=== PATIENT | female | born 1940 | race Caucasian/White ===

== ENCOUNTER → 2018-01-09 | Outpatient (CLI) | payer MEDICARE, BC ==
--- NOTE | 2018-01-11 06:11 | PE ---
EXAMINATION TYPE: PET CT fusion skull to thigh DATE OF EXAM: 01/09/2018 COMPARISON: NONE HISTORY: Solitary pulmonary nodule TECHNIQUE: Following the intravenous administration of 13.431 mCi of F-18 FDG, whole body images are performed from the skull base to the midthigh. Images are reviewed on the computer in the coronal, axial, and sagittal planes. Reconstructed rotating images are created on independent workstation and reviewed on the computer. A noncontrast CT is performed in conjunction with the PET scan. SCAN: Initial Scan FINDINGS: SKULL BASE AND NECK: No suspicious hypermetabolic uptake is evident. CHEST, MEDIASTINUM, AND HILAR REGION: There is background of moderate to advanced underlying emphysem atous change with moderate slightly nodular ametabolic biapical pleural/parenchymal scarring. No susp icious hypermetabolic nodules are identified. Some prominence slightly hypermetabolic thoracic lymph nodes are seen for reference there is 12 by 8m m pericarinal lymph node with max SUV of 3.51 on axial image 85. ABDOMEN AND PELVIS: No suspicious hypermetabolic uptake is seen. OSSEOUS STRUCTURES: No suspicious hypermetabolic uptake is present. OTHER CT: There is mild to moderate calcified plaque at carotid bulb level bilaterally. Moderate to severe 3 vessel coronary artery calcification is present which is noted marker for boyer ry artery disease. Small hiatal hernia is present. There is small fat-containing periumbilical hernia. There is fairly moderate calcified plaque of aorta extending into branch vessels. There are diverticula throughout the colon most prominent in the sigmoid colon. There is multilevel spurring in the thoracolumbar spine. There is multilevel vacuum disc phenomenon a nd disc space narrowing. There is multilevel facet arthropathy. There is moderate to severe axial briseida nt space loss in both hips with spurring. IMPRESSION: No suspicious hypermetabolic nodules. Nonspecific slightly hypermetabolic thoracic lymph nodes favor reactive, inflammatory, or product of granulomatous disease.
== END ==
LOC: RADPETMAIN 11:37
PROVIDERS: ATTEND Internal Medicine Critical Care Medicine
DX: R91.1 Solitary pulmonary nodule (principal)
CPT/HCPCS: 78815; A9552

== ENCOUNTER → 2018-03-15 | Outpatient (CLI) | payer MEDICARE, BC ==
--- NOTE | 2018-03-19 13:00 | MM ---
Reason for exam: screening (asymptomatic). History: Patient is postmenopausal. Took hormonal contraceptives for 5 years 6 months. Took estrogen for 2 months. Physical Findings: A clinical breast exam by your physician is recommended on an annual basis and results should be correlated with mammographic findings. MG 3D Screening Mammo W/Cad Bilateral CC and MLO view(s) were taken. No prior studies available for comparison. The breast tissue is heterogeneously dense. This may lower the sensitivity of mammography. Finding: There are typically benign round calcifications in the upper outer quadrant, anterior position of the left breast. Asymmetric breast tissue left upper outer quadrant anterior position and in the right anterior position. There is no discrete abnormality. ASSESSMENT: Benign, BI-RAD 2 RECOMMENDATION: Routine screening mammogram of both breasts in 1 year.
== END ==
LOC: RADMAMWWP 15:00
PROVIDERS: ATTEND Internal Medicine Geriatric Medicine
DX: Z12.31 Encounter for screening mammogram for malignant neoplasm of breast (principal)
CPT/HCPCS: 77063; 77067

== ENCOUNTER 2018-04-18 13:57 | Inpatient (IN) | payer MEDICARE, BC ==
[2018-04-18] MEDS ORDERED: SODIUM CHLORIDE 0.9% 1,000 ML IV STA (14:08)
--- NOTE | 2018-04-18 14:50 | ED ---
General Adult HPI - General Chief complaint: Shortness of Breath Stated complaint: Sob Source: patient Mode of arrival: ambulatory Limitations: no limitations - Related Data Home Medications Medication Instructions Recorded Confirmed Albuterol Nebulized [Ventolin 2.5 mg INHALATION RT-QID 04/18/18 04/18/18 Nebulized] Aspirin EC [Ecotrin Low Dose] 81 mg PO DAILY 04/18/18 04/18/18 Atorvastatin [Lipitor] 40 mg PO HS 04/18/18 04/18/18 Clopidogrel [Plavix] 75 mg PO DAILY 04/18/18 04/18/18 Ipratropium/Albuterol Sulfate 1 puff INHALATION RT-QID PRN 04/18/18 04/18/18 [Combivent Respimat Inhaler] Levothyroxine Sodium [Synthroid] 50 mcg PO DAILY 04/18/18 04/18/18 Lisinopril [Zestril] 10 mg PO DAILY 04/18/18 04/18/18 Metoprolol Tartrate [Lopressor] 25 mg PO BID 04/18/18 04/18/18 Omeprazole [PriLOSEC] 20 mg PO DAILY 04/18/18 04/18/18 Ubidecarenone [Co Q-10] 100 mg PO DAILY 04/18/18 04/18/18 Venlafaxine HCl [Effexor XR] 150 mg PO DAILY 04/18/18 04/18/18 Allergies Allergy/AdvReac Type Severity Reaction Status Date / Time fluticasone Allergy Dyspnea Verified 04/18/18 14:28 [From Advair Diskus] Penicillins Allergy Rash/Hives Verified 04/18/18 14:28 salmeterol Allergy Dyspnea Verified 04/18/18 14:28 [From Advair Diskus] Review of Systems ROS Statement: Those systems with pertinent positive or pertinent negative responses have been documented in the HPI. ROS Other: All systems not noted in ROS Statement are negative. Past Medical History Past Medical History: COPD, Hypertension History of Any Multi-Drug Resistant Organisms: None Reported Past Psychological History: No Psychological Hx Reported Smoking Status: Former smoker Past Alcohol Use History: None Reported Past Drug Use History: None Reported General Exam Limitations: no limitations Course Vital Signs 04/18/18 04/18/18 04/18/18 14:00 15:08 16:00 Temperature 97.6 F Pulse Rate 91 71 85 Respiratory 18 18 19 Rate Blood Pressure 156/71 O2 Sat by Pulse 91 L Oximetry 04/18/18 16:55 Temperature Pulse Rate 79 Respiratory 18 Rate Blood Pressure 132/57 O2 Sat by Pulse 94 L Oximetry Medical Decision Making - Medical Decision Making Dictation was produced using [employer] dictation software. please excuse any grammatical, word or spelling errors. Chief Complaint: 78-year-old female past medical history of COPD, hypertension presents with acute onset dyspnea. History of Present Illness: 78-year-old female brought in by EMS from home for shortness of breath. Patient states she is feeling anxious recently. She states her shortness of breath got worse today. Patient has history of some COPD. Patient also has history of hypertension and coronary artery disease. Patient had a heart attack. This year which required stenting. Patient denies any chest pain. She does state that she hasn't had a cough and runny nose recently. Family was at bedside that arrives later report that she does look like she is having some dyspnea. Initial EKG performed by EMS showed computer reading STEMI however patient denied any chest pain. The ROS documented in this emergency department record has been reviewed and confirmed by me. Those systems with pertinent positive or negative responses have been documented in the HPI. All other systems are other negative and/or noncontributory. PHYSICAL EXAM: General Impression: Alert and oriented x3, not in acute distress HEENT: Normocephalic atraumatic, extra-ocular movements intact, pupils equal and reactive to light bilaterally, mucous membranes moist. Cardiovascular: Heart regular rate and rhythm, S1&S2 audible, no murmurs, rubs or gallops Chest: Lungs clear to auscultation bilaterally, no rhonchi, no wheeze, no rales Abdomen: Bowel sounds present, abdomen soft, non-tender, non-distended, no organomegaly Musculoskeletal: Pulses present and equal in all extremities, no peripheral edema Motor: Power 5/5 bilaterally, no focal deficits noted Neurological: CN II-XII grossly intact, no focal motor or sensory deficits noted Skin: Intact with no visualized rashes Psych: Normal affect and mood ED course: Year-old chief complaint of dyspnea. Prehospital EKG showed STEMI. Patient not having any clear overt symptoms of acute coronary syndrome. She appears comfortable at this time. Patient has no pain complaints. Those EKGs were reviewed by myself. EKG was obtained here showing normal sinus rhythm. There are findings of ST elevations however likely secondary to repolarization. Upon arrival are within acceptable limits. More history was obtained from patient.Laboratory evaluation obtained. Leukocytosis of 11.9. D-dimer 1.57. Coag panel unremarkable. Potassium is 6.0 which is confirmed on redraw, is 6.2. Patient doesn't have EKG changes to suggest hyperkalemia. Patient given Lasix. Troponin is 0.038. CK is 84. Urinalysis unremarkable. Repeat EKG shows no dynamic changes. Discussed patient case with Dr. Villalba who recommends patient be started on heparin. He does report no activation of Marketing And Development Coordinator today. He does recommend starting beta blockers.. Patient received aspirin. CT angiogram pending for elevated d-dimer. A right axis deviation or findings on EKG to suggest right heart strain. CT angios obtained showing no findings to suggest pulmonary embolus. At this point clinical presentation consistent with acute coronary syndrome. Patient started on heparin. EKGs were evaluated by Dr. Phelan. Patient be admitted to cardiac telemetry. EKG interpretation: Ventricular rate 80, normal sinus rhythm, VT interval 196, QS 84, QTC 426. Repeat EKG was performed approximately 3 hours later showing no dynamic changes. Ventricular rate 77, VT interval 192, care is 80, QTc 439 - Lab Data Result diagrams: 04/18/18 14:37 04/18/18 16:00 Lab Results 04/18/18 04/18/18 04/18/18 Range/Units 14:37 14:37 14:37 WBC 11.9 H (3.8-10.6) k/uL RBC 4.54 (3.80-5.40) m/uL Hgb 13.1 (11.4-16.0) gm/dL Hct 41.2 (34.0-46.0) % MCV 90.7 (80.0-100.0) fL MCH 28.8 (25.0-35.0) pg MCHC 31.7 (31.0-37.0) g/dL RDW 14.0 (11.5-15.5) % Plt Count 365 (150-450) k/uL Neutrophils % (Manual) 51 % Lymphocytes % (Manual) 13 % Monocytes % (Manual) 8 % Eosinophils % (Manual) 28 % Neutrophils # (Manual) 6.07 (1.3-7.7) k/uL Lymphocytes # (Manual) 1.55 (1.0-4.8) k/uL Monocytes # (Manual) 0.95 (0-1.0) k/uL Eosinophils # (Manual) 3.33 H (0-0.7) k/uL Nucleated RBCs 0 (0-0) /100 WBC Manual Slide Review Performed RBC Morphology Normal PT (9.0-12.0) sec INR (<1.2) APTT (22.0-30.0) sec D-Dimer (<0.60) mg/L FEU Sodium 137 (137-145) mmol/L Potassium 6.0 H (3.5-5.1) mmol/L Chloride 101 (98-107) mmol/L Carbon Dioxide 30 (22-30) mmol/L Anion Gap 6 mmol/L BUN 14 (7-17) mg/dL Creatinine 0.76 (0.52-1.04) mg/dL Est GFR (CKD-EPI)AfAm 88 (>60 ml/min/1.73 sqM) Est GFR (CKD-EPI)NonAf 76 (>60 ml/min/1.73 sqM) Glucose 121 H (74-99) mg/dL Calcium 9.8 (8.4-10.2) mg/dL Magnesium 1.9 (1.6-2.3) mg/dL Total Bilirubin 0.5 (0.2-1.3) mg/dL AST 31 (14-36) U/L ALT 22 (9-52) U/L Alkaline Phosphatase 140 H (38-126) U/L Total Creatine Kinase 84 (30-135) U/L CK-MB (CK-2) 4.4 H (0.0-2.4) ng/mL CK-MB (CK-2) Rel Index 5.2 Troponin I 0.038 H* (0.000-0.034) ng/mL NT-Pro-B Natriuret Pep pg/mL Total Protein 7.9 (6.3-8.2) g/dL Albumin 4.0 (3.5-5.0) g/dL Urine Color Urine Appearance (Clear) Urine pH (5.0-8.0) Ur Specific [place] (1.001-1.035) Urine Protein (Negative) Urine Glucose (UA) (Negative) Urine Ketones (Negative) Urine Blood (Negative) Urine Nitrite (Negative) Urine Bilirubin (Negative) Urine Urobilinogen (<2.0) mg/dL Ur Leukocyte Esterase (Negative) Urine RBC (0-5) /hpf Urine WBC (0-5) /hpf Ur Squamous Epith Cells (0-4) /hpf Amorphous Sediment (None) /hpf 04/18/18 04/18/18 04/18/18 Range/Units 14:37 14:37 15:05 WBC (3.8-10.6) k/uL RBC (3.80-5.40) m/uL Hgb (11.4-16.0) gm/dL Hct (34.0-46.0) % MCV (80.0-100.0) fL MCH (25.0-35.0) pg MCHC (31.0-37.0) g/dL RDW (11.5-15.5) % Plt Count (150-450) k/uL Neutrophils % (Manual) % Lymphocytes % (Manual) % Monocytes % (Manual) % Eosinophils % (Manual) % Neutrophils # (Manual) (1.3-7.7) k/uL Lymphocytes # (Manual) (1.0-4.8) k/uL Monocytes # (Manual) (0-1.0) k/uL Eosinophils # (Manual) (0-0.7) k/uL Nucleated RBCs (0-0) /100 WBC Manual Slide Review RBC Morphology PT 10.3 (9.0-12.0) sec INR 1.0 (<1.2) APTT 23.5 (22.0-30.0) sec D-Dimer 1.57 H (<0.60) mg/L FEU Sodium (137-145) mmol/L Potassium (3.5-5.1) mmol/L Chloride (98-107) mmol/L Carbon Dioxide (22-30) mmol/L Anion Gap mmol/L BUN (7-17) mg/dL Creatinine (0.52-1.04) mg/dL Est GFR (CKD-EPI)AfAm (>60 ml/min/1.73 sqM) Est GFR (CKD-EPI)NonAf (>60 ml/min/1.73 sqM) Glucose (74-99) mg/dL Calcium (8.4-10.2) mg/dL Magnesium (1.6-2.3) mg/dL Total Bilirubin (0.2-1.3) mg/dL AST (14-36) U/L ALT (9-52) U/L Alkaline Phosphatase (38-126) U/L Total Creatine Kinase (30-135) U/L CK-MB (CK-2) (0.0-2.4) ng/mL CK-MB (CK-2) Rel Index Troponin I (0.000-0.034) ng/mL NT-Pro-B Natriuret Pep 511 pg/mL Total Protein (6.3-8.2) g/dL Albumin (3.5-5.0) g/dL Urine Color Yellow Urine Appearance Clear (Clear) Urine pH 6.0 (5.0-8.0) Ur Specific [place] 1.008 (1.001-1.035) Urine Protein Negative (Negative) Urine Glucose (UA) Negative (Negative) Urine Ketones Negative (Negative) Urine Blood Trace H (Negative) Urine Nitrite Negative (Negative) Urine Bilirubin Negative (Negative) Urine Urobilinogen <2.0 (<2.0) mg/dL Ur Leukocyte Esterase Trace H (Negative) Urine RBC 2 (0-5) /hpf Urine WBC 3 (0-5) /hpf Ur Squamous Epith Cells 2 (0-4) /hpf Amorphous Sediment Rare H (None) /hpf 04/18/18 Range/Units 16:00 WBC (3.8-10.6) k/uL RBC (3.80-5.40) m/uL Hgb (11.4-16.0) gm/dL Hct (34.0-46.0) % MCV (80.0-100.0) fL MCH (25.0-35.0) pg MCHC (31.0-37.0) g/dL RDW (11.5-15.5) % Plt Count (150-450) k/uL Neutrophils % (Manual) % Lymphocytes % (Manual) % Monocytes % (Manual) % Eosinophils % (Manual) % Neutrophils # (Manual) (1.3-7.7) k/uL Lymphocytes # (Manual) (1.0-4.8) k/uL Monocytes # (Manual) (0-1.0) k/uL Eosinophils # (Manual) (0-0.7) k/uL Nucleated RBCs (0-0) /100 WBC Manual Slide Review RBC Morphology PT (9.0-12.0) sec INR (<1.2) APTT (22.0-30.0) sec D-Dimer (<0.60) mg/L FEU Sodium (137-145) mmol/L Potassium 6.2 H* (3.5-5.1) mmol/L Chloride (98-107) mmol/L Carbon Dioxide (22-30) mmol/L Anion Gap mmol/L BUN (7-17) mg/dL Creatinine (0.52-1.04) mg/dL Est GFR (CKD-EPI)AfAm (>60 ml/min/1.73 sqM) Est GFR (CKD-EPI)NonAf (>60 ml/min/1.73 sqM) Glucose (74-99) mg/dL Calcium (8.4-10.2) mg/dL Magnesium (1.6-2.3) mg/dL Total Bilirubin (0.2-1.3) mg/dL AST (14-36) U/L ALT (9-52) U/L Alkaline Phosphatase (38-126) U/L Total Creatine Kinase (30-135) U/L CK-MB (CK-2) (0.0-2.4) ng/mL CK-MB (CK-2) Rel Index Troponin I (0.000-0.034) ng/mL NT-Pro-B Natriuret Pep pg/mL Total Protein (6.3-8.2) g/dL Albumin (3.5-5.0) g/dL Urine Color Urine Appearance (Clear) Urine pH (5.0-8.0) Ur Specific [place] (1.001-1.035) Urine Protein (Negative) Urine Glucose (UA) (Negative) Urine Ketones (Negative) Urine Blood (Negative) Urine Nitrite (Negative) Urine Bilirubin (Negative) Urine Urobilinogen (<2.0) mg/dL Ur Leukocyte Esterase (Negative) Urine RBC (0-5) /hpf Urine WBC (0-5) /hpf Ur Squamous Epith Cells (0-4) /hpf Amorphous Sediment (None) /hpf Disposition Clinical Impression: ACS (acute coronary syndrome) Disposition: ADMITTED IP TO THIS HOSP Condition: Fair Referrals: Tru Bustamante MD [Primary Care Provider] - 1-2 days Decision Time: 17:13
[2018-04-18 15:02] LABS: Calcium 9.8 mg/dL (8.4-10.2); HCT 41.2 % (34.0-46.0); HGB 13.1 gm/dL (11.4-16.0); MCH 28.8 pg (25.0-35.0); MCHC 31.7 g/dL (31.0-37.0); MCV 90.7 fL (80.0-100.0); Magnesium 1.9 mg/dL (1.6-2.3); Mean Platelet Volume 6.6; Platelet Count 365 k/uL (150-450); RBC 4.54 m/uL (3.80-5.40); Total Bilirubin 0.5 mg/dL (0.2-1.3); Total Protein 7.9 g/dL (6.3-8.2); WBC 11.9 k/uL (3.8-10.6)
[2018-04-18 15:05] LABS: Partial Thromboplastin Time 23.5 sec (22.0-30.0); Prothrombin Time 10.3 sec (9.0-12.0)
[2018-04-18 15:12] LABS: Eosinophils # (M) 3.33 k/uL (0-0.7); Lymphocytes # (M) 1.55 k/uL (1.0-4.8); Monocytes # (M) 0.95 k/uL (0-1.0); Neutrophils # (M) 6.07 k/uL (1.3-7.7); Neutrophils % (M) 51 %; Nucleated Red Blood Cells 0 /100 WBC (0-0); Total Cells Counted 100
[2018-04-18 15:16] LABS: D-Dimer 1.57 mg/L FEU (<0.60)
[2018-04-18 15:17] LABS: Creatine Kinase MB 4.4 ng/mL (0.0-2.4)
[2018-04-18 15:21] LABS: Troponin I 0.038 ng/mL (0.000-0.034)
[2018-04-18 15:21] LABS: Amorphous Sediment,Urine Rare /hpf; Appearance,Urine Clear (Clear); Bilirubin,Urine Negative (Negative); Blood,Urine Trace (Negative); Color,Urine Yellow; Glucose,Urine (UA) Negative (Negative); Ketones,Urine Negative (Negative); Leukocyte Esterase,Urine Trace (Negative); Nitrite,Urine Negative (Negative); Protein,Urine Negative (Negative); RBC,Urine 2 /hpf (0-5); Specific Gravity,Urine 1.008 (1.001-1.035); Squamous Epithelial Cell,Urine 2 /hpf (0-4); Urobilinogen,Urine <2.0 mg/dL (<2.0)
[2018-04-18] MEDS ORDERED: HEPARIN SODIUM,PORCINE 5,000 UNIT/ML 1 ML VIAL IV PRN (15:31)
[2018-04-18] MEDS ORDERED: HEPARIN SODIUM,PORCINE 10,000 UNIT/ML 1 ML VIAL IV ONE (15:31)
[2018-04-18] MEDS ORDERED: ASPIRIN 81 MG PO STA (15:31)
[2018-04-18] MEDS: HEPARIN SOD,PORK IN 0.45% NACL 25,000 UNIT in 0.45% NACL 1 250ML.BAG IV SCH (15:52)
--- NOTE | 2018-04-18 16:14 | XR ---
EXAMINATION TYPE: XR chest 2V DATE OF EXAM: 04/18/2018 COMPARISON: NONE HISTORY: Short of breath TECHNIQUE: Frontal and lateral views of the chest are obtained. FINDINGS: There is no heart failure. Heart is normal. Costophrenic angles are clear. There is slight coarsening of interstitial markings. IMPRESSION: Pulmonary fibrotic changes. Normal heart.
[2018-04-18] MEDS ORDERED: ALBUTEROL NEBULIZED 2.5 MG/3 ML INHALATION STA (16:37)
[2018-04-18] MEDS ORDERED: FUROSEMIDE 10 MG/ML 4 ML VIAL IV STA (16:38)
--- NOTE | 2018-04-18 17:10 | CT ---
EXAMINATION TYPE: CT angio chest DATE OF EXAM: 04/18/2018 4:38 PM COMPARISON: None HISTORY: dyspnea CT DLP: 289 mGycm Automated exposure control for dose reduction was used. CONTRAST: CTA scan of the thorax is performed with IV Contrast, patient injected with 100 mL of Isovue 370, pul monary embolism protocol. There are 3-D post processed images.. FINDINGS: There is some nodular pleural thickening and infiltrate at the right lung apices bilaterally. There a re pulmonary densities that measure up to 3 cm with calcification. This is probably scarring. There i s moderate pulmonary emphysema. There is no pleural effusion. There is small hiatal hernia. Heart siz e is normal. There is no pericardial effusion. There are mediastinal and bronchial lymph nodes that m easure up to 1.5 cm. There is some calcification also. There is normal contrast opacification of the pulmonary arteries. I see no filling defect. The thoracic and lumbar spine appear intact with hypertrophic spur formation. I see no focal bone be truction. IMPRESSION: No evidence of pulmonary embolism. THERE IS PLEURAL AND PULMONARY SCARRING IN BOTH UPPER LOBES. I DO NOT SUSPECT A NEOPLASTIC PROCESS. P ULMONARY EMPHYSEMA. NO EVIDENCE OF PULMONARY EMBOLISM. 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 THE OLD PET CT SCAN FROM 01/09/2018 IS REVIEWED AND ADENOPATHY AND APICAL PULMONARY AND PLEURAL DENSIT Y APPEARS NOT SIGNIFICANTLY DIFFERENT.
[2018-04-18] MEDS ORDERED: NITROGLYCERIN SL TABS 0.4 MG TAB SUBLINGUAL PRN (17:13)
[2018-04-18] MEDS ORDERED: ALBUTEROL NEBULIZED 2.5 MG/3 ML INHALATION PRN (19:14)
[2018-04-18] MEDS: IPRATROPIUM-ALBUTEROL 3 ML NEB INHALATION SCH (19:34)
[2018-04-18 22:45] LABS: Creatine Kinase MB 4.6 ng/mL (0.0-2.4)
[2018-04-18] MEDS: METOPROLOL TARTRATE 25 MG TAB PO SCH (23:10)
[2018-04-18 23:16] LABS: Troponin I 0.039 ng/mL (0.000-0.034)
[2018-04-19] MEDS: IPRATROPIUM-ALBUTEROL 3 ML NEB INHALATION SCH ×6 (01:08→21:09)
[2018-04-19 02:18] LABS: Cholesterol 129 mg/dL (<200); HDL Cholesterol 47 mg/dL (40-60); LDL Cholesterol,Calculated 61 mg/dL (0-99); Triglycerides 106 mg/dL (<150)
[2018-04-19 02:54] LABS: Creatine Kinase MB 4.4 ng/mL (0.0-2.4)
[2018-04-19 04:26] LABS: Troponin I 0.04 ng/mL (0.000-0.034)
--- NOTE | 2018-04-19 08:34 | P.CRDCN ---
History of Present Illness Consult date: 04/19/18 Requesting physician: Josie Almanzar Consult reason: shortness of breath Chief complaint: Shortness of breath, weakness History of present illness: This is a pleasant 78-year-old female who has a known history of coronary artery disease, she states that she had a myocardial infarction approximately 4 years ago, she was [facility], underwent stent placement at that time, she also has history of hypothyroidism, hypertension, hyperlipidemia, anxiety, emphysema, prior history of smoking, she quit smoking approximately 4 years ago. She states that she has not been feeling well for approximate four-week duration. She's been more short of breath than usual, she 's been having a persistent cough, she states that she's coughing up a yellow sputum. She does feel chills at times, but denies having any fever. She does state that she gets chest pain but only occurs after she has coughed, she feels that across the front of her chest and into her back. She does state that when she is not coughing she has no chest pain at all. Patient states that she called her granddaughter because she was so weak she was unable to walk to the bathroom, is quite short of breath and was brought to the hospital then for further evaluation and treatment. According to the patient, she had been started on an antibiotic as an outpatient for a possible bronchitis/pneumonia. Blood pressure on arrival here 156/70, heart rate in the 90s, 91% on room air. White blood cell count 11.9, hemoglobin 13.1, platelet count 365. D-dimer 1.5. Potassium on admission was 6, 6.2 was susceptible and dry. BUN 14, creatinine 0.7. Troponins 0.038, 0.039, 0.040. Urinalysis showed trace of leukocyte Estrace trace of blood in the urine. Chest x-ray showed pulmonary fibrotic changes. CTA of the chest did not reveal any evidence for pulmonary embolism. There is some nodular pleural thickening and infiltrate at the right lung apices bilaterally. Pulmonary densities that measure up to 3 cm with calcification which is likely scarring. There is moderate pulmonary emphysema. Mediastinotomy bronchial lymph nodes measuring up to 1.5 cm with some calcification noted there as well. EKG on arrival here shows a normal sinus rhythm with nonspecific ST-T wave changes. At the time of my examination this morning, patient states that she feels mildly weak, has decreased appetite, denies any chest pain and breathing overall is stable. She continues to cough up yellow sputum. Past Medical History Past Medical History: Heart Failure, COPD, Hearing Disorder / Deafness, Hypertension, Myocardial Infarction ([place]), Osteoarthritis (OA), Respiratory Disorder Additional Past Medical History / Comment(s): HOME OXYGEN 2LNC UNDER 10YEARS Last Myocardial Infarction Date:: 2013 History of Any Multi-Drug Resistant Organisms: None Reported Past Surgical History: Appendectomy, Heart Catheterization With Stent Past Anesthesia/Blood Transfusion Reactions: No Reported Reaction Date of Last Stent Placement:: 2013 Past Psychological History: No Psychological Hx Reported Smoking Status: Former smoker Past Alcohol Use History: None Reported Past Drug Use History: None Reported - Past Family History Father Family Medical History: Prostate Disorder Additional Family Medical History / Comment(s): PROSTATE CA Mother Family Medical History: Congestive Heart Failure (CHF) Medications and Allergies Home Medications Medication Instructions Recorded Confirmed Type Albuterol Nebulized [Ventolin 2.5 mg INHALATION RT-QID 04/18/18 04/18/18 History Nebulized] Aspirin EC [Ecotrin Low Dose] 81 mg PO DAILY 04/18/18 04/18/18 History Atorvastatin [Lipitor] 40 mg PO HS 04/18/18 04/18/18 History Clopidogrel [Plavix] 75 mg PO DAILY 04/18/18 04/18/18 History Ipratropium/Albuterol Sulfate 1 puff INHALATION RT-QID PRN 04/18/18 04/18/18 History [Combivent Respimat Inhaler] Levothyroxine Sodium [Synthroid] 50 mcg PO DAILY 04/18/18 04/18/18 History Lisinopril [Zestril] 10 mg PO DAILY 04/18/18 04/18/18 History Metoprolol Tartrate [Lopressor] 25 mg PO BID 04/18/18 04/18/18 History Omeprazole [PriLOSEC] 20 mg PO DAILY 04/18/18 04/18/18 History Ubidecarenone [Co Q-10] 100 mg PO DAILY 04/18/18 04/18/18 History Venlafaxine HCl [Effexor XR] 150 mg PO DAILY 04/18/18 04/18/18 History Allergies Allergy/AdvReac Type Severity Reaction Status Date / Time fluticasone Allergy Dyspnea Verified 04/18/18 14:28 [From Advair Diskus] Penicillins Allergy Rash/Hives Verified 04/18/18 14:28 salmeterol Allergy Dyspnea Verified 04/18/18 14:28 [From Advair Diskus] Physical Exam Vitals: Vital Signs Temp Pulse Pulse Resp BP BP Pulse Ox 04/19/18 05:18 92 04/19/18 05:03 88 04/19/18 04:00 98.1 F 87 15 145/95 91 L 04/19/18 01:23 90 04/19/18 01:10 90 04/18/18 22:05 98.1 F 92 20 125/83 94 L 04/18/18 20:00 81 16 140/76 04/18/18 19:46 93 04/18/18 19:38 87 04/18/18 19:30 87 15 152/64 96 04/18/18 19:00 86 25 H 142/68 95 04/18/18 18:42 98.1 F 92 20 125/83 94 L 04/18/18 18:30 81 13 178/89 97 04/18/18 18:00 85 22 145/90 94 L 04/18/18 17:30 98 20 137/62 94 L 04/18/18 17:00 76 14 132/57 95 04/18/18 16:55 79 18 132/57 94 L 04/18/18 16:00 85 19 04/18/18 15:08 71 18 04/18/18 14:00 97.6 F 91 18 156/71 91 L Intake and Output 04/18/18 04/19/18 04/19/18 22:59 06:59 14:59 Intake Total 122.492 Output Total 150 Balance -27.508 Intake: Intake, IV Titration 122.492 Amount Heparin Sod,Pork in 0.45% 122.492 NaCl 25,000 unit In 0.45 % NaCl 1 250ml.bag @ 18 UNITS/KG/HR 11.43 mls/hr IV .[id number] [facility] Rx#: [id number] Output: Urine 150 Other: Voiding Method Toilet Toilet Bedside Commode Bedside Commode Weight 66.1 kg PHYSICAL EXAMINATION: GENERAL: 78-year-old female in no acute distress at the time of my examination HEENT: Head is atraumatic, normocephalic. Pupils equal, round. Sclera anicteric. Conjunctiva are clear. Mucous membranes of the mouth are moist. Neck is supple. There is no elevated jugular venous pressure.No Carotid bruit is heard. HEART EXAMINATION: Heart S1, S2 normal. No murmur or gallop heard. CHEST EXAMINATION: Lungs reveal coarse rales to bilateral bases. ABDOMEN: Soft, nontender. Bowel sounds are heard. No organomegaly noted. EXTREMITIES: 2+ peripheral pulses with no evidence of peripheral edema and no calf tenderness noted. NEUROLOGIC patient is awake, alert and oriented 3 . . Results 04/18/18 14:37 04/18/18 16:00 Cardiac Enzymes 04/18/18 04/18/18 04/18/18 Range/Units 14:37 14:37 21:22 AST 31 (14-36) U/L CK-MB (CK-2) 4.4 H 4.6 H (0.0-2.4) ng/mL Troponin I 0.038 H* 0.039 H* (0.000-0.034) ng/mL 04/19/18 Range/Units 01:30 AST (14-36) U/L CK-MB (CK-2) 4.4 H (0.0-2.4) ng/mL Troponin I 0.040 H* (0.000-0.034) ng/mL Coagulation 04/18/18 04/19/18 Range/Units 14:37 01:30 PT 10.3 (9.0-12.0) sec APTT 23.5 116.0 H* (22.0-30.0) sec Lipids 04/19/18 Range/Units 01:30 Triglycerides 106 (<150) mg/dL Cholesterol 129 (<200) mg/dL HDL Cholesterol 47 (40-60) mg/dL CBC 04/18/18 Range/Units 14:37 WBC 11.9 H (3.8-10.6) k/uL RBC 4.54 (3.80-5.40) m/uL Hgb 13.1 (11.4-16.0) gm/dL Hct 41.2 (34.0-46.0) % Plt Count 365 (150-450) k/uL Comprehensive Metabolic Panel 04/18/18 04/18/18 Range/Units 14:37 16:00 Sodium 137 (137-145) mmol/L Potassium 6.0 H 6.2 H* (3.5-5.1) mmol/L Chloride 101 (98-107) mmol/L Carbon Dioxide 30 (22-30) mmol/L BUN 14 (7-17) mg/dL Creatinine 0.76 (0.52-1.04) mg/dL Glucose 121 H (74-99) mg/dL Calcium 9.8 (8.4-10.2) mg/dL AST 31 (14-36) U/L ALT 22 (9-52) U/L Alkaline Phosphatase 140 H (38-126) U/L Total Protein 7.9 (6.3-8.2) g/dL Albumin 4.0 (3.5-5.0) g/dL Current Medications Generic Name Dose Route Start Last Admin Trade Name Freq PRN Reason Stop Dose Admin Albuterol Sulfate 2.5 mg 04/18/18 19:14 04/18/18 19:36 Ventolin Nebulized INHALATION 2.5 mg RT-QID PRN Administration Dyspnea Albuterol/Ipratropium 3 ml 04/18/18 20:00 04/19/18 05:03 Duoneb 0.5 Mg-3 Mg/3 Ml Soln INHALATION 3 ml RT-Q4H MELANIA Administration Aspirin 325 mg 04/19/18 09:00 Aspirin PO DAILY [facility] Atorvastatin Calcium 80 mg 04/19/18 09:00 Lipitor PO DAILY [facility] Clopidogrel Bisulfate 75 mg 04/19/18 09:00 Plavix PO DAILY [facility] Heparin Sodium (Porcine) 0 unit 04/18/18 15:31 Heparin IV PER PROTOCOL PRN Low PTT Protocol Sodium Chloride 1,000 mls @ 20 mls/hr 04/18/18 14:08 04/18/18 14:34 Saline 0.9% IV 04/19/18 14:07 20 mls/hr .Q24H [facility] Administration Heparin Sodium/Sodium Chloride 250 mls @ 11.43 mls/hr 04/18/18 15:45 03:35 25,000 unit/ Sodium Chloride IV 15 units/kg/hr .[id number] MELANIA 9.52 mls/hr Titration Protocol 18 UNITS/KG/HR Metoprolol Tartrate 25 mg 04/18/18 21:00 04/18/18 23:10 Lopressor PO 25 mg BID MELANIA Administration Nitroglycerin 0.4 mg 04/18/18 17:13 Nitrostat SUBLINGUAL Q5M PRN Chest Pain Intake and Output 04/18/18 04/19/18 04/19/18 22:59 06:59 14:59 Intake Total 122.492 Output Total 150 Balance -27.508 Intake: Intake, IV Titration 122.492 Amount Heparin Sod,Pork in 0.45% 122.492 NaCl 25,000 unit In 0.45 % NaCl 1 250ml.bag @ 18 UNITS/KG/HR 11.43 mls/hr IV .[id number] [facility] Rx#: [id number] Output: Urine 150 Other: Voiding Method Toilet Toilet Bedside Commode Bedside Commode Weight 66.1 kg 04/18/18 14:37 04/18/18 16:00 EKG Interpretations (text) EKG shows normal sinus rhythm with nonspecific ST-T wave changes Assessment and Plan Plan: Assessment and plan #1 symptoms of shortness of breath with associated productive cough of yellow sputum, chest x-ray shows pulmonary fibrotic changes. TA the chest negative for pulmonary embolism, there is some nodular pleural thickening and infiltrate at the right lung apices bilaterally. Pulmonary densities measuring up to 3 cm with calcification. Moderate pulmonary emphysema. Mediastinotomy bronchial lymph nodes which measure up to 1.5 cm. #2 hyperkalemia #3 atypical chest pain, symptoms occur with deep breathing and with coughing. Troponins 0.038, 0.039, 0.040. #4 hypertension #5 hyperlipidemia #6 coronary artery disease with myocardial infarction 4 years ago with stent placement, we will attempt to obtain records from [facility]. #7 hypothyroidism #8 prior history of smoking #9 emphysema #10 anxiety Plan We will obtain an echocardiogram with Doppler study. Patient's troponin abnormality not consistent with acute coronary syndrome, and chest pain is atypical. Monitor potassium closely. We will hold on the patient's lisinopril for now. Resume the patient's Plavix, decrease aspirin to 81 mg daily, continue statin, continue beta margaret. Patient's to follow. DNP note has been reviewed, I agree with a documented findings and plan of care. Patient was seen and examined.
[2018-04-19 09:01] LABS: Calcium 9.8 mg/dL (8.4-10.2); Potassium 4.6 mmol/L (3.5-5.1)
[2018-04-19] MEDS: CLOPIDOGREL 75 MG TAB PO SCH (09:06)
[2018-04-19] MEDS: METOPROLOL TARTRATE 25 MG TAB PO SCH ×2 (09:06→20:31)
[2018-04-19] MEDS: ATORVASTATIN 80 MG TAB PO SCH (09:06)
[2018-04-19] MEDS: ASPIRIN 325 MG TAB PO SCH (09:06)
[2018-04-19 11:34] LABS: Glucose,Whole Blood 109 mg/dL (75-99)
[2018-04-19] MEDS: INSULIN ASPART 100 UNIT/ML 1 ML 10 ML VIAL SQ SCH ×3 (11:52→20:31)
[2018-04-19] MEDS: methylPREDNISolone SOD SUCCI 125 MG/2 ML VIAL IV SCH ×2 (11:54→16:44)
[2018-04-19] MEDS ORDERED: IPRATROPIUM-ALBUTEROL 3 ML NEB INHALATION PRN (13:04)
--- NOTE | 2018-04-19 13:09 | P.HPIM ---
History of Present Illness H&P Date: 04/19/18 Chief Complaint: Shorthness of breath This is a pleasant 78-year-old female who was brought in to the emergency department today by EMS for shortness of breath from home. Patient states that her shortness of breath has gotten worse today. She does have a history of COPD. Patient states that she is had a cough with yellow sputum and a runny nose recently. Patient denies chills or fever. Patient states that her shortness of breath has increased enough where it's difficult to ambulate to the bathroom. Patient also complains of weakness. Patient states that her difficulty breathing has been increasing where she is finding it more difficult to ambulate around her apartment. Patient has a history of COPD, hypertension and coronary artery disease. Patient had a DC approximate 4 years ago that required stenting at that time. At this time patient is resting in bed comfortably without any complaints. Patient does experience shortness of breath with conversation. Patient states that her cough is approximately what it normally is with yellow sputum which is also normal for her. Patient denies any fever or chills at this time. EKG on arrival showed normal sinus rhythm with nonspecific ST and T-wave changes. Chest x-ray revealed pulmonary fibrotic changes. CT of the chest did not reveal any evidence of pulmonary embolism. There was some nodular pleural thickening and infiltrate at the right lung apexes bilaterally. Patient does have moderate pulmonary emphysema. Mediastinotomy bronchial lymph node measuring up to 1.5 cm with calcification noted as well. Review of Systems All systems: negative Constitutional: Reports fatigue, Reports weakness, Denies chills, Denies fever Eyes: denies blurred vision, denies pain Ears, nose, mouth and throat: Reports nasal congestion, Reports nasal discharge , Denies headache, Denies sore throat Cardiovascular: Denies chest pain, Denies edema, Denies shortness of breath Respiratory: Reports congestion, Reports cough, Reports cough with sputum, Reports dyspnea, Reports home oxygen Gastrointestinal: Denies abdominal pain, Denies diarrhea, Denies nausea, Denies vomiting Genitourinary: Denies dysuria, Denies hematuria Musculoskeletal: Denies myalgias Integumentary: Denies pruritus, Denies rash Neurological: Denies numbness, Denies weakness Psychiatric: Denies anxiety, Denies depression Endocrine: Reports fatigue, Denies weight change Past Medical History Past Medical History: Heart Failure, COPD, Hearing Disorder / Deafness, Hypertension, Myocardial Infarction ([place]), Osteoarthritis (OA), Respiratory Disorder Additional Past Medical History / Comment(s): HOME OXYGEN 2LNC UNDER 10YEARS Last Myocardial Infarction Date:: 2013 History of Any Multi-Drug Resistant Organisms: None Reported Past Surgical History: Appendectomy, Heart Catheterization With Stent Past Anesthesia/Blood Transfusion Reactions: No Reported Reaction Date of Last Stent Placement:: 2013 Past Psychological History: No Psychological Hx Reported Smoking Status: Former smoker Past Alcohol Use History: None Reported Past Drug Use History: None Reported - Past Family History Father Family Medical History: Prostate Disorder Additional Family Medical History / Comment(s): PROSTATE CA Mother Family Medical History: Congestive Heart Failure (CHF) Medications and Allergies Home Medications Medication Instructions Recorded Confirmed Type Albuterol Nebulized [Ventolin 2.5 mg INHALATION RT-QID 04/18/18 04/18/18 History Nebulized] Aspirin EC [Ecotrin Low Dose] 81 mg PO DAILY 04/18/18 04/18/18 History Atorvastatin [Lipitor] 40 mg PO HS 04/18/18 04/18/18 History Clopidogrel [Plavix] 75 mg PO DAILY 04/18/18 04/18/18 History Ipratropium/Albuterol Sulfate 1 puff INHALATION RT-QID PRN 04/18/18 04/18/18 History [Combivent Respimat Inhaler] Levothyroxine Sodium [Synthroid] 50 mcg PO DAILY 04/18/18 04/18/18 History Lisinopril [Zestril] 10 mg PO DAILY 04/18/18 04/18/18 History Metoprolol Tartrate [Lopressor] 25 mg PO BID 04/18/18 04/18/18 History Omeprazole [PriLOSEC] 20 mg PO DAILY 04/18/18 04/18/18 History Ubidecarenone [Co Q-10] 100 mg PO DAILY 04/18/18 04/18/18 History Venlafaxine HCl [Effexor XR] 150 mg PO DAILY 04/18/18 04/18/18 History Allergies Allergy/AdvReac Type Severity Reaction Status Date / Time fluticasone Allergy Dyspnea Verified 04/18/18 14:28 [From Advair Diskus] Penicillins Allergy Rash/Hives Verified 04/18/18 14:28 salmeterol Allergy Dyspnea Verified 04/18/18 14:28 [From Advair Diskus] Physical Exam Vitals: Vital Signs Temp Pulse Pulse Resp BP BP Pulse Ox 04/19/18 12:51 86 04/19/18 12:42 84 04/19/18 12:00 76 16 04/19/18 11:50 76 16 122/70 96 04/19/18 09:15 80 04/19/18 09:06 86 94 L 04/19/18 08:00 97.9 F 83 18 135/64 04/19/18 05:18 92 04/19/18 05:03 88 04/19/18 04:00 98.1 F 87 15 145/95 91 L 04/19/18 01:23 90 04/19/18 01:10 90 04/18/18 22:05 98.1 F 92 20 125/83 94 L 04/18/18 20:00 81 16 140/76 04/18/18 19:46 93 04/18/18 19:38 87 04/18/18 19:30 87 15 152/64 96 04/18/18 19:00 86 25 H 142/68 95 04/18/18 18:42 98.1 F 92 20 125/83 94 L 04/18/18 18:30 81 13 178/89 97 04/18/18 18:00 85 22 145/90 94 L 04/18/18 17:30 98 20 137/62 94 L 04/18/18 17:00 76 14 132/57 95 04/18/18 16:55 79 18 132/57 94 L 04/18/18 16:00 85 19 04/18/18 15:08 71 18 04/18/18 14:00 97.6 F 91 18 156/71 91 L Intake and Output 04/18/18 04/19/18 04/19/18 22:59 06:59 14:59 Intake Total 122.492 340 Output Total 150 Balance -27.508 340 Intake: Intake, IV Titration 122.492 100 Amount Heparin Sod,Pork in 0.45% 122.492 NaCl 25,000 unit In 0.45 % NaCl 1 250ml.bag @ 18 UNITS/KG/HR 11.43 mls/hr IV .[id number] [facility] Rx#: [id number] Sodium Chloride 0.9% 1, 100 000 ml @ 20 mls/hr IV . Q24H [facility] Rx#:[id number] Oral 240 Output: Urine 150 Other: Voiding Method Toilet Toilet Bedside Commode Bedside Commode # Voids 1 Weight 66.1 kg - Constitutional General appearance: average body habitus, cooperative, mild distress - EENT Eyes: anicteric sclerae, EOMI, PERRLA ENT: hearing grossly normal, NA/AT - Neck Neck: no lymphadenopathy, normal ROM, no rigidity - Respiratory Respiratory: bilateral: diminished, dullness - Cardiovascular Rhythm: regular Heart sounds: normal: S1, S2 Abnormal Heart Sounds: no systolic murmur, no diastolic murmur, no rub, no S3 Gallop, no S4 Gallop, no click, no other - Gastrointestinal General gastrointestinal: normal bowel sounds, no organomegaly, soft, no tenderness - Integumentary Integumentary: pale - Neurologic Neurologic: CNII-XII intact - Musculoskeletal Musculoskeletal: generalized weakness - Psychiatric Psychiatric: A&O x's 3, appropriate affect, intact judgment & insight Results CBC & Chem 7: 04/18/18 14:37 04/19/18 08:28 Labs: Abnormal Lab Results - Last 24 Hours (Table) 04/18/18 04/18/18 04/18/18 Range/Units 14:37 14:37 14:37 WBC 11.9 H (3.8-10.6) k/uL Eosinophils # (Manual) 3.33 H (0-0.7) k/uL APTT (22.0-30.0) sec D-Dimer (<0.60) mg/L FEU Potassium 6.0 H (3.5-5.1) mmol/L Carbon Dioxide (22-30) mmol/L Glucose 121 H (74-99) mg/dL POC Glucose (mg/dL) (75-99) mg/dL Alkaline Phosphatase 140 H (38-126) U/L CK-MB (CK-2) 4.4 H (0.0-2.4) ng/mL Troponin I 0.038 H* (0.000-0.034) ng/mL Urine Blood (Negative) Ur Leukocyte Esterase (Negative) Amorphous Sediment (None) /hpf 04/18/18 04/18/18 04/18/18 Range/Units 14:37 15:05 16:00 WBC (3.8-10.6) k/uL Eosinophils # (Manual) (0-0.7) k/uL APTT (22.0-30.0) sec D-Dimer 1.57 H (<0.60) mg/L FEU Potassium 6.2 H* (3.5-5.1) mmol/L Carbon Dioxide (22-30) mmol/L Glucose (74-99) mg/dL POC Glucose (mg/dL) (75-99) mg/dL Alkaline Phosphatase (38-126) U/L CK-MB (CK-2) (0.0-2.4) ng/mL Troponin I (0.000-0.034) ng/mL Urine Blood Trace H (Negative) Ur Leukocyte Esterase Trace H (Negative) Amorphous Sediment Rare H (None) /hpf 04/18/18 04/19/18 04/19/18 Range/Units 21:22 01:30 01:30 WBC (3.8-10.6) k/uL Eosinophils # (Manual) (0-0.7) k/uL APTT 116.0 H* (22.0-30.0) sec D-Dimer (<0.60) mg/L FEU Potassium (3.5-5.1) mmol/L Carbon Dioxide (22-30) mmol/L Glucose (74-99) mg/dL POC Glucose (mg/dL) (75-99) mg/dL Alkaline Phosphatase (38-126) U/L CK-MB (CK-2) 4.6 H 4.4 H (0.0-2.4) ng/mL Troponin I 0.039 H* 0.040 H* (0.000-0.034) ng/mL Urine Blood (Negative) Ur Leukocyte Esterase (Negative) Amorphous Sediment (None) /hpf 04/19/18 04/19/18 04/19/18 Range/Units 08:28 08:28 11:27 WBC (3.8-10.6) k/uL Eosinophils # (Manual) (0-0.7) k/uL APTT 52.5 H (22.0-30.0) sec D-Dimer (<0.60) mg/L FEU Potassium (3.5-5.1) mmol/L Carbon Dioxide 35 H (22-30) mmol/L Glucose 168 H (74-99) mg/dL POC Glucose (mg/dL) 109 H (75-99) mg/dL Alkaline Phosphatase (38-126) U/L CK-MB (CK-2) (0.0-2.4) ng/mL Troponin I (0.000-0.034) ng/mL Urine Blood (Negative) Ur Leukocyte Esterase (Negative) Amorphous Sediment (None) /hpf Thrombosis Risk Factor Assmnt - Choose All That Apply Each Factor Represents 1 point: Serious lung disease incl. pneumonia (< 1month) Each Risk Factor Represents 3 Points: Age 75 years or older Thrombosis Risk Factor Assessment Total Risk Factor Score: 4 Thrombosis Risk Factor Assessment Level: Moderate Risk Assessment and Plan Plan: #1 symptoms of shortness of breath with associated productive cough of yellow sputum, chest x-ray shows pulmonary fibrotic changes. CTA the chest negative for pulmonary embolism, there is some nodular pleural thickening and infiltrate at the right lung apices bilaterally. Pulmonary densities measuring up to 3 cm with calcification. Moderate pulmonary emphysema. Mediastinotomy bronchial lymph nodes which measure up to 1.5 cm. consult pulmonology. Continue Solu- Medrol 60 mg every 6 hours IV. Azithromycin 500 mg by mouth daily. Repeat chest x-ray in the morning. Obtain a sputum culture #2 COPD exacerbation. See aboveContinue with nebulizer treatments. #3 hyperkalemia. We'll monitor CMP repeat potassium 4.6 #4 atypical chest pain, symptoms occur with deep breathing and with coughing. Troponins 0.038, 0.039, 0.040. Cardiac consult appreciated. #5 hypertension Lopressor 25 mg twice a day #6 hyperlipidemia atorvastatin 80 mg by mouth daily #7 coronary artery disease with myocardial infarction 4 years ago with stent placement, we will attempt to obtain records from [facility]. #8 hypothyroidism. Continue levothyroxine 50 mcg by mouth daily. We'll assess thyroid levels. #9 prior history of smoking #10 anxiety. Continue Effexor 150 mg by mouth daily #11 DVT prophylaxis: Heparin drip #12 GI prophylaxis: Pepcid 20 mg by mouth daily Discharge plan: Home in approximately 2-3 days Impression and plan of care have been directed as dictated by the signing physician. Tenisha Sanchez nurse practitioner acting as scribe for signing physician.
--- NOTE | 2018-04-19 14:44 | ECHOF ---
Referral Reason:chest pain MEASUREMENTS -------- HEIGHT: 162.6 cm WEIGHT: 65.8 kg BP: 145/95 IVSd: 1.3 cm (0.6 - 1.1) LVIDd: 2.8 cm (3.9 - 5.3) LVPWd: 1.3 cm (0.6 - 1.1) IVSs: 1.5 cm LVIDs: 1.6 cm LVPWs: 1.4 cm RVIDd: 2.6 cm (< 3.3) LAESV Index (A-L): 16.26 ml/m Ao Diam: 2.8 cm (2.0 - 3.7) LA Diam: 3.5 cm (2.7 - 3.8) AV Cusp: 1.6 cm (1.5 - 2.6) MV E Cornelio: 0.84 m/s MV DecT: 498 ms MV A Cornelio: 1.20 m/s MV E/A Ratio: 0.70 RAP: 5.00 mmHg RVSP: 11.36 mmHg FINDINGS -------- Sinus rhythm. This was a technically adequate study. The left ventricular size is normal. There is mild concentric left ventricular hypertrophy. Overa ll left ventricular systolic function is normal with, an EF between 55 - 60 %. The right ventricle is normal in size and function. Normal LA size by volume 22+/-6 ml/m2. The right atrium is normal in size. Aortic valve is trileaflet and is mildly thickened. There is no evidence of aortic regurgitation. There is no evidence of aortic stenosis. The mitral valve leaflets are mildly thickened. Mild mitral annular calcification present. There is trace to mild mitral regurgitation. Trace tricuspid regurgitation present. Right ventricular systolic pressure is normal at < 35 mmHg. There is no evidence of pulmonary hypertension. The pulmonic valve was not well visualized. The aortic root size is normal. Normal inferior vena cava with normal inspiratory collapse consistent with estimated right atrial pre ssure of 5 mmHg. There is no pericardial effusion. CONCLUSIONS -------- 1. Sinus rhythm. 2. This was a technically adequate study. 3. The left ventricular size is normal. 4. There is mild concentric left ventricular hypertrophy. 5. Overall left ventricular systolic function is normal with, an EF between 55 - 60 %. 6. Normal LA size by volume 22+/-6 ml/m2. 7. Aortic valve is trileaflet and is mildly thickened. 8. The mitral valve leaflets are mildly thickened. 9. Mild mitral annular calcification present. 10. There is trace to mild mitral regurgitation. 11. Trace tricuspid regurgitation present. 12. Right ventricular systolic pressure is normal at < 35 mmHg. 13. There is no evidence of pulmonary hypertension. 14. The pulmonic valve was not well visualized. 15. The aortic root size is normal. 16. There is no pericardial effusion. COUNCIL MEMBER: Dameon Cortez RDCS
--- NOTE | 2018-04-19 15:19 | P.CNPUL ---
History of Present Illness Consult date: 04/19/18 Requesting physician: Josie Almanzar Reason for consult: COPD Chief complaint: Dose of breath History of present illness: This is a 78-year-old female known history of severe COPD, O2 dependent for the last 4 years, patient normally sees Dr. Perez. She is not prednisone dependent. She is maintained on oxygen, and she is also on multiple bronchodilators which she takes at home including albuterol with Atrovent updrafts 4 times a day and when necessary. Patient came in to the ER with 1 day history of increased shortness of breath, productive cough with yellow sputum, no fever no chills, but her shortness of breath has become more and more pronounced, then decided to come into the ER. Her chest x-ray and CT of the chest showed nodular pleural thickening mostly at the right lung apex and bilaterally. [place] to be most likely scarring, and there is evidence of moderate emphysematous changes in both lungs. There was also a small hiatal hernia. No other significant findings noted. Considering her profound shortness of breath and COPD exacerbation, patient was admitted, placed on multiple bronchodilators, antibiotics, IV Solu-Medrol, and this consult was initiated. Patient is already feeling a bit better since she was admitted, denies any headaches no blurred vision no dizziness, she has mostly symptoms of cough, shortness of breath with any activity. Denies any chest pain, no palpitations. Denies any nausea vomiting abdominal pain melena or hematemesis denies any dysuria frequency or urgency. She was found to have slightly elevated troponin, and she was placed on heparin as per cardiology. Otherwise the remaining labs were noted to be unremarkable. She had a relatively normal basic metabolic profile, bicarb is 35 as expected considering her COPD, renal profile is normal. Review of Systems 14 point review of systems were obtained, please refer to pertinent positives in HPI, otherwise remaining systems are negative Past Medical History Past Medical History: Heart Failure, COPD, Hearing Disorder / Deafness, Hypertension, Myocardial Infarction (AK), Osteoarthritis (OA), Respiratory Disorder Additional Past Medical History / Comment(s): HOME OXYGEN 2LNC UNDER 10YEARS Last Myocardial Infarction Date:: 2013 History of Any Multi-Drug Resistant Organisms: None Reported Past Surgical History: Appendectomy, Heart Catheterization With Stent Past Anesthesia/Blood Transfusion Reactions: No Reported Reaction Date of Last Stent Placement:: 2014 Past Psychological History: No Psychological Hx Reported Smoking Status: Former smoker Past Alcohol Use History: None Reported Past Drug Use History: None Reported - Past Family History Father Family Medical History: Prostate Disorder Additional Family Medical History / Comment(s): PROSTATE CA Mother Family Medical History: Congestive Heart Failure (CHF) Medications and Allergies Home Medications Medication Instructions Recorded Confirmed Type Albuterol Nebulized [Ventolin 2.5 mg INHALATION RT-QID 04/18/18 04/18/18 History Nebulized] Aspirin EC [Ecotrin Low Dose] 81 mg PO DAILY 04/18/18 04/18/18 History Atorvastatin [Lipitor] 40 mg PO HS 04/18/18 04/18/18 History Clopidogrel [Plavix] 75 mg PO DAILY 04/18/18 04/18/18 History Ipratropium/Albuterol Sulfate 1 puff INHALATION RT-QID PRN 04/18/18 04/18/18 History [Combivent Respimat Inhaler] Levothyroxine Sodium [Synthroid] 50 mcg PO DAILY 04/18/18 04/18/18 History Lisinopril [Zestril] 10 mg PO DAILY 04/18/18 04/18/18 History Metoprolol Tartrate [Lopressor] 25 mg PO BID 04/18/18 04/18/18 History Omeprazole [PriLOSEC] 20 mg PO DAILY 04/18/18 04/18/18 History Ubidecarenone [Co Q-10] 100 mg PO DAILY 04/18/18 04/18/18 History Venlafaxine HCl [Effexor XR] 150 mg PO DAILY 04/18/18 04/18/18 History Allergies Allergy/AdvReac Type Severity Reaction Status Date / Time fluticasone Allergy Dyspnea Verified 04/18/18 14:28 [From Advair Diskus] Penicillins Allergy Rash/Hives Verified 04/18/18 14:28 salmeterol Allergy Dyspnea Verified 04/18/18 14:28 [From Advair Diskus] Physical Exam Vitals: Vital Signs Temp Pulse Pulse Resp BP BP Pulse Ox 04/19/18 12:51 86 04/19/18 12:42 84 04/19/18 12:00 76 16 04/19/18 11:50 76 16 122/70 96 04/19/18 09:15 80 04/19/18 09:06 86 94 L 04/19/18 08:00 97.9 F 83 18 135/64 04/19/18 05:18 92 04/19/18 05:03 88 04/19/18 04:00 98.1 F 87 15 145/95 91 L 04/19/18 01:23 90 04/19/18 01:10 90 04/18/18 22:05 98.1 F 92 20 125/83 94 L 04/18/18 20:00 81 16 140/76 04/18/18 19:46 93 04/18/18 19:38 87 04/18/18 19:30 87 15 152/64 96 04/18/18 19:00 86 25 H 142/68 95 04/18/18 18:42 98.1 F 92 20 125/83 94 L 04/18/18 18:30 81 13 178/89 97 04/18/18 18:00 85 22 145/90 94 L 04/18/18 17:30 98 20 137/62 94 L 04/18/18 17:00 76 14 132/57 95 04/18/18 16:55 79 18 132/57 94 L 04/18/18 16:00 85 19 Intake and Output 04/19/18 04/19/18 04/19/18 06:59 14:59 22:59 Intake Total 122.492 340 Output Total 150 Balance -27.508 340 Intake: Intake, IV Titration 122.492 100 Amount Heparin Sod,Pork in 0.45% 122.492 NaCl 25,000 unit In 0.45 % NaCl 1 250ml.bag @ 18 UNITS/KG/HR 11.43 mls/hr IV .[id number] [facility] Rx#: [id number] Sodium Chloride 0.9% 1, 100 000 ml @ 20 mls/hr IV . Q24H STA Rx#:[id number] Oral 240 Output: Urine 150 Other: Voiding Method Toilet Bedside Commode # Voids 1 Weight 66.1 kg Physical Exam: Revealed a 78-year-old female in no distress. Head: Atraumatic, normocephalic. HEENT:[Neck is supple.] [No neck masses.] [No thyromegaly.] [No JVD.] PERRLA, EOMI, no icterus. Chest: [Diminished breath sounds at the bases, wheezes noted bilaterally more so on forced expiratory maneuver..] Cardiac Exam: [Normal S1 and S2, no S3 gallop, no murmur.] Abdomen: [Soft, nontender, no megaly, no rebound, no guarding, normal bowel sounds.] Extremities: [No clubbing, no edema, no cyanosis.] Neurological Exam: [No focal neurologic deficit. Psychiatric: Normal mood affect and mental status examination. Skin: No rashes. Lymphatics: No lymphadenopathy.] Results - Laboratory Findings CBC and BMP: 04/18/18 14:37 04/19/18 08:28 PT/INR, D-dimer PT 10.3 sec (9.0-12.0) 04/18/18 14:37 INR 1.0 (<1.2) 04/18/18 14:37 D-Dimer 1.57 mg/L FEU (<0.60) H 04/18/18 14:37 Abnormal lab findings: Abnormal Labs 04/18/18 04/18/18 04/18/18 14:37 14:37 14:37 WBC 11.9 H Eosinophils # (Manual) 3.33 H APTT D-Dimer Potassium 6.0 H Carbon Dioxide Glucose 121 H POC Glucose (mg/dL) Alkaline Phosphatase 140 H CK-MB (CK-2) 4.4 H Troponin I 0.038 H* Urine Blood Ur Leukocyte Esterase Amorphous Sediment 04/18/18 04/18/18 04/18/18 14:37 15:05 16:00 WBC Eosinophils # (Manual) APTT D-Dimer 1.57 H Potassium 6.2 H* Carbon Dioxide Glucose POC Glucose (mg/dL) Alkaline Phosphatase CK-MB (CK-2) Troponin I Urine Blood Trace H Ur Leukocyte Esterase Trace H Amorphous Sediment Rare H 04/18/18 04/19/18 04/19/18 21:22 01:30 01:30 WBC Eosinophils # (Manual) APTT 116.0 H* D-Dimer Potassium Carbon Dioxide Glucose POC Glucose (mg/dL) Alkaline Phosphatase CK-MB (CK-2) 4.6 H 4.4 H Troponin I 0.039 H* 0.040 H* Urine Blood Ur Leukocyte Esterase Amorphous Sediment 04/19/18 04/19/18 04/19/18 08:28 08:28 11:27 WBC Eosinophils # (Manual) APTT 52.5 H D-Dimer Potassium Carbon Dioxide 35 H Glucose 168 H POC Glucose (mg/dL) 109 H Alkaline Phosphatase CK-MB (CK-2) Troponin I Urine Blood Ur Leukocyte Esterase Amorphous Sediment - Diagnostic Findings Chest x-ray: image reviewed CT scan - chest: image reviewed (As noted in HPI.) Assessment and Plan Assessment: Impression: 1 Acute exacerbation of severe COPD. 2 acute on chronic hypoxic respiratory failure secondary to COPD exacerbation and purulent tracheobronchitis. 3 acute purulent tracheobronchitis. 4 chronic nonspecific fibrotic changes noted on the CT of the chest 5 elevated troponin, presently on heparin, cardiology is addressing. 6 hypertension 7 hypercholesterolemia she is presently on atorvastatin 8 history of coronary artery disease and previous [place] with stent placement 4 years ago. 9 hypothyroidism on levothyroxine. 10 remote smoking history quit smoking over 40 years ago. Recommendation: Agree with the present treatment plan including bronchodilators , steroids, antibiotics, agree with GI and DVT prophylaxis, all meds were reviewed, chest x-ray was reviewed CT of the chest was reviewed, not much to be added at this point, we'll continue to follow. Time with Patient: Greater than 30
[2018-04-19] MEDS ORDERED: ALBUTEROL NEBULIZED 2.5 MG/3 ML INHALATION SCH (16:00)
[2018-04-19] MEDS: VENLAFAXINE HCL ER 150 MG CAP PO SCH ×2 (16:40→16:42)
[2018-04-19] MEDS: HEPARIN SOD,PORK IN 0.45% NACL 25,000 UNIT in 0.45% NACL 1 250ML.BAG IV SCH (16:42)
[2018-04-19 17:09] LABS: Glucose,Whole Blood 167 mg/dL (75-99)
[2018-04-19 20:29] LABS: Glucose,Whole Blood 210 mg/dL (75-99)
[2018-04-20] MEDS: methylPREDNISolone SOD SUCCI 125 MG/2 ML VIAL IV SCH ×4 (00:01→17:18)
[2018-04-20] MEDS: IPRATROPIUM-ALBUTEROL 3 ML NEB INHALATION SCH ×6 (00:37→20:24)
[2018-04-20 05:45] LABS: Glucose,Whole Blood 125 mg/dL (75-99)
[2018-04-20] MEDS: INSULIN ASPART 100 UNIT/ML 1 ML 10 ML VIAL SQ SCH ×4 (06:06→21:00)
[2018-04-20] MEDS: PANTOPRAZOLE 40 MG TABLET PO SCH (06:09)
[2018-04-20] MEDS: LEVOTHYROXINE 50 MCG TAB PO SCH (06:09)
[2018-04-20 06:42] LABS: Basophils % (A) 0 %; Eosinophils % (A) 0 %; HCT 39.6 % (34.0-46.0); HGB 12.4 gm/dL (11.4-16.0); Lymphocytes # (A) 1.4 k/uL (1.0-4.8); Lymphocytes % (A) 10 %; MCH 28.9 pg (25.0-35.0); MCHC 31.4 g/dL (31.0-37.0); MCV 92.1 fL (80.0-100.0); Monocytes # (A) 0.3 k/uL (0-1.0); Monocytes % (A) 2 %; Neutrophils # (A) 12.3 k/uL (1.3-7.7); Neutrophils % (A) 87 %; Platelet Count 445 k/uL (150-450); RBC 4.31 m/uL (3.80-5.40); RDW 14.3 % (11.5-15.5); WBC 14.2 k/uL (3.8-10.6)
[2018-04-20 07:04] LABS: Calcium 10.1 mg/dL (8.4-10.2); Potassium 4.5 mmol/L (3.5-5.1); Total Bilirubin 0.3 mg/dL (0.2-1.3); Total Protein 7.8 g/dL (6.3-8.2)
[2018-04-20 07:08] LABS: Glucose,Whole Blood 127 mg/dL (75-99)
--- NOTE | 2018-04-20 07:12 | XR ---
EXAMINATION TYPE: XR chest 2V DATE OF EXAM: 04/20/2018 COMPARISON: 04/18/2018 TECHNIQUE: PA and lateral views submitted. HISTORY: Shortness of breath FINDINGS: There is hyperinflation lungs. Right upper lobe subcentimeter pulmonary nodules are seen. No pleural effusion or pneumothorax. Heart size within normal limits. Atherosclerotic change aorta. Arthropathy of the shoulders. Pleural thickening noted in the upper lobes. Degenerative changes of the spine note d. IMPRESSION: 1. Correlate for COPD and interstitial pneumonitis or chronic lung disease. There is mild prominence of the hilum. Hilar prominence likely corresponds to adenopathy noted by previous CT scan. Degree of pulmonary arterial hypertension also in the differential diagnosis 2. Subcentimeter right upper lobe pulmonary nodules. Malignancy not excluded.
[2018-04-20] MEDS: ASPIRIN 325 MG TAB PO SCH (09:29)
[2018-04-20] MEDS: ASPIRIN 81 MG PO SCH (09:50)
[2018-04-20] MEDS: ATORVASTATIN 80 MG TAB PO SCH (09:50)
[2018-04-20] MEDS: METOPROLOL TARTRATE 25 MG TAB PO SCH ×2 (09:50→20:08)
[2018-04-20] MEDS: CLOPIDOGREL 75 MG TAB PO SCH (09:50)
[2018-04-20 11:08] LABS: Glucose,Whole Blood 174 mg/dL (75-99)
[2018-04-20] MEDS: HEPARIN SOD,PORK IN 0.45% NACL 25,000 UNIT in 0.45% NACL 1 250ML.BAG IV SCH (12:03)
[2018-04-20] MEDS: AZITHROMYCIN 500 MG TAB PO SCH (12:09)
--- NOTE | 2018-04-20 12:10 | P.PN ---
Subjective Progress Note Date: 04/20/18 Principal diagnosis: Acute exacerbation of chronic obstructive pulmonary disease This is a 78-year-old female known history of severe COPD, O2 dependent for the last 4 years, patient normally sees Dr. Perez. She is not prednisone dependent. She is maintained on oxygen, and she is also on multiple bronchodilators which she takes at home including albuterol with Atrovent updrafts 4 times a day and when necessary. Patient came in to the ER with 1 day history of increased shortness of breath, productive cough with yellow sputum, no fever no chills, but her shortness of breath has become more and more pronounced, then decided to come into the ER. Her chest x-ray and CT of the chest showed nodular pleural thickening mostly at the right lung apex and bilaterally. [place] to be most likely scarring, and there is evidence of moderate emphysematous changes in both lungs. There was also a small hiatal hernia. No other significant findings noted. Considering her profound shortness of breath and COPD exacerbation, patient was admitted, placed on multiple bronchodilators, antibiotics, IV Solu-Medrol, and this consult was initiated. Patient is already feeling a bit better since she was admitted, denies any headaches no blurred vision no dizziness, she has mostly symptoms of cough, shortness of breath with any activity. Denies any chest pain, no palpitations. Denies any nausea vomiting abdominal pain melena or hematemesis denies any dysuria frequency or urgency. She was found to have slightly elevated troponin, and she was placed on heparin as per cardiology. Otherwise the remaining labs were noted to be unremarkable. She had a relatively normal basic metabolic profile, bicarb is 35 as expected considering her COPD, renal profile is normal. The patient is seen again today 04/20/2018 in follow-up on the selective care unit. She is currently sitting up in bed. She is awake and alert in no acute distress. She is breathing a bit easier today as compared to yesterday. Still dyspneic on minimal exertion. She is maintaining good O2 saturations in the high 90s on 3 L/m per nasal cannula. She's been afebrile. Hemodynamically stable. Sputum culture pending. White count 14.2. Hemoglobin 12.4. Creatinine 0.81. She remains on bronchodilators, IV Solu-Medrol, empiric antibiotics. X-ray shows evidence of chronic lung disease. Objective - Vital Signs Vital signs: Vital Signs Temp 96.8 F L 04/20/18 08:00 Pulse 88 04/20/18 11:54 Resp 20 04/20/18 11:43 BP 149/60 04/20/18 08:00 Pulse Ox 98 04/20/18 08:00 Intake & Output 04/19/18 04/20/18 04/20/18 18:59 06:59 18:59 Intake Total 824.871 256.929 Balance 824.871 256.929 Weight 65.816 kg Intake: Intake, IV Titration 224.871 136.929 Amount Heparin Sod,Pork in 0.45% 124.871 136.929 NaCl 25,000 unit In 0.45 % NaCl 1 250ml.bag @ 18 UNITS/KG/HR 11.43 mls/hr IV .[id number] [facility] Rx#: [id number] Sodium Chloride 0.9% 1, 100 000 ml @ 20 mls/hr IV . Q24H STA Rx#:[id number] Oral 600 120 Other: Voiding Method Toilet Toilet Bedside Commode Bedside Commode # Voids 1 1 2 - Exam GENERAL EXAM: Alert, active, comfortable in no apparent distress. On 3 L nasal cannula HEAD: Normocephalic. EYES: Normal reaction of pupils, equal size. NOSE: Clear with pink turbinates. THROAT: No erythema or exudates. NECK: No masses, no JVD. CHEST: No chest wall deformity. LUNGS: Equal air entry with lateral end expiratory wheeze, diminished. CVS: S1 and S2 normal with no audible murmur, regular rhythm. ABDOMEN: No hepatosplenomegaly, normal bowel sounds, no guarding or rigidity. SPINE: No scoliosis or deformity SKIN: No rashes CENTRAL NERVOUS SYSTEM: No focal deficits, tone is normal in all 4 extremities. EXTREMITIES: There is no peripheral edema. No clubbing, no cyanosis. Peripheral pulses are intact. - Labs CBC & Chem 7: 04/20/18 05:41 04/20/18 05:41 Labs: Abnormal Lab Results - Last 24 Hours (Table) 04/19/18 04/19/18 04/20/18 Range/Units 16:37 20:27 05:41 WBC 14.2 H (3.8-10.6) k/uL Neutrophils # 12.3 H (1.3-7.7) k/uL APTT (22.0-30.0) sec Carbon Dioxide (22-30) mmol/L Glucose (74-99) mg/dL POC Glucose (mg/dL) 167 H 210 H (75-99) mg/dL Alkaline Phosphatase (38-126) U/L 04/20/18 04/20/18 04/20/18 Range/Units 05:41 05:41 05:44 WBC (3.8-10.6) k/uL Neutrophils # (1.3-7.7) k/uL APTT 58.6 H (22.0-30.0) sec Carbon Dioxide 31 H (22-30) mmol/L Glucose 123 H (74-99) mg/dL POC Glucose (mg/dL) 125 H (75-99) mg/dL Alkaline Phosphatase 179 H (38-126) U/L 04/20/18 04/20/18 Range/Units 07:07 11:06 WBC (3.8-10.6) k/uL Neutrophils # (1.3-7.7) k/uL APTT (22.0-30.0) sec Carbon Dioxide (22-30) mmol/L Glucose (74-99) mg/dL POC Glucose (mg/dL) 127 H 174 H (75-99) mg/dL Alkaline Phosphatase (38-126) U/L Microbiology - Last 24 Hours (Table) 04/19/18 16:43 Gram Stain - Preliminary Sputum Assessment and Plan Assessment: Impression: 1 acute exacerbation of severe COPD. 2 acute on chronic hypoxic respiratory failure secondary to COPD exacerbation and purulent tracheobronchitis. 3 acute purulent tracheobronchitis. 4 chronic nonspecific fibrotic changes noted on the CT of the chest 5 elevated troponin, presently on heparin, cardiology is addressing. 6 hypertension 7 hypercholesterolemia she is presently on atorvastatin 8 history of coronary artery disease and previous [place] with stent placement 4 years ago. 9 hypothyroidism on levothyroxine. 10 remote smoking history quit smoking over 40 years ago. Recommendation: The patient was seen and evaluated by Dr. Lott. We'll continue the current treatment plan. We'll add Pulmicort and Perforomist inhalations. Continue DuoNeb's and IV Solu-Medrol. Empiric antibiotics. Will increase her activity as tolerated. We'll continue to follow. I, the cosigning physician, performed a history & physical examination of the patient. Lungs sounds with bilateral end expiratory wheeze. Maintaining good O2 saturations in the 90s on 3 L/m per nasal cannula I discussed the assessment and plan of care with my nurse practitioner, Kaye Brooks. I attest to the above note as dictated by her.
[2018-04-20] MEDS ORDERED: traZODone HCL 50 MG TAB PO PRN (12:54)
--- NOTE | 2018-04-20 13:02 | P.PN ---
Subjective Progress Note Date: 04/20/18 This is a pleasant 78-year-old female who was brought in to the emergency department today by EMS for shortness of breath from home. Patient states that her shortness of breath has gotten worse today. She does have a history of COPD. Patient states that she is had a cough with yellow sputum and a runny nose recently. Patient denies chills or fever. Patient states that her shortness of breath has increased enough where it's difficult to ambulate to the bathroom. Patient also complains of weakness. Patient states that her difficulty breathing has been increasing where she is finding it more difficult to ambulate around her apartment. Patient has a history of COPD, hypertension and coronary artery disease. Patient had a MS approximate 4 years ago that required stenting at that time. At this time patient is resting in bed comfortably without any complaints. Patient does experience shortness of breath with conversation. Patient states that her cough is approximately what it normally is with yellow sputum which is also normal for her. Patient denies any fever or chills at this time. EKG on arrival showed normal sinus rhythm with nonspecific ST and T-wave changes. Chest x-ray revealed pulmonary fibrotic changes. CT of the chest did not reveal any evidence of pulmonary embolism. There was some nodular pleural thickening and infiltrate at the right lung apexes bilaterally. Patient does have moderate pulmonary emphysema. Mediastinotomy bronchial lymph node measuring up to 1.5 cm with calcification noted as well. 04/20/2018: Patient is sitting at the side of the bed after she's been up to shower. Patient states that shortness of breath has improved since yesterday. Patient is complaining of difficulty sleeping she finds that she is only able to sleep for about a hour even though she is very tired. Patient also states that she was able to shower with minimal difficulties at this time. W BCs 14.2 , hemoglobin 12.4, potassium 4.5. Chest x-ray shows. Patient is maintaining a good O2 saturation in the high 90s on 3 L/m per nasal cannula. Sputum culture is pending. She remains on bronchodilators, IV Solu-Medrol, and empiric antibiotics. Review Of Systems: Constitutional: Reports insomnia No fever, no chills, no night sweats. No weight change. No weakness, fatigue or lethargy. No daytime sleepiness. EENT: No headache. No blurred vision or double vision, no loss of vision. No loss of Hearing, no ringing in the ears, no dizziness. No nasal drainage or congestion. No epistaxis. No sore throat. Lungs: No shortness of breath, cough, no sputum production. No wheezing. Cardiovascular: No chest pain, no lower extremity edema. No palpitations. No paroxysmal nocturnal dyspnea. No orthopnea. No lightheadedness or dizziness. No syncopal episodes. Abdominal: no abdominal discomfort. No nausea, vomiting. no diarrhea. No constipation. No bloody or tarry stools. improved loss of appetite. Genitourinary: No dysuria, increased frequency, urgency. No urinary retention. Musculoskeletal: No myalgias. No muscle weakness, no gait dysfunction, no frequent falls. No back pain. No neck pain. Integumentary: No wounds, no lesions. No rash or pruritus. No unusual bruising. No change in hair or nails. Neurologic: No aphasia. No facial droop. No change in mentation. No head injury. No headache. No paralysis. No paresthesia. Psychiatric: No depression. No anxiety. No mood swings. Endocrine: No abnormal blood sugars. No weight change. No excessive sweating or thirst. Objective - Vital Signs Vital signs: Vital Signs Temp 97.6 F 04/20/18 12:00 Pulse 103 H 04/20/18 12:00 Resp 20 04/20/18 12:00 BP 150/71 04/20/18 12:00 Pulse Ox 94 L 04/20/18 12:00 Intake & Output 04/19/18 04/20/18 04/20/18 18:59 06:59 18:59 Intake Total 824.871 424.212 Balance 824.871 424.212 Weight 65.816 kg Intake: Intake, IV Titration 224.871 184.212 Amount Heparin Sod,Pork in 0.45% 124.871 184.212 NaCl 25,000 unit In 0.45 % NaCl 1 250ml.bag @ 18 UNITS/KG/HR 11.43 mls/hr IV .[id number] [facility] Rx#: [id number] Sodium Chloride 0.9% 1, 100 000 ml @ 20 mls/hr IV . Q24H STA Rx#:[id number] Oral 600 240 Other: Voiding Method Toilet Toilet Bedside Commode Bedside Commode # Voids 1 1 2 - Constitutional General appearance: Present: average body habitus, cooperative, no acute distress - EENT Eyes: Present: anicteric sclerae, EOMI, PERRLA ENT: Present: hearing grossly normal, NA/AT - Neck Neck: Present: normal ROM. Absent: lymphadenopathy - Respiratory Respiratory: bilateral: diminished, negative: dullness, rales, rhonchi, wheezing , prolonged expiration, prolonged inspiration - Cardiovascular Rhythm: regular Heart sounds: normal: S1, S2 Abnormal Heart Sounds: Absent: systolic murmur, diastolic murmur, rub, S3 Gallop , S4 Gallop, click, other - Gastrointestinal General gastrointestinal: Present: normal bowel sounds. Absent: tenderness - Integumentary Integumentary: Present: normal turgor, pale - Neurologic Neurologic: Present: CNII-XII intact - Musculoskeletal Musculoskeletal: Present: gait normal, strength equal bilaterally - Psychiatric Psychiatric: Present: A&O x's 3, appropriate affect, intact judgment & insight - Labs CBC & Chem 7: 04/20/18 05:41 04/20/18 05:41 Labs: Abnormal Lab Results - Last 24 Hours (Table) 04/19/18 04/19/18 04/20/18 Range/Units 16:37 20:27 05:41 WBC 14.2 H (3.8-10.6) k/uL Neutrophils # 12.3 H (1.3-7.7) k/uL APTT (22.0-30.0) sec Carbon Dioxide (22-30) mmol/L Glucose (74-99) mg/dL POC Glucose (mg/dL) 167 H 210 H (75-99) mg/dL Alkaline Phosphatase (38-126) U/L 04/20/18 04/20/18 04/20/18 Range/Units 05:41 05:41 05:44 WBC (3.8-10.6) k/uL Neutrophils # (1.3-7.7) k/uL APTT 58.6 H (22.0-30.0) sec Carbon Dioxide 31 H (22-30) mmol/L Glucose 123 H (74-99) mg/dL POC Glucose (mg/dL) 125 H (75-99) mg/dL Alkaline Phosphatase 179 H (38-126) U/L 04/20/18 04/20/18 Range/Units 07:07 11:06 WBC (3.8-10.6) k/uL Neutrophils # (1.3-7.7) k/uL APTT (22.0-30.0) sec Carbon Dioxide (22-30) mmol/L Glucose (74-99) mg/dL POC Glucose (mg/dL) 127 H 174 H (75-99) mg/dL Alkaline Phosphatase (38-126) U/L Microbiology - Last 24 Hours (Table) 04/19/18 16:43 Gram Stain - Preliminary Sputum Assessment and Plan Plan: #1 symptoms of shortness of breath with associated productive cough of yellow sputum, chest x-ray shows pulmonary fibrotic changes. CTA the chest negative for pulmonary embolism, there is some nodular pleural thickening and infiltrate at the right lung apices bilaterally. Pulmonary densities measuring up to 3 cm with calcification. Moderate pulmonary emphysema. Mediastinotomy bronchial lymph nodes which measure up to 1.5 cm. consult pulmonology. Continue Solu- Medrol 60 mg every 6 hours IV. Azithromycin 500 mg by mouth daily. Repeat chest x-ray in the morning. Obtain a sputum culture #2 COPD exacerbation. See above Continue with nebulizer treatments. #3 hyperkalemia. repeat potassium 4.6 #4 atypical chest pain, symptoms occur with deep breathing and with coughing. Troponins 0.038, 0.039, 0.040. Cardiac consult appreciated. #5 hypertension Lopressor 25 mg twice a day #6 hyperlipidemia atorvastatin 80 mg by mouth daily #7 coronary artery disease with myocardial infarction 4 years ago with stent placement, we will attempt to obtain records from [facility]. #8 hypothyroidism. Continue levothyroxine 50 mcg by mouth daily. Tsh 0.895 #9 prior history of smoking #10 anxiety. Continue Effexor 150 mg by mouth daily #11 insomnia. We will start trazodone 50 mg at night as needed. #12 DVT prophylaxis: Heparin drip #13 GI prophylaxis: Pepcid 20 mg by mouth daily Discharge plan: Home in approximately 2-3 days Impression and plan of care have been directed as dictated by the signing physician. Tenisha Sanchez nurse practitioner acting as scribe for signing physician.
[2018-04-20 16:19] LABS: Glucose,Whole Blood 128 mg/dL (75-99)
[2018-04-20 20:43] LABS: Glucose,Whole Blood 140 mg/dL (75-99)
[2018-04-21] MEDS: methylPREDNISolone SOD SUCCI 125 MG/2 ML VIAL IV SCH ×3 (00:22→20:27)
[2018-04-21] MEDS: IPRATROPIUM-ALBUTEROL 3 ML NEB INHALATION SCH ×6 (00:29→19:49)
[2018-04-21 06:03] LABS: Glucose,Whole Blood 125 mg/dL (75-99)
[2018-04-21 06:28] LABS: Basophils % (A) 0 %; Eosinophils % (A) 0 %; HCT 39.4 % (34.0-46.0); HGB 12.4 gm/dL (11.4-16.0); Lymphocytes # (A) 1.5 k/uL (1.0-4.8); Lymphocytes % (A) 6 %; MCH 28.5 pg (25.0-35.0); MCHC 31.5 g/dL (31.0-37.0); MCV 90.5 fL (80.0-100.0); Monocytes # (A) 0.5 k/uL (0-1.0); Monocytes % (A) 2 %; Neutrophils # (A) 23.8 k/uL (1.3-7.7); Neutrophils % (A) 92 %; Platelet Count 482 k/uL (150-450); RBC 4.36 m/uL (3.80-5.40); RDW 14.3 % (11.5-15.5)
[2018-04-21] MEDS: INSULIN ASPART 100 UNIT/ML 1 ML 10 ML VIAL SQ SCH ×4 (06:39→20:28)
[2018-04-21] MEDS: PANTOPRAZOLE 40 MG TABLET PO SCH (06:39)
[2018-04-21] MEDS: LEVOTHYROXINE 50 MCG TAB PO SCH (06:39)
[2018-04-21 06:40] LABS: Albumin 3.6 g/dL (3.5-5.0); Total Bilirubin 0.3 mg/dL (0.2-1.3)
[2018-04-21 06:43] LABS: Calcium 9.9 mg/dL (8.4-10.2)
[2018-04-21] MEDS: AZITHROMYCIN 500 MG TAB PO SCH (08:00)
[2018-04-21] MEDS: VENLAFAXINE HCL ER 150 MG CAP PO SCH (08:03)
[2018-04-21] MEDS: METOPROLOL TARTRATE 25 MG TAB PO SCH ×2 (08:03→20:27)
[2018-04-21] MEDS: CLOPIDOGREL 75 MG TAB PO SCH (08:03)
[2018-04-21] MEDS: ASPIRIN 81 MG PO SCH (08:03)
[2018-04-21] MEDS: ATORVASTATIN 80 MG TAB PO SCH (08:03)
[2018-04-21] MEDS: HEPARIN SOD,PORK IN 0.45% NACL 25,000 UNIT in 0.45% NACL 1 250ML.BAG IV SCH (08:04)
--- NOTE | 2018-04-21 10:13 | P.PN ---
Subjective Progress Note Date: 04/21/18 Principal diagnosis: Acute exacerbation of chronic obstructive pulmonary disease This is a 78-year-old female known history of severe COPD, O2 dependent for the last 4 years, patient normally sees Dr. Perez. She is not prednisone dependent. She is maintained on oxygen, and she is also on multiple bronchodilators which she takes at home including albuterol with Atrovent updrafts 4 times a day and when necessary. Patient came in to the ER with 1 day history of increased shortness of breath, productive cough with yellow sputum, no fever no chills, but her shortness of breath has become more and more pronounced, then decided to come into the ER. Her chest x-ray and CT of the chest showed nodular pleural thickening mostly at the right lung apex and bilaterally. [place] to be most likely scarring, and there is evidence of moderate emphysematous changes in both lungs. There was also a small hiatal hernia. No other significant findings noted. Considering her profound shortness of breath and COPD exacerbation, patient was admitted, placed on multiple bronchodilators, antibiotics, IV Solu-Medrol, and this consult was initiated. Patient is already feeling a bit better since she was admitted, denies any headaches no blurred vision no dizziness, she has mostly symptoms of cough, shortness of breath with any activity. Denies any chest pain, no palpitations. Denies any nausea vomiting abdominal pain melena or hematemesis denies any dysuria frequency or urgency. She was found to have slightly elevated troponin, and she was placed on heparin as per cardiology. Otherwise the remaining labs were noted to be unremarkable. She had a relatively normal basic metabolic profile, bicarb is 35 as expected considering her COPD, renal profile is normal. The patient is seen again today 04/20/2018 in follow-up on the selective care unit. She is currently sitting up in bed. She is awake and alert in no acute distress. She is breathing a bit easier today as compared to yesterday. Still dyspneic on minimal exertion. She is maintaining good O2 saturations in the high 90s on 3 L/m per nasal cannula. She's been afebrile. Hemodynamically stable. Sputum culture pending. White count 14.2. Hemoglobin 12.4. Creatinine 0.81. She remains on bronchodilators, IV Solu-Medrol, empiric antibiotics. X-ray shows evidence of chronic lung disease. Patient is seen again today 04/21/2018 in follow-up on the selective care unit. She is currently resting quite comfortably in bed. She is able to lay flat. She is breathing easier today as compared to yesterday. Continues to maintain good O2 saturations in the 90s on 3 L/m per nasal cannula. She's afebrile. Hemodynamically stable. Sputum cultures pending. White count 26.0. Hemoglobin 12.4. Creatinine 0.92. She remains on bronchodilators, IV Solu- Medrol, empiric antibiotics. Objective - Vital Signs Vital signs: Vital Signs Temp 96.5 F L 04/21/18 08:00 Pulse 86 04/21/18 08:00 Resp 18 04/21/18 08:00 BP 142/76 04/21/18 08:00 Pulse Ox 95 04/21/18 08:00 Intake & Output 04/20/18 04/21/18 04/21/18 18:59 06:59 18:59 Intake Total 424.212 430.559 Output Total 300 200 Balance 124.212 -200 430.559 Weight 65.3 kg Intake: Intake, IV Titration 184.212 190.559 Amount Heparin Sod,Pork in 0.45% 184.212 190.559 NaCl 25,000 unit In 0.45 % NaCl 1 250ml.bag @ 18 UNITS/KG/HR 11.43 mls/hr IV .[id number] [facility] Rx#: [id number] Oral 240 240 Output: Urine 300 200 Other: Voiding Method Toilet Toilet Toilet # Voids 1 1 # Bowel Movements 4 1 - Exam GENERAL EXAM: Alert, comfortable in no apparent distress. On 3 L nasal cannula HEAD: Normocephalic. EYES: Normal reaction of pupils, equal size. NOSE: Clear with pink turbinates. THROAT: No erythema or exudates. NECK: No masses, no JVD. CHEST: No chest wall deformity. LUNGS: Equal air entry with no significant wheezing, diminished. CVS: S1 and S2 normal with no audible murmur, regular rhythm. ABDOMEN: No hepatosplenomegaly, normal bowel sounds, no guarding or rigidity. SPINE: No scoliosis or deformity SKIN: No rashes CENTRAL NERVOUS SYSTEM: No focal deficits, tone is normal in all 4 extremities. EXTREMITIES: There is no peripheral edema. No clubbing, no cyanosis. Peripheral pulses are intact. - Labs CBC & Chem 7: 04/21/18 05:48 04/21/18 05:48 Labs: Abnormal Lab Results - Last 24 Hours (Table) 04/20/18 04/20/18 04/20/18 Range/Units 11:06 16:17 20:40 WBC (3.8-10.6) k/uL Plt Count (150-450) k/uL Neutrophils # (1.3-7.7) k/uL APTT (22.0-30.0) sec BUN (7-17) mg/dL Glucose (74-99) mg/dL POC Glucose (mg/dL) 174 H 128 H 140 H (75-99) mg/dL Alkaline Phosphatase (38-126) U/L 04/21/18 04/21/18 04/21/18 Range/Units 05:48 05:48 05:48 WBC 26.0 H (3.8-10.6) k/uL Plt Count 482 H (150-450) k/uL Neutrophils # 23.8 H (1.3-7.7) k/uL APTT 70.6 H (22.0-30.0) sec BUN 26 H (7-17) mg/dL Glucose 131 H (74-99) mg/dL POC Glucose (mg/dL) (75-99) mg/dL Alkaline Phosphatase 195 H (38-126) U/L 04/21/18 Range/Units 06:01 WBC (3.8-10.6) k/uL Plt Count (150-450) k/uL Neutrophils # (1.3-7.7) k/uL APTT (22.0-30.0) sec BUN (7-17) mg/dL Glucose (74-99) mg/dL POC Glucose (mg/dL) 125 H (75-99) mg/dL Alkaline Phosphatase (38-126) U/L Microbiology - Last 24 Hours (Table) 04/19/18 16:43 Gram Stain - Preliminary Sputum Assessment and Plan Assessment: Impression: 1 acute exacerbation of severe COPD. he covered. 2 acute on chronic hypoxic respiratory failure secondary to COPD exacerbation and purulent tracheobronchitis. 3 acute purulent tracheobronchitis. 4 chronic nonspecific fibrotic changes noted on the CT of the chest 5 elevated troponin, presently on heparin, cardiology is addressing. 6 hypertension 7 hypercholesterolemia she is presently on atorvastatin 8 history of coronary artery disease and previous CA with stent placement 4 years ago. 9 hypothyroidism on levothyroxine. 10 remote smoking history quit smoking over 40 years ago. Recommendation: The patient was seen and evaluated by Dr. Lott. She is stable from the pulmonary standpoint. Continue her home pulmonary medications. Continue prednisone burst and taper. Continue her course of antibiotics. Follow-up in our office in 1-2 weeks' time post discharge. I, the cosigning physician, performed a history & physical examination of the patient. Lungs sounds clear, diminished. Maintaining good O2 saturations in the 90s on 3 L/m per nasal cannula I discussed the assessment and plan of care with my nurse practitioner, Kaye Brooks. I attest to the above note as dictated by her.
[2018-04-21 11:27] LABS: Glucose,Whole Blood 141 mg/dL (75-99)
--- NOTE | 2018-04-21 11:45 | P.PN ---
Subjective Progress Note Date: 04/21/18 This is a pleasant 78-year-old female who has a known history of coronary artery disease, she states that she had a myocardial infarction approximately 4 years ago, she was [facility], underwent stent placement at that time, she also has history of hypothyroidism, hypertension, hyperlipidemia, anxiety, emphysema, prior history of smoking, she quit smoking approximately 4 years ago. She states that she has not been feeling well for approximate four-week duration. She's been more short of breath than usual, she 's been having a persistent cough, she states that she's coughing up a yellow sputum. She does feel chills at times, but denies having any fever. She does state that she gets chest pain but only occurs after she has coughed, she feels that across the front of her chest and into her back. She does state that when she is not coughing she has no chest pain at all. Patient states that she called her granddaughter because she was so weak she was unable to walk to the bathroom, is quite short of breath and was brought to the hospital then for further evaluation and treatment. According to the patient, she had been started on an antibiotic as an outpatient for a possible bronchitis/pneumonia. Blood pressure on arrival here 156/70, heart rate in the 90s, 91% on room air. White blood cell count 11.9, hemoglobin 13.1, platelet count 365. D-dimer 1.5. Potassium on admission was 6, 6.2 was susceptible and dry. BUN 14, creatinine 0.7. Troponins 0.038, 0.039, 0.040. Urinalysis showed trace of leukocyte Estrace trace of blood in the urine. Chest x-ray showed pulmonary fibrotic changes. CTA of the chest did not reveal any evidence for pulmonary embolism. There is some nodular pleural thickening and infiltrate at the right lung apices bilaterally. Pulmonary densities that measure up to 3 cm with calcification which is likely scarring. There is moderate pulmonary emphysema. Mediastinotomy bronchial lymph nodes measuring up to 1.5 cm with some calcification noted there as well. EKG on arrival here shows a normal sinus rhythm with nonspecific ST-T wave changes. At the time of my examination this morning, patient states that she feels mildly weak, has decreased appetite, denies any chest pain and breathing overall is stable. She continues to cough up yellow sputum. 04/21/2017 Patient seen and examined this morning, she walked to the bathroom earlier, breathing is stable. Blood pressure 142/70 with a heart rate in the 80s. We will discontinue her heparin today. White blood cell count 26, hemoglobin 12.4 , platelet count 482. Sodium 137, potassium 5.0, BUN 26, creatinine 0.9. From cardiology's perspective, we'll recommend to continue the patient on her current medications. We will follow her along with you now on an as-needed basis only, please don't hesitate to call with any questions. Objective - Vital Signs Vital signs: Vital Signs Temp 97.1 F L 04/21/18 11:28 Pulse 78 04/21/18 11:28 Resp 18 04/21/18 11:28 BP 139/66 04/21/18 11:28 Pulse Ox 99 04/21/18 11:28 Intake & Output 04/20/18 04/21/18 04/21/18 18:59 06:59 18:59 Intake Total 424.212 430.559 Output Total 300 200 Balance 124.212 -200 430.559 Weight 65.3 kg Intake: Intake, IV Titration 184.212 190.559 Amount Heparin Sod,Pork in 0.45% 184.212 190.559 NaCl 25,000 unit In 0.45 % NaCl 1 250ml.bag @ 18 UNITS/KG/HR 11.43 mls/hr IV .[id number] [facility] Rx#: [id number] Oral 240 240 Output: Urine 300 200 Other: Voiding Method Toilet Toilet Toilet # Voids 1 1 # Bowel Movements 4 1 - Exam PHYSICAL EXAMINATION: GENERAL: 78-year-old female in no acute distress at the time of my examination HEENT: Head is atraumatic, normocephalic. Pupils equal, round. Sclera anicteric. Conjunctiva are clear. Mucous membranes of the mouth are moist. Neck is supple. There is no elevated jugular venous pressure.No Carotid bruit is heard. HEART EXAMINATION: Heart S1, S2 normal. No murmur or gallop heard. CHEST EXAMINATION: Lungs reveal fine crackles to bilateral bases. ABDOMEN: Soft, nontender. Bowel sounds are heard. No organomegaly noted. EXTREMITIES: 2+ peripheral pulses with no evidence of peripheral edema and no calf tenderness noted. NEUROLOGIC patient is awake, alert and oriented 3 . - Labs CBC & Chem 7: 04/21/18 05:48 04/21/18 05:48 Labs: Abnormal Lab Results - Last 24 Hours (Table) 04/20/18 04/20/18 04/21/18 Range/Units 16:17 20:40 05:48 WBC 26.0 H (3.8-10.6) k/uL Plt Count 482 H (150-450) k/uL Neutrophils # 23.8 H (1.3-7.7) k/uL APTT (22.0-30.0) sec BUN (7-17) mg/dL Glucose (74-99) mg/dL POC Glucose (mg/dL) 128 H 140 H (75-99) mg/dL Alkaline Phosphatase (38-126) U/L 04/21/18 04/21/18 04/21/18 Range/Units 05:48 05:48 06:01 WBC (3.8-10.6) k/uL Plt Count (150-450) k/uL Neutrophils # (1.3-7.7) k/uL APTT 70.6 H (22.0-30.0) sec BUN 26 H (7-17) mg/dL Glucose 131 H (74-99) mg/dL POC Glucose (mg/dL) 125 H (75-99) mg/dL Alkaline Phosphatase 195 H (38-126) U/L 04/21/18 Range/Units 11:08 WBC (3.8-10.6) k/uL Plt Count (150-450) k/uL Neutrophils # (1.3-7.7) k/uL APTT (22.0-30.0) sec BUN (7-17) mg/dL Glucose (74-99) mg/dL POC Glucose (mg/dL) 141 H (75-99) mg/dL Alkaline Phosphatase (38-126) U/L Microbiology - Last 24 Hours (Table) 04/19/18 16:43 Gram Stain - Preliminary Sputum Assessment and Plan Plan: Assessment and plan #1 symptoms of shortness of breath with associated productive cough of yellow sputum, chest x-ray shows pulmonary fibrotic changes. TA the chest negative for pulmonary embolism, there is some nodular pleural thickening and infiltrate at the right lung apices bilaterally. Pulmonary densities measuring up to 3 cm with calcification. Moderate pulmonary emphysema. Mediastinotomy bronchial lymph nodes which measure up to 1.5 cm. #2 hyperkalemia #3 atypical chest pain, symptoms occur with deep breathing and with coughing. Troponins 0.038, 0.039, 0.040. #4 hypertension #5 hyperlipidemia #6 coronary artery disease with myocardial infarction 4 years ago with stent placement, we will attempt to obtain records from [facility]. #7 hypothyroidism #8 prior history of smoking #9 emphysema #10 anxiety Plan Echocardiogram with Doppler shows normal LV function. From cardiology's perspective, we'll discontinue the IV heparin. We will follow along with you now on an as-needed basis only, please don't hesitate to call with any questions. DNP note has been reviewed, I agree with a documented findings and plan of care. Patient was seen and examined.
--- NOTE | 2018-04-21 13:57 | P.PN ---
Subjective Progress Note Date: 04/21/18 This is a pleasant 78-year-old female who was brought in to the emergency department today by EMS for shortness of breath from home. Patient states that her shortness of breath has gotten worse today. She does have a history of COPD. Patient states that she is had a cough with yellow sputum and a runny nose recently. Patient denies chills or fever. Patient states that her shortness of breath has increased enough where it's difficult to ambulate to the bathroom. Patient also complains of weakness. Patient states that her difficulty breathing has been increasing where she is finding it more difficult to ambulate around her apartment. Patient has a history of COPD, hypertension and coronary artery disease. Patient had a MD approximate 4 years ago that required stenting at that time. At this time patient is resting in bed comfortably without any complaints. Patient does experience shortness of breath with conversation. Patient states that her cough is approximately what it normally is with yellow sputum which is also normal for her. Patient denies any fever or chills at this time. EKG on arrival showed normal sinus rhythm with nonspecific ST and T-wave changes. Chest x-ray revealed pulmonary fibrotic changes. CT of the chest did not reveal any evidence of pulmonary embolism. There was some nodular pleural thickening and infiltrate at the right lung apexes bilaterally. Patient does have moderate pulmonary emphysema. Mediastinotomy bronchial lymph node measuring up to 1.5 cm with calcification noted as well. 04/20/2018: Patient is sitting at the side of the bed after she's been up to shower. Patient states that shortness of breath has improved since yesterday. Patient is complaining of difficulty sleeping she finds that she is only able to sleep for about a hour even though she is very tired. Patient also states that she was able to shower with minimal difficulties at this time. W BCs 14.2 , hemoglobin 12.4, potassium 4.5. Chest x-ray shows. Patient is maintaining a good O2 saturation in the high 90s on 3 L/m per nasal cannula. Sputum culture is pending. She remains on bronchodilators, IV Solu-Medrol, and empiric antibiotics. 1/2: Patient's breathing status is improved from yesterday. Pulse ox is running 96% on 3 L nasal cannula. She is continued on Solu-Medrol at 60 mg every 6 hours which we will change to every 12 hours. Patient has been refusing to take azithromycin today and she had diarrhea after taking one pill. Azithromycin will be discontinued. Breathing is a little better from yesterday. She states she has been up to the bathroom on her own. Patient will be transferred to the [facility] without telemetry today. White count is 26, creatinine 0.92. Electrolytes are within normal limits. Capillary blood glucose running between 125 and 140. Alkaline phosphatase 195. Sputum culture is in progress. Review Of Systems: Constitutional: Reports insomnia No fever, no chills, no night sweats. No weight change. No weakness, fatigue or lethargy. No daytime sleepiness. EENT: No headache. No blurred vision or double vision, no loss of vision. No loss of Hearing, no ringing in the ears, no dizziness. No nasal drainage or congestion. No epistaxis. No sore throat. Lungs: improved shortness of breath, cough, no sputum production. No wheezing. Cardiovascular: No chest pain, no lower extremity edema. No palpitations. No paroxysmal nocturnal dyspnea. No orthopnea. No lightheadedness or dizziness. No syncopal episodes. Abdominal: no abdominal discomfort. No nausea, vomiting. no diarrhea. No constipation. No bloody or tarry stools. improved loss of appetite. Genitourinary: No dysuria, increased frequency, urgency. No urinary retention. Musculoskeletal: No myalgias. No muscle weakness, no gait dysfunction, no frequent falls. No back pain. No neck pain. Integumentary: No wounds, no lesions. No rash or pruritus. No unusual bruising. No change in hair or nails. Neurologic: No aphasia. No facial droop. No change in mentation. No head injury. No headache. No paralysis. No paresthesia. Psychiatric: No depression. No anxiety. No mood swings. Endocrine: No abnormal blood sugars. No weight change. No excessive sweating or thirst. Objective - Vital Signs Vital signs: Vital Signs Temp 96.5 F L 04/21/18 08:00 Pulse 86 04/21/18 08:00 Resp 18 04/21/18 08:00 BP 142/76 04/21/18 08:00 Pulse Ox 95 04/21/18 08:00 Intake & Output 04/20/18 04/21/18 04/21/18 18:59 06:59 18:59 Intake Total 424.212 430.559 Output Total 300 200 Balance 124.212 -200 430.559 Weight 65.3 kg Intake: Intake, IV Titration 184.212 190.559 Amount Heparin Sod,Pork in 0.45% 184.212 190.559 NaCl 25,000 unit In 0.45 % NaCl 1 250ml.bag @ 18 UNITS/KG/HR 11.43 mls/hr IV .[id number] [facility] Rx#: [id number] Oral 240 240 Output: Urine 300 200 Other: Voiding Method Toilet Toilet Toilet # Voids 1 1 # Bowel Movements 4 1 - Exam General appearance: Present: average body habitus, cooperative, no acute distress, patient resting comfortably. - EENT Eyes: Present: anicteric sclerae, EOMI, PERRLA ENT: Present: hearing grossly normal, NA/AT - Neck Neck: Present: normal ROM. Absent: lymphadenopathy - Respiratory Respiratory: bilateral: diminished, negative: dullness, rales, rhonchi, wheezing , prolonged expiration, prolonged inspiration - Cardiovascular Rhythm: regular Heart sounds: normal: S1, S2 Abnormal Heart Sounds: Absent: systolic murmur, diastolic murmur, rub, S3 Gallop , S4 Gallop, click, other - Gastrointestinal General gastrointestinal: Present: normal bowel sounds. Absent: tenderness - Integumentary Integumentary: Present: normal turgor, pale - Neurologic Neurologic: Present: CNII-XII intact - Musculoskeletal Musculoskeletal: Present: gait normal, strength equal bilaterally - Psychiatric Psychiatric: Present: A&O x's 3, appropriate affect, intact judgment & insight - Labs CBC & Chem 7: 04/21/18 05:48 04/21/18 05:48 Labs: Abnormal Lab Results - Last 24 Hours (Table) 04/20/18 04/20/18 04/20/18 Range/Units 11:06 16:17 20:40 WBC (3.8-10.6) k/uL Plt Count (150-450) k/uL Neutrophils # (1.3-7.7) k/uL APTT (22.0-30.0) sec BUN (7-17) mg/dL Glucose (74-99) mg/dL POC Glucose (mg/dL) 174 H 128 H 140 H (75-99) mg/dL Alkaline Phosphatase (38-126) U/L 04/21/18 04/21/18 04/21/18 Range/Units 05:48 05:48 05:48 WBC 26.0 H (3.8-10.6) k/uL Plt Count 482 H (150-450) k/uL Neutrophils # 23.8 H (1.3-7.7) k/uL APTT 70.6 H (22.0-30.0) sec BUN 26 H (7-17) mg/dL Glucose 131 H (74-99) mg/dL POC Glucose (mg/dL) (75-99) mg/dL Alkaline Phosphatase 195 H (38-126) U/L 04/21/18 Range/Units 06:01 WBC (3.8-10.6) k/uL Plt Count (150-450) k/uL Neutrophils # (1.3-7.7) k/uL APTT (22.0-30.0) sec BUN (7-17) mg/dL Glucose (74-99) mg/dL POC Glucose (mg/dL) 125 H (75-99) mg/dL Alkaline Phosphatase (38-126) U/L Microbiology - Last 24 Hours (Table) 04/19/18 16:43 Gram Stain - Preliminary Sputum Assessment and Plan Plan: #1 acute respiratory distress with chronic hypoxic respiratory failure secondary to acute COPD exacerbation. Chest x-ray shows pulmonary fibrotic changes. CTA the chest negative for pulmonary embolism, there is some nodular pleural thickening and infiltrate at the right lung apices bilaterally. Pulmonary densities measuring up to 3 cm with calcification. Moderate pulmonary emphysema. Mediastinotomy bronchial lymph nodes which measure up to 1.5 cm. Pulmonary consultation is appreciated. Continue DuoNeb treatments 4 times daily as needed and every 4 hours as scheduled, azithromycin, Solu-Medrol at 60 mg every 6 hours decreased to every 12 hours. Sputum culture in progress. #2 COPD exacerbation. See above Continue with nebulizer treatments. #3 hyperkalemia. repeat potassium 4.6 #4 atypical chest pain, symptoms occur with deep breathing and with coughing. Troponins 0.038, 0.039, 0.040. Cardiac consult appreciated. Acute coronary syndrome ruled out. #5 hypertension Lopressor 25 mg twice a day #6 hyperlipidemia atorvastatin 80 mg by mouth daily #7 coronary artery disease with myocardial infarction 4 years ago with stent placement, we will attempt to obtain records from [facility]. #8 hypothyroidism. Continue levothyroxine 50 mcg by mouth daily. Tsh 0.895 #9 prior history of smoking #10 generalized anxiety disorder. Continue Effexor 150 mg by mouth daily #11 insomnia. We will start trazodone 50 mg at night as needed. #12 DVT prophylaxis: Heparin drip #13 GI prophylaxis: Pepcid 20 mg by mouth daily 14. Chronic hypoxic respiratory failure on home O2 at 3 L nasal cannula Discharge plan: Home in approximately 2 days Impression and plan of care have been directed as dictated by the signing physician. Katie Flor nurse practitioner acting as scribe for signing physician.
[2018-04-21 16:53] LABS: Glucose,Whole Blood 95 mg/dL (75-99)
[2018-04-21 20:14] LABS: Glucose,Whole Blood 160 mg/dL (75-99)
[2018-04-22] MEDS: IPRATROPIUM-ALBUTEROL 3 ML NEB INHALATION SCH ×4 (00:07→10:54)
[2018-04-22] MEDS: LEVOTHYROXINE 50 MCG TAB PO SCH (06:01)
[2018-04-22 07:08] LABS: Glucose,Whole Blood 113 mg/dL (75-99)
[2018-04-22] MEDS: INSULIN ASPART 100 UNIT/ML 1 ML 10 ML VIAL SQ SCH ×2 (08:05→11:24)
[2018-04-22] MEDS: PANTOPRAZOLE 40 MG TABLET PO SCH (08:09)
[2018-04-22] MEDS: CLOPIDOGREL 75 MG TAB PO SCH (08:09)
[2018-04-22] MEDS: methylPREDNISolone SOD SUCCI 125 MG/2 ML VIAL IV SCH (08:10)
[2018-04-22] MEDS: ATORVASTATIN 80 MG TAB PO SCH (08:10)
[2018-04-22] MEDS: METOPROLOL TARTRATE 25 MG TAB PO SCH (08:10)
[2018-04-22] MEDS: ASPIRIN 81 MG PO SCH (08:10)
[2018-04-22] MEDS: VENLAFAXINE HCL ER 150 MG CAP PO SCH (08:10)
[2018-04-22 11:20] LABS: Glucose,Whole Blood 107 mg/dL (75-99)
[2018-04-22 11:58] VITALS: BP 163/73; PULSE 72; RESP 18; TEMP 97.7
[2018-04-22] MEDS ORDERED: LOPERAMIDE 2 MG CAP PO PRN (12:02)
[2018-04-22] MEDS ORDERED: LOPERAMIDE 2 MG CAP PO STA (12:02)
--- NOTE | 2018-04-22 16:15 | P.PN ---
Subjective Progress Note Date: 04/22/18 Principal diagnosis: Acute exacerbation of chronic obstructive pulmonary disease This is a 78-year-old female known history of severe COPD, O2 dependent for the last 4 years, patient normally sees Dr. Perez. She is not prednisone dependent. She is maintained on oxygen, and she is also on multiple bronchodilators which she takes at home including albuterol with Atrovent updrafts 4 times a day and when necessary. Patient came in to the ER with 1 day history of increased shortness of breath, productive cough with yellow sputum, no fever no chills, but her shortness of breath has become more and more pronounced, then decided to come into the ER. Her chest x-ray and CT of the chest showed nodular pleural thickening mostly at the right lung apex and bilaterally. [place] to be most likely scarring, and there is evidence of moderate emphysematous changes in both lungs. There was also a small hiatal hernia. No other significant findings noted. Considering her profound shortness of breath and COPD exacerbation, patient was admitted, placed on multiple bronchodilators, antibiotics, IV Solu-Medrol, and this consult was initiated. Patient is already feeling a bit better since she was admitted, denies any headaches no blurred vision no dizziness, she has mostly symptoms of cough, shortness of breath with any activity. Denies any chest pain, no palpitations. Denies any nausea vomiting abdominal pain melena or hematemesis denies any dysuria frequency or urgency. She was found to have slightly elevated troponin, and she was placed on heparin as per cardiology. Otherwise the remaining labs were noted to be unremarkable. She had a relatively normal basic metabolic profile, bicarb is 35 as expected considering her COPD, renal profile is normal. The patient is seen again today 04/20/2018 in follow-up on the selective care unit. She is currently sitting up in bed. She is awake and alert in no acute distress. She is breathing a bit easier today as compared to yesterday. Still dyspneic on minimal exertion. She is maintaining good O2 saturations in the high 90s on 3 L/m per nasal cannula. She's been afebrile. Hemodynamically stable. Sputum culture pending. White count 14.2. Hemoglobin 12.4. Creatinine 0.81. She remains on bronchodilators, IV Solu-Medrol, empiric antibiotics. X-ray shows evidence of chronic lung disease. Patient is seen again today 04/21/2018 in follow-up on the selective care unit. She is currently resting quite comfortably in bed. She is able to lay flat. She is breathing easier today as compared to yesterday. Continues to maintain good O2 saturations in the 90s on 3 L/m per nasal cannula. She's afebrile. Hemodynamically stable. Sputum cultures pending. White count 26.0. Hemoglobin 12.4. Creatinine 0.92. She remains on bronchodilators, IV Solu- Medrol, empiric antibiotics. On 04/22/2018 patient seen in follow-up. She is awake and alert, in no acute distress, complaining of episodes of diarrhea, she thinks he may be medication related. One episode this morning. From pulmonary perspective she is breathing easier, lung sounds are clear, diminished at the bases, no cough, no worsening dyspnea. No chest pain, no fever or chills. Pulse ox on 3 L per nasal cannula is 96%. Patient is being discharged home today. Objective - Vital Signs Vital signs: Vital Signs Temp 97.7 F 04/22/18 11:57 Pulse 72 04/22/18 11:57 Resp 18 04/22/18 11:57 BP 163/73 04/22/18 11:57 Pulse Ox 96 04/22/18 11:57 Intake & Output 04/21/18 04/22/18 04/22/18 18:59 06:59 18:59 Intake Total 772.559 790 Balance 772.559 790 Weight 67 kg Intake: Intake, IV Titration 190.559 Amount Heparin Sod,Pork in 0.45% 190.559 NaCl 25,000 unit In 0.45 % NaCl 1 250ml.bag @ 18 UNITS/KG/HR 11.43 mls/hr IV .[id number] [facility] Rx#: [id number] Oral 582 790 Other: Voiding Method Toilet Toilet # Voids 4 3 # Bowel Movements 2 - Exam GENERAL EXAM: Alert, comfortable in no apparent distress. On 3 L nasal cannula HEAD: Normocephalic. EYES: Normal reaction of pupils, equal size. NOSE: Clear with pink turbinates. THROAT: No erythema or exudates. NECK: No masses, no JVD. CHEST: No chest wall deformity. LUNGS: Equal air entry with no significant wheezing, diminished. CVS: S1 and S2 normal with no audible murmur, regular rhythm. ABDOMEN: No hepatosplenomegaly, normal bowel sounds, no guarding or rigidity. SPINE: No scoliosis or deformity SKIN: No rashes CENTRAL NERVOUS SYSTEM: No focal deficits, tone is normal in all 4 extremities. EXTREMITIES: There is no peripheral edema. No clubbing, no cyanosis. Peripheral pulses are intact. - Labs CBC & Chem 7: 04/21/18 05:48 04/21/18 05:48 Labs: Abnormal Lab Results - Last 24 Hours (Table) 04/21/18 04/22/18 04/22/18 Range/Units 20:13 07:07 11:18 POC Glucose (mg/dL) 160 H 113 H 107 H (75-99) mg/dL Microbiology - Last 24 Hours (Table) 04/19/18 16:43 Gram Stain - Preliminary Sputum Sputum Culture - Preliminary Gram Neg Bacilli Assessment and Plan Plan: 1 acute exacerbation of severe COPD. he covered. 2 acute on chronic hypoxic respiratory failure secondary to COPD exacerbation and purulent tracheobronchitis. 3 acute purulent tracheobronchitis. 4 chronic nonspecific fibrotic changes noted on the CT of the chest 5 elevated troponin, presently on heparin, cardiology is addressing. 6 hypertension 7 hypercholesterolemia she is presently on atorvastatin 8 history of coronary artery disease and previous CO with stent placement 4 years ago. 9 hypothyroidism on levothyroxine. 10 remote smoking history quit smoking over 40 years ago. Plan: She is doing well, no worsening dyspnea, no fever or chills, no cough, no sputum production. She is improving, she stable for discharge from pulmonary perspective. She can continue her course of oral antibiotics, prednisone taper. Follow-up in the office in one to 2 weeks after discharge I performed a history & physical examination of the patient and discussed their management with my nurse practitioner, Aviva Delacruz. I reviewed the nurse practitioner's note and agree with the documented findings and plan of care. Lung sounds are positive for diminished breath sounds. The findings and the impression was discussed with the patient. I attest to the documentation by the nurse practitioner. Time with Patient: Less than 30
--- NOTE | 2018-04-22 16:29 | P.DS ---
Providers Date of admission: 04/18/18 17:13 Expected date of discharge: 04/22/18 Attending physician: Josie Almanzar Consults: 04/18/18 17:13 Consult Physician Urgent Consulting Provider: Miguel Villalba Consult Reason/Comments: acs Do you want consulting provider notified?: Already Contacted 04/19/18 10:51 Consult Physician Urgent Consulting Provider: Nico Pedro Consult Reason/Comments: COPD Do you want consulting provider notified?: Yes Primary care physician: [facility] Course: This is a pleasant 78-year-old female who was brought in to the emergency department today by EMS for shortness of breath from home. Patient states that her shortness of breath has gotten worse today. She does have a history of COPD. Patient states that she is had a cough with yellow sputum and a runny nose recently. Patient denies chills or fever. Patient states that her shortness of breath has increased enough where it's difficult to ambulate to the bathroom. Patient also complains of weakness. Patient states that her difficulty breathing has been increasing where she is finding it more difficult to ambulate around her apartment. Patient has a history of COPD, hypertension and coronary artery disease. Patient had a RI approximate 4 years ago that required stenting at that time. At this time patient is resting in bed comfortably without any complaints. Patient does experience shortness of breath with conversation. Patient states that her cough is approximately what it normally is with yellow sputum which is also normal for her. Patient denies any fever or chills at this time. EKG on arrival showed normal sinus rhythm with nonspecific ST and T-wave changes. Chest x-ray revealed pulmonary fibrotic changes. CT of the chest did not reveal any evidence of pulmonary embolism. There was some nodular pleural thickening and infiltrate at the right lung apexes bilaterally. Patient does have moderate pulmonary emphysema. Mediastinotomy bronchial lymph node measuring up to 1.5 cm with calcification noted as well. 04/20/2018: Patient is sitting at the side of the bed after she's been up to shower. Patient states that shortness of breath has improved since yesterday. Patient is complaining of difficulty sleeping she finds that she is only able to sleep for about a hour even though she is very tired. Patient also states that she was able to shower with minimal difficulties at this time. W BCs 14.2 , hemoglobin 12.4, potassium 4.5. Chest x-ray shows. Patient is maintaining a good O2 saturation in the high 90s on 3 L/m per nasal cannula. Sputum culture is pending. She remains on bronchodilators, IV Solu-Medrol, and empiric antibiotics. 12: Patient's breathing status is improved from yesterday. Pulse ox is running 96% on 3 L nasal cannula. She is continued on Solu-Medrol at 60 mg every 6 hours which we will change to every 12 hours. Patient has been refusing to take azithromycin today and she had diarrhea after taking one pill. Azithromycin will be discontinued. Breathing is a little better from yesterday. She states she has been up to the bathroom on her own. Patient will be transferred to the [facility] without telemetry today. White count is 26, creatinine 0.92. Electrolytes are within normal limits. Capillary blood glucose running between 125 and 140. Alkaline phosphatase 195. Sputum culture is in progress. 04/22: Cardiology has signed off and is following on an as needed basis. Pulse ox is 95% on 3 L nasal cannula. Sputum culture remains in progress. Patient states she has had 2 bowel movements today that were like water. She is complaining of abdominal cramps. Imodium will be started. The patient has improvement by the afternoon she may be discharged home today in stable condition. Discharge diagnoses: #1 acute respiratory distress with chronic hypoxic respiratory failure secondary to acute COPD exacerbation. #2 COPD exacerbation. #3 hyperkalemia. #4 atypical chest pain, symptoms occur with deep breathing and with coughing. #5 hypertension #6 hyperlipidemia #7 coronary artery disease with myocardial infarction 4 years ago with stent placement #8 hypothyroidism. #9 prior history of smoking #10 generalized anxiety disorder. #11 insomnia. #12 Chronic hypoxic respiratory failure on home O2 at 3 L nasal cannula Discharge plan: Home Impression and plan of care have been directed as dictated by the signing physician. Katie Flor nurse practitioner acting as scribe for signing physician. Patient Condition at Discharge: Good Plan - Discharge Summary Discharge Rx Participant: No New Discharge Prescriptions: New Loperamide [Imodium] 2 mg PO QID PRN cap PRN Reason: Diarrhea predniSONE 0 mg PO DIRECTED #40 tab traZODone HCL [Desyrel] 50 mg PO HS PRN #30 tab PRN Reason: Insomnia Continue Omeprazole [PriLOSEC] 20 mg PO DAILY Venlafaxine HCl [Effexor XR] 150 mg PO DAILY Ubidecarenone [Co Q-10] 100 mg PO DAILY Lisinopril [Zestril] 10 mg PO DAILY Ipratropium/Albuterol Sulfate [Combivent Respimat Inhaler] 1 puff INHALATION RT-QID PRN PRN Reason: Shortness Of Breath Clopidogrel [Plavix] 75 mg PO DAILY Atorvastatin [Lipitor] 40 mg PO HS Albuterol Nebulized [Ventolin Nebulized] 2.5 mg INHALATION RT-QID Metoprolol Tartrate [Lopressor] 25 mg PO BID Aspirin EC [Ecotrin Low Dose] 81 mg PO DAILY Levothyroxine Sodium [Synthroid] 50 mcg PO DAILY Discharge Medication List Albuterol Nebulized [Ventolin Nebulized] 2.5 mg INHALATION RT-QID 04/18/18 [ History] Aspirin EC [Ecotrin Low Dose] 81 mg PO DAILY 04/18/18 [History] Atorvastatin [Lipitor] 40 mg PO HS 04/18/18 [History] Clopidogrel [Plavix] 75 mg PO DAILY 04/18/18 [History] Ipratropium/Albuterol Sulfate [Combivent Respimat Inhaler] 1 puff INHALATION RT- QID PRN 04/18/18 [History] Levothyroxine Sodium [Synthroid] 50 mcg PO DAILY 04/18/18 [History] Lisinopril [Zestril] 10 mg PO DAILY 04/18/18 [History] Metoprolol Tartrate [Lopressor] 25 mg PO BID 04/18/18 [History] Omeprazole [PriLOSEC] 20 mg PO DAILY 04/18/18 [History] Ubidecarenone [Co Q-10] 100 mg PO DAILY 04/18/18 [History] Venlafaxine HCl [Effexor XR] 150 mg PO DAILY 04/18/18 [History] Loperamide [Imodium] 2 mg PO QID PRN cap 04/22/18 [Rx] predniSONE 0 mg PO DIRECTED #40 tab 04/22/18 [Rx] traZODone HCL [Desyrel] 50 mg PO HS PRN #30 tab 04/22/18 [Rx] Follow up Appointment(s)/Referral(s): Tru Bustamante MD [Primary Care Provider] - 04/29/18 11:45 am ( with [employer]) Nico Pedro DO [Doctor of Osteopathic Medicine] - 05/11/18 1:00 pm [facility], [NON-STAFF] - As Needed Patient Instructions/Handouts: Trazodone (By mouth), Prednisone (By mouth), COPD (Chronic Obstructive Pulmonary Disease) (DC) Activity/Diet/Wound Care/Special Instructions: [place] [facility] contact for housekeeping services: #[phone] Discharge Disposition: HOME WITH HOME HEALTH SERVICES
--- NOTE | 2018-04-23 09:39 | CDI ---
Documentation Clarification Form Date: 04/23/18 From: Liss Moiz Edilia Mendez, [facility] Staff Hours-8:30 am & 5 pm M-F Admit Date: 04/18/2018 5:13:00 PM Patient Name: Marjorie Hernandez Visit Number: [id number] Discharge Date: 04/22/2018 2:35:00 PM ATTENTION: The Clinical Documentation Specialists (CDI) and [facility] Coding Staff appreciate your assistance in clarifying documentation. Please respond to the clarification below the line at the bottom and electronically sign. The CDI & [facility] Coding staff will review the response and follow-up if needed. Please note: Queries are made part of the Legal Health Record. If you have any questions, please contact the author of this message via ITS. Dr. Josie Almanzar Heart failure is documented in the H&P and both consults. History/Risk Factors: HTN, emphysema VS/Pulse OX: P-91, R-18, BP-156/71, O2 sat-91 on RA BNP: 511 Echocardiogram Results: left ventricular systolic function is normal w EF between 55-60% Chest X Ray: no heart failure Treatment: IV Lasix 40 mg once In your professional opinion, can you please clarify the acuity and type of CHF if known? Systolic Heart Failure Diastolic Heart Failure Systolic & Diastolic Heart Failure Acute Chronic Acute on Chronic Heart Failure Unable to Determine Other, please specify No heart failure MTDD
== END 2018-04-22 14:35 | disposition home health service (06) | DRG 190 ==
LOC: EC 13:57 → 3SCARD 17:13 → 3NMEDONC 04-21 16:05
PROVIDERS: ADMIT Internal Medicine; ATTEND Internal Medicine
DX: J43.9 Emphysema, unspecified (principal); J96.21 Acute and chronic respiratory failure with hypoxia; E87.5 Hyperkalemia; I11.9 Hypertensive heart disease without heart failure; J20.9 Acute bronchitis, unspecified; R07.89 Other chest pain; K44.9 Diaphragmatic hernia without obstruction or gangrene; E78.00 Pure hypercholesterolemia, unspecified; G47.00 Insomnia, unspecified; R19.7 Diarrhea, unspecified; E78.5 Hyperlipidemia, unspecified; I25.10 Atherosclerotic heart disease of native coronary artery without angina pectoris; E03.9 Hypothyroidism, unspecified; I25.2 Old myocardial infarction; M19.90 Unspecified osteoarthritis, unspecified site; F41.1 Generalized anxiety disorder; R91.8 Other nonspecific abnormal finding of lung field; H91.90 Unspecified hearing loss, unspecified ear; Z99.81 Dependence on supplemental oxygen; Z79.02 Long term (current) use of antithrombotics/antiplatelets; Z79.82 Long term (current) use of aspirin; Z79.890 Hormone replacement therapy; Z79.899 Other long term (current) drug therapy; Z95.5 Presence of coronary angioplasty implant and graft; Z87.891 Personal history of nicotine dependence; Z88.8 Allergy status to other drugs, medicaments and biological substances; Z88.0 Allergy status to penicillin; Z82.49 Family history of ischemic heart disease and other diseases of the circulatory system; Z80.42 Family history of malignant neoplasm of prostate
CPT/HCPCS: 36415; 71046; 71275; 80048; 80053; 80061; 81001; 82550; 82553; 83735; 83880; 84132; 84443; 84484; 85025; 85379; 85610; 85730; 87070; 87077; 87186; 87205; 93005; 93306; 94640; 94760; 96365; 96366; 96375; 96376; 99285

== ENCOUNTER 2018-06-15 00:50 | Emergency (ER) | payer MEDICARE, BC ==
[2018-06-15 01:16] VITALS: TEMP 98.2
[2018-06-15] MEDS ORDERED: ONDANSETRON 4 MG/2 ML VIAL IVP STA (01:44)
[2018-06-15] MEDS ORDERED: LIDOCAINE 1% INJ 10MG/ML (20 ML MDV) SQ ONE ×2 (01:44→03:48)
[2018-06-15] MEDS ORDERED: MORPHINE SULFATE 2 MG/ML SYRINGE IVP STA (01:44)
[2018-06-15] MEDS ORDERED: HYDROmorphone 0.5 MG/0.5 ML SYRINGE IVP STA (02:25)
--- NOTE | 2018-06-15 02:44 | CT ---
CT HEAD WITHOUT CONTRAST CT C SPINE WITHOUT CONTRAST INDICATION: Pain TECHNIQUE: CT acquisition is performed through the brain and cervical spine. Sagittal and coronal reformatted images are provided. No IV contrast is administered. DOSE INFORMATION: CTDIvol 45.2 mGy; DLP 1396.6 mGy-cm. One or more of the following dose reduction techniques were used: automated exposure control, adjustment of the mA and/or kV according to patient size, use of iterative reconstruction technique. COMPARISON: None. FINDINGS: CT head: There is an anterior right frontal scalp laceration. The calvarium is intact. The visualized paranasal sinuses and mastoid air cells are clear. There is no evidence of acute intracranial hemorrhage or abnormal extra- axial fluid collection. There is no mass effect or midline shift. Hypoattenuation in the periventricular and deep cerebral white matter is compatible with chronic small vessel ischemic disease. The meyer-white matter differentiation is preserved. Sulci, ventricles, and basal cisterns are normal in size and configuration for patient age. CT cervical spine: There is no evidence of acute fracture or subluxation. There are degenerative changes at the craniocervical junction. There is moderate degenerative disc disease at C4-C5 and C5-C6, and severe degenerative disc disease at C6-C7. There is severe left-sided facet arthropathy. There is no swelling of the prevertebral soft tissues. There is pleural-parenchymal scarring at the lung apices and severe centrilobular emphysema. A partially calcified 6 mm nodule in the right upper lobe most likely represents a granuloma. IMPRESSION: 1. Anterior right frontal scalp laceration. No skull fracture. 2. No CT evidence of acute intracranial process. 3. Spondylosis of the cervical spine. No evidence of acute fracture or subluxation.
--- NOTE | 2018-06-15 02:48 | XR ---
RIGHT HAND, 3 VIEWS INDICATION: Right hand pain COMPARISON: None. FINDINGS: AP, oblique, and lateral views of the right hand obtained. The bones are osteopenic. There is dorsal subluxation of the second proximal phalanx at the MCP joint. No fracture is visualized. There is severe osteoarthritis of the first carpometacarpal joint, moderate osteoarthritis of the triscaphe the joint, and mild osteoarthritis of multiple interphalangeal joints. The soft tissues are radiographically unremarkable. IMPRESSION: 1. Dorsal subluxation of second proximal phalanx at the MCP joint, of indeterminate chronicity. 2. No fracture is visualized.
[2018-06-15] MEDS ORDERED: TOPICAL SKIN ADHESIVE 1 EACH AMP TOPICAL ONE (03:26)
--- NOTE | 2018-06-15 03:38 | XR ---
RIGHT HAND, 3 VIEWS INDICATION: Right hand pain, post reduction COMPARISON: Right hand radiographs, 06/15/18 at 0221 hours FINDINGS: AP, oblique, and lateral views of the right hand are obtained. There is persistent dorsal/ulnar subluxation of the second proximal phalanx at the MCP joint. There is no evidence of acute fracture. Exam is unchanged from prior. IMPRESSION: 1. No significant interval change. Persistent dorsal/ulnar subluxation of the second proximal phalanx at the MCP joint.
--- NOTE | 2018-06-15 04:33 | ED ---
Fall HPI - General Source: patient, EMS Mode of arrival: EMS <Ellen Chandler - Last Filed: 06/15/18 04:43> <Imelda Salazar - Last Filed: 06/16/18 07:57> - General Chief Complaint: Fall Stated Complaint: Fall Time Seen by Provider: 06/15/18 01:16 - History of Present Illness Initial Comments: 78-year-old female patient presents to the emergency department today for evaluation after sustaining a fall. Patient states she is in the bathroom when her foot got wrapped up in her oxygen tubing and she tripped falling hitting her head on the wall. Patient is reporting pain to her forehead and pain to her right hand. Patient does have obvious deformity to the right hand. She denies any numbness or tingling. She denies losing consciousness during time of injury. She denies any use of anticoagulant or antiplatelet medications. She does not report headache. She is denies any blurred or double vision. Denies any nausea or vomiting. Denies any weakness to her extremities. Patient denies any neck pain, back pain, chest pain, shortness of breath, dizziness, abdominal pain, or difficulties with bowel movements or urination. (Ellen Chandler) - Related Data Home Medications Medication Instructions Recorded Confirmed Albuterol Nebulized [Ventolin 2.5 mg INHALATION RT-QID 04/18/18 04/18/18 Nebulized] Aspirin EC [Ecotrin Low Dose] 81 mg PO DAILY 04/18/18 04/18/18 Atorvastatin [Lipitor] 40 mg PO HS 04/18/18 04/18/18 Clopidogrel [Plavix] 75 mg PO DAILY 04/18/18 04/18/18 Ipratropium/Albuterol Sulfate 1 puff INHALATION RT-QID PRN 04/18/18 04/18/18 [Combivent Respimat Inhaler] Levothyroxine Sodium [Synthroid] 50 mcg PO DAILY 04/18/18 04/18/18 Lisinopril [Zestril] 10 mg PO DAILY 04/18/18 04/18/18 Metoprolol Tartrate [Lopressor] 25 mg PO BID 04/18/18 04/18/18 Omeprazole [PriLOSEC] 20 mg PO DAILY 04/18/18 04/18/18 Ubidecarenone [Co Q-10] 100 mg PO DAILY 04/18/18 04/18/18 Venlafaxine HCl [Effexor XR] 150 mg PO DAILY 04/18/18 04/18/18 Previous Rx's Medication Instructions Recorded Loperamide [Imodium] 2 mg PO QID PRN cap 04/22/18 predniSONE 0 mg PO DIRECTED #40 tab 04/22/18 traZODone HCL [Desyrel] 50 mg PO HS PRN #30 tab 04/22/18 Allergies Allergy/AdvReac Type Severity Reaction Status Date / Time fluticasone Allergy Dyspnea Verified 04/18/18 14:28 [From Advair Diskus] Penicillins Allergy Rash/Hives Verified 04/18/18 14:28 salmeterol Allergy Dyspnea Verified 04/18/18 14:28 [From Advair Diskus] Review of Systems ROS Other: All systems not noted in ROS Statement are negative. <Ellen Chandler - Last Filed: 06/15/18 04:43> ROS Other: All systems not noted in ROS Statement are negative. <Imelda Salazar - Last Filed: 06/16/18 07:57> ROS Statement: Those systems with pertinent positive or pertinent negative responses have been documented in the HPI. Past Medical History Past Medical History: Heart Failure, COPD, Hearing Disorder / Deafness, Hypertension, Myocardial Infarction (PR), Osteoarthritis (OA), Respiratory Disorder Additional Past Medical History / Comment(s): HOME OXYGEN 2LNC UNDER 10YEARS Last Myocardial Infarction Date:: 2013 History of Any Multi-Drug Resistant Organisms: None Reported Past Surgical History: Appendectomy, Heart Catheterization With Stent Past Anesthesia/Blood Transfusion Reactions: No Reported Reaction Date of Last Stent Placement:: 2013 Past Psychological History: No Psychological Hx Reported Smoking Status: Former smoker Past Alcohol Use History: None Reported Past Drug Use History: None Reported - Past Family History Father Family Medical History: Prostate Disorder Additional Family Medical History / Comment(s): PROSTATE CA Mother Family Medical History: Congestive Heart Failure (CHF) <Ellen Chandler - Last Filed: 06/15/18 04:43> General Exam General appearance: alert, in no apparent distress, other (This is a well- developed, well-nourished elderly female patient in no acute distress. Vital signs upon presentation are temperature 98.2F, pulse 82, respirations 18, blood pressure 140/63, pulse ox 98% on room air.) Eye exam: Present: normal appearance, PERRL, EOMI. Absent: scleral icterus, conjunctival injection, periorbital swelling ENT exam: Present: normal exam, normal oropharynx, mucous membranes moist Neck exam: Present: normal inspection, full ROM, other (Nontender, no step-off, no deformity to firm midline palpation of the posterior cervical spine. Full range of motion without pain or limitation.). Absent: tenderness, meningismus, lymphadenopathy Respiratory exam: Present: normal lung sounds bilaterally. Absent: respiratory distress, wheezes, rales, rhonchi, stridor Cardiovascular Exam: Present: regular rate, normal rhythm, normal heart sounds. Absent: systolic murmur, diastolic murmur, rubs, gallop, clicks GI/Abdominal exam: Present: soft, normal bowel sounds. Absent: distended, tenderness, guarding, rebound, rigid Extremities exam: Present: full ROM, tenderness (Tenderness over the right second MCP joint. Tenderness over the right anterior knee.), normal capillary refill, other (Patient has obvious deformity to the right second MCP joint. Skin to the fingers pink, warm, dry. Cap refills less than 3 seconds. Radial pulses 2+ and equal bilaterally. Patient has 2 small abrasions noted to the right anterior knee. There is some medial knee ecchymosis. Patient has no bony tenderness. Full range of motion without pain or limitation.). Absent: normal inspection, pedal edema, joint swelling, calf tenderness Back exam: Present: normal inspection, other (Nontender, no step-off, no deformity to firm midline palpation of the thoracic and lumbar vertebrae. Full range of motion without pain or limitation.). Absent: vertebral tenderness Neurological exam: Present: alert, oriented X3, CN II-XII intact Psychiatric exam: Present: normal affect, normal mood Skin exam: Present: warm, dry, intact, normal color. Absent: rash <Ellen Chandler M - Last Filed: 06/15/18 04:43> Vital Signs 06/15/18 06/15/18 01:11 05:06 Temperature 98.2 F Pulse Rate 82 87 Respiratory 18 16 Rate Blood Pressure 140/63 142/78 O2 Sat by Pulse 98 93 L Oximetry Procedures - Laceration Laceration #1 Consent Obtained: verbal consent Indication: laceration Site: other (forehead) Size (cm): 6 Description: flap, avulsion, irregular Depth: simple, single layer Anesthetic Used: lidocaine 1% Anesthesia Technique: local infiltration Amount (mls): 6 Pre-repair: irrigated extensively Type of Sutures: nylon (3), vicryl (2), other (exofin) Size of Sutures: 5-0 Number of Sutures: 5 Technique: simple, interrupted Patient Tolerated Procedure: well, no complications - Orthopedic Joint Reduction Joint #1 Consent Obtained: verbal consent Side: right Joint Reduction Location: finger (index finger) Analgesia: digital block Local Anesthetic Used: Lidocaine 1% Amount of Anesthetic Used (mLs): 6 Technique Used: direct manipulation Post-Reduction Neuro Exam: intact, no change Splint Applied: Yes (Finger splint, collin wrap) Patient Tolerated Procedure: well, no complications <Ellen Chandler M - Last Filed: 06/15/18 04:43> Medical Decision Making - Radiology Data Radiology results: report reviewed, image reviewed <Ellen Chandler M - Last Filed: 06/15/18 04:43> <Imelda Salazar - Last Filed: 06/16/18 07:57> - Medical Decision Making 78 year old female patient presented to the emergency department today for evaluation after experiencing a trip and fall in her bathroom. Physical examination did reveal a 6 cm laceration to the right forehead, laceration was complicated including skin avulsion and skin tear type flap laceration. This was repaired utilizing a combination of Vicryl sutures, nylon sutures, and exofin skin adhesive. Patient also had obvious deformity noted to the right second MCP joint. X-ray did reveal evidence of a subluxation of the proximal phalanx of the second MCP joint. I did do a digital block and the joint was reduced by my attending Dr. Salazar. Patient good range of motion and good neurovascular status after reduction. She is placed in a finger splint. CT of the brain showed no acute intracranial abnormalities. CT of the C-spine showed no acute osseous abnormalities of the C-spine. Patient will be discharged home at this time to follow-up with orthopedics and her primary care physician for recheck. She is educated regarding wound care, signs or symptoms of infection, and timeframe for suture removal. Family was educated regarding signs or symptoms of worsening head injury. Return parameters were discussed in detail. They verbalize understanding and agree with this plan. (Ellen Chnadler) I personally saw and examined the patient. I reviewed and agree with the mid- level provider findings including all diagnostic interpretations and treatment plans as written. I performed the dislocation reduction of the right hand. ( Imelda Salazar) - Radiology Data 3 views of the right hand are obtained. Report was reviewed in its entirety. Impression by Dr. Barakat shows no significant interval change. Persistent dorsal , ulnar subluxation of the second proximal phalanx at the MCP joint. 3 views of the right hand were obtained. Report was reviewed in its entirety. Impression by shows dorsal subluxation of the second proximal fillings at the MCP joint of indeterminate chronicity. No fracture is visualized. CT of the brain and C-spine were performed. Report was reviewed in its entirety. Impression by Dr. Barakat shows anterior right frontal scalp laceration. No skull fracture. No CT evidence of acute intracranial process. Spondylosis of the cervical spine. No evidence of acute fracture or subluxation. (Ellen Chandler) Disposition Is patient prescribed a controlled substance at d/c from ED?: No Time of Disposition: 04:33 <Ellen Chandler - Last Filed: 06/15/18 04:43> <Imelda Salazar - Last Filed: 06/16/18 07:57> Clinical Impression: Forehead laceration, Dislocation of right index finger, Abrasion of right knee , Contusion of right knee Disposition: HOME SELF-CARE Condition: Good Instructions (If sedation given, give patient instructions): Care For Your Stitches (ED), Laceration (ED), Head Injury (ED), Finger Dislocation (ED), Abrasion (ED), Skin Adhesive Care (ED) Additional Instructions: Keep wounds clean and dry. Return for suture removal in 5 days. Monitor for signs of infection to the wounds including but not limited to redness, swelling , drainage of pus, fever, or chills. Take Tylenol for pain control. Apply ice to the area 20 minutes at a time at least 4 times daily. Follow-up with the credit support specialist for further evaluation of your finger dislocation. Return to the emergency department immediately for any new, worsening, or concerning symptoms. Referrals: Tru Bustamante MD [Primary Care Provider] - 1-2 days Bennett Foster MD [Medical Doctor] - 1-2 days
[2018-06-15 05:08] VITALS: BP 142/78; PULSE 87; RESP 16
== END 2018-06-15 05:06 | disposition home or self-care (01) ==
LOC: SUPCPDRO 00:50 → EC 00:50
DX: S63.260A Dislocation of metacarpophalangeal joint of right index finger, initial encounter (principal); S01.81XA Laceration without foreign body of other part of head, initial encounter; S80.01XA Contusion of right knee, initial encounter; I11.0 Hypertensive heart disease with heart failure; I50.9 Heart failure, unspecified; J44.9 Chronic obstructive pulmonary disease, unspecified; I25.2 Old myocardial infarction; M19.90 Unspecified osteoarthritis, unspecified site; H91.90 Unspecified hearing loss, unspecified ear; Z87.891 Personal history of nicotine dependence; Z79.82 Long term (current) use of aspirin; Z79.890 Hormone replacement therapy; Z79.01 Long term (current) use of anticoagulants; Z79.899 Other long term (current) drug therapy; Z88.0 Allergy status to penicillin; Z88.8 Allergy status to other drugs, medicaments and biological substances; Z95.5 Presence of coronary angioplasty implant and graft; W18.09XA Striking against other object with subsequent fall, initial encounter; Y92.002 Bathroom of unspecified non-institutional (private) residence as the place of occurrence of the external cause
CPT/HCPCS: 73130; 72125; 70450; 99284; 26700; 12014; 96374; 96375 ×2; J2405; J2001; J2270; J1170

== ENCOUNTER → 2018-11-03 | Outpatient (CLI) | payer MEDICARE, BC ==
--- NOTE | 2018-11-03 15:58 | CT ---
EXAMINATION TYPE: CT angio chest DATE OF EXAM: 11/03/2018 COMPARISON: 04/18/2018 HISTORY: Trouble breathing, chest pains CT DLP: 256.6 mGycm CONTRAST: CT chest with contrast and 3D reconstruction with MIP imaging is performed with IV Contrast, patient injected with 80 mL of Isovue 370. Contrast-enhanced CT of the chest was performed through the course of the pulmonary arteries with paolo g and mediastinal window settings submitted. 3D reconstruction with MIP imaging was also performed. PULMONARY ARTERIES: The pulmonary arteries and their major tributaries are patent. I do not see cal dence for sizable filling defect to suggest pulmonary embolic process. LUNGS: Biapical scarring with nodularity is unchanged. No suspicious hypermetabolic activity on prior PET CT fusion dated 01/09/2018. Moderate emphysematous changes seen. MEDIASTINUM: Thoracic aorta is of normal caliber,however, evaluation is limited given timing of the contrast bolus. If there is concern for thoracic aortic pathology consider MOHAN. Correlate clinicall y . The heart is not enlarged. No evidence for mediastinal mass. No mediastinal lymph nodes greater than 1cm. HILAR STRUCTURES: No evidence for mass. No hilar lymph nodes greater than 1 cm. UPPER ABDOMEN: No significant abnormality is seen. IMPRESSION: 1. No evidence for Pulmonary embolism at this time.
== END | disposition home or self-care (01) ==
LOC: RADCTMAIN 14:44
PROVIDERS: ATTEND Nurse Practitioner Family
DX: R07.9 Chest pain, unspecified (principal)
CPT/HCPCS: 82565; 84520; 71275; 36415; Q9967

== ENCOUNTER 2018-12-26 18:30 | Inpatient (IN) | payer MEDICARE, BC ==
[2018-12-26] MEDS ORDERED: SODIUM CHLORIDE 0.9% 500 ML 500 ML IV STA (18:50)
--- NOTE | 2018-12-26 19:02 | ED ---
SOB HPI - General Chief Complaint: Shortness of Breath Stated Complaint: AMARILYS Time Seen by Provider: 12/26/18 18:31 Source: patient, EMS Mode of arrival: EMS Limitations: no limitations - History of Present Illness Initial Comments: 78 year-old female patient presents medical history significant for heart failure, oxygen dependent COPD, hypertension, and myocardial infarction with 3 stents presents to the emergency department today for evaluation of increasing shortness of breath over the last 2 weeks. Patient states that she has been unable to perform her activities of daily living due to becoming significantly short of breath with ambulation. States that she has been sleeping a lot. States that she does have a cough with production of yellow sputum. She denies fever or chills. States she's had some intermittent upper abdominal pain. Sharath es any constipation, diarrhea, hematuria, dysuria, urinary frequency, urinary urgency. Denies nausea or vomiting. She denies any chest pain. Patient denies any recent rash, back pain, numbness, tingling, dizziness, weakness, hematuria, dysuria, urinary urgency, urinary frequency, headache, visual changes, or any other complaints. - Related Data Home Medications Medication Instructions Recorded Confirmed Albuterol Nebulized [Ventolin 2.5 mg INHALATION RT-QID 04/18/18 12/26/18 Nebulized] Aspirin EC [Ecotrin Low Dose] 81 mg PO DAILY 04/18/18 12/26/18 Atorvastatin [Lipitor] 40 mg PO HS 04/18/18 12/26/18 Clopidogrel [Plavix] 75 mg PO DAILY 04/18/18 12/26/18 Ipratropium/Albuterol Sulfate 1 puff INHALATION RT-QID PRN 04/18/18 12/26/18 [Combivent Respimat Inhaler] Levothyroxine Sodium [Synthroid] 50 mcg PO DAILY 04/18/18 12/26/18 Lisinopril [Zestril] 10 mg PO DAILY 04/18/18 12/26/18 Metoprolol Tartrate [Lopressor] 25 mg PO BID 04/18/18 12/26/18 Omeprazole [PriLOSEC] 20 mg PO DAILY 04/18/18 12/26/18 Ubidecarenone [Co Q-10] 100 mg PO DAILY 04/18/18 12/26/18 Venlafaxine HCl [Effexor XR] 150 mg PO DAILY 04/18/18 12/26/18 Acetaminophen-Codeine 300-30mg 1 tab PO Q6H PRN 12/26/18 12/26/18 [Tylenol w/codeine #3] Baclofen 10 mg PO DAILY PRN 12/26/18 12/26/18 Previous Rx's Medication Instructions Recorded Loperamide [Imodium] 2 mg PO QID PRN cap 04/22/18 Allergies Allergy/AdvReac Type Severity Reaction Status Date / Time fluticasone Allergy Dyspnea Verified 12/26/18 19:43 [From Advair Diskus] Penicillins Allergy Rash/Hives Verified 12/26/18 19:43 salmeterol Allergy Dyspnea Verified 12/26/18 19:43 [From Advair Diskus] Review of Systems ROS Statement: Those systems with pertinent positive or pertinent negative responses have been documented in the HPI. ROS Other: All systems not noted in ROS Statement are negative. Past Medical History Past Medical History: Heart Failure, COPD, Hearing Disorder / Deafness, Hyper tension, Myocardial Infarction ([place]), Osteoarthritis (OA), Respiratory Disorder Additional Past Medical History / Comment(s): HOME OXYGEN 2LNC UNDER 10YEARS Last Myocardial Infarction Date:: 2013 History of Any Multi-Drug Resistant Organisms: None Reported Past Surgical History: Appendectomy, Heart Catheterization With Stent Past Anesthesia/Blood Transfusion Reactions: No Reported Reaction Date of Last Stent Placement:: 2013 Past Psychological History: No Psychological Hx Reported Smoking Status: Former smoker Past Alcohol Use History: None Reported Past Drug Use History: None Reported - Past Family History Father Family Medical History: Prostate Disorder Additional Family Medical History / Comment(s): PROSTATE CA Mother Family Medical History: Congestive Heart Failure (CHF) General Exam Limitations: no limitations General appearance: alert, in no apparent distress, other (This is a well- developed, well-nourished elderly female patient in no acute distress. Vital signs upon presentation are temperature 98.9F, pulse 76, respirations 24, blood pressure 135/62, pulse ox 96% on room air.) Eye exam: Present: normal appearance, PERRL, EOMI. Absent: scleral icterus, conjunctival injection, periorbital swelling ENT exam: Present: normal exam, normal oropharynx, mucous membranes moist Neck exam: Present: normal inspection. Absent: tenderness, meningismus, lymphadenopathy Respiratory exam: Present: normal lung sounds bilaterally, decreased breath sounds. Absent: respiratory distress, wheezes, rales, rhonchi, stridor Cardiovascular Exam: Present: regular rate, normal rhythm, normal heart sounds. Absent: systolic murmur, diastolic murmur, rubs, gallop, clicks GI/Abdominal exam: Present: soft, normal bowel sounds. Absent: distended, tenderness, guarding, rebound, rigid Neurological exam: Present: alert, oriented X3, CN II-XII intact Psychiatric exam: Present: normal affect, normal mood Skin exam: Present: warm, dry, intact, normal color. Absent: rash Course Vital Signs 12/26/18 12/26/18 12/26/18 18:35 18:40 20:07 Temperature 98.9 F Pulse Rate 76 81 Respiratory 24 22 18 Rate Blood Pressure 135/62 143/67 O2 Sat by Pulse 96 96 Oximetry 12/26/18 22:21 Temperature Pulse Rate 87 Respiratory 18 Rate Blood Pressure 169/67 O2 Sat by Pulse 96 Oximetry Medical Decision Making - Medical Decision Making 78 year old female patient presents to the emergency department today for evaluation of shortness of breath and fatigue. Physical examination did reveal diminished lung sounds. Left lower extremity swelling. Labs reviewed and did reveal leukocytosis at 12. D-dimer was 1.4. Chest x-ray showed no acute cardiopulmonary process. CT angiography of the chest was obtained, no evidence for pulmonary embolism. No evidence for pneumonia. She is afebrile. Urinalysis shows no evidence for infection. Patient is currently on 4 L of oxygen via nasal cannula. We will administer IV of the steroids. She'll be started on breathing treatments. She'll admit to the hospital for further evaluation by pulmonology. Troponin was 0.03, we will repeat these throughout the night to monitor for increase. Will order venous doppler duplex left lower extremity in the morning for swelling. Did discuss all findings and results with the patient. She is agreeable. - Lab Data Result diagrams: 12/26/18 19:10 12/26/18 19:10 Lab Results 12/26/18 12/26/18 12/26/18 Range/Units 19:10 19:10 19:10 WBC 12.0 H (3.8-10.6) k/uL RBC 4.21 (3.80-5.40) m/uL Hgb 12.3 (11.4-16.0) gm/dL Hct 37.5 (34.0-46.0) % MCV 89.1 (80.0-100.0) fL MCH 29.1 (25.0-35.0) pg MCHC 32.7 (31.0-37.0) g/dL RDW 13.8 (11.5-15.5) % Plt Count 456 H (150-450) k/uL Neutrophils % 67 % Lymphocytes % 17 % Monocytes % 6 % Eosinophils % 6 % Basophils % 2 % Neutrophils # 8.0 H (1.3-7.7) k/uL Lymphocytes # 2.1 (1.0-4.8) k/uL Monocytes # 0.7 (0-1.0) k/uL Eosinophils # 0.7 (0-0.7) k/uL Basophils # 0.2 (0-0.2) k/uL PT 10.4 (9.0-12.0) sec INR 1.0 (<1.2) APTT 24.5 (22.0-30.0) sec D-Dimer 1.40 H (<0.60) mg/L FEU Sodium 139 (137-145) mmol/L Potassium 4.7 (3.5-5.1) mmol/L Chloride 96 L (98-107) mmol/L Carbon Dioxide 33 H (22-30) mmol/L Anion Gap 10 mmol/L BUN 10 (7-17) mg/dL Creatinine 0.81 (0.52-1.04) mg/dL Est GFR (CKD-EPI)AfAm 82 (>60 ml/min/1.73 sqM) Est GFR (CKD-EPI)NonAf 71 (>60 ml/min/1.73 sqM) Glucose 109 H (74-99) mg/dL POC Glucose (mg/dL) (75-99) mg/dL POC Glu Insurance Sales Associate ID Calcium 9.9 (8.4-10.2) mg/dL Magnesium 1.9 (1.6-2.3) mg/dL Total Bilirubin 0.2 (0.2-1.3) mg/dL AST 22 (14-36) U/L ALT 16 (9-52) U/L Alkaline Phosphatase 113 (38-126) U/L Troponin I (0.000-0.034) ng/mL NT-Pro-B Natriuret Pep pg/mL Total Protein 7.6 (6.3-8.2) g/dL Albumin 4.1 (3.5-5.0) g/dL Lipase 40 (23-300) U/L Urine Color Urine Appearance (Clear) Urine pH (5.0-8.0) Ur Specific Ehrhardt (1.001-1.035) Urine Protein (Negative) Urine Glucose (UA) (Negative) Urine Ketones (Negative) Urine Blood (Negative) Urine Nitrite (Negative) Urine Bilirubin (Negative) Urine Urobilinogen (<2.0) mg/dL Ur Leukocyte Esterase (Negative) Urine RBC (0-5) /hpf Urine WBC (0-5) /hpf 12/26/18 12/26/18 12/26/18 Range/Units 19:10 19:10 21:09 WBC (3.8-10.6) k/uL RBC (3.80-5.40) m/uL Hgb (11.4-16.0) gm/dL Hct (34.0-46.0) % MCV (80.0-100.0) fL MCH (25.0-35.0) pg MCHC (31.0-37.0) g/dL RDW (11.5-15.5) % Plt Count (150-450) k/uL Neutrophils % % Lymphocytes % % Monocytes % % Eosinophils % % Basophils % % Neutrophils # (1.3-7.7) k/uL Lymphocytes # (1.0-4.8) k/uL Monocytes # (0-1.0) k/uL Eosinophils # (0-0.7) k/uL Basophils # (0-0.2) k/uL PT (9.0-12.0) sec INR (<1.2) APTT (22.0-30.0) sec D-Dimer (<0.60) mg/L FEU Sodium (137-145) mmol/L Potassium (3.5-5.1) mmol/L Chloride (98-107) mmol/L Carbon Dioxide (22-30) mmol/L Anion Gap mmol/L BUN (7-17) mg/dL Creatinine (0.52-1.04) mg/dL Est GFR (CKD-EPI)AfAm (>60 ml/min/1.73 sqM) Est GFR (CKD-EPI)NonAf (>60 ml/min/1.73 sqM) Glucose (74-99) mg/dL POC Glucose (mg/dL) (75-99) mg/dL POC Glu Insurance Sales Associate ID Calcium (8.4-10.2) mg/dL Magnesium (1.6-2.3) mg/dL Total Bilirubin (0.2-1.3) mg/dL AST (14-36) U/L ALT (9-52) U/L Alkaline Phosphatase (38-126) U/L Troponin I 0.032 (0.000-0.034) ng/mL NT-Pro-B Natriuret Pep 146 pg/mL Total Protein (6.3-8.2) g/dL Albumin (3.5-5.0) g/dL Lipase (23-300) U/L Urine Color Light Yellow Urine Appearance Clear (Clear) Urine pH 6.5 (5.0-8.0) Ur Specific Ehrhardt 1.020 (1.001-1.035) Urine Protein Negative (Negative) Urine Glucose (UA) Negative (Negative) Urine Ketones Negative (Negative) Urine Blood Trace H (Negative) Urine Nitrite Negative (Negative) Urine Bilirubin Negative (Negative) Urine Urobilinogen <2.0 (<2.0) mg/dL Ur Leukocyte Esterase Negative (Negative) Urine RBC 3 (0-5) /hpf Urine WBC 2 (0-5) /hpf 12/26/18 Range/Units 22:51 WBC (3.8-10.6) k/uL RBC (3.80-5.40) m/uL Hgb (11.4-16.0) gm/dL Hct (34.0-46.0) % MCV (80.0-100.0) fL MCH (25.0-35.0) pg MCHC (31.0-37.0) g/dL RDW (11.5-15.5) % Plt Count (150-450) k/uL Neutrophils % % Lymphocytes % % Monocytes % % Eosinophils % % Basophils % % Neutrophils # (1.3-7.7) k/uL Lymphocytes # (1.0-4.8) k/uL Monocytes # (0-1.0) k/uL Eosinophils # (0-0.7) k/uL Basophils # (0-0.2) k/uL PT (9.0-12.0) sec INR (<1.2) APTT (22.0-30.0) sec D-Dimer (<0.60) mg/L FEU Sodium (137-145) mmol/L Potassium (3.5-5.1) mmol/L Chloride (98-107) mmol/L Carbon Dioxide (22-30) mmol/L Anion Gap mmol/L BUN (7-17) mg/dL Creatinine (0.52-1.04) mg/dL Est GFR (CKD-EPI)AfAm (>60 ml/min/1.73 sqM) Est GFR (CKD-EPI)NonAf (>60 ml/min/1.73 sqM) Glucose (74-99) mg/dL POC Glucose (mg/dL) 112 H (75-99) mg/dL POC Glu Insurance Sales Associate ID Villafuerte, Nadrea Calcium (8.4-10.2) mg/dL Magnesium (1.6-2.3) mg/dL Total Bilirubin (0.2-1.3) mg/dL AST (14-36) U/L ALT (9-52) U/L Alkaline Phosphatase (38-126) U/L Troponin I (0.000-0.034) ng/mL NT-Pro-B Natriuret Pep pg/mL Total Protein (6.3-8.2) g/dL Albumin (3.5-5.0) g/dL Lipase (23-300) U/L Urine Color Urine Appearance (Clear) Urine pH (5.0-8.0) Ur Specific Ehrhardt (1.001-1.035) Urine Protein (Negative) Urine Glucose (UA) (Negative) Urine Ketones (Negative) Urine Blood (Negative) Urine Nitrite (Negative) Urine Bilirubin (Negative) Urine Urobilinogen (<2.0) mg/dL Ur Leukocyte Esterase (Negative) Urine RBC (0-5) /hpf Urine WBC (0-5) /hpf - EKG Data -: EKG Interpreted by Tx EKG Comments: EKG obtained at 1838 shows normal sinus rhythm with right atrial enlargement. Ventricular rate is 79, NV interval 184, QRS duration 78, QT 366, QTC 419. No evidence of ST elevation or depression. - Radiology Data Radiology results: report reviewed, image reviewed Two-view x-ray of the chest is obtained. Report was reviewed in its entirety. Impression by Dr. Reza shows mild pulmonary fibrosis. There is probably COPD. No change. CT chest angiography for pulmonary embolism was obtained. Report is reviewed in its entirety. Impression by Dr. Santiago shows no evidence of pulmonary embolism. Pulmonary emphysema. Bilateral upper lobe pleural pulmonary infiltrates in the probably related to scarring. These appear unchanged compared to old exam. There are new mild thoracic compression fractures compared to old exam. Disposition Clinical Impression: COPD exacerbation Disposition: ADMITTED IP TO THIS [facility] Condition: Serious Referrals: None,Stated [REFERRING] - 1-2 days Decision to Admit Reason: Admit from EC Decision Date: 12/26/18 Decision Time: 22:59
[2018-12-26 19:20] LABS: Basophils # (A) 0.2 k/uL (0-0.2); Basophils % (A) 2 %; Eosinophils # (A) 0.7 k/uL (0-0.7); Eosinophils % (A) 6 %; HCT 37.5 % (34.0-46.0); HGB 12.3 gm/dL (11.4-16.0); Lymphocytes # (A) 2.1 k/uL (1.0-4.8); Lymphocytes % (A) 17 %; MCH 29.1 pg (25.0-35.0); MCHC 32.7 g/dL (31.0-37.0); MCV 89.1 fL (80.0-100.0); Mean Platelet Volume 6.6; Monocytes # (A) 0.7 k/uL (0-1.0); Monocytes % (A) 6 %; Neutrophils % (A) 67 %; Platelet Count 456 k/uL (150-450); RBC 4.21 m/uL (3.80-5.40); RDW 13.8 % (11.5-15.5)
[2018-12-26 19:30] LABS: Albumin 4.1 g/dL (3.5-5.0); Calcium 9.9 mg/dL (8.4-10.2); Magnesium 1.9 mg/dL (1.6-2.3); Potassium 4.7 mmol/L (3.5-5.1); Total Bilirubin 0.2 mg/dL (0.2-1.3); Total Protein 7.6 g/dL (6.3-8.2)
[2018-12-26 19:34] LABS: Partial Thromboplastin Time 24.5 sec (22.0-30.0); Prothrombin Time 10.4 sec (9.0-12.0)
[2018-12-26 19:36] LABS: D-Dimer 1.4 mg/L FEU (<0.60)
--- NOTE | 2018-12-26 19:41 | XR ---
EXAMINATION TYPE: XR chest 2V DATE OF EXAM: 12/26/2018 COMPARISON: 04/20/2018 HISTORY: Short of breath TECHNIQUE: Frontal and lateral views of the chest are obtained. FINDINGS: There is no heart failure nor confluent pneumonic infiltrate. There is slight coarsening o f interstitial markings. Heart size is normal. IMPRESSION: Mild pulmonary fibrosis. There is probably COPD. No change.
--- NOTE | 2018-12-26 20:22 | CT ---
EXAMINATION TYPE: CT chest angio for PE DATE OF EXAM: 12/26/2018 COMPARISON: 11/03/2018 HISTORY: Difficulty breathing. CT DLP: 270.9 mGycm Automated exposure control for dose reduction was used. CONTRAST: CT Chest for pulmonary embolism performed with with IV Contrast, patient injected with 65 mL of Isovu e 370. FINDINGS: There are 3-D post processed images. There is diffuse pulmonary emphysema. There is patchy consolidation at both lung apices. There is sma ll hiatal hernia. Heart size is normal. There is no pericardial effusion. There are no filling defect s in the pulmonary arteries. Thoracic aorta is atheromatous. There is no aneurysm or dissection. Ther e is no mediastinal adenopathy. There is some spurring in the thoracic spine. There is mild anterior wedging of T6 and T7 vertebra up to 15%. These fractures appear new compared to old exam. IMPRESSION: No evidence of pulmonary embolism. Pulmonary emphysema. Bilateral upper lobe pleural and pulmonary in filtrates the probably related to scarring. These appear unchanged compared to old exam. There are ne w mild thoracic compression fractures compared to old exam.
[2018-12-26 21:23] LABS: Appearance,Urine Clear (Clear); Bilirubin,Urine Negative (Negative); Blood,Urine Trace (Negative); Color,Urine Light Yellow; Glucose,Urine (UA) Negative (Negative); Ketones,Urine Negative (Negative); Leukocyte Esterase,Urine Negative (Negative); Nitrite,Urine Negative (Negative); PH, Urine 6.5 (5.0-8.0); Protein,Urine Negative (Negative); RBC,Urine 3 /hpf (0-5); Urobilinogen,Urine <2.0 mg/dL (<2.0); WBC,Urine 2 /hpf (0-5)
[2018-12-26] MEDS ORDERED: NALOXONE 0.4 MG/ML 1 ML VIAL IV PRN (22:52)
[2018-12-26] MEDS ORDERED: methylPREDNISolone SOD SUCCI 125 MG/2 ML VIAL IV STA (22:55)
[2018-12-26] MEDS ORDERED: Acetaminophen-Codeine 300-30mg TAB PO PRN (22:57)
[2018-12-26] MEDS ORDERED: IPRATROPIUM-ALBUTEROL 3 ML NEB INHALATION PRN ×2 (22:57→23:58)
[2018-12-26 22:58] LABS: Glucose,Whole Blood 112 mg/dL (75-99)
[2018-12-26] MEDS: IPRATROPIUM-ALBUTEROL 3 ML NEB INHALATION SCH ×3 (23:08→23:11)
[2018-12-26] MEDS ORDERED: IPRATROPIUM-ALBUTEROL 3 ML NEB INHALATION STA ×2 (23:14→23:15)
[2018-12-27] MEDS ORDERED: IPRATROPIUM-ALBUTEROL 3 ML NEB INHALATION PRN (01:05)
[2018-12-27] MEDS: LEVOTHYROXINE 50 MCG TAB PO SCH (06:06)
[2018-12-27] MEDS: methylPREDNISolone SOD SUCCI 125 MG/2 ML VIAL IV SCH ×4 (06:07→23:25)
[2018-12-27 07:00] LABS: Glucose,Whole Blood 160 mg/dL (75-99)
[2018-12-27] MEDS: IPRATROPIUM-ALBUTEROL 3 ML NEB INHALATION SCH ×4 (07:19→19:23)
[2018-12-27] MEDS ORDERED: LOPERAMIDE 2 MG CAP PO PRN (09:00)
[2018-12-27] MEDS ORDERED: NON-FORMULARY DRUG (Ubidecarenone [Co Q-10] 100 MG) PO SCH (09:00)
--- NOTE | 2018-12-27 09:01 | US ---
EXAMINATION TYPE: US venous doppler duplex LE LT DATE OF EXAM: 12/27/2018 8:18 AM COMPARISON: NONE CLINICAL HISTORY: Pain. SIDE PERFORMED: TECHNIQUE: The lower extremity deep venous system is examined utilizing real time linear array sonog paulie with graded compression, doppler sonography and color-flow sonography. VESSELS IMAGED: External Iliac Vein (EIV) Common Femoral Vein Deep Femoral Vein Greater Saphenous Vein * Femoral Vein Popliteal Vein Small Saphenous Vein * Proximal Calf Veins (* superficial vessels) Left Leg: Scattered echogenic foci in vein that does not compress. It is unclear whether this is in the wall, possible non-occluding DVT. . Areas of hyperechoic material along periphery of wall favor product of chronic DVT as vessel does n ot appear suspiciously hyperexpanded.Grayscale, color doppler, spectral doppler imaging performed of the deep veins of the left lower extremity. There is normal flow, compressibility, vascular waveform s. IMPRESSION: No convincing evidence for acute DVT in the left lower extremity.
[2018-12-27] MEDS: CLOPIDOGREL 75 MG TAB PO SCH (09:34)
[2018-12-27] MEDS: VENLAFAXINE HCL ER 150 MG CAP PO SCH (09:35)
[2018-12-27] MEDS: LISINOPRIL 10 MG TAB PO SCH (09:35)
[2018-12-27] MEDS: PANTOPRAZOLE 40 MG TABLET PO SCH (09:35)
[2018-12-27] MEDS: METOPROLOL TARTRATE 25 MG TAB PO SCH ×2 (09:35→21:32)
[2018-12-27] MEDS: ASPIRIN 81 MG PO SCH (09:35)
[2018-12-27 11:30] LABS: Glucose,Whole Blood 166 mg/dL (75-99)
--- NOTE | 2018-12-27 12:48 | P.CRDCN ---
History of Present Illness History of present illness: This is a pleasant 78-year-old female past medical history significant for COPD, coronary artery disease s/p multiple stent placement 4-5 years ago in [place] in the setting of a myocardial infarction, hypertension, dyslipidemia and chronic hypoxic respiratory failure. She does not follow regularly with a director [employer] since moving to [place] 3 yrs ago. We have been asked to see her in consultation for elevated troponin. She presented to the hospital yesterday with symptoms of increasing shortness of breath for the past 2 weeks, productive cough and increase fatigue. She states she wears 5 liters of oxygen ATC however recently it is getting more and more difficult to get around her apartment due to worsening dyspnea on exertion. She also is having a pain under the left rib cage that radiates around to the left mid-back. The pain is crampy and achy. It is worse with movement of her torso or based on the position she lays in. She denies dizziness, palpitations, nausea, vomiting or diaphroresis. EKG reveals sinus mechanism heart rate of 79. Chest x-ray is negative for an acute cardiopulmonary process with evidence of pulmonary fibrosis. CTA chest negative for pulmonary embolism with biapical scarring noted. Left lower extremity Doppler is negative for an acute DVT. Laboratory data reviewed, troponin 0.032, 0.103 and 0.104, creatinine 0.81, WBC 12.0, hemoglobin 12.3, platelets 456, d-dimer 1.4, sodium 139, potassium 4.7, magnesium 1.9, proBNP 146. Current cardiac medications include Lopressor 25 mg twice a day, lisinopril 10 mg daily, Plavix 75 mg daily, atorvastatin 40 mg daily and aspirin 81 mg daily. Most recent echocardiogram obtained March 2018 reveals preserved LV systolic function with ejection fraction 55-60%. At the time of my exam: CONSTITUTIONAL: Denies fever. Denies chills. EYES: Denies blurred vision. Denies vision changes. Denies eye pain. EARS, NOSE, MOUTH & THROAT: Denies headache. Denies sore throat. Denies ear pain. CARDIOVASCULAR: Complains of left-sided pleuritic chest pain. Complains of shortness of breath. Denies orthopnea. Denies PND. Denies palpitations. RESPIRATORY: Complains of productive cough. GASTROINTESTINAL: Denies abdominal pain. Denies diarrhea. Denies constipation. Denies nausea. Denies vomiting. MUSCULOSKELETAL: Denies myalgias. INTEGUMENTARY: Denies pruitis. Denies rash. NEUROLOGIC: Denies numbness. Denies tingling. Denies weakness. PSYCHIATRIC: Denies anxiety. Denies depression. ENDOCRINE: Denies fatigue. Denies weight change. Denies polydipsia. Denies polyurina. GENITOURINARY: Denies burning, hematuria or urgency with micturation. HEMATOLOGIC: Denies history of anemia. Denies bleeding. Blood pressure 149/66 heart rate 87 afebrile maintaining oxygen saturation on nasal cannula GENERAL: This is a 78-year-old female in no apparent distress at the time of my examination. HEENT: Head is atraumatic, normocephalic. Pupils are equal, round. Sclerae anicteric. Conjunctivae are clear. Mucous membranes of the mouth are moist. Neck is supple. There is no jugular venous distention. No carotid bruit is heard. LUNGS: Clear to auscultation no wheezes, rales or rhonchi. No chest wall tenderness is noted on palpation or with deep breathing. Diminished bilaterally. HEART: Regular rate and rhythm without murmurs, rubs or gallops. S1 and S2 heard. ABDOMEN: Soft, nontender. Bowel sounds are heard. No organomegaly noted. EXTREMITIES: Bilateral lower extremity trace nonpitting edema and no calf tenderness noted. VASCULAR: Radial and dorsalis pedis pulses palpated, no evidence of clubbing. NEUROLOGIC: Patient is awake, alert and oriented x3. ASSESSMENT Pleuritic chest pain. Possibly related to musculoskeletal strain. Pain is reproducible based on position changes or movement of her torso. Atypical for angina. Elevated troponin, appears chronic. Pattern not consistent with an acute coronary event. PE has been ruled out. Likely related to chronic oxygen supply demand mismatch. Shortness of breath, clinically she is euvolemic. Normal proBNP. No heart failure. Pt denies prior history of heart failure. Likely related to chronic COPD and pulmonary fibrosis. Leukocytosis COPD, severe History of coronary artery disease status post stent placements, [place] 4-5 years ago. Awaiting records Hypertension Dyslipidemia PLAN Obtain 2D echocardiogram and doppler study to assess cardiac structure and function. Pain is atypical for angina with pleuritic features. No EKG evidence to suggest ischemia. Troponin elevation secondary to oxygen supply-demand mismatch. Recommend optimizing her medical therapy. Continue lopressor, lisinpril, aspirin, plavix and atrovastatin. Request records from previous heart cath for review. Ongoing medical management. Thank you kindly for this consultation. Nurse Practitioner note has been reviewed, I agree with a documented findings and plan of care. Patient was seen and examined. Past Medical History Past Medical History: Heart Failure, COPD, Hearing Disorder / Deafness, Hyperte nsion, Myocardial Infarction ([place]), Osteoarthritis (OA), Respiratory Disorder Additional Past Medical History / Comment(s): HOME OXYGEN 2LNC UNDER 10YEARS Last Myocardial Infarction Date:: 2013 History of Any Multi-Drug Resistant Organisms: None Reported Past Surgical History: Appendectomy, Heart Catheterization With Stent Past Anesthesia/Blood Transfusion Reactions: No Reported Reaction Date of Last Stent Placement:: 2013 Past Psychological History: No Psychological Hx Reported Smoking Status: Former smoker Past Alcohol Use History: None Reported Past Drug Use History: None Reported - Past Family History Father Family Medical History: Prostate Disorder Additional Family Medical History / Comment(s): PROSTATE CA Mother Family Medical History: Congestive Heart Failure (CHF) Medications and Allergies Home Medications Medication Instructions Recorded Confirmed Type Albuterol Nebulized [Ventolin 2.5 mg INHALATION RT-QID 04/18/18 12/26/18 History Nebulized] Aspirin EC [Ecotrin Low Dose] 81 mg PO DAILY 04/18/18 12/26/18 History Atorvastatin [Lipitor] 40 mg PO HS 04/18/18 12/26/18 History Clopidogrel [Plavix] 75 mg PO DAILY 04/18/18 12/26/18 History Ipratropium/Albuterol Sulfate 1 puff INHALATION RT-QID PRN 04/18/18 12/26/18 History [Combivent Respimat Inhaler] Levothyroxine Sodium [Synthroid] 50 mcg PO DAILY 04/18/18 12/26/18 History Lisinopril [Zestril] 10 mg PO DAILY 04/18/18 12/26/18 History Metoprolol Tartrate [Lopressor] 25 mg PO BID 04/18/18 12/26/18 History Omeprazole [PriLOSEC] 20 mg PO DAILY 04/18/18 12/26/18 History Ubidecarenone [Co Q-10] 100 mg PO DAILY 04/18/18 12/26/18 History Venlafaxine HCl [Effexor XR] 150 mg PO DAILY 04/18/18 12/26/18 History Loperamide [Imodium] 2 mg PO QID PRN cap 04/22/18 12/26/18 Rx Acetaminophen-Codeine 300-30mg 1 tab PO Q6H PRN 12/26/18 12/26/18 History [Tylenol w/codeine #3] Baclofen 10 mg PO DAILY PRN 12/26/18 12/26/18 History Allergies Allergy/AdvReac Type Severity Reaction Status Date / Time fluticasone Allergy Dyspnea Verified 12/26/18 19:43 [From Advair Diskus] Penicillins Allergy Rash/Hives Verified 12/26/18 19:43 salmeterol Allergy Dyspnea Verified 12/26/18 19:43 [From Advair Diskus] Physical Exam Vitals: Vital Signs Temp Pulse Pulse Resp BP BP Pulse Ox 12/27/18 11:54 98.2 F 87 19 149/66 94 L 12/27/18 11:03 90 12/27/18 10:51 90 12/27/18 07:30 89 12/27/18 07:19 88 12/27/18 06:16 97.4 F L 87 20 156/63 95 12/26/18 23:59 98.6 F 90 18 152/73 96 12/26/18 23:28 98.9 F 93 20 151/74 96 12/26/18 23:18 94 12/26/18 23:11 94 12/26/18 22:21 87 18 169/67 96 12/26/18 20:07 81 18 143/67 96 12/26/18 18:40 22 12/26/18 18:35 98.9 F 76 24 135/62 96 Intake and Output 12/26/18 12/27/18 12/27/18 22:59 06:59 14:59 Intake Total 590 Balance 590 Intake: Oral 590 Other: Voiding Method Toilet Toilet # Voids 2 Weight 68.492 kg Results 12/26/18 19:10 12/26/18 19:10 Cardiac Enzymes 12/26/18 12/26/18 12/27/18 Range/Units 19:10 19:10 02:10 AST 22 (14-36) U/L Troponin I 0.032 0.103 H* (0.000-0.034) ng/mL 12/27/18 Range/Units 07:23 AST (14-36) U/L Troponin I 0.104 H* (0.000-0.034) ng/mL Coagulation 12/26/18 Range/Units 19:10 PT 10.4 (9.0-12.0) sec APTT 24.5 (22.0-30.0) sec CBC 12/26/18 Range/Units 19:10 WBC 12.0 H (3.8-10.6) k/uL RBC 4.21 (3.80-5.40) m/uL Hgb 12.3 (11.4-16.0) gm/dL Hct 37.5 (34.0-46.0) % Plt Count 456 H (150-450) k/uL Comprehensive Metabolic Panel 12/26/18 Range/Units 19:10 Sodium 139 (137-145) mmol/L Potassium 4.7 (3.5-5.1) mmol/L Chloride 96 L (98-107) mmol/L Carbon Dioxide 33 H (22-30) mmol/L BUN 10 (7-17) mg/dL Creatinine 0.81 (0.52-1.04) mg/dL Glucose 109 H (74-99) mg/dL Calcium 9.9 (8.4-10.2) mg/dL AST 22 (14-36) U/L ALT 16 (9-52) U/L Alkaline Phosphatase 113 (38-126) U/L Total Protein 7.6 (6.3-8.2) g/dL Albumin 4.1 (3.5-5.0) g/dL Current Medications Generic Name Dose Route Start Last Admin Trade Name Freq PRN Reason Stop Dose Admin Acetaminophen/Codeine Phosphate 1 each 12/26/18 22:57 Tylenol #3 PO Q6H PRN Pain Albuterol/Ipratropium 3 ml 12/27/18 08:00 12/27/18 10:50 Duoneb 0.5 Mg-3 Mg/3 Ml Soln INHALATION 3 ml RT-QID MELANIA Administration Albuterol/Ipratropium 3 ml 12/27/18 01:05 Duoneb 0.5 Mg-3 Mg/3 Ml Soln INHALATION RT-Q2H PRN Shortness Of Breath Or Wheezing Aspirin 81 mg 09/09/19 09:00 12/27/18 09:35 Aspirin PO 81 mg DAILY MELANIA Administration Atorvastatin Calcium 40 mg 12/27/18 21:00 Lipitor PO HS MELANIA Baclofen 10 mg 12/27/18 09:00 Lioresal PO DAILY PRN Muscle Spasm Clopidogrel Bisulfate 75 mg 12/27/18 09:00 12/27/18 09:34 Plavix PO 75 mg DAILY MELANIA Administration Insulin Aspart 0 unit 12/27/18 12:30 Novolog SQ ACHS [facility] Protocol Levothyroxine Sodium 50 mcg 12/27/18 06:30 12/27/18 06:06 Synthroid PO 50 mcg DAILY@0630 [facility] Administration Lisinopril 10 mg 12/27/18 09:00 12/27/18 09:35 Zestril PO 10 mg DAILY [facility] Administration Loperamide HCl 2 mg 12/27/18 09:00 Imodium PO QID PRN Diarrhea Methylprednisolone Sodium Succinate 60 mg 12/27/18 06:00 12/27/18 06:07 Solu-Medrol IV 60 mg Q6HR MELANIA Administration Metoprolol Tartrate 25 mg 12/27/18 09:00 12/27/18 09:35 Lopressor PO 25 mg BID [facility] Administration Naloxone HCl 0.2 mg 12/26/18 22:52 Narcan IV Q2M PRN Opioid Reversal Pantoprazole Sodium 40 mg 12/27/18 09:00 12/27/18 09:35 Protonix PO 40 mg DAILY MELANIA Administration Venlafaxine HCl 150 mg 12/27/18 09:00 12/27/18 09:35 Effexor Xr PO 150 mg DAILY MELANIA Administration Intake and Output 12/26/18 12/27/18 12/27/18 22:59 06:59 14:59 Intake Total 590 Balance 590 Intake: Oral 590 Other: Voiding Method Toilet Toilet # Voids 2 Weight 68.492 kg 12/26/18 19:10 12/26/18 19:10
[2018-12-27] MEDS: INSULIN ASPART (NovoLOG) 100 UNIT/ML VIAL SQ SCH ×3 (13:01→21:32)
--- NOTE | 2018-12-27 13:45 | P.CNPUL ---
History of Present Illness Consult date: 12/27/18 Reason for consult: COPD Chief complaint: Shortness of breath and epigastric pain History of present illness: This is a 78-year-old female with known history of COPD, normally sees Dr. Pedro for underlying COPD which is severe, O2 dependent, not prednisone dependent. Patient is a heavy smoker, she is also known to have history of coronary artery disease status post multiple stent placements for years ago, this was done in [place]. Patient had hypertension, hyperlipidemia, presented to the hospital yesterday with 2 weeks history of increased shortness of breath, productive cough, wheezing. Patient has been using her oxygen around the clock, has been compliant with her bronchodilators, but continues to have shortness of breath cough and wheezing. In addition to this the patient has been complaining of pain under the left rib cage radiating to the left mid back. Described as crampy and achy. Pain is worse with movement. Denies any dizziness lightheadedness denies any nausea vomiting or diaphoresis. CT angiogram of the chest showed mostly biapical scarring, no evidence of infiltrate, no evidence of pulmonary embolism. On admission her troponins were elevated, and her BNP level was normal. Patient has been placed on bronchodilators, antibiotics, and steroids. Slight improvement over the last 24 hours. Review of Systems CONSTITUTIONAL: Denies weight loss fever or chills. EYES: Denies blurred vision or diplopia.. EARS, NOSE, MOUTH & THROAT: Denies earache or sore throat. CARDIOVASCULAR: Left-sided chest pain as noted in HPI. RESPIRATORY: Cough wheezing shortness of breath.. GASTROINTESTINAL: Denies nausea vomiting or diarrhea. Denies melena or hematemesis. MUSCULOSKELETAL: Denies aches or pains except for the left-sided chest pain below the left rib cage INTEGUMENTARY: Denies any rashes or itching NEUROLOGIC: Denies headache or blurred vision dizziness PSYCHIATRIC: No symptoms of active depression ENDOCRINE: Denies heat or cold intolerance GENITOURINARY: Denies frequency urgency or hematuria. HEMATOLOGIC: Denies any clotting bleeding or bruising Past Medical History Past Medical History: Heart Failure, COPD, Hearing Disorder / Deafness, Hypertension, Myocardial Infarction ([place]), Osteoarthritis (OA), Respiratory Disorder Additional Past Medical History / Comment(s): HOME OXYGEN 2LNC UNDER 10YEARS Last Myocardial Infarction Date:: 2013 History of Any Multi-Drug Resistant Organisms: None Reported Past Surgical History: Appendectomy, Heart Catheterization With Stent Past Anesthesia/Blood Transfusion Reactions: No Reported Reaction Date of Last Stent Placement:: 2013 Past Psychological History: No Psychological Hx Reported Smoking Status: Former smoker Past Alcohol Use History: None Reported Past Drug Use History: None Reported - Past Family History Father Family Medical History: Prostate Disorder Additional Family Medical History / Comment(s): PROSTATE CA Mother Family Medical History: Congestive Heart Failure (CHF) Medications and Allergies Home Medications Medication Instructions Recorded Confirmed Type Albuterol Nebulized [Ventolin 2.5 mg INHALATION RT-QID 04/18/18 12/26/18 History Nebulized] Aspirin EC [Ecotrin Low Dose] 81 mg PO DAILY 04/18/18 12/26/18 History Atorvastatin [Lipitor] 40 mg PO HS 04/18/18 12/26/18 History Clopidogrel [Plavix] 75 mg PO DAILY 04/18/18 12/26/18 History Ipratropium/Albuterol Sulfate 1 puff INHALATION RT-QID PRN 04/18/18 12/26/18 History [Combivent Respimat Inhaler] Levothyroxine Sodium [Synthroid] 50 mcg PO DAILY 04/18/18 12/26/18 History Lisinopril [Zestril] 10 mg PO DAILY 04/18/18 12/26/18 History Metoprolol Tartrate [Lopressor] 25 mg PO BID 04/18/18 12/26/18 History Omeprazole [PriLOSEC] 20 mg PO DAILY 04/18/18 12/26/18 History Ubidecarenone [Co Q-10] 100 mg PO DAILY 04/18/18 12/26/18 History Venlafaxine HCl [Effexor XR] 150 mg PO DAILY 04/18/18 12/26/18 History Loperamide [Imodium] 2 mg PO QID PRN cap 04/22/18 12/26/18 Rx Acetaminophen-Codeine 300-30mg 1 tab PO Q6H PRN 12/26/18 12/26/18 History [Tylenol w/codeine #3] Baclofen 10 mg PO DAILY PRN 12/26/18 12/26/18 History Allergies Allergy/AdvReac Type Severity Reaction Status Date / Time fluticasone Allergy Dyspnea Verified 12/26/18 19:43 [From Advair Diskus] Penicillins Allergy Rash/Hives Verified 12/26/18 19:43 salmeterol Allergy Dyspnea Verified 12/26/18 19:43 [From AdvProject WBS Diskus] Physical Exam Vitals: Vital Signs Temp Pulse Pulse Resp BP BP Pulse Ox 12/27/18 11:54 98.2 F 87 19 149/66 94 L 12/27/18 11:03 90 12/27/18 10:51 90 12/27/18 07:30 89 12/27/18 07:19 88 12/27/18 06:16 97.4 F L 87 20 156/63 95 12/26/18 23:59 98.6 F 90 18 152/73 96 12/26/18 23:28 98.9 F 93 20 151/74 96 12/26/18 23:18 94 12/26/18 23:11 94 12/26/18 22:21 87 18 169/67 96 12/26/18 20:07 81 18 143/67 96 12/26/18 18:40 22 12/26/18 18:35 98.9 F 76 24 135/62 96 Intake and Output 12/26/18 12/27/18 12/27/18 22:59 06:59 14:59 Intake Total 590 Balance 590 Intake: Oral 590 Other: Voiding Method Toilet Toilet # Voids 2 Weight 68.492 kg Physical Exam: Revealed 78-year-old female in no distress. Head: Atraumatic, normocephalic. HEENT:[Neck is supple.] [No neck masses.] [No thyromegaly.] [No JVD.] Chest: Diminished breath sound bilaterally, minimal wheezing on forced expiratory maneuver only. Symmetrical chest expansion. No chest wall tenderness. Cardiac Exam: [Normal S1 and S2, no S3 gallop, no murmur.] Abdomen: [Soft, nontender, no megaly, no rebound, no guarding, normal bowel sounds.] Extremities: [No clubbing, trace of bipedal edema, no cyanosis.] Neurological Exam: [No focal neurologic deficit.] Alert oriented 3. Psychiatric: Normal mood affect and normal mental status examination. Skin: No rashes. Lymphatics: No lymphadenopathy. Results - Laboratory Findings CBC and BMP: 12/26/18 19:10 12/26/18 19:10 PT/INR, D-dimer PT 10.4 sec (9.0-12.0) 12/26/18 19:10 INR 1.0 (<1.2) 12/26/18 19:10 D-Dimer 1.40 mg/L FEU (<0.60) H 12/26/18 19:10 Abnormal lab findings: Abnormal Labs 12/26/18 12/26/18 12/26/18 19:10 19:10 19:10 WBC 12.0 H Plt Count 456 H Neutrophils # 8.0 H D-Dimer 1.40 H Chloride 96 L Carbon Dioxide 33 H Glucose 109 H POC Glucose (mg/dL) Troponin I Urine Blood 12/26/18 12/26/18 12/27/18 21:09 22:51 02:10 WBC Plt Count Neutrophils # D-Dimer Chloride Carbon Dioxide Glucose POC Glucose (mg/dL) 112 H Troponin I 0.103 H* Urine Blood Trace H 12/27/18 12/27/18 12/27/18 06:59 07:23 11:29 WBC Plt Count Neutrophils # D-Dimer Chloride Carbon Dioxide Glucose POC Glucose (mg/dL) 160 H 166 H Troponin I 0.104 H* Urine Blood - Diagnostic Findings CT scan - chest: image reviewed (As noted in HPI.) Assessment and Plan Assessment: Impression: 1 Acute exacerbation of COPD 2 left-sided chest pain, musculoskeletal, atypical of angina. 3 chronic hypoxic respiratory failure secondary to COPD 4 history of underlying coronary artery disease and previous stent placement 4 years ago. 5 hypertension 6 dyslipidemia Recommendation: I fully agree with the present treatment plan including her present course of bronchodilators, albuterol with Atrovent updrafts, methylprednisolone, oxygen, patient is ALLERGIC to inhaled steroids and ALLERGIC to long-acting beta agonists, hence we'll try to avoid patient is to be seen by cardiology on consultation, resume back on her usual cardiac medications, will continue to follow. Time with Patient: Greater than 30
--- NOTE | 2018-12-27 14:32 | P.HPIM ---
History of Present Illness H&P Date: 12/27/18 Chief Complaint: Shortness of breath This is a 78-year-old female patient of Dr. Bustamante and Dr. Bowers with past medical history of COPD, chronic hypoxic respiratory failure on home O2, remote tobacco use and quit in 2013, coronary artery disease status post multiple stent placements, hyperlipidemia, hypertension. The patient complains of difficulty in breathing over the weekend. She was just in the office with Dr. Bustamante on Thursday and did not have any significant complaints at that time but became worse after she went home and gradually worsened over the weekend. She Complains of cough with yellow sputum production. Patient complains of wheezing and increasing shortness of breath. Patient came into [facility] emergency center for evaluation. Chest x-ray was negative for acute cardiopulmonary process with evidence of pulmonary fibrosis. CT of the chest was negative for pulmonary embolism with biapical scarring noted. Left lower extremity Doppler was negative for acute DVT. Troponins were 0.032, 0.103 and 0.104. Creatinine 0.83, white count 12, hemoglobin 12.3, d-dimer 1.4, potassium 4.7 magnesium 1.9 area proBNP 146. The patient was [facility] floor and consult requested with cardiology for elevated troponins and with Dr. Alvarado for COPD exacerbation. Review of Systems Constitutional: Reports fatigue, Denies anorexia, Denies chills, Denies fever, Denies lethargy, Denies poor appetite Eyes: denies blurred vision, denies pain Ears, nose, mouth and throat: Denies headache, Denies sore throat, Denies vertigo Cardiovascular: Reports decreased exercise tolerance, Reports dyspnea on exertion, Reports shortness of breath, Denies chest pain, Denies edema, Denies leg edema, Denies lightheadedness, Denies syncope Respiratory: Reports cough, Reports cough with sputum, Reports dyspnea, Reports home oxygen, Reports respiratory infections, Reports wheezing, Denies excessive sputum, Denies hemoptysis Gastrointestinal: Denies abdominal pain, Denies diarrhea, Denies nausea, Denies vomiting Genitourinary: Denies dysuria, Denies urgency, Denies urinary frequency Musculoskeletal: Denies muscle weakness, Denies myalgias Integumentary: Denies pruritus, Denies rash, Denies wounds Neurological: Denies numbness, Denies vertigo, Denies weakness Psychiatric: Denies anxiety, Denies depression Endocrine: Denies fatigue, Denies weight change Past Medical History Past Medical History: Heart Failure, COPD, Hearing Disorder / Deafness, Hypertension, Myocardial Infarction (SD), Osteoarthritis (OA), Respiratory Disorder Additional Past Medical History / Comment(s): HOME OXYGEN 2LNC UNDER 10YEARS Last Myocardial Infarction Date:: 2013 History of Any Multi-Drug Resistant Organisms: None Reported Past Surgical History: Appendectomy, Heart Catheterization With Stent Past Anesthesia/Blood Transfusion Reactions: No Reported Reaction Date of Last Stent Placement:: 2013 Past Psychological History: No Psychological Hx Reported Smoking Status: Former smoker Past Alcohol Use History: None Reported Additional Past Alcohol Use History / Comment(s): The patient was a smoker one and a half pack per day for 40-50 years ago quit in 2013 or 2014. She denies any illicit drug use, no alcohol use. Patient does not have a CPAP at home. Patient is home O2 dependent. She has a nebulizer in the home. She has been for the past 3 years and worked in the past as a housewife. Past Drug Use History: None Reported - Past Family History Father Family Medical History: Prostate Disorder Additional Family Medical History / Comment(s): Father at age 80 from lung cancer with history of prostate cancer. Mother Family Medical History: Congestive Heart Failure (CHF) Additional Family Medical History / Comment(s): Mother at age 89 from heart trouble. Brother(s) Additional Family Medical History / Comment(s): Patient had a total of 6 brothers. One brother has passed and he had multiple medical problems including testicular cancer with metastatic disease to the kidneys, CVA following surgery and diabetes. Other relatives have no major medical problems that she is aware of. Patient has 2 daughters with no major medical problems. Medications and Allergies Home Medications Medication Instructions Recorded Confirmed Type Albuterol Nebulized [Ventolin 2.5 mg INHALATION RT-QID 04/18/18 12/26/18 History Nebulized] Aspirin EC [Ecotrin Low Dose] 81 mg PO DAILY 04/18/18 12/26/18 History Atorvastatin [Lipitor] 40 mg PO HS 04/18/18 12/26/18 History Clopidogrel [Plavix] 75 mg PO DAILY 04/18/18 12/26/18 History Ipratropium/Albuterol Sulfate 1 puff INHALATION RT-QID PRN 04/18/18 12/26/18 History [Combivent Respimat Inhaler] Levothyroxine Sodium [Synthroid] 50 mcg PO DAILY 04/18/18 12/26/18 History Lisinopril [Zestril] 10 mg PO DAILY 04/18/18 12/26/18 History Metoprolol Tartrate [Lopressor] 25 mg PO BID 04/18/18 12/26/18 History Omeprazole [PriLOSEC] 20 mg PO DAILY 04/18/18 12/26/18 History Ubidecarenone [Co Q-10] 100 mg PO DAILY 04/18/18 12/26/18 History Venlafaxine HCl [Effexor XR] 150 mg PO DAILY 04/18/18 12/26/18 History Loperamide [Imodium] 2 mg PO QID PRN cap 04/22/18 12/26/18 Rx Acetaminophen-Codeine 300-30mg 1 tab PO Q6H PRN 12/26/18 12/26/18 History [Tylenol w/codeine #3] Baclofen 10 mg PO DAILY PRN 12/26/18 12/26/18 History Allergies Allergy/AdvReac Type Severity Reaction Status Date / Time fluticasone Allergy Dyspnea Verified 12/26/18 19:43 [From Advair Diskus] Penicillins Allergy Rash/Hives Verified 12/26/18 19:43 salmeterol Allergy Dyspnea Verified 12/26/18 19:43 [From Advair Diskus] Physical Exam Vitals: Vital Signs Temp Pulse Pulse Resp BP BP Pulse Ox 12/27/18 11:54 98.2 F 87 19 149/66 94 L 12/27/18 11:03 90 12/27/18 10:51 90 12/27/18 07:30 89 12/27/18 07:19 88 12/27/18 06:16 97.4 F L 87 20 156/63 95 12/26/18 23:59 98.6 F 90 18 152/73 96 12/26/18 23:28 98.9 F 93 20 151/74 96 12/26/18 23:18 94 12/26/18 23:11 94 12/26/18 22:21 87 18 169/67 96 12/26/18 20:07 81 18 143/67 96 12/26/18 18:40 22 12/26/18 18:35 98.9 F 76 24 135/62 96 Intake and Output 12/26/18 12/27/18 12/27/18 22:59 06:59 14:59 Intake Total 590 Balance 590 Intake: Oral 590 Other: Voiding Method Toilet Toilet # Voids 2 Weight 68.492 kg Gen: This is a 78-year-old thin female. She is sitting up in bed and appears to be in no acute distress. HEENT: Head is atraumatic, normocephalic. Pupils equal, round. Sclerae is anicteric. Oral mucous membranes are moist. NECK: Supple. No JVD. No lymphadenopathy. No thyromegaly. LUNGS: Diminished bilaterally, minimal wheezing. No intercostal retractions. HEART: Regular rate and rhythm. No murmur. ABDOMEN: Soft. Bowel sounds are present. No masses. No tenderness. EXTREMITIES: No pedal edema. No calf tenderness. Dorsalis pedis palpable bilaterally. NEUROLOGICAL: Patient is awake, alert and oriented x3. Cranial nerves 2 through 12 are grossly intact. Results CBC & Chem 7: 12/26/18 19:10 12/26/18 19:10 Labs: Abnormal Lab Results - Last 24 Hours (Table) 12/26/18 12/26/18 12/26/18 Range/Units 19:10 19:10 19:10 WBC 12.0 H (3.8-10.6) k/uL Plt Count 456 H (150-450) k/uL Neutrophils # 8.0 H (1.3-7.7) k/uL D-Dimer 1.40 H (<0.60) mg/L FEU Chloride 96 L (98-107) mmol/L Carbon Dioxide 33 H (22-30) mmol/L Glucose 109 H (74-99) mg/dL POC Glucose (mg/dL) (75-99) mg/dL Troponin I (0.000-0.034) ng/mL Urine Blood (Negative) 12/26/18 12/26/18 12/27/18 Range/Units 21:09 22:51 02:10 WBC (3.8-10.6) k/uL Plt Count (150-450) k/uL Neutrophils # (1.3-7.7) k/uL D-Dimer (<0.60) mg/L FEU Chloride (98-107) mmol/L Carbon Dioxide (22-30) mmol/L Glucose (74-99) mg/dL POC Glucose (mg/dL) 112 H (75-99) mg/dL Troponin I 0.103 H* (0.000-0.034) ng/mL Urine Blood Trace H (Negative) 12/27/18 12/27/18 12/27/18 Range/Units 06:59 07:23 11:29 WBC (3.8-10.6) k/uL Plt Count (150-450) k/uL Neutrophils # (1.3-7.7) k/uL D-Dimer (<0.60) mg/L FEU Chloride (98-107) mmol/L Carbon Dioxide (22-30) mmol/L Glucose (74-99) mg/dL POC Glucose (mg/dL) 160 H 166 H (75-99) mg/dL Troponin I 0.104 H* (0.000-0.034) ng/mL Urine Blood (Negative) Thrombosis Risk Factor Assmnt - Choose All That Apply Any of the Below Risk Factors Present?: Yes Each Factor Represents 1 point: Abnormal pulmonary function (COPD), Obesity (BMI >25) Other Risk Factors: Yes Each Risk Factor Represents 3 Points: Age 75 years or older Other congenital or acquired thrombophilia - If yes, enter type in comment: No Thrombosis Risk Factor Assessment Total Risk Factor Score: 5 Thrombosis Risk Factor Assessment Level: High Risk Assessment and Plan Plan: 1. Acute COPD exacerbation. Consult with Dr. Galaviz appreciated. Continue DuoNeb treatments 4 times daily and every 2 hours as needed, Solu-Medrol 60 mg IV every 6 hours. 2. Pleuritic chest pain. Acute coronary syndrome ruled out. Cardiology consult appreciated. Echocardiogram has been ordered. 3. Chronic hypoxic respiratory failure on home O2. Continue oxygen therapy. 4. History of coronary artery disease with stent placement. Continue Lopressor, lisinopril, aspirin, Plavix, atorvastatin. 5. Hypertension. Continue lisinopril and Lopressor. 6. Hyperlipidemia. Continue atorvastatin. 7. Recurrent depression. Continue Effexor 150 mg daily. 8. Gastroesophageal reflux disease. Continue omeprazole or equivalent. 9. DVT prophylaxis. Lovenox daily. Patient will be admitted to the hospital for a minimum of 2 night stay. Discharge plan: to be determined. PT and OT added Impression and plan of care have been directed as dictated by the signing physician. Katie Flor nurse practitioner acting as scribe for signing physician.
[2018-12-27 17:15] LABS: Glucose,Whole Blood 139 mg/dL (75-99)
[2018-12-27 20:11] LABS: Glucose,Whole Blood 175 mg/dL (75-99)
[2018-12-27] MEDS: ATORVASTATIN 40 MG TAB PO SCH (21:32)
[2018-12-28] MEDS: methylPREDNISolone SOD SUCCI 125 MG/2 ML VIAL IV SCH ×2 (05:46→12:55)
[2018-12-28] MEDS: LEVOTHYROXINE 50 MCG TAB PO SCH (05:46)
[2018-12-28 07:16] LABS: Glucose,Whole Blood 125 mg/dL (75-99)
[2018-12-28] MEDS: IPRATROPIUM-ALBUTEROL 3 ML NEB INHALATION SCH ×5 (08:02→20:35)
[2018-12-28] MEDS: INSULIN ASPART (NovoLOG) 100 UNIT/ML VIAL SQ SCH ×4 (09:00→20:53)
[2018-12-28] MEDS: ENOXAPARIN 40 MG/0.4 ML SYRINGE SQ SCH (09:01)
--- NOTE | 2018-12-28 09:01 | ECHOF ---
Referral Reason:elev trop, sob MEASUREMENTS -------- HEIGHT: 162.6 cm WEIGHT: 68.5 kg BP: 156/63 RVIDd: 3.6 cm (< 3.3) IVSd: 1.2 cm (0.6 - 1.1) LVIDd: 2.9 cm (3.9 - 5.3) LVPWd: 1.5 cm (0.6 - 1.1) IVSs: 1.5 cm LVIDs: 1.7 cm LVPWs: 1.6 cm LAESV Index (A-L): 25.73 ml/m Ao Diam: 2.4 cm (2.0 - 3.7) AV Cusp: 1.7 cm (1.5 - 2.6) LA Diam: 3.6 cm (2.7 - 3.8) MV E Cornelio: 0.94 m/s MV DecT: 235 ms MV A Cornelio: 1.60 m/s MV E/A Ratio: 0.59 RAP: 5.00 mmHg RVSP: 16.86 mmHg FINDINGS -------- Sinus rhythm. COPD The left ventricular size is normal. There is mild concentric left ventricular hypertrophy. Overa ll left ventricular systolic function is normal with, an EF between 55 - 60 %. The diastolic fillin g pattern is normal for the age of the patient. The right ventricle is mildly enlarged. Left atrium is normal size by volume. RA appears enlarged Lumason used Interatrial and interventricular septum intact. The aortic valve is trileaflet and appears structurally normal. There is mild aortic valve sclerosi s without stenosis. There is no evidence of aortic regurgitation. Mild mitral regurgitation is present. Mild tricuspid regurgitation present. There is no evidence of pulmonary hypertension. The right v entricular systolic pressure, as measured by Doppler, is 16.86mmHg. There is no pulmonic regurgitation present. The aortic root size is normal. IVC not well visualized There is no pericardial effusion. CONCLUSIONS -------- 1. Sinus rhythm. COPD 2. The left ventricular size is normal. 3. There is mild concentric left ventricular hypertrophy. 4. Overall left ventricular systolic function is normal with, an EF between 55 - 60 %. 5. The diastolic filling pattern is normal for the age of the patient. 6. The right ventricle is mildly enlarged. 7. Left atrium is normal size by volume. 8. RA appears enlarged 9. Lumason used 10. Interatrial and interventricular septum intact. 11. The aortic valve is trileaflet and appears structurally normal. 12. There is mild aortic valve sclerosis without stenosis. 13. There is no evidence of aortic regurgitation. 14. Mild mitral regurgitation is present. 15. Mild tricuspid regurgitation present. 16. There is no evidence of pulmonary hypertension. 17. The right ventricular systolic pressure, as measured by Doppler, is 16.86mmHg. 18. There is no pulmonic regurgitation present. 19. The aortic root size is normal. 20. IVC not well visualized 21. There is no pericardial effusion. COMMISSIONER OF INTERNAL REVENUE: Rowan Sabillon RDCS
[2018-12-28] MEDS: PANTOPRAZOLE 40 MG TABLET PO SCH (09:02)
[2018-12-28] MEDS: VENLAFAXINE HCL ER 150 MG CAP PO SCH (09:02)
[2018-12-28] MEDS: BACLOFEN 10 MG TAB PO PRN (09:02)
[2018-12-28] MEDS: ASPIRIN 81 MG PO SCH (09:02)
[2018-12-28] MEDS: LISINOPRIL 10 MG TAB PO SCH (09:02)
[2018-12-28] MEDS: CLOPIDOGREL 75 MG TAB PO SCH (09:02)
[2018-12-28] MEDS: METOPROLOL TARTRATE 25 MG TAB PO SCH ×2 (09:02→20:45)
--- NOTE | 2018-12-28 11:24 | P.PN ---
Subjective Progress Note Date: 12/28/18 Principal diagnosis: Acute exacerbation of chronic obstructive pulmonary disease with left-sided pleuritic-type chest pain. This is a 78-year-old female with known history of COPD, normally sees Dr. Pedro for underlying COPD which is severe, O2 dependent, not prednisone dependent. Patient is a heavy smoker, she is also known to have history of coronary artery disease status post multiple stent placements for years ago, this was done in [place]. Patient had hypertension, hyperlipidemia, presented to the hospital yesterday with 2 weeks history of increased shortness of breath, productive cough, wheezing. Patient has been using her oxygen around the clock, has been compliant with her bronchodilators, but continues to have shortness of breath cough and wheezing. In addition to this the patient has been complaining of pain under the left rib cage radiating to the left mid back. Described as crampy and achy. Pain is worse with movement. Denies any dizziness light headedness denies any nausea vomiting or diaphoresis. CT angiogram of the chest showed mostly biapical scarring, no evidence of infiltrate, no evidence of pulmonary embolism. On admission her troponins were elevated, and her BNP level was normal. Patient has been placed on bronchodilators, antibiotics, and steroids. Slight improvement over the last 24 hours. The patient is seen today 12/28/2018 in follow-up on the regular medical floor. She is awake and alert in no acute distress. Up ambulating in the room. Improved today as compared to yesterday. Stating not quite back to her baselin e. Still dyspnea on exertion. Maintaining good O2 saturations in the 90s on 4 L/m per nasal cannula. She's afebrile. Hemodynamically stable. No complaints of chest discomfort currently. Echo revealed preserved left ventricular systolic function ejection fraction 55-60%. Objective - Vital Signs Vital signs: Vital Signs Temp 97.7 F 12/28/18 04:51 Pulse 80 12/28/18 08:16 Resp 16 12/28/18 08:02 BP 132/76 12/28/18 04:51 Pulse Ox 96 12/28/18 08:02 Intake & Output 12/27/18 12/28/18 12/28/18 18:59 06:59 18:59 Intake Total 600 Balance 600 Intake: Oral 600 Other: Voiding Method Toilet Toilet Toilet # Voids 2 3 - Exam GENERAL EXAM: Alert, active, comfortable in no apparent distress. On 4 L nasal cannula. HEAD: Normocephalic. EYES: Normal reaction of pupils, equal size. NOSE: Clear with pink turbinates. THROAT: No erythema or exudates. NECK: No masses, no JVD. CHEST: No chest wall deformity. LUNGS: Equal air entry with faint end expiratory wheeze, diminished. CVS: S1 and S2 normal with no audible murmur, regular rhythm. ABDOMEN: No hepatosplenomegaly, normal bowel sounds, no guarding or rigidity. SPINE: No scoliosis or deformity SKIN: No rashes CENTRAL NERVOUS SYSTEM: No focal deficits, tone is normal in all 4 extremities. EXTREMITIES: There is no peripheral edema. No clubbing, no cyanosis. Peripheral pulses are intact. - Labs CBC & Chem 7: 12/26/18 19:10 12/26/18 19:10 Labs: Abnormal Lab Results - Last 24 Hours (Table) 12/27/18 12/27/18 12/27/18 Range/Units 11:29 17:13 20:10 POC Glucose (mg/dL) 166 H 139 H 175 H (75-99) mg/dL 12/28/18 Range/Units 07:15 POC Glucose (mg/dL) 125 H (75-99) mg/dL Assessment and Plan Assessment: Impression: #1 Acute exacerbation of severe oxygen dependent chronic obstructive pulmonary disease. #2 Left-sided chest pain, musculoskeletal, atypical for angina. #3 History of underlying coronary artery disease with previous stent placement in [place] several years ago. #4 Hypertension. #5 Hyperlipidemia. #6 History of heavy tobacco dependence. Plan: The patient was seen and evaluated by Dr. Lott. She is improved today as compared to yesterday. Not quite back to her baseline. Probable discharge in the a.m. We'll continue the current treatment plan. We'll continue to follow. I, the cosigning physician, performed a history & physical examination of the patient. Lungs sounds with bilateral end expiratory wheeze. Maintaining good O2 saturations in the 90s on 4 L/m per nasal cannula. I discussed the assessment and plan of care with my nurse practitioner, Kaye Brooks. I attest to the above note as dictated by her.
[2018-12-28 11:55] LABS: Glucose,Whole Blood 144 mg/dL (75-99)
--- NOTE | 2018-12-28 12:50 | P.PN ---
Subjective This is a pleasant 78-year-old female past medical history significant for COPD, coronary artery disease s/p multiple stent placement 4-5 years ago in [place] in the setting of a myocardial infarction, hypertension, dyslipidemia and chronic hypoxic respiratory failure. She is seen and examined laying flat in bed sleeping. She states she is quite tired from not getting a good night sleep. Overall her breathing is improving but not back to baseline. She continues to have pleuritic left rib pain with movement of her torso or deep inspiration. No anginal or exertional chest pain. She denies dizziness or palpitations. Cath report from [place] has been reviewed and reveals in 2015 she had a lesion in the mid LAD, chronic total occlusion of the mid RCA as well as a 90% lesion in the circumflex. The time she underwent successful angioplasty and stent placement to the LAD and circumflex. Echocardiogram has been obtained and will be reviewed. Blood pressure 132/76 heart rate 80 afebrile and maintaining oxygen saturation on nasal cannula. GENERAL: This is a 78-year-old female in no apparent distress at the time of my examination. HEENT: Head is atraumatic, normocephalic. Pupils are equal, round. Sclerae anicteric. Conjunctivae are clear. Mucous membranes of the mouth are moist. Neck is supple. There is no jugular venous distention. No carotid bruit is heard. LUNGS: Clear to auscultation no wheezes, rales or rhonchi. No chest wall tenderness is noted on palpation or with deep breathing. Diminished bilaterall y. HEART: Regular rate and rhythm without murmurs, rubs or gallops. S1 and S2 heard. EXTREMITIES: No lower extremity edema and no calf tenderness noted. ASSESSMENT Pleuritic chest pain. Possibly related to musculoskeletal strain. Pain is reproducible based on position changes or movement of her torso. Atypical for angina. Elevated troponin, appears chronic. Pattern not consistent with an acute coronary event. PE has been ruled out. Likely related to chronic oxygen supply demand mismatch. Shortness of breath, clinically she is euvolemic. Normal proBNP. No heart failure. Pt denies prior history of heart failure. Likely related to chronic COPD and pulmonary fibrosis. Leukocytosis COPD, severe History of coronary artery disease status post stent placements, [place] 4-5 years ago. Awaiting records Hypertension Dyslipidemia PLAN Continue current medical regimen. We will continue to follow and make recommendations accordingly. Nurse Practitioner note has been reviewed, I agree with a documented findings and plan of care. Patient was seen and examined. Objective - Vital Signs Vital signs: Vital Signs Temp 97.7 F 12/28/18 04:51 Pulse 80 12/28/18 08:16 Resp 16 12/28/18 08:02 BP 132/76 12/28/18 04:51 Pulse Ox 96 12/28/18 08:02 Intake & Output 12/27/18 12/28/18 12/28/18 18:59 06:59 18:59 Intake Total 600 Balance 600 Intake: Oral 600 Other: Voiding Method Toilet Toilet # Voids 2 3 - Labs CBC & Chem 7: 12/26/18 19:10 12/26/18 19:10 Labs: Abnormal Lab Results - Last 24 Hours (Table) 12/27/18 12/27/18 12/27/18 Range/Units 11:29 17:13 20:10 POC Glucose (mg/dL) 166 H 139 H 175 H (75-99) mg/dL 12/28/18 Range/Units 07:15 POC Glucose (mg/dL) 125 H (75-99) mg/dL
--- NOTE | 2018-12-28 14:46 | P.PN ---
Subjective Progress Note Date: 12/28/18 This is a 78-year-old female patient of Dr. Bustamante and Dr. Bowers with past medical history of COPD, chronic hypoxic respiratory failure on home O2, remote tobacco use and quit in 2013, coronary artery disease status post multiple stent placements, hyperlipidemia, hypertension. The patient complains of difficulty in breathing over the weekend. She was just in the office with Dr. Bustamante on Thursday and did not have any significant complaints at that time but became worse after she went home and gradually worsened over the weekend. She Complains of cough with yellow sputum production. Patient complains of wheezing and increasing shortness of breath. Patient came into [facility] emergency center for evaluation. Chest x-ray was negative for acute cardiopulmonary process with evidence of pulmonary fibrosis. CT of the chest was negative for pulmonary embolism with biapical scarring noted. Left lower extremity Doppler was negative for acute DVT. Troponins were 0.032, 0.103 and 0.104. Creatinine 0.83, white count 12, hemoglobin 12.3, d-dimer 1.4, potassium 4.7 magnesium 1.9 area proBNP 146. The patient was admitted to the [facility] floor and consult requested with cardiology for elevated troponins and with Dr. Lott for COPD exacerbation. 12/28: Patient has been afebrile, heart rate 70, blood pressure 132/76, pulse ox 96% on 4 L nasal cannula. Blood sugars are running between 125 and 175. Patient is followed by Dr. Lott. Patient has been seen by cardiology for pleuritic type chest pain possibly related to musculoskeletal strain. Acute coronary syndrome has been ruled out.. Echocardiogram reveals EF of 55-60% with mild concentric left ventricular hypertrophy, mild mitral regurgitation, mild tricuspid regurgitation, no pulmonary hypertension. Patient's breathing is slowly improving. She continues to have dyspnea with exertion. Solu-Medrol saad l be decreased to 40 mg IV every 8 hours. Anticipate probable discharge tomorrow. Objective - Vital Signs Vital signs: Vital Signs Temp 97.7 F 12/28/18 04:51 Pulse 80 12/28/18 08:16 Resp 16 12/28/18 08:02 BP 132/76 12/28/18 04:51 Pulse Ox 96 12/28/18 08:02 Intake & Output 12/27/18 12/28/18 12/28/18 18:59 06:59 18:59 Intake Total 600 Balance 600 Intake: Oral 600 Other: Voiding Method Toilet Toilet # Voids 2 3 - Exam Review of Systems Constitutional: Reports fatigue, Denies anorexia, Denies chills, Denies fever, Denies lethargy, Denies poor appetite Eyes: denies blurred vision, denies pain Ears, nose, mouth and throat: Denies headache, Denies sore throat, Denies vertigo Cardiovascular: Reports decreased exercise tolerance, Reports dyspnea on exertion, Reports shortness of breath, Denies chest pain, Denies edema, Denies leg edema, Denies lightheadedness, Denies syncope Respiratory: Reports cough, Reports cough with sputum, Reports dyspnea- improving, Reports home oxygen, Reports respiratory infections, Reports wheezing, Denies excessive sputum, Denies hemoptysis Gastrointestinal: Denies abdominal pain, Denies diarrhea, Denies nausea, Denies vomiting Genitourinary: Denies dysuria, Denies urgency, Denies urinary frequency Musculoskeletal: Denies muscle weakness, Denies myalgias Integumentary: Denies pruritus, Denies rash, Denies wounds Neurological: Denies numbness, Denies vertigo, Denies weakness Psychiatric: Denies anxiety, Denies depression Endocrine: Denies fatigue, Denies weight change Gen: This is a 78-year-old thin female. She is seen ambulating from the bathroom to bed with mild accessory muscle usage. HEENT: Head is atraumatic, normocephalic. Pupils equal, round. Sclerae is anicteric. Oral mucous membranes are moist. NECK: Supple. No JVD. No lymphadenopathy. No thyromegaly. LUNGS: Diminished bilaterally, minimal wheezing. No intercostal retractions. HEART: Regular rate and rhythm. No murmur. ABDOMEN: Soft. Bowel sounds are present. No masses. No tenderness. EXTREMITIES: No pedal edema. No calf tenderness. Dorsalis pedis palpable bilaterally. NEUROLOGICAL: Patient is awake, alert and oriented x3. Cranial nerves 2 through 12 are grossly intact. - Labs CBC & Chem 7: 12/26/18 19:10 12/26/18 19:10 Labs: Abnormal Lab Results - Last 24 Hours (Table) 12/27/18 12/27/18 12/27/18 Range/Units 11:29 17:13 20:10 POC Glucose (mg/dL) 166 H 139 H 175 H (75-99) mg/dL 12/28/18 Range/Units 07:15 POC Glucose (mg/dL) 125 H (75-99) mg/dL Assessment and Plan Plan: 1. Acute COPD exacerbation. Consult with Dr. Galaviz appreciated. Continue DuoNeb treatments 4 times daily and every 2 hours as needed, Solu-Medrol decreased to 40 mg every 8 hours. 2. Pleuritic chest pain. Acute coronary syndrome ruled out. Cardiology co nsult appreciated. Echocardiogram as above. 3. Chronic hypoxic respiratory failure on home O2. Continue oxygen therapy. 4. History of coronary artery disease with stent placement. Continue Lop ressor, lisinopril, aspirin, Plavix, atorvastatin. 5. Hypertension. Continue lisinopril and Lopressor. 6. Hyperlipidemia. Continue atorvastatin. 7. Recurrent depression. Continue Effexor 150 mg daily. 8. Gastroesophageal reflux disease. Continue omeprazole or equivalent. 9. DVT prophylaxis. Lovenox daily. Discharge plan: Home without home care on Thursday Impression and plan of care have been directed as dictated by the signing physician. Katie Flor nurse practitioner acting as scribe for signing physician.
[2018-12-28 17:04] LABS: Glucose,Whole Blood 149 mg/dL (75-99)
[2018-12-28] MEDS: methylPREDNISolone SOD SUCCI 40 MG/ML 1 ML VIAL IV SCH ×2 (17:53→23:50)
[2018-12-28 20:23] LABS: Glucose,Whole Blood 127 mg/dL (75-99)
[2018-12-28] MEDS: ATORVASTATIN 40 MG TAB PO SCH (20:45)
[2018-12-29 04:52] VITALS: RESP 18
[2018-12-29] MEDS: LEVOTHYROXINE 50 MCG TAB PO SCH (05:45)
[2018-12-29 06:52] LABS: Glucose,Whole Blood 120 mg/dL (75-99)
[2018-12-29] MEDS: IPRATROPIUM-ALBUTEROL 3 ML NEB INHALATION SCH ×2 (07:38→11:29)
[2018-12-29 08:16] LABS: HCT 39.1 % (34.0-46.0); HGB 12.4 gm/dL (11.4-16.0); MCH 28.8 pg (25.0-35.0); MCHC 31.8 g/dL (31.0-37.0); MCV 90.6 fL (80.0-100.0); Mean Platelet Volume 7.3; Platelet Count 508 k/uL (150-450); RBC 4.32 m/uL (3.80-5.40); RDW 14.8 % (11.5-15.5)
[2018-12-29 08:30] LABS: Calcium 10.3 mg/dL (8.4-10.2); Potassium 4.8 mmol/L (3.5-5.1)
[2018-12-29] MEDS: INSULIN ASPART (NovoLOG) 100 UNIT/ML VIAL SQ SCH ×2 (08:33→12:34)
[2018-12-29] MEDS ORDERED: DOCUSATE 100 MG CAP PO SCH (09:00)
--- NOTE | 2018-12-29 09:37 | P.PN ---
Subjective This is a pleasant 78-year-old female past medical history significant for COPD, coronary artery disease s/p multiple stent placement 4-5 years ago in [place] in the setting of a myocardial infarction, hypertension, dyslipidemia and chronic hypoxic respiratory failure. She is seen and examined sitting up eating breakfast. She states her pleuritic pain has resolved completely. She states overall her breathing has improved. She plans to go to rehab upon discharge. Blood pressure elevated this morning 175/81 heart rate 76. Laboratory data reviewed, EBC 23, hgb 12.4, plt 508, sodium 140, potassium 4.8, creatinine 0.84 GENERAL: This is a 78-year-old female in no apparent distress at the time of my examination. HEENT: Head is atraumatic, normocephalic. Pupils are equal, round. Sclerae anicteric. Conjunctivae are clear. Mucous membranes of the mouth are moist. Neck is supple. There is no jugular venous distention. No carotid bruit is heard. LUNGS: Clear to auscultation no wheezes, rales or rhonchi. No chest wall tende rness is noted on palpation or with deep breathing. Diminished bilaterally. HEART: Regular rate and rhythm without murmurs, rubs or gallops. S1 and S2 heard. EXTREMITIES: No lower extremity edema and no calf tenderness noted. ASSESSMENT Pleuritic chest pain. Possibly related to musculoskeletal strain. Pain is reproducible based on position changes or movement of her torso. Atypical for angina. Elevated troponin, appears chronic. Pattern not consistent with an acute coronary event. PE has been ruled out. Likely related to chronic oxygen supply demand mismatch. Shortness of breath, clinically she is euvolemic. Normal proBNP. No heart failure. Pt denies prior history of heart failure. Likely related to chronic COPD and pulmonary fibrosis. Leukocytosis COPD, severe History of coronary artery disease status post stent placements, [place] 4-5 years ago. Awaiting records Hypertension Dyslipidemia PLAN Repeat blood pressure now. May give an additional dose of lisinopril if needed. Overall stable from a cardiac perspective. Follow up in the office with Dr. Ny. Nurse Practitioner note has been reviewed, I agree with a documented findings and plan of care. Patient was seen and examined. Objective - Vital Signs Vital signs: Vital Signs Temp 97.6 F 12/29/18 04:51 Pulse 76 12/29/18 07:50 Resp 18 12/29/18 07:45 BP 175/81 12/29/18 04:51 Pulse Ox 92 L 12/29/18 04:51 Intake & Output 12/28/18 12/29/18 12/29/18 18:59 06:59 18:59 Intake Total 1230 Balance 1230 Intake: Oral 1230 Other: Voiding Method Toilet Toilet Toilet # Voids 1 2 - Labs CBC & Chem 7: 12/29/18 07:37 12/29/18 07:32 Labs: Abnormal Lab Results - Last 24 Hours (Table) 12/28/18 12/28/18 12/28/18 Range/Units 11:46 17:02 20:21 WBC (3.8-10.6) k/uL Plt Count (150-450) k/uL Carbon Dioxide (22-30) mmol/L BUN (7-17) mg/dL Glucose (74-99) mg/dL POC Glucose (mg/dL) 144 H 149 H 127 H (75-99) mg/dL Calcium (8.4-10.2) mg/dL 12/29/18 12/29/18 12/29/18 Range/Units 06:49 07:32 07:37 WBC 23.0 H (3.8-10.6) k/uL Plt Count 508 H (150-450) k/uL Carbon Dioxide 34 H (22-30) mmol/L BUN 25 H (7-17) mg/dL Glucose 123 H (74-99) mg/dL POC Glucose (mg/dL) 120 H (75-99) mg/dL Calcium 10.3 H (8.4-10.2) mg/dL
[2018-12-29] MEDS: VENLAFAXINE HCL ER 150 MG CAP PO SCH (10:02)
[2018-12-29] MEDS: METOPROLOL TARTRATE 25 MG TAB PO SCH (10:02)
[2018-12-29] MEDS: LISINOPRIL 10 MG TAB PO SCH (10:02)
[2018-12-29] MEDS: methylPREDNISolone SOD SUCCI 40 MG/ML 1 ML VIAL IV SCH (10:02)
[2018-12-29] MEDS: ENOXAPARIN 40 MG/0.4 ML SYRINGE SQ SCH (10:02)
[2018-12-29] MEDS: PANTOPRAZOLE 40 MG TABLET PO SCH (10:02)
[2018-12-29] MEDS: BACLOFEN 10 MG TAB PO PRN (10:02)
[2018-12-29] MEDS: ASPIRIN 81 MG PO SCH (10:03)
[2018-12-29] MEDS: CLOPIDOGREL 75 MG TAB PO SCH (10:03)
[2018-12-29] MEDS ORDERED: LISINOPRIL 10 MG TAB PO STA (10:37)
[2018-12-29 11:33] LABS: Glucose,Whole Blood 85 mg/dL (75-99)
--- NOTE | 2018-12-29 11:41 | P.PN ---
Subjective Progress Note Date: 12/29/18 Principal diagnosis: Acute exacerbation of chronic obstructive pulmonary disease with left-sided pleuritic-type chest pain. This is a 78-year-old female with known history of COPD, normally sees Dr. Pedro for underlying COPD which is severe, O2 dependent, not prednisone dependent. Patient is a heavy smoker, she is also known to have history of coronary artery disease status post multiple stent placements for years ago, this was done in [place]. Patient had hypertension, hyperlipidemia, presented to the hospital yesterday with 2 weeks history of increased shortness of breath, productive cough, wheezing. Patient has been using her oxygen around the clock, has been compliant with her bronchodilators, but continues to have shortness of breath cough and wheezing. In addition to this the patient has been complaining of pain under the left rib cage radiating to the left mid back. Described as crampy and achy. Pain is worse with movement. Denies any dizziness light headedness denies any nausea vomiting or diaphoresis. CT angiogram of the chest showed mostly biapical scarring, no evidence of infiltrate, no evidence of pulmonary embolism. On admission her troponins were elevated, and her BNP level was normal. Patient has been placed on bronchodilators, antibiotics, and steroids. Slight improvement over the last 24 hours. The patient is seen today 12/28/2018 in follow-up on the regular medical floor. She is awake and alert in no acute distress. Up ambulating in the room. Improved today as compared to yesterday. Stating not quite back to her baselin e. Still dyspnea on exertion. Maintaining good O2 saturations in the 90s on 4 L/m per nasal cannula. She's afebrile. Hemodynamically stable. No complaints of chest discomfort currently. Echo revealed preserved left ventricular systolic function ejection fraction 55-60%. The patient is seen today 12/29/2018 in follow-up on the regular medical floor. She is sitting up in a chair at the bedside. Awake and alert in no acute distress. Nearly back to her baseline as far as her pulmonary status is concerned. White count 23.0. Hemoglobin 12.4. Creatinine 0.84. She is having some yellow productive sputum now. She was initiated on doxycycline. Continued on DuoNeb inhalations, IV Solu-Medrol. Maintain O2 saturations in the 90s on 4 L/m per nasal cannula. Afebrile. Objective - Vital Signs Vital signs: Vital Signs Temp 97.6 F 12/29/18 04:51 Pulse 76 12/29/18 11:30 Resp 18 12/29/18 07:45 BP 184/87 12/29/18 09:35 Pulse Ox 92 L 12/29/18 04:51 Intake & Output 12/28/18 12/29/18 12/29/18 18:59 06:59 18:59 Intake Total 1230 Balance 1230 Intake: Oral 1230 Other: Voiding Method Toilet Toilet Toilet # Voids 1 2 - Exam GENERAL EXAM: Alert, active, comfortable in no apparent distress. On 4 L nasal cannula. HEAD: Normocephalic. EYES: Normal reaction of pupils, equal size. NOSE: Clear with pink turbinates. THROAT: No erythema or exudates. NECK: No masses, no JVD. CHEST: No chest wall deformity. LUNGS: Equal air entry with faint end expiratory wheeze, diminished. CVS: S1 and S2 normal with no audible murmur, regular rhythm. ABDOMEN: No hepatosplenomegaly, normal bowel sounds, no guarding or rigidity. SPINE: No scoliosis or deformity SKIN: No rashes CENTRAL NERVOUS SYSTEM: No focal deficits, tone is normal in all 4 extremities. EXTREMITIES: There is no peripheral edema. No clubbing, no cyanosis. Peripheral pulses are intact. - Labs CBC & Chem 7: 12/29/18 07:37 12/29/18 07:32 Labs: Abnormal Lab Results - Last 24 Hours (Table) 12/28/18 12/28/18 12/28/18 Range/Units 11:46 17:02 20:21 WBC (3.8-10.6) k/uL Plt Count (150-450) k/uL Carbon Dioxide (22-30) mmol/L BUN (7-17) mg/dL Glucose (74-99) mg/dL POC Glucose (mg/dL) 144 H 149 H 127 H (75-99) mg/dL Calcium (8.4-10.2) mg/dL 12/29/18 12/29/18 12/29/18 Range/Units 06:49 07:32 07:37 WBC 23.0 H (3.8-10.6) k/uL Plt Count 508 H (150-450) k/uL Carbon Dioxide 34 H (22-30) mmol/L BUN 25 H (7-17) mg/dL Glucose 123 H (74-99) mg/dL POC Glucose (mg/dL) 120 H (75-99) mg/dL Calcium 10.3 H (8.4-10.2) mg/dL Assessment and Plan Assessment: Impression: #1 Acute exacerbation of severe oxygen dependent chronic obstructive pulmonary disease, complicated by purulent tracheobronchitis. #2 Left-sided chest pain, musculoskeletal, atypical for angina. #3 History of underlying coronary artery disease with previous stent placement in [place] several years ago. #4 Hypertension. #5 Hyperlipidemia. #6 History of heavy tobacco dependence. Plan: The patient was seen and evaluated by Dr. Lott. She is cleared for discharge from the pulmonary standpoint. Complete course of antibiotics in the form of doxycycline, complete prednisone burst and taper starting at 40 mg daily for 4 days, continue her home pulmonary medications. Continue home oxygen. Follow up with Dr. Pedro in our office in 1-2 weeks' time. She is encouraged to call sooner with any recurrence of symptoms or other questions or concerns. I, the cosigning physician, performed a history & physical examination of the patient. Lungs sounds with bilateral end expiratory wheeze. Maintaining good O2 saturations in the 90s on 4 L/m per nasal cannula. I discussed the assessment and plan of care with my nurse practitioner, Kaye Brooks. I attest to the above note as dictated by her.
[2018-12-29 11:57] VITALS: BP 169/80; PULSE 69; TEMP 97.9
--- NOTE | 2018-12-29 12:45 | P.DS ---
Providers Date of admission: 12/26/18 23:12 Expected date of discharge: 12/29/18 Attending physician: Josie Almanzar Consults: 12/26/18 22:53 Consult Physician Routine Consulting Provider: Viktoria Potter Consult Reason/Comments: COPD exacerbation Do you want consulting provider notified?: Yes 12/27/18 03:25 Consult Physician Routine Consulting Provider: Frederick Jones Consult Reason/Comments: elevated troponin Do you want consulting provider notified?: Yes, Notify in am Primary care physician: [facility] Course: This is a 78-year-old female patient of Dr. Bustamante and with past medical history of COPD, chronic hypoxic respiratory failure on home O2, remote tobacco use and quit in 2013, coronary artery disease status post multiple stent placements, hyperlipidemia, hypertension. The patient complains of difficulty in breathing over the weekend. She was just in the office with Dr. Bustamante on Thursday and did not have any significant complaints at that time but became worse after she went home and gradually worsened over the weekend. She Complains of cough with yellow sputum production. Patient complains of wheezing and increasing shortness of breath. Patient came into [facility] emergency center for evaluation. Chest x-ray was negative for acute cardiopulmonary process with evidence of pulmonary fibrosis. CT of the chest was negative for pulmonary embolism with biapical scarring noted. Left lower extremity Doppler was negative for acute DVT. Troponins were 0.032, 0.103 and 0.104. Creatinine 0.83, white count 12, hemoglobin 12.3, d-dimer 1.4, potassium 4.7 magnesium 1.9 area proBNP 146. The patient was admitted to the [facility] floor and consult requested with cardiology for elevated troponins and with Dr. Lott for COPD exacerbation. 12/28: Patient has been afebrile, heart rate 70, blood pressure 132/76, pulse ox 96% on 4 L nasal cannula. Blood sugars are running between 125 and 175. Patient is followed by Dr. Lott. Patient has been seen by cardiology for pleuritic type chest pain possibly related to musculoskeletal strain. Acute coronary syndrome has been ruled out.. Echocardiogram reveals EF of 55-60% with mild concentric left ventricular hypertrophy, mild mitral regurgitation, mild tricuspid regurgitation, no pulmonary hypertension. Patient's breathing is slowly improving. She continues to have dyspnea with exertion. Solu-Medrol will be decreased to 40 mg IV every 8 hours. Anticipate probable discharge tomorrow. 12/29: Patient continues to have shortness of breath although improving. Patient has been seen by cardiology and cleared for discharge. Blood pressure is noted to be high and lisinopril will be increased and continued at higher dose at the assisted. Physical therapy is noted that she has increased weakness today and recommended subacute rehab. Patient is willing to go to [facility] and insurance authorization has been obtained. Patient will be discharged today in stable condition. Discharge diagnoses: 1. Acute COPD exacerbation. 2. Pleuritic chest pain. 3. Chronic hypoxic respiratory failure on home O2. 4. History of coronary artery disease with stent placement. 5. Hypertension. 6. Hyperlipidemia. 7. Recurrent depression. 8. Gastroesophageal reflux disease. Discharge plan: [facility] Impression and plan of care have been directed as dictated by the signing physician. Katie Flor nurse practitioner acting as scribe for signing physician. Patient Condition at Discharge: Good Plan - Discharge Summary Discharge Rx Participant: No New Discharge Prescriptions: New Docusate [Colace] 100 mg PO BID cap Ipratropium-Albuterol Nebulize [Duoneb 0.5 mg-3 mg/3 ml Soln] 3 ml INHALATION RT-QID ampul.neb INSULIN ASPART (NovoLOG) [NovoLOG (formulary)] 0 unit SQ ACHS #1 vial predniSONE 0 mg PO DIRECTED #40 tab Lisinopril [Zestril] 20 mg PO DAILY tab Continue Omeprazole [PriLOSEC] 20 mg PO DAILY Venlafaxine HCl [Effexor XR] 150 mg PO DAILY Ubidecarenone [Co Q-10] 100 mg PO DAILY Clopidogrel [Plavix] 75 mg PO DAILY Atorvastatin [Lipitor] 40 mg PO HS Metoprolol Tartrate [Lopressor] 25 mg PO BID Aspirin EC [Ecotrin Low Dose] 81 mg PO DAILY Levothyroxine Sodium [Synthroid] 50 mcg PO DAILY Loperamide [Imodium] 2 mg PO QID PRN cap PRN Reason: Diarrhea Baclofen 10 mg PO DAILY PRN PRN Reason: Muscle Spasm Acetaminophen-Codeine 300-30mg [Tylenol w/codeine #3] 1 tab PO Q6H PRN #12 tab PRN Reason: Pain Discontinued Lisinopril [Zestril] 10 mg PO DAILY Ipratropium/Albuterol Sulfate [Combivent Respimat Inhaler] 1 puff INHALATION RT-QID PRN PRN Reason: Shortness Of Breath Albuterol Nebulized [Ventolin Nebulized] 2.5 mg INHALATION RT-QID Discharge Medication List Aspirin EC [Ecotrin Low Dose] 81 mg PO DAILY 04/18/18 [History] Atorvastatin [Lipitor] 40 mg PO HS 04/18/18 [History] Clopidogrel [Plavix] 75 mg PO DAILY 04/18/18 [History] Levothyroxine Sodium [Synthroid] 50 mcg PO DAILY 04/18/18 [History] Metoprolol Tartrate [Lopressor] 25 mg PO BID 04/18/18 [History] Omeprazole [PriLOSEC] 20 mg PO DAILY 04/18/18 [History] Ubidecarenone [Co Q-10] 100 mg PO DAILY 04/18/18 [History] Venlafaxine HCl [Effexor XR] 150 mg PO DAILY 04/18/18 [History] Loperamide [Imodium] 2 mg PO QID PRN cap 04/22/18 [Rx] Baclofen 10 mg PO DAILY PRN 12/26/18 [History] Acetaminophen-Codeine 300-30mg [Tylenol w/codeine #3] 1 tab PO Q6H PRN #12 tab 12/29/18 [Rx] Docusate [Colace] 100 mg PO BID cap 12/29/18 [Rx] INSULIN ASPART (NovoLOG) [NovoLOG (formulary)] 0 unit SQ ACHS #1 vial 12/29/18 [Rx] Ipratropium-Albuterol Nebulize [Duoneb 0.5 mg-3 mg/3 ml Soln] 3 ml INHALATION RT-QID ampul.neb 12/29/18 [Rx] Lisinopril [Zestril] 20 mg PO DAILY tab 12/29/18 [Rx] predniSONE 0 mg PO DIRECTED #40 tab 12/29/18 [Rx] Follow up Appointment(s)/Referral(s): Sp Ny MD [STAFF PHYSICIAN] - 01/07/19 11:15 am None,Stated [REFERRING] - 1-2 days Discharge Disposition: TRANSFER TO SNF/ECF
[2018-12-29] MEDS ORDERED: DOXYCYCLINE 100 MG CAP PO SCH (21:00)
[2018-12-30] MEDS ORDERED: LISINOPRIL 20 MG TAB PO SCH (09:00)
== END 2018-12-29 14:37 | DRG 191 ==
LOC: SUPCPDRO 18:30 → EC 18:30 → 3NMEDONC 23:12
PROVIDERS: ADMIT Internal Medicine; ATTEND Internal Medicine
DX: J44.1 Chronic obstructive pulmonary disease with (acute) exacerbation (principal); J96.11 Chronic respiratory failure with hypoxia; M48.54XA Collapsed vertebra, not elsewhere classified, thoracic region, initial encounter for fracture; F33.9 Major depressive disorder, recurrent, unspecified; I11.9 Hypertensive heart disease without heart failure; I25.10 Atherosclerotic heart disease of native coronary artery without angina pectoris; R07.81 Pleurodynia; K21.9 Gastro-esophageal reflux disease without esophagitis; J84.10 Pulmonary fibrosis, unspecified; E78.5 Hyperlipidemia, unspecified; F17.200 Nicotine dependence, unspecified, uncomplicated; I11.0 Hypertensive heart disease with heart failure; I25.82 Chronic total occlusion of coronary artery; D72.829 Elevated white blood cell count, unspecified; R74.8 Abnormal levels of other serum enzymes; H91.90 Unspecified hearing loss, unspecified ear; M19.90 Unspecified osteoarthritis, unspecified site; Z99.81 Dependence on supplemental oxygen; I25.2 Old myocardial infarction; Z95.5 Presence of coronary angioplasty implant and graft; Z79.82 Long term (current) use of aspirin; Z79.899 Other long term (current) drug therapy; Z79.02 Long term (current) use of antithrombotics/antiplatelets; Z79.890 Hormone replacement therapy; Z79.51 Long term (current) use of inhaled steroids; Z82.49 Family history of ischemic heart disease and other diseases of the circulatory system; Z80.42 Family history of malignant neoplasm of prostate; Z80.1 Family history of malignant neoplasm of trachea, bronchus and lung; Z83.3 Family history of diabetes mellitus; Z82.3 Family history of stroke; Z88.0 Allergy status to penicillin; Z88.8 Allergy status to other drugs, medicaments and biological substances; Z90.49 Acquired absence of other specified parts of digestive tract
CPT/HCPCS: 36415; 71046; 71275; 80048; 80053; 81001; 83690; 83735; 83880; 84484; 85025; 85027; 85379; 85610; 85730; 93005; 93306; 94640; 94760; 96361; 96374; 99285

== ENCOUNTER 2019-05-07 18:46 | Inpatient (IN) | payer MEDICARE, BC ==
[2019-05-07] MEDS: SODIUM CHLORIDE 0.9% 500 ML 500 ML IV SCH (19:44)
[2019-05-07] MEDS ORDERED: IPRATROPIUM-ALBUTEROL 3 ML NEB INHALATION STA (19:54)
[2019-05-07] MEDS ORDERED: DEXAMETHASONE SOD PHOSPHATE 10 MG/ML 1 ML VIAL IV STA (19:54)
[2019-05-07 19:57] LABS: Basophils # (A) 0.3 k/uL (0-0.2); Basophils % (A) 1 %; Eosinophils # (A) 0.5 k/uL (0-0.7); Eosinophils % (A) 2 %; HCT 43.5 % (34.0-46.0); HGB 14.1 gm/dL (11.4-16.0); Lymphocytes # (A) 1.1 k/uL (1.0-4.8); Lymphocytes % (A) 4 %; MCH 29.5 pg (25.0-35.0); MCHC 32.5 g/dL (31.0-37.0); MCV 90.8 fL (80.0-100.0); Mean Platelet Volume 7.6; Monocytes # (A) 1.2 k/uL (0-1.0); Monocytes % (A) 5 %; Neutrophils # (A) 20.7 k/uL (1.3-7.7); Neutrophils % (A) 86 %; Platelet Count 357 k/uL (150-450); RBC 4.79 m/uL (3.80-5.40); RDW 13.5 % (11.5-15.5); WBC 24.1 k/uL (3.8-10.6)
--- NOTE | 2019-05-07 19:57 | ED ---
General Adult HPI - General Chief complaint: Shortness of Breath Stated complaint: pneumonia/SOB Time Seen by Provider: 05/07/19 18:52 Source: patient, EMS Mode of arrival: EMS Limitations: no limitations - History of Present Illness Initial comments: Dictation was produced using [employer] dictation software. please excuse any grammatical, word or spelling errors. Chief Complaint: 71-year-old female transferred from [facility] or concerns of pneumonia. History of Present Illness: 79-year-old female she presents today with cough for approximately 3 days. Patient is currently a resident at [facility] on the leg. Patient was transferred via EMS to our facility for concerns of pneumonia. Patient reports some shortness of breath as well. She denies any chest pain at this time. Patient has history of COPD patient does not wear oxygen at home. Patient has a fever, chills or night sweats. She reports that her cough is productive of yellow-green sputum The ROS documented in this emergency department record has been reviewed and confirmed by me. Those systems with pertinent positive or negative responses have been documented in the HPI. All other systems are other negative and/or noncontributory. PHYSICAL EXAM: General Impression: Alert and oriented x3, mildly dyspneic HEENT: Normocephalic atraumatic, extra-ocular movements intact, pupils equal and reactive to light bilaterally, mucous membranes moist. Cardiovascular: Heart regular rate and rhythm, S1&S2 audible, no murmurs, rubs or gallops Chest: Diminished diffuse lung sounds Abdomen: Bowel sounds present, abdomen soft, non-tender, non-distended, no organomegaly Musculoskeletal: Pulses present and equal in all extremities, no peripheral edema, no calf tenderness, no asymmetrical leg swelling Motor: no focal deficits noted Neurological: CN II-XII grossly intact, no focal motor or sensory deficits noted Skin: Intact with no visualized rashes Psych: Normal affect and mood ED course: 79 Year-old female past medical history of COPD presents with cough and shortness of breath the last 72 hours. [facility] She was transferred via EMS to our facility. Patient evaluated at bedside. . Signs upon arrival shows temperature 99.7, heart rate of 107, 96% with 6 L nasal cannula. Patient was given 1632 CC's of normal saline. This number was determined base on ideal body weight for a 5 foot 4 inch female.Labo ratory evaluation obtained. Leukocytosis of 24.1. Patient has baseline elevated leukocytosis. Coag panel unremarkable. Venous blood gas shows 7.4 pH pCO2 of 33 with a bicarb of 20. Metabolic panel is unremarkable. Influenza is negative. Chest x-ray shows COPD no infiltrates to suggest pneumonia. Given patient's clinical presentation there is concern for COPD exacerbation. Patient breathing treatment and steroids. Discussed patient case with Dr. Almanzar who is admitting patients for Dr. Bustamante he requests consultation to pulmonology. She reevaluated bedside found to be in stable medical condition. She is showing some signs of work breathing however appears more comfortable than when initially evaluated upon arrival. She is requiring oxygen. There is some concern of mild hypoxic respiratory failure. Patient covered with azithromycin for COPD exacerbation. EKG interpretation: Ventricular rate 107, sinus tachycardia, FL interval 186, Q's 82, QTc 435.. No FL prolongation, no QTC prolongation, no ST or T-wave changes noted. . Overall, this EKG is unremarkable - Related Data Home Medications Medication Instructions Recorded Confirmed Aspirin EC [Ecotrin Low Dose] 81 mg PO DAILY 04/18/18 12/26/18 Atorvastatin [Lipitor] 40 mg PO HS 04/18/18 12/26/18 Clopidogrel [Plavix] 75 mg PO DAILY 04/18/18 12/26/18 Levothyroxine Sodium [Synthroid] 50 mcg PO DAILY 04/18/18 12/26/18 Metoprolol Tartrate [Lopressor] 25 mg PO BID 04/18/18 12/26/18 Omeprazole [PriLOSEC] 20 mg PO DAILY 04/18/18 12/26/18 Ubidecarenone [Co Q-10] 100 mg PO DAILY 04/18/18 12/26/18 Venlafaxine HCl [Effexor XR] 150 mg PO DAILY 04/18/18 12/26/18 Baclofen 10 mg PO DAILY PRN 12/26/18 12/26/18 Previous Rx's Medication Instructions Recorded Loperamide [Imodium] 2 mg PO QID PRN cap 04/22/18 Acetaminophen-Codeine 300-30mg 1 tab PO Q6H PRN #12 tab 12/29/18 [Tylenol w/codeine #3] Docusate [Colace] 100 mg PO BID cap 12/29/18 INSULIN ASPART (NovoLOG) [NovoLOG 0 unit SQ ACHS #1 vial 12/29/18 (formulary)] Ipratropium-Albuterol Nebulize 3 ml INHALATION RT-QID ampul.neb 12/29/18 [Duoneb 0.5 mg-3 mg/3 ml Soln] Lisinopril [Zestril] 20 mg PO DAILY tab 12/29/18 predniSONE 0 mg PO DIRECTED #40 tab 12/29/18 Allergies Allergy/AdvReac Type Severity Reaction Status Date / Time fluticasone Allergy Dyspnea Verified 05/07/19 19:13 [From Advair Diskus] Penicillins Allergy Rash/Hives Verified 05/07/19 19:13 salmeterol Allergy Dyspnea Verified 05/07/19 19:13 [From Advair Diskus] Review of Systems ROS Statement: Those systems with pertinent positive or pertinent negative responses have been documented in the HPI. ROS Other: All systems not noted in ROS Statement are negative. Past Medical History Past Medical History: Heart Failure, COPD, Hearing Disorder / Deafness, Hypertension, Myocardial Infarction ([place]), Osteoarthritis (OA), Respiratory Disorder Additional Past Medical History / Comment(s): HOME OXYGEN 2LNC UNDER 10YEARS Last Myocardial Infarction Date:: 2013 History of Any Multi-Drug Resistant Organisms: None Reported Past Surgical History: Appendectomy, Heart Catheterization With Stent Past Anesthesia/Blood Transfusion Reactions: No Reported Reaction Date of Last Stent Placement:: 2013 Past Psychological History: No Psychological Hx Reported Smoking Status: Former smoker Past Alcohol Use History: None Reported Past Drug Use History: None Reported - Past Family History Father Family Medical History: Prostate Disorder Additional Family Medical History / Comment(s): Father at age 80 from lung cancer with history of prostate cancer. Mother Family Medical History: Congestive Heart Failure (CHF) Additional Family Medical History / Comment(s): Mother at age 89 from heart trouble. Brother(s) Additional Family Medical History / Comment(s): Patient had a total of 6 brothers. One brother has passed and he had multiple medical problems including testicular cancer with metastatic disease to the kidneys, CVA following surgery and diabetes. Other relatives have no major medical problems that she is aware of. Patient has 2 daughters with no major medical problems. General Exam Limitations: no limitations Course Vital Signs 05/07/19 05/07/19 05/07/19 19:14 20:00 20:30 Temperature 99.7 F H 98.6 F Pulse Rate 107 H 102 H 98 Respiratory 24 18 Rate Blood Pressure 137/63 145/57 O2 Sat by Pulse 96 93 L Oximetry 05/07/19 20:42 Temperature Pulse Rate 100 Respiratory Rate Blood Pressure O2 Sat by Pulse Oximetry Medical Decision Making - Lab Data Result diagrams: 05/07/19 19:37 05/07/19 19:37 Lab Results 05/07/19 05/07/19 05/07/19 Range/Units 19:37 19:37 19:37 WBC 24.1 H (3.8-10.6) k/uL RBC 4.79 (3.80-5.40) m/uL Hgb 14.1 (11.4-16.0) gm/dL Hct 43.5 (34.0-46.0) % MCV 90.8 (80.0-100.0) fL MCH 29.5 (25.0-35.0) pg MCHC 32.5 (31.0-37.0) g/dL RDW 13.5 (11.5-15.5) % Plt Count 357 (150-450) k/uL Neutrophils % 86 % Lymphocytes % 4 % Monocytes % 5 % Eosinophils % 2 % Basophils % 1 % Neutrophils # 20.7 H (1.3-7.7) k/uL Lymphocytes # 1.1 (1.0-4.8) k/uL Monocytes # 1.2 H (0-1.0) k/uL Eosinophils # 0.5 (0-0.7) k/uL Basophils # 0.3 H (0-0.2) k/uL PT (9.0-12.0) sec INR (<1.2) APTT (22.0-30.0) sec VBG pH (7.31-7.41) VBG pCO2 (37-51) mmHg VBG HCO3 (24-28) mmol/L Sodium 135 L (137-145) mmol/L Potassium 4.6 (3.5-5.1) mmol/L Chloride 95 L (98-107) mmol/L Carbon Dioxide 30 (22-30) mmol/L Anion Gap 10 mmol/L BUN 12 (7-17) mg/dL Creatinine 0.81 (0.52-1.04) mg/dL Est GFR (CKD-EPI)AfAm 81 (>60 ml/min/1.73 sqM) Est GFR (CKD-EPI)NonAf 70 (>60 ml/min/1.73 sqM) Glucose 128 H (74-99) mg/dL Plasma Lactic Acid Tomi 1.1 (0.7-2.0) mmol/L Calcium 9.9 (8.4-10.2) mg/dL Total Bilirubin 0.6 (0.2-1.3) mg/dL AST 23 (14-36) U/L ALT 10 (4-34) U/L Alkaline Phosphatase 127 H (38-126) U/L Total Protein 8.1 (6.3-8.2) g/dL Albumin 4.4 (3.5-5.0) g/dL Influenza Type A RNA (Not Detectd) Influenza Type B (PCR) (Not Detectd) 05/07/19 05/07/19 05/07/19 Range/Units 19:37 19:37 20:19 WBC (3.8-10.6) k/uL RBC (3.80-5.40) m/uL Hgb (11.4-16.0) gm/dL Hct (34.0-46.0) % MCV (80.0-100.0) fL MCH (25.0-35.0) pg MCHC (31.0-37.0) g/dL RDW (11.5-15.5) % Plt Count (150-450) k/uL Neutrophils % % Lymphocytes % % Monocytes % % Eosinophils % % Basophils % % Neutrophils # (1.3-7.7) k/uL Lymphocytes # (1.0-4.8) k/uL Monocytes # (0-1.0) k/uL Eosinophils # (0-0.7) k/uL Basophils # (0-0.2) k/uL PT 10.8 (9.0-12.0) sec INR 1.1 (<1.2) APTT 24.5 (22.0-30.0) sec VBG pH 7.40 (7.31-7.41) VBG pCO2 33 L (37-51) mmHg VBG HCO3 20 L (24-28) mmol/L Sodium (137-145) mmol/L Potassium (3.5-5.1) mmol/L Chloride (98-107) mmol/L Carbon Dioxide (22-30) mmol/L Anion Gap mmol/L BUN (7-17) mg/dL Creatinine (0.52-1.04) mg/dL Est GFR (CKD-EPI)AfAm (>60 ml/min/1.73 sqM) Est GFR (CKD-EPI)NonAf (>60 ml/min/1.73 sqM) Glucose (74-99) mg/dL Plasma Lactic Acid Tomi (0.7-2.0) mmol/L Calcium (8.4-10.2) mg/dL Total Bilirubin (0.2-1.3) mg/dL AST (14-36) U/L ALT (4-34) U/L Alkaline Phosphatase (38-126) U/L Total Protein (6.3-8.2) g/dL Albumin (3.5-5.0) g/dL Influenza Type A RNA Not Detected (Not Detectd) Influenza Type B (PCR) Not Detected (Not Detectd) Disposition Clinical Impression: Dyspnea Disposition: ADMITTED IP TO THIS HOSP Condition: Fair Referrals: Tru Bustamante MD [Primary Care Provider] - 1-2 days Decision Time: 20:53
[2019-05-07] MEDS ORDERED: SODIUM CHLORIDE 0.9% IV STA (19:59)
[2019-05-07 20:06] LABS: INR 1.1 (<1.2); Partial Thromboplastin Time 24.5 sec (22.0-30.0); Prothrombin Time 10.8 sec (9.0-12.0)
[2019-05-07 20:08] LABS: Albumin 4.4 g/dL (3.5-5.0); Calcium 9.9 mg/dL (8.4-10.2); Potassium 4.6 mmol/L (3.5-5.1); Total Bilirubin 0.6 mg/dL (0.2-1.3); Total Protein 8.1 g/dL (6.3-8.2)
--- NOTE | 2019-05-07 20:09 | XR ---
EXAMINATION TYPE: XR chest 2V DATE OF EXAM: 05/07/2019 COMPARISON: Prior chest x-ray 12/26/2018, CT 12/26/2018 HISTORY: Fever, productive cough for 3 days TECHNIQUE: Frontal and lateral views of the chest are obtained. FINDINGS: Findings are similar to prior exam. There are overlying cardiac leads. Nodular density supe rimposed over the anterior second rib on the right similar to prior exam. Aorta is dense. There are p rominent lung lines suggesting underlying COPD. There is no focal air space opacity, pleural effusion , or pneumothorax seen. The cardiac silhouette size is within normal limits. The osseous structure s are intact. IMPRESSION: Emphysema. Old granulomatous disease.
[2019-05-07 20:35] LABS: VBG PH 7.4 (7.31-7.41)
[2019-05-07] MEDS ORDERED: AZITHROMYCIN 500 MG in SODIUM CHLORIDE 0.9% 250 ML IVPB STA (20:49)
[2019-05-07] MEDS: IPRATROPIUM-ALBUTEROL 3 ML NEB INHALATION PRN (22:21)
[2019-05-07] MEDS ORDERED: IPRATROPIUM-ALBUTEROL 3 ML NEB INHALATION PRN (22:33)
[2019-05-07] MEDS ORDERED: MELATONIN 5 MG TABLET PO PRN (22:33)
[2019-05-07] MEDS ORDERED: Acetaminophen-Codeine 300-30mg TAB PO PRN (22:33)
[2019-05-07] MEDS ORDERED: DOCUSATE 100 MG CAP PO PRN (22:33)
[2019-05-07] MEDS ORDERED: ACETAMINOPHEN TAB 325 MG TAB PO PRN (22:33)
[2019-05-07] MEDS: ALPRAZolam 0.5 MG TAB PO PRN (22:53)
[2019-05-08] MEDS: LEVOTHYROXINE 50 MCG TAB PO SCH (05:34)
[2019-05-08] MEDS: ASPIRIN 81 MG PO SCH (08:43)
[2019-05-08] MEDS: AZITHROMYCIN 500 MG TAB PO SCH (08:43)
[2019-05-08] MEDS: predniSONE 20 MG TAB PO SCH (08:43)
[2019-05-08] MEDS: VENLAFAXINE HCL ER 150 MG CAP PO SCH (08:44)
[2019-05-08] MEDS: MONTELUKAST 10 MG TAB PO SCH (08:44)
[2019-05-08] MEDS: PANTOPRAZOLE 40 MG TABLET PO SCH (08:44)
[2019-05-08] MEDS: METOPROLOL TARTRATE 25 MG TAB PO SCH ×2 (08:44→20:19)
[2019-05-08] MEDS: CLOPIDOGREL 75 MG TAB PO SCH (08:44)
[2019-05-08] MEDS: IPRATROPIUM-ALBUTEROL 3 ML NEB INHALATION PRN ×3 (08:49→20:35)
[2019-05-08] MEDS: BUDESONIDE 1 MG/2 ML NEBU INHALATION SCH ×2 (08:49→20:35)
--- NOTE | 2019-05-08 11:43 | P.HPIM ---
History of Present Illness H&P Date: 05/08/19 Chief Complaint: Shortness of breath This is 79 years old female who presented to the emergency department with worsening shortness of breath and concerns for pneumonia. Patient has been dealing with productive cough for 3 days prior to arrival and [facility] was concerned about developing pneumonia as patient was requiring higher level of oxygen was sent to [facility]. Patient is poor historian stated that she is normally on 2.5 L oxygen all the time but has been having worsening shortness of breath slowly and gradually due to advanced COPD and stated that they went up on her oxygen without improvement patient reported green phlegm productive cough and stated that it's been changing as he usually clear or yellow. Patient is denying fever chills nausea vomiting but stated that she has been extremely lethargic. Patient is denying tobacco alcohol or drug abuse Review of Systems All 14 systems reviewed and negative except as above Past Medical History Past Medical History: Heart Failure, COPD, Hearing Disorder / Deafness, Hyper tension, Myocardial Infarction ([place]), Osteoarthritis (OA), Respiratory Disorder Additional Past Medical History / Comment(s): HOME OXYGEN 2LNC UNDER 10YEARS Last Myocardial Infarction Date:: 2013 History of Any Multi-Drug Resistant Organisms: None Reported Past Surgical History: Appendectomy, Heart Catheterization With Stent Past Anesthesia/Blood Transfusion Reactions: No Reported Reaction Date of Last Stent Placement:: 2013 Past Psychological History: No Psychological Hx Reported Smoking Status: Former smoker Past Alcohol Use History: None Reported Additional Past Alcohol Use History / Comment(s): The patient was a smoker one and a half pack per day for 40-50 years ago quit in 2013 or 2014. She denies any illicit drug use, no alcohol use. Patient does not have a CPAP at home. Patient is home O2 dependent. She has a nebulizer in the home. She has been for the past 3 years and worked in the past as a housewife. Past Drug Use History: None Reported - Past Family History Father Family Medical History: Prostate Disorder Additional Family Medical History / Comment(s): Father at age 80 from lung cancer with history of prostate cancer. Mother Family Medical History: Congestive Heart Failure (CHF) Additional Family Medical History / Comment(s): Mother at age 89 from heart trouble. Brother(s) Additional Family Medical History / Comment(s): Patient had a total of 6 brothers. One brother has passed and he had multiple medical problems including testicular cancer with metastatic disease to the kidneys, CVA following surgery and diabetes. Other relatives have no major medical problems that she is aware of. Patient has 2 daughters with no major medical problems. Medications and Allergies Home Medications Medication Instructions Recorded Confirmed Type Aspirin EC [Ecotrin Low Dose] 81 mg PO DAILY@89904/18/18 05/07/19 History Atorvastatin [Lipitor] 40 mg PO HS@209904/18/18 05/07/19 History Clopidogrel [Plavix] 75 mg PO DAILY@89904/18/18 05/07/19 History Levothyroxine Sodium [Synthroid] 50 mcg PO DAILY@59904/18/18 05/07/19 History Metoprolol Tartrate [Lopressor] 25 mg PO BID@899,209904/18/18 05/07/19 History Omeprazole [PriLOSEC] 20 mg PO DAILY@89904/18/18 05/07/19 History Ubidecarenone [Co Q-10] 100 mg PO DAILY@89904/18/18 05/07/19 History Venlafaxine HCl [Effexor XR] 150 mg PO DAILY@89904/18/18 05/07/19 History Acetaminophen-Codeine 300-30mg 1 tab PO Q6H PRN #12 tab 12/29/18 05/07/19 Rx [Tylenol w/codeine #3] Acetaminophen Tab [Tylenol Tab] 650 mg PO Q4H PRN 05/07/19 05/07/19 History Budesonide 1 mg INHALATION RT-BID@899,209905/07/19 05/07/19 History Cetirizine HCl [Zyrtec] 10 mg PO HS@209905/07/19 05/07/19 History Docusate [Colace] 100 mg PO BID PRN 05/07/19 05/07/19 History Formoterol Fumarate [Perforomist] 20 mcg INHALATION RT-BID@0600,179905/07/19 05/07/19 History Ipratropium-Albuterol Nebulize 3 ml INHALATION RT-Q4H PRN 05/07/19 05/07/19 History [Duoneb 0.5 mg-3 mg/3 ml Soln] Lisinopril [Zestril] 20 mg PO HS@2100 05/07/19 05/07/19 History Melatonin 5 mg PO HS PRN 05/07/19 05/07/19 History Montelukast [Singulair] 10 mg PO DAILY@0900 05/07/19 05/07/19 History Allergies Allergy/AdvReac Type Severity Reaction Status Date / Time fluticasone Allergy Dyspnea Verified 05/07/19 21:01 [From Advair Diskus] Penicillins Allergy Rash/Hives Verified 05/07/19 21:01 salmeterol Allergy Dyspnea Verified 05/07/19 21:01 [From Advair Diskus] Physical Exam Vitals: Vital Signs Temp Pulse Pulse Resp BP BP Pulse Ox 05/08/19 09:04 115 H 05/08/19 08:49 117 H 89 L 05/08/19 04:40 96.2 F L 80 22 138/60 93 L 05/08/19 03:29 87 95 05/08/19 00:59 24 05/07/19 23:57 84 118/68 94 L 05/07/19 22:29 116 H 05/07/19 22:23 116 H 05/07/19 22:20 116 H 196/90 92 L 05/07/19 22:05 98.1 F 110 H 24 218/75 87 L 05/07/19 21:30 99 17 151/48 95 05/07/19 21:00 101 H 24 137/62 96 05/07/19 20:42 100 05/07/19 20:30 97 20 134/67 96 05/07/19 20:00 98.6 F 102 H 18 145/57 93 L 05/07/19 19:14 99.7 F H 107 H 24 137/63 96 Intake and Output 05/07/19 05/08/19 05/08/19 22:59 06:59 14:59 Other: # Voids 1 1 Weight 63.503 kg 63.503 kg Gen.: in stated age, no acute distress Heart: Normal S1-S2 Lungs: Coarse breathing sounds bilaterally with scattered rhonchi Abdomen: Soft, no tenderness, positive bowel sounds in all 4 quadrant no guarding or rebound Skin: No new rash Psych: Alert and oriented 2-3 but lethargic Neuro: No focal deficit Results CBC & Chem 7: 05/07/19 19:37 05/07/19 19:37 Labs: Abnormal Lab Results - Last 24 Hours (Table) 05/07/19 05/07/19 05/07/19 Range/Units 19:37 19:37 20:19 WBC 24.1 H (3.8-10.6) k/uL Neutrophils # 20.7 H (1.3-7.7) k/uL Monocytes # 1.2 H (0-1.0) k/uL Basophils # 0.3 H (0-0.2) k/uL VBG pCO2 33 L (37-51) mmHg VBG HCO3 20 L (24-28) mmol/L Sodium 135 L (137-145) mmol/L Chloride 95 L (98-107) mmol/L Glucose 128 H (74-99) mg/dL Alkaline Phosphatase 127 H (38-126) U/L Thrombosis Risk Factor Assmnt - Choose All That Apply Each Factor Represents 1 point: Abnormal pulmonary function (COPD) Each Risk Factor Represents 3 Points: Age 75 years or older, Family history of DVT/PE Thrombosis Risk Factor Assessment Total Risk Factor Score: 7 Thrombosis Risk Factor Assessment Level: High Risk Assessment and Plan Assessment: 1. Acute on chronic respiratory failure with hypoxia. Secondary to COPD with acute exacerbation. 2. Tracheobronchitis. 3. Leukocytosis likely reactive to steroids. 4. Hyponatremia. 5. Hypertension. 6. Hyperlipidemia. 7. Hypothyroidism. 8. Anxiety and depression. 9. Chronic back pain. 10. Coronary artery disease seems to be compensated at this point. 11. Generalized osteoarthritis Patient will be maintained on IV steroids, aggressive pulmonary hygiene, oxygen to maintain her oxygenation between 90-92% and the plan discussed with pulmonary at the bedside to continue antibiotics at this point and follow-up closely. We'll start patients on DVT prophylaxis area did follow-up with pulmonary recommendation. Have physical therapy evaluated the patient. Continue home medication with holding parameters. Continue current pain regimen. Prognosis remained guarded at this point
[2019-05-08] MEDS: HEPARIN SODIUM,PORCINE 5,000 UNIT/ML 1 ML VIAL SQ SCH ×2 (12:08→20:19)
--- NOTE | 2019-05-08 15:27 | P.CNPUL ---
History of Present Illness Consult date: 05/08/19 Requesting physician: Josie Almanzar Reason for consult: dyspnea, COPD Chief complaint: Shortness of breath, cough, congestion History of present illness: This is a pleasant 79-year-old female patient who follows with Dr. Bustamante as her primary care provider. She has a history of congestive heart failure, hypertension, coronary artery disease with previous stent placement, osteoarthritis, hard of hearing, heart failure. She also has history of significant chronic obstructive pulmonary disease and is oxygen dependent. She follows with Dr. Pedro in our office for the same. She is currently residing at [facility] and had developed a cough over the past 2-3 days and there is concern regarding possible pneumonia and she was sent here for the same. Chest x-ray reveals evidence of emphysema and old granulomatous disease but no acute pulmonary process. She is requiring 6 L high flow nasal cannula to maintain O2 saturations in the 90s. She's been afebrile and hemodynamically st able. White count 24.1. Hemoglobin 14.1. Sodium 135. Potassium 4.6. Creatinine 0.81. Lactic acid 1.1. Influenza screen negative. She's been initiated on DuoNeb inhalations, Pulmicort inhalations, prednisone, empiric antibiotics in the form of azithromycin. She is currently resting comfortably in bed. She has a loose nonproductive cough. No fever, chills or night sweats. No hemoptysis. Review of Systems REVIEW OF SYSTEMS: CONSTITUTIONAL: Denies any recent significant weight loss or weight gain. EYES: Denies change in vision. EARS, NOSE, MOUTH, THROAT: Denies headaches, denies sore throat. CARDIOVASCULAR: Denies chest pain, palpitations or syncopal episodes. RESPIRATORY: Positive for shortness of breath, cough, congestion no hemoptysis. GASTROINTESTINAL: Denies change in appetite, denies abdominal pain GENITOURINARY: Denies hematuria, denies infections. MUSKULOSKELETAL: Denies pain, denies swelling. INTEGUMENTARY: Denies rash, denies eczema. NEUROLOGICAL: Denies recent memory loss, no recent seizure activity. PSYCHIATRIC: Denies anxiety, denies depression. HEMATOLOGIC/LYMPHATIC: Denies anemia, denies enlarged lymph nodes. Past Medical History Past Medical History: Heart Failure, COPD, Hearing Disorder / Deafness, Hypertension, Myocardial Infarction ([place]), Osteoarthritis (OA), Respiratory Disorder Additional Past Medical History / Comment(s): HOME OXYGEN 2LNC UNDER 10YEARS Last Myocardial Infarction Date:: 2013 History of Any Multi-Drug Resistant Organisms: None Reported Past Surgical History: Appendectomy, Heart Catheterization With Stent Past Anesthesia/Blood Transfusion Reactions: No Reported Reaction Date of Last Stent Placement:: 2013 Past Psychological History: No Psychological Hx Reported Smoking Status: Former smoker Past Alcohol Use History: None Reported Additional Past Alcohol Use History / Comment(s): The patient was a smoker one and a half pack per day for 40-50 years ago quit in 2013 or 2014. She denies any illicit drug use, no alcohol use. Patient does not have a CPAP at home. Patient is home O2 dependent. She has a nebulizer in the home. She has been for the past 3 years and worked in the past as a housewife. Past Drug Use History: None Reported - Past Family History Father Family Medical History: Prostate Disorder Additional Family Medical History / Comment(s): Father at age 80 from lung cancer with history of prostate cancer. Mother Family Medical History: Congestive Heart Failure (CHF) Additional Family Medical History / Comment(s): Mother at age 89 from heart trouble. Brother(s) Additional Family Medical History / Comment(s): Patient had a total of 6 brothers. One brother has passed and he had multiple medical problems including testicular cancer with metastatic disease to the kidneys, CVA following surgery and diabetes. Other relatives have no major medical problems that she is aware of. Patient has 2 daughters with no major medical problems. Medications and Allergies Home Medications Medication Instructions Recorded Confirmed Type Aspirin EC [Ecotrin Low Dose] 81 mg PO DAILY@0904/18/18 05/07/19 History Atorvastatin [Lipitor] 40 mg PO HS@209904/18/18 05/07/19 History Clopidogrel [Plavix] 75 mg PO DAILY@0900 04/18/18 05/07/19 History Levothyroxine Sodium [Synthroid] 50 mcg PO DAILY@0600 04/18/18 05/07/19 History Metoprolol Tartrate [Lopressor] 25 mg PO BID@0900,2100 04/18/18 05/07/19 History Omeprazole [PriLOSEC] 20 mg PO DAILY@0900 04/18/18 05/07/19 History Ubidecarenone [Co Q-10] 100 mg PO DAILY@0900 04/18/18 05/07/19 History Venlafaxine HCl [Effexor XR] 150 mg PO DAILY@0900 04/18/18 05/07/19 History Acetaminophen-Codeine 300-30mg 1 tab PO Q6H PRN #12 tab 12/29/18 05/07/19 Rx [Tylenol w/codeine #3] Acetaminophen Tab [Tylenol Tab] 650 mg PO Q4H PRN 05/07/19 05/07/19 History Budesonide 1 mg INHALATION RT-BID@0900,2100 05/07/19 05/07/19 History Cetirizine HCl [Zyrtec] 10 mg PO HS@209905/07/19 05/07/19 History Docusate [Colace] 100 mg PO BID PRN 05/07/19 05/07/19 History Formoterol Fumarate [Perforomist] 20 mcg INHALATION RT-BID@0600,1800 05/07/19 05/07/19 History Ipratropium-Albuterol Nebulize 3 ml INHALATION RT-Q4H PRN 05/07/19 05/07/19 History [Duoneb 0.5 mg-3 mg/3 ml Soln] Lisinopril [Zestril] 20 mg PO HS@209905/07/19 05/07/19 History Melatonin 5 mg PO HS PRN 05/07/19 05/07/19 History Montelukast [Singulair] 10 mg PO DAILY@0900 05/07/19 05/07/19 History Allergies Allergy/AdvReac Type Severity Reaction Status Date / Time fluticasone Allergy Dyspnea Verified 05/07/19 21:01 [From Advair Diskus] Penicillins Allergy Rash/Hives Verified 05/07/19 21:01 salmeterol Allergy Dyspnea Verified 05/07/19 21:01 [From Advair Diskus] Physical Exam Vitals: Vital Signs Temp Pulse Pulse Resp BP BP Pulse Ox 05/08/19 14:53 97.6 F 83 16 104/56 98 05/08/19 09:04 115 H 05/08/19 08:49 117 H 89 L 05/08/19 04:40 96.2 F L 80 22 138/60 93 L 05/08/19 03:29 87 95 05/08/19 00:59 24 05/07/19 23:57 84 118/68 94 L 05/07/19 22:29 116 H 05/07/19 22:23 116 H 05/07/19 22:20 116 H 196/90 92 L 05/07/19 22:05 98.1 F 110 H 24 218/75 87 L 05/07/19 21:30 99 17 151/48 95 05/07/19 21:00 101 H 24 137/62 96 05/07/19 20:42 100 05/07/19 20:30 97 20 134/67 96 05/07/19 20:00 98.6 F 102 H 18 145/57 93 L 05/07/19 19:14 99.7 F H 107 H 24 137/63 96 Intake and Output 05/08/19 05/08/19 05/08/19 06:59 14:59 22:59 Intake Total 160 Balance 160 Intake: IV 160 0.9 1000ml 160 Other: # Voids 1 Weight 63.503 kg GENERAL EXAM: Alert, pleasant frail 79-year-old female patient, hard of hearing, on 6 L nasal cannula comfortable in no apparent distress. HEAD: Normocephalic. EYES: Normal reaction of pupils, equal size. NOSE: Clear with pink turbinates. THROAT: No erythema or exudates. NECK: No masses, no JVD. CHEST: No chest wall deformity. LUNGS: Equal air entry with faint end expiratory wheeze, diminished. CVS: S1 and S2 normal with no audible murmur, regular rhythm. ABDOMEN: No hepatosplenomegaly, normal bowel sounds, no guarding or rigidity. SPINE: No scoliosis or deformity SKIN: No rashes CENTRAL NERVOUS SYSTEM: No focal deficits, tone is normal in all 4 extremities. EXTREMITIES: There is no peripheral edema. No clubbing, no cyanosis. Peripheral pulses are intact. Results - Laboratory Findings CBC and BMP: 05/07/19 19:37 05/07/19 19:37 PT/INR, D-dimer PT 10.8 sec (9.0-12.0) 05/07/19 19:37 INR 1.1 (<1.2) 05/07/19 19:37 Abnormal lab findings: Abnormal Labs 05/07/19 05/07/19 05/07/19 19:37 19:37 20:19 WBC 24.1 H Neutrophils # 20.7 H Monocytes # 1.2 H Basophils # 0.3 H VBG pCO2 33 L VBG HCO3 20 L Sodium 135 L Chloride 95 L Glucose 128 H Alkaline Phosphatase 127 H Assessment and Plan Assessment: 1 Acute on chronic hypoxemic respiratory failure secondary to an acute exacerba tion of chronic obstructive pulmonary disease with no clear evidence of pneumonia 2 History of chronic tobacco dependence 3 Chronic hypoxemic respiratory failure secondary to above 4 Coronary artery disease with previous stent placement 5 Nonspecific fibrotic changes and old granulomatous changes on computed tomography scan 6 Hyperlipidemia 7 Hypertension 8 Hypothyroidism 9 Hearing disorder 10 [facility] resident Plan The patient was seen and evaluated by Dr. Lott. Chest x-ray reviewed. We'll continue with the current treatment plan including prednisone, DuoNeb inhalations, Pulmicort inhalations, Singulair and empiric antibiotics in form of azithromycin. Titrate down the FiO2 as tolerated. Possible discharge in the a.m. We will continue to follow. I, the cosigning physician, performed a history & physical examination of the patient. Lungs sounds with faint end expiratory wheeze, diminished. Maintaining good O2 saturations in the 90s on 6 L/m per nasal cannula. I discussed the assessment and plan of care with my nurse practitioner, Kaye Brooks. I attest to the above consultation as dictated by her. Time with Patient: Greater than 30
[2019-05-08] MEDS ORDERED: ATORVASTATIN 40 MG TAB PO SCH (21:00)
[2019-05-08] MEDS ORDERED: LORATADINE 10 MG TAB PO SCH (21:00)
[2019-05-08] MEDS ORDERED: LISINOPRIL 20 MG TAB PO SCH (21:00)
[2019-05-08 22:07] VITALS: RESP 20
[2019-05-09] MEDS: ALPRAZolam 0.5 MG TAB PO PRN
[2019-05-09] MEDS: LEVOTHYROXINE 50 MCG TAB PO SCH (05:45)
[2019-05-09] MEDS: BUDESONIDE 1 MG/2 ML NEBU INHALATION SCH (07:14)
[2019-05-09] MEDS: IPRATROPIUM-ALBUTEROL 3 ML NEB INHALATION PRN ×2 (07:14→11:01)
[2019-05-09] MEDS: PANTOPRAZOLE 40 MG TABLET PO SCH (08:02)
[2019-05-09] MEDS: HEPARIN SODIUM,PORCINE 5,000 UNIT/ML 1 ML VIAL SQ SCH (08:02)
[2019-05-09] MEDS: METOPROLOL TARTRATE 25 MG TAB PO SCH (08:02)
[2019-05-09] MEDS: AZITHROMYCIN 500 MG TAB PO SCH (08:02)
[2019-05-09] MEDS: predniSONE 20 MG TAB PO SCH (08:02)
[2019-05-09] MEDS: ASPIRIN 81 MG PO SCH (08:02)
[2019-05-09] MEDS: CLOPIDOGREL 75 MG TAB PO SCH (08:02)
[2019-05-09] MEDS: MONTELUKAST 10 MG TAB PO SCH (08:02)
[2019-05-09] MEDS: VENLAFAXINE HCL ER 150 MG CAP PO SCH (08:03)
[2019-05-09 09:13] VITALS: BP 188/83; TEMP 97.4
[2019-05-09] MEDS ORDERED: IPRATROPIUM-ALBUTEROL 3 ML NEB INHALATION PRN (11:06)
[2019-05-09 11:15] VITALS: PULSE 96
--- NOTE | 2019-05-09 12:46 | P.DS ---
Providers Date of admission: 05/07/19 20:55 Attending physician: Josie Almanzar Consults: 05/07/19 20:51 Consult Physician Routine Consulting Provider: Viktoria Potter Consult Reason/Comments: copd exacerbation Do you want consulting provider notified?: Yes Primary care physician: Tru [facility] Course: his is 79 years old female who presented to the emergency department with worsening shortness of breath and concerns for pneumonia. Patient has been dealing with productive cough for 3 days prior to arrival and staff at the detention facility was concerned about developing pneumonia as patient was requiring higher level of oxygen was sent to the nursing from the detention to the hospital. Patient is poor historian stated that she is normally on 2.5 L oxygen all the time but has been having worsening shortness of breath slowly and gradually due to advanced COPD and stated that they went up on her oxygen without improvement patient reported green phlegm productive cough and stated that it's been changing as he usually clear or yellow. Patient is denying fever chills nausea vomiting but stated that she has been extremely lethargic. Patient is denying tobacco alcohol or drug abuse 05/09 patient examined bedside is currently on her home oxygen at baseline. Denies any cough or shortness of breath does appear weak. Azithromycin switched to levofloxacin for 5 days with prednisone 40 mg for 5 days. Patient to continue to breathing treatment at [facility] Discharge diagnoses 1. Acute on chronic respiratory failure with hypoxia. Secondary to COPD with acute exacerbation. 2. Tracheobronchitis. 3. Leukocytosis likely reactive to steroids. 4. Hyponatremia. 5. Hypertension. 6. Hyperlipidemia. 7. Hypothyroidism. 8. Anxiety and depression. 9. Chronic back pain. 10. Coronary artery disease seems to be compensated at this point. 11. Generalized osteoarthritis Disposition discharged to [facility] facility to [facility] on 2.5 L of oxygen Patient Condition at Discharge: Fair Plan - Discharge Summary Discharge Rx Participant: No New Discharge Prescriptions: New predniSONE 40 mg PO DAILY 5 Days tab Levofloxacin 500 mg PO DAILY #7 tablet Continue Omeprazole [PriLOSEC] 20 mg PO DAILY@0900 Venlafaxine HCl [Effexor XR] 150 mg PO DAILY@0900 Ubidecarenone [Co Q-10] 100 mg PO DAILY@0900 Clopidogrel [Plavix] 75 mg PO DAILY@0900 Atorvastatin [Lipitor] 40 mg PO HS@2100 Metoprolol Tartrate [Lopressor] 25 mg PO BID@0900,2099 Aspirin EC [Ecotrin Low Dose] 81 mg PO DAILY@0900 Levothyroxine Sodium [Synthroid] 50 mcg PO DAILY@0600 Acetaminophen Tab [Tylenol] 650 mg PO Q4H PRN PRN Reason: Fever And/ Or Pain Budesonide 1 mg INHALATION RT-BID@899,2099 Cetirizine HCl [Zyrtec] 10 mg PO HS@2099 Docusate [Colace] 100 mg PO BID PRN PRN Reason: Constipation Formoterol Fumarate [Perforomist] 20 mcg INHALATION RT-BID@0600,1800 Ipratropium-Albuterol Nebulize [Duoneb 0.5 mg-3 mg/3 ml Soln] 3 ml INHALATION RT-Q4H PRN PRN Reason: Shortness Of Breath Lisinopril [Zestril] 20 mg PO HS@2099 Melatonin 5 mg PO HS PRN PRN Reason: Insomnia Montelukast [Singulair] 10 mg PO DAILY@09 Acetaminophen-Codeine 300-30mg [Tylenol w/codeine #3] 1 tab PO Q6H PRN #12 tab PRN Reason: Pain Discharge Medication List Aspirin EC [Ecotrin Low Dose] 81 mg PO DAILY@89904/18/18 [History] Atorvastatin [Lipitor] 40 mg PO HS@209904/18/18 [History] Clopidogrel [Plavix] 75 mg PO DAILY@0904/18/18 [History] Levothyroxine Sodium [Synthroid] 50 mcg PO DAILY@0604/18/18 [History] Metoprolol Tartrate [Lopressor] 25 mg PO BID@0900,209904/18/18 [History] Omeprazole [PriLOSEC] 20 mg PO DAILY@89904/18/18 [History] Ubidecarenone [Co Q-10] 100 mg PO DAILY@89904/18/18 [History] Venlafaxine HCl [Effexor XR] 150 mg PO DAILY@89904/18/18 [History] Acetaminophen Tab [Tylenol] 650 mg PO Q4H PRN 05/07/19 [History] Budesonide 1 mg INHALATION RT-BID@899,209905/07/19 [History] Cetirizine HCl [Zyrtec] 10 mg PO HS@2100 05/07/19 [History] Docusate [Colace] 100 mg PO BID PRN 05/07/19 [History] Formoterol Fumarate [Perforomist] 20 mcg INHALATION RT-BID@0600,1800 05/07/19 [History] Ipratropium-Albuterol Nebulize [Duoneb 0.5 mg-3 mg/3 ml Soln] 3 ml INHALATION RT-Q4H PRN 05/07/19 [History] Lisinopril [Zestril] 20 mg PO HS@2100 05/07/19 [History] Melatonin 5 mg PO HS PRN 05/07/19 [History] Montelukast [Singulair] 10 mg PO DAILY@0900 05/07/19 [History] Acetaminophen-Codeine 300-30mg [Tylenol w/codeine #3] 1 tab PO Q6H PRN #12 tab 05/09/19 [Rx] Levofloxacin 500 mg PO DAILY #7 tablet 05/09/19 [Rx] predniSONE 40 mg PO DAILY 5 Days tab 05/09/19 [Rx] Follow up Appointment(s)/Referral(s): Tru Bustamante MD [Primary Care Provider] - 1-2 days Discharge Disposition: TRANSFER TO SNF/ECF
[2019-05-09 13:31] LABS: ALT 11 U/L (4-34); AST 39 U/L (14-36); African American GFR (CKD) >90 (>60 ml/min/1.73 sqM); Albumin 3.7 g/dL (3.5-5.0); Alkaline Phosphatase 149 U/L (38-126); Anion Gap 9 mmol/L; Blood Urea Nitrogen 13 mg/dL (7-17); Carbon Dioxide 27 mmol/L (22-30); Chloride 105 mmol/L (98-107); Glucose 131 mg/dL (74-99); Non-African American GFR(CKD) 88 (>60 ml/min/1.73 sqM); Potassium 5.8 mmol/L (3.5-5.1); Sodium 141 mmol/L (137-145); Total Bilirubin 0.8 mg/dL (0.2-1.3); Total Protein 7.2 g/dL (6.3-8.2)
[2019-05-09 13:32] LABS: Basophils # (A) 0.3 k/uL (0-0.2); Basophils % (A) 1 %; Eosinophils # (A) 0.2 k/uL (0-0.7); Eosinophils % (A) 1 %; HCT 37.8 % (34.0-46.0); HGB 12.6 gm/dL (11.4-16.0); Lymphocytes # (A) 0.6 k/uL (1.0-4.8); Lymphocytes % (A) 2 %; MCH 30.3 pg (25.0-35.0); MCHC 33.4 g/dL (31.0-37.0); MCV 90.6 fL (80.0-100.0); Mean Platelet Volume 9.1; Monocytes # (A) 1.5 k/uL (0-1.0); Monocytes % (A) 6 %; Neutrophils # (A) 23.4 k/uL (1.3-7.7); Neutrophils % (A) 89 %; Platelet Count 342 k/uL (150-450); RBC 4.17 m/uL (3.80-5.40); RDW 13.6 % (11.5-15.5); WBC 26.2 k/uL (3.8-10.6)
--- NOTE | 2019-05-09 13:56 | P.PN ---
Subjective Progress Note Date: 05/09/19 Principal diagnosis: Acute on chronic hypoxemic restaurant failure secondary to an acute exacerbation of COPD. No clear evidence of pneumonia This is a pleasant 79-year-old female patient who follows with Dr. Bustamante as her primary care provider. She has a history of congestive heart failure, hypertension, coronary artery disease with previous stent placement, osteoarthritis, hard of hearing, heart failure. She also has history of significant chronic obstructive pulmonary disease and is oxygen dependent. She follows with Dr. Pedro in our office for the same. She is currently residing at [facility] and had developed a cough over the past 2-3 days and there is concern regarding possible pneumonia and she was sent here for the same. Chest x-ray reveals evidence of emphysema and old granulomatous disease but no acute pulmonary process. She is requiring 6 L high flow nasal cannula to maintain O2 saturations in the 90s. She's been afebrile and hemodynamically stable. White count 24.1. Hemoglobin 14.1. Sodium 135. Potassium 4.6. Creatinine 0.81. Lactic acid 1.1. Influenza screen negative. She's been initiated on DuoNeb inhalations, Pulmicort inhalations, prednisone, empiric antibiotics in the form of azithromycin. She is currently resting comfortably in bed. She has a loose nonproductive cough. No fever, chills or night sweats. No hemoptysis. The patient is seen today 05/09/2019 in follow-up on the regular medical floor. She is sitting up in bed having lunch. Awake and alert in no acute distress. Breathing is back to her baseline. No worsening shortness of breath, cough or congestion. Maintaining O2 saturations in the 90s on 2 L/m per nasal cannula. Blood culture reveals no growth. White count 26.2. Hemoglobin 12.6. Sodium 141. Potassium 5.8. Creatinine 0.59. She is continued on bronchodilators, prednisone, azithromycin. Objective - Vital Signs Vital signs: Vital Signs Temp 97.4 F L 05/09/19 07:00 Pulse 96 05/09/19 11:14 Resp 20 05/09/19 07:00 BP 188/83 05/09/19 07:00 Pulse Ox 90 L 05/09/19 10:59 Intake & Output 05/08/19 05/09/19 05/09/19 18:59 06:59 18:59 Intake Total 160 300 610 Balance 160 300 610 Weight 63.503 kg Intake: IV 160 0.9 1000ml 160 Oral 300 610 Other: Voiding Method Bedside Commode Bedside Commode # Voids 3 2 # Bowel Movements 0 - Exam GENERAL EXAM: Alert, pleasant frail 79-year-old female patient, hard of hearing, on 2 L nasal cannula comfortable in no apparent distress. HEAD: Normocephalic. EYES: Normal reaction of pupils, equal size. NOSE: Clear with pink turbinates. THROAT: No erythema or exudates. NECK: No masses, no JVD. CHEST: No chest wall deformity. LUNGS: Equal air entry with faint end expiratory wheeze, diminished. CVS: S1 and S2 normal with no audible murmur, regular rhythm. ABDOMEN: No hepatosplenomegaly, normal bowel sounds, no guarding or rigidity. SPINE: No scoliosis or deformity SKIN: No rashes CENTRAL NERVOUS SYSTEM: No focal deficits, tone is normal in all 4 extremities. EXTREMITIES: There is no peripheral edema. No clubbing, no cyanosis. Peripheral pulses are intact. - Labs CBC & Chem 7: 05/09/19 12:31 05/09/19 12:31 Labs: Abnormal Lab Results - Last 24 Hours (Table) 05/09/19 05/09/19 Range/Units 12:31 12:31 WBC 26.2 H (3.8-10.6) k/uL Neutrophils # 23.4 H (1.3-7.7) k/uL Lymphocytes # 0.6 L (1.0-4.8) k/uL Monocytes # 1.5 H (0-1.0) k/uL Basophils # 0.3 H (0-0.2) k/uL Potassium 5.8 H (3.5-5.1) mmol/L Glucose 131 H (74-99) mg/dL AST 39 H (14-36) U/L Alkaline Phosphatase 149 H (38-126) U/L Microbiology - Last 24 Hours (Table) 05/07/19 19:37 Blood Culture - Preliminary Blood No Growth after 24 hours Assessment and Plan Assessment: 1 Acute on chronic hypoxemic respiratory failure secondary to an acute exacerbation of chronic obstructive pulmonary disease with no clear evidence of pneumonia 2 History of chronic tobacco dependence 3 Chronic hypoxemic respiratory failure secondary to above 4 Coronary artery disease with previous stent placement 5 Nonspecific fibrotic changes and old granulomatous changes on computed tomography scan 6 Hyperlipidemia 7 Hypertension 8 Hypothyroidism 9 Hearing disorder 10 [facility] resident Plan The patient was seen and evaluated by Dr. Pedro. She is cleared for transfer back to [facility] from the pulmonary standpoint. Continue with the current treatment plan including prednisone, DuoNeb inhalations, Pulmicort inhalations, Singulair and empiric antibiotics in form of azithromycin. I, the cosigning physician, performed a history & physical examination of the patient. Lungs sounds with faint end expiratory wheeze, diminished. Maintaining good O2 saturations in the 90s on 2 L/m per nasal cannula. I discussed the assessment and plan of care with my nurse practitioner, Kaye Brooks. I attest to the above note as dictated by her.
[2019-05-09] MEDS ORDERED: IPRATROPIUM-ALBUTEROL 3 ML NEB INHALATION SCH (16:00)
== END 2019-05-09 14:28 | DRG 190 ==
LOC: EC 18:46 → 6NMEDSUR 20:55
PROVIDERS: ADMIT Internal Medicine; ATTEND Internal Medicine
DX: J43.9 Emphysema, unspecified (principal); J96.21 Acute and chronic respiratory failure with hypoxia; E87.1 Hypo-osmolality and hyponatremia; M15.9 Polyosteoarthritis, unspecified; I50.9 Heart failure, unspecified; I25.10 Atherosclerotic heart disease of native coronary artery without angina pectoris; I11.0 Hypertensive heart disease with heart failure; H91.90 Unspecified hearing loss, unspecified ear; G89.29 Other chronic pain; F41.9 Anxiety disorder, unspecified; E03.9 Hypothyroidism, unspecified; F32.9 Major depressive disorder, single episode, unspecified; E78.5 Hyperlipidemia, unspecified; I25.2 Old myocardial infarction; Z79.02 Long term (current) use of antithrombotics/antiplatelets; Z79.52 Long term (current) use of systemic steroids; Z79.4 Long term (current) use of insulin; Z79.82 Long term (current) use of aspirin; Z99.81 Dependence on supplemental oxygen; Z95.5 Presence of coronary angioplasty implant and graft; Z87.891 Personal history of nicotine dependence; Z83.3 Family history of diabetes mellitus; Z82.49 Family history of ischemic heart disease and other diseases of the circulatory system; Z82.3 Family history of stroke; Z80.1 Family history of malignant neoplasm of trachea, bronchus and lung; Z79.899 Other long term (current) drug therapy; Z79.890 Hormone replacement therapy; Z88.0 Allergy status to penicillin; Z88.8 Allergy status to other drugs, medicaments and biological substances
CPT/HCPCS: 36415; 71046; 80053; 82803; 83605; 84145; 85025; 85610; 85730; 87040; 87502; 93005; 94640; 94760; 96361; 96374; 99285

== ENCOUNTER 2020-01-10 09:37 | Emergency (ER) | payer MEDICARE, BC, OTHER ==
--- NOTE | 2020-01-10 10:10 | ED ---
General Adult HPI - General Chief complaint: Recheck/Abnormal Lab/Rx Stated complaint: Abnormal Labs Time Seen by Provider: 01/10/20 09:40 Source: patient, RN notes reviewed, old records reviewed Mode of arrival: ambulatory Limitations: no limitations - History of Present Illness Initial comments: This is a 79-year-old female who [facility]. Patient states she has no complaints and she doesn't know why she is he re. Nursing received a call from the [facility] stating that the patient was sent in because the d-dimer was elevated. Patient denies any shortness of breath or chest pain. Patient denies any palpitations per patient denies any recent fever chills or cough. Patient states recently she was in the hospital for pneumonia but she has been feeling fine since she's been released. Patient denies any abdominal pain patient denies nausea vomiting diarrhea. - Related Data Home Medications Medication Instructions Recorded Confirmed Aspirin EC [Ecotrin Low Dose] 81 mg PO DAILY@89904/18/18 01/10/20 Atorvastatin [Lipitor] 40 mg PO HS@209904/18/18 01/10/20 Clopidogrel [Plavix] 75 mg PO DAILY@89904/18/18 01/10/20 Levothyroxine Sodium [Synthroid] 50 mcg PO DAILY@0604/18/18 01/10/20 Metoprolol Tartrate [Lopressor] 25 mg PO BID@09,209904/18/18 01/10/20 Omeprazole [PriLOSEC] 20 mg PO DAILY@89904/18/18 01/10/20 Ubidecarenone [Co Q-10] 100 mg PO DAILY@89904/18/18 01/10/20 Venlafaxine HCl [Effexor XR] 150 mg PO DAILY@89904/18/18 01/10/20 Acetaminophen Tab [Tylenol] 650 mg PO Q4H PRN 05/07/19 01/10/20 Budesonide 1 mg INHALATION RT-BID@0900,209905/07/19 01/10/20 Cetirizine HCl [Zyrtec] 10 mg PO DIRECTED 05/07/19 01/10/20 Formoterol Fumarate [Perforomist] 20 mcg INHALATION RT-BID@0600,1800 05/07/19 01/10/20 Ipratropium-Albuterol Nebulize 3 ml INHALATION RT-Q4H PRN 05/07/19 01/10/20 [Duoneb 0.5 mg-3 mg/3 ml Soln] Montelukast [Singulair] 10 mg PO HS 05/07/19 01/10/20 lisinopriL [Zestril] 20 mg PO BID@0900,209905/07/19 01/10/20 Calamine Plus Lotion 1 applic TOPICAL Q12H 01/10/20 01/10/20 Cyanocobalamin [Vitamin B-12] 500 mcg PO DAILY 01/10/20 01/10/20 Ergocalciferol (Vitamin D2) 50,000 unit PO SA 01/10/20 01/10/20 [Drisdol] guaiFENesin [Mucinex] 600 mg PO BID@0900,209901/10/20 01/10/20 hydrALAZINE HCL 50 mg PO BID PRN 01/10/20 01/10/20 predniSONE [Deltasone] See Taper PO DAILY 01/10/20 01/10/20 Previous Rx's Medication Instructions Recorded levoFLOXacin 500 mg PO DAILY #7 tablet 05/09/19 Allergies Allergy/AdvReac Type Severity Reaction Status Date / Time fluticasone Allergy Dyspnea Verified 01/10/20 10:52 [From Advair Diskus] Penicillins Allergy Rash/Hives Verified 01/10/20 10:52 salmeterol Allergy Dyspnea Verified 01/10/20 10:52 [From Advair Diskus] Review of Systems ROS Statement: Those systems with pertinent positive or pertinent negative responses have been documented in the HPI. ROS Other: All systems not noted in ROS Statement are negative. Past Medical History Past Medical History: Heart Failure, COPD, Hearing Disorder / Deafness, Hypertension, Myocardial Infarction ([place]), Osteoarthritis (OA), Respiratory Disorder Additional Past Medical History / Comment(s): HOME OXYGEN 2LNC UNDER 10YEARS Last Myocardial Infarction Date:: 2013 History of Any Multi-Drug Resistant Organisms: None Reported Past Surgical History: Appendectomy, Heart Catheterization With Stent Past Anesthesia/Blood Transfusion Reactions: No Reported Reaction Date of Last Stent Placement:: 2013 Past Psychological History: No Psychological Hx Reported Smoking Status: Former smoker Past Alcohol Use History: None Reported Past Drug Use History: None Reported - Past Family History Father Family Medical History: Prostate Disorder Additional Family Medical History / Comment(s): Father at age 80 from lung cancer with history of prostate cancer. Mother Family Medical History: Congestive Heart Failure (CHF) Additional Family Medical History / Comment(s): Mother at age 89 from heart trouble. Brother(s) Additional Family Medical History / Comment(s): Patient had a total of 6 brothers. One brother has passed and he had multiple medical problems including testicular cancer with metastatic disease to the kidneys, CVA following surgery and diabetes. Other relatives have no major medical problems that she is aware of. Patient has 2 daughters with no major medical problems. General Exam - General Exam Comments Initial Comments: GENERAL: Patient is well-developed and well-nourished. Patient is nontoxic and well- hydrated and is in no acute distress. ENT: Neck is soft and supple. No significant lymphadenopathy is noted. Oropharynx is clear. Moist mucous membranes. Neck has full range of motion without eliciting any pain. EYES: The sclera were anicteric and conjunctiva were pink and moist. Extraocular movements were intact and pupils were equal round and reactive to light. Eyel ids were unremarkable. PULMONARY: Unlabored respirations. Good breath sounds bilaterally. No audible rales rhonchi or wheezing was noted. CARDIOVASCULAR: There is a regular rate and rhythm without any murmurs gallops or rubs. ABDOMEN: Soft and nontender with normal bowel sounds. SKIN: Skin is clear with no lesions or rashes and otherwise unremarkable. NEUROLOGIC: Patient is alert and oriented x3. Cranial nerves II through XII are grossly intact. Motor and sensory are also intact. Normal speech, volume and content. Symmetrical smile. MUSCULOSKELETAL: Normal extremities with adequate strength and full range of motion. No lower extremity swelling or edema. No calf tenderness. LYMPHATICS: No significant lymphadenopathy is noted PSYCHIATRIC: Normal psychiatric evaluation. Limitations: no limitations Course Vital Signs 01/10/20 09:42 Temperature 98.1 F Pulse Rate 81 Respiratory 18 Rate Blood Pressure 163/65 O2 Sat by Pulse 99 Oximetry Medical Decision Making - Medical Decision Making CT of the chest showed no PE Patient remains asymptomatic. EKG shows normal sinus rhythm at 77 bpm CA interval 296 QRS is 82 QT interval 3 70 QTC is 418. Patient's EKG shows no ST segment elevation or depression. - Lab Data Result diagrams: 01/10/20 10:06 09/22/20 10:06 Lab Results 01/10/20 01/10/20 01/10/20 Range/Units 10:06 10:06 10:06 WBC 11.1 H (3.8-10.6) k/uL RBC 4.62 (3.80-5.40) m/uL Hgb 13.5 (11.4-16.0) gm/dL Hct 42.3 (34.0-46.0) % MCV 91.6 (80.0-100.0) fL MCH 29.2 (25.0-35.0) pg MCHC 31.8 (31.0-37.0) g/dL RDW 13.9 (11.5-15.5) % Plt Count 361 (150-450) k/uL Neutrophils % 60 % Lymphocytes % 30 % Monocytes % 7 % Eosinophils % 1 % Basophils % 1 % Neutrophils # 6.6 (1.3-7.7) k/uL Lymphocytes # 3.3 (1.0-4.8) k/uL Monocytes # 0.7 (0-1.0) k/uL Eosinophils # 0.1 (0-0.7) k/uL Basophils # 0.1 (0-0.2) k/uL PT 10.1 (9.0-12.0) sec INR 1.0 (<1.2) APTT 22.4 (22.0-30.0) sec Sodium 139 (137-145) mmol/L Potassium 3.9 (3.5-5.1) mmol/L Chloride 102 (98-107) mmol/L Carbon Dioxide 30 (22-30) mmol/L Anion Gap 7 mmol/L BUN 14 (7-17) mg/dL Creatinine 0.80 (0.52-1.04) mg/dL Est GFR (CKD-EPI)AfAm 82 (>60 ml/min/1.73 sqM) Est GFR (CKD-EPI)NonAf 71 (>60 ml/min/1.73 sqM) Glucose 122 H (74-99) mg/dL Plasma Lactic Acid Tomi (0.7-2.0) mmol/L Calcium 9.8 (8.4-10.2) mg/dL Total Bilirubin 0.3 (0.2-1.3) mg/dL AST 18 (14-36) U/L ALT 11 (4-34) U/L Alkaline Phosphatase 101 (38-126) U/L Troponin I (0.000-0.034) ng/mL Total Protein 7.2 (6.3-8.2) g/dL Albumin 4.1 (3.5-5.0) g/dL 01/10/20 01/10/20 Range/Units 10:06 10:12 WBC (3.8-10.6) k/uL RBC (3.80-5.40) m/uL Hgb (11.4-16.0) gm/dL Hct (34.0-46.0) % MCV (80.0-100.0) fL MCH (25.0-35.0) pg MCHC (31.0-37.0) g/dL RDW (11.5-15.5) % Plt Count (150-450) k/uL Neutrophils % % Lymphocytes % % Monocytes % % Eosinophils % % Basophils % % Neutrophils # (1.3-7.7) k/uL Lymphocytes # (1.0-4.8) k/uL Monocytes # (0-1.0) k/uL Eosinophils # (0-0.7) k/uL Basophils # (0-0.2) k/uL PT (9.0-12.0) sec INR (<1.2) APTT (22.0-30.0) sec Sodium (137-145) mmol/L Potassium (3.5-5.1) mmol/L Chloride (98-107) mmol/L Carbon Dioxide (22-30) mmol/L Anion Gap mmol/L BUN (7-17) mg/dL Creatinine (0.52-1.04) mg/dL Est GFR (CKD-EPI)AfAm (>60 ml/min/1.73 sqM) Est GFR (CKD-EPI)NonAf (>60 ml/min/1.73 sqM) Glucose (74-99) mg/dL Plasma Lactic Acid Tomi 2.0 (0.7-2.0) mmol/L Calcium (8.4-10.2) mg/dL Total Bilirubin (0.2-1.3) mg/dL AST (14-36) U/L ALT (4-34) U/L Alkaline Phosphatase (38-126) U/L Troponin I <0.012 (0.000-0.034) ng/mL Total Protein (6.3-8.2) g/dL Albumin (3.5-5.0) g/dL Disposition Clinical Impression: Elevated d-dimer Disposition: HOME SELF-CARE Condition: Good Instructions (If sedation given, give patient instructions): Dyspnea (ED) Is patient prescribed a controlled substance at d/c from ED?: No Referrals: Frida Ramirez MD [Primary Care Provider] - 1-2 days Time of Disposition: 11:07
[2020-01-10 10:19] LABS: Basophils # (A) 0.1 k/uL (0-0.2); Basophils % (A) 1 %; Eosinophils # (A) 0.1 k/uL (0-0.7); Eosinophils % (A) 1 %; HCT 42.3 % (34.0-46.0); HGB 13.5 gm/dL (11.4-16.0); Lymphocytes # (A) 3.3 k/uL (1.0-4.8); Lymphocytes % (A) 30 %; MCH 29.2 pg (25.0-35.0); MCHC 31.8 g/dL (31.0-37.0); MCV 91.6 fL (80.0-100.0); Mean Platelet Volume 7.3; Monocytes # (A) 0.7 k/uL (0-1.0); Monocytes % (A) 7 %; Neutrophils # (A) 6.6 k/uL (1.3-7.7); Neutrophils % (A) 60 %; Platelet Count 361 k/uL (150-450); RBC 4.62 m/uL (3.80-5.40); RDW 13.9 % (11.5-15.5); WBC 11.1 k/uL (3.8-10.6)
[2020-01-10 10:28] LABS: Prothrombin Time 10.1 sec (9.0-12.0)
[2020-01-10 10:32] LABS: Albumin 4.1 g/dL (3.5-5.0); Calcium 9.8 mg/dL (8.4-10.2); Potassium 3.9 mmol/L (3.5-5.1); Total Bilirubin 0.3 mg/dL (0.2-1.3); Total Protein 7.2 g/dL (6.3-8.2)
[2020-01-10 10:37] LABS: Partial Thromboplastin Time 22.4 sec (22.0-30.0)
--- NOTE | 2020-01-10 10:52 | CT ---
EXAMINATION TYPE: CT chest angio for PE DATE OF EXAM: 01/10/2020 COMPARISON: 12/26/2018 HISTORY: Elevated d-dimer CT DLP: 211.8 mGycm Automated exposure control for dose reduction was used. CONTRAST: CT Chest for pulmonary embolism performed with without and with IV Contrast, patient injected with 21 1.8 mL of Isovue 370. FINDINGS: LUNGS: Diffuse emphysematous changes are noted. There is biapical pleural thickening. There is a 6 mm nodule in the right upper lobe. Stable from the prior exam. May contain a small internal calcificati on. No consolidative pneumonia. No pleural effusion. No pneumothorax. Subsegmental changes at the lef t lung base typical of scar or atelectasis. MEDIASTINUM: There is satisfactory enhancement of the pulmonary artery and its branches, there is no CT evidence for pulmonary embolism. There are no greater than 1 cm hilar or mediastinal lymph nodes. Heart size is normal. Atherosclerotic change of the aorta. Coronary artery calcification noted.. OTHER: Hypertrophic and degenerative change of the spine. IMPRESSION: 1. COPD with no diagnostic evidence of pulmonary embolism. 2. Coronary artery atherosclerotic disease. 3. Stable 6 mm nodule right upper lobe
[2020-01-10 11:54] VITALS: BP 146/61; PULSE 82; RESP 20; TEMP 97.3
== END 2020-01-10 12:09 | disposition home or self-care (01) ==
LOC: EC 09:37
DX: R79.89 Other specified abnormal findings of blood chemistry (principal); J44.9 Chronic obstructive pulmonary disease, unspecified; I11.0 Hypertensive heart disease with heart failure; I50.9 Heart failure, unspecified; I25.2 Old myocardial infarction; Z79.51 Long term (current) use of inhaled steroids; Z79.52 Long term (current) use of systemic steroids; Z79.899 Other long term (current) drug therapy; Z79.82 Long term (current) use of aspirin; Z79.02 Long term (current) use of antithrombotics/antiplatelets; Z99.81 Dependence on supplemental oxygen; Z87.891 Personal history of nicotine dependence; Z88.8 Allergy status to other drugs, medicaments and biological substances; Z88.0 Allergy status to penicillin; Z95.5 Presence of coronary angioplasty implant and graft
CPT/HCPCS: 36415; 93005; 80053; 83605; 84484; 85025; 85610; 85730; 71275; 99284; Q9967

== ENCOUNTER → 2021-01-02 | Outpatient (CLI) | payer MEDICARE, BC, OTHER ==
--- NOTE | 2021-01-04 10:53 | MM ---
Reason for exam: screening (asymptomatic). Last mammogram was performed 2 years and 10 months ago. History: Patient is postmenopausal. Took hormonal contraceptives for 5 years 6 months. Took estrogen for 2 months. Physical Findings: A clinical breast exam by your physician is recommended on an annual basis and results should be correlated with mammographic findings. MG 3D Screening Mammo W/Cad Bilateral CC and MLO view(s) were taken. Prior study comparison: March 15, 2018, bilateral MG 3d screening mammo w/cad. There are scattered fibroglandular densities. Grouped calcifications anterior left breast have increased. ASSESSMENT: Incomplete: need additional imaging evaluation, BI-RAD 0 RECOMMENDATION: Special view mammogram of the left breast. (magnification) [facility] will attempt to contact patient to return for supplemental views.
== END | disposition home or self-care (01) ==
LOC: RADMAMWWP 15:02
PROVIDERS: ATTEND Family Medicine
DX: Z12.31 Encounter for screening mammogram for malignant neoplasm of breast (principal)
CPT/HCPCS: 77063; 77067

== ENCOUNTER → 2021-01-09 | Outpatient (CLI) | payer MEDICARE, BC, OTHER ==
--- NOTE | 2021-01-09 09:10 | MM ---
Reason for exam: additional evaluation requested from abnormal screening. Last mammogram was performed less than 1 month ago. History: Patient is postmenopausal. Took hormonal contraceptives for 5 years 6 months. Took estrogen for 2 months. Physical Findings: Nurse did not find any significant physical abnormalities on exam. MG 3D Work Up W/Cad LT CC with magnification, ML with magnification, and ML view(s) were taken of the left breast. Prior study comparison: January 02, 2021, bilateral MG 3d screening mammo w/cad. March 15, 2018, bilateral MG 3d screening mammo w/cad. There are scattered fibroglandular densities. Course tightly grouped calcifications 12 o'clock maybe popcorn calcifications. 6 month follow up recommended. These results were verbally communicated with the patient and result sheet given to the patient on 01/09/21. ASSESSMENT: Probably benign, BI-RAD 3 RECOMMENDATION: Follow-up diagnostic mammogram of the left breast in 6 months.
== END | disposition home or self-care (01) ==
LOC: RADMAMWWP 07:44
PROVIDERS: ATTEND Family Medicine
DX: R92.8 Other abnormal and inconclusive findings on diagnostic imaging of breast (principal)
CPT/HCPCS: 77065; G0279; 77061

== ENCOUNTER 2021-01-25 21:58 | Inpatient (IN) | payer MEDICARE, BC, OTHER ==
[2021-01-25] MEDS ORDERED: SODIUM CHLORIDE 0.9% 1,000 ML IV STA (22:19)
[2021-01-25] MEDS ORDERED: SODIUM CHLORIDE 0.9% 500 ML 500 ML IV STA (22:19)
[2021-01-25] MEDS ORDERED: methylPREDNISolone SOD SUCCI 125 MG/2 ML VIAL IV STA (22:19)
[2021-01-25] MEDS ORDERED: IPRATROPIUM-ALBUTEROL 3 ML NEB INHALATION STA (22:19)
--- NOTE | 2021-01-25 22:45 | XR ---
EXAMINATION TYPE: XR chest 1V portable DATE OF EXAM: 01/25/2021 COMPARISON: 05/07/2019 HISTORY: Short of breath TECHNIQUE: Single view FINDINGS: Heart is normal. There is coarsening of interstitial markings. There is mild interstitial d ensity in the upper and lower lung lainez. There is no mediastinal adenopathy. There are no hilar mas ses. IMPRESSION: Pulmonary fibrosis. Interstitial pulmonary density increased slightly compared to old ex am. Normal heart. Superimposed mild acute interstitial pneumonia possible.
[2021-01-25 23:15] LABS: ALT 8 U/L (4-34); AST 19 U/L (14-36); African American GFR (CKD) >90 (>60 ml/min/1.73 sqM); Albumin 3.6 g/dL (3.5-5.0); Alkaline Phosphatase 99 U/L (38-126); Anion Gap 7 mmol/L; Blood Urea Nitrogen 9 mg/dL (7-17); C Reactive Protein 2.4 mg/dL (<1.0); Calcium 9.6 mg/dL (8.4-10.2); Carbon Dioxide 29 mmol/L (22-30); Chloride 95 mmol/L (98-107); Glucose 129 mg/dL (74-99); Magnesium 1.7 mg/dL (1.6-2.3); Non-African American GFR(CKD) 82 (>60 ml/min/1.73 sqM); Sodium 131 mmol/L (137-145); Total Bilirubin 0.4 mg/dL (0.2-1.3); Total Protein 6.8 g/dL (6.3-8.2)
[2021-01-25 23:21] LABS: INR 0.9 (<1.2); Prothrombin Time 9.8 sec (9.0-12.0)
[2021-01-25] MEDS ORDERED: IPRATROPIUM-ALBUTEROL 3 ML NEB INHALATION PRN (23:31)
[2021-01-25 23:32] LABS: Partial Thromboplastin Time 17.9 sec (22.0-30.0)
--- NOTE | 2021-01-25 23:33 | ED ---
SOB HPI - General Chief Complaint: Shortness of Breath Stated Complaint: AMARILYS Time Seen by Provider: 01/25/21 22:02 Source: patient, EMS Mode of arrival: EMS Limitations: no limitations - Related Data Home Medications Medication Instructions Recorded Confirmed Aspirin EC [Ecotrin Low Dose] 81 mg PO DAILY 04/18/18 01/25/21 Atorvastatin [Lipitor] 40 mg PO HS 04/18/18 01/25/21 Clopidogrel [Plavix] 75 mg PO DAILY 04/18/18 01/25/21 Levothyroxine Sodium [Synthroid] 50 mcg PO DAILY@0600 04/18/18 01/25/21 Metoprolol Tartrate [Lopressor] 25 mg PO BID 04/18/18 01/25/21 Ubidecarenone [Co Q-10] 100 mg PO DAILY 04/18/18 01/25/21 Venlafaxine HCl [Effexor XR] 150 mg PO DAILY 04/18/18 01/25/21 Acetaminophen Tab [Tylenol] 650 mg PO Q4H PRN 05/07/19 01/25/21 Budesonide 1 mg INHALATION RT-BID 05/07/19 01/25/21 Cetirizine HCl [Zyrtec] 10 mg PO DAILY 05/07/19 01/25/21 Formoterol Fumarate [Perforomist] 20 mcg INHALATION RT-BID@0600,1800 05/07/19 01/25/21 Ipratropium-Albuterol Nebulize 3 ml INHALATION RT-Q4H PRN 05/07/19 01/25/21 [Duoneb 0.5 mg-3 mg/3 ml Soln] Montelukast [Singulair] 10 mg PO HS 05/07/19 01/25/21 lisinopriL [Zestril] 20 mg PO BID 05/07/19 01/25/21 Cyanocobalamin [Vitamin B-12] 500 mcg PO DAILY 01/10/20 01/25/21 Ergocalciferol (Vitamin D2) 1,250 mcg PO SA 01/10/20 01/25/21 [Drisdol] guaiFENesin [Mucinex] 600 mg PO Q12H 01/10/20 01/25/21 hydrALAZINE HCL 50 mg PO BID PRN 01/10/20 01/25/21 Dextran 70/Hypromellose [Genteal 1 drop BOTH EYES Q12H PRN 01/25/21 01/25/21 Tears 0.1%-0.3% Drop] Melatonin 5 mg PO HS PRN 01/25/21 01/25/21 Omeprazole 20 mg PO HS 01/25/21 01/25/21 Pantoprazole Sodium [Protonix] 20 mg PO DAILY@0600 01/25/21 01/25/21 Sennosides/Docusate Sodium [Senna 2 tab PO DAILY 01/25/21 01/25/21 Plus 8.6-50 mg Tablet] Allergies Allergy/AdvReac Type Severity Reaction Status Date / Time fluticasone Allergy Dyspnea Verified 01/25/21 22:34 [From Advair Diskus] Penicillins Allergy Rash/Hives Verified 01/25/21 22:34 salmeterol Allergy Dyspnea Verified 01/25/21 22:34 [From Advair Diskus] Review of Systems ROS Statement: Those systems with pertinent positive or pertinent negative responses have been documented in the HPI. ROS Other: All systems not noted in ROS Statement are negative. Past Medical History Past Medical History: Heart Failure, COPD, Hearing Disorder / Deafness, Hypertension, Myocardial Infarction ([place]), Osteoarthritis (OA), Respiratory Disorder Additional Past Medical History / Comment(s): HOME OXYGEN 2LNC UNDER 10YEARS Last Myocardial Infarction Date:: 2013 History of Any Multi-Drug Resistant Organisms: None Reported Past Surgical History: Appendectomy, Heart Catheterization With Stent Past Anesthesia/Blood Transfusion Reactions: No Reported Reaction Date of Last Stent Placement:: 2013 Past Psychological History: No Psychological Hx Reported Smoking Status: Former smoker Past Alcohol Use History: None Reported Past Drug Use History: None Reported - Past Family History Father Family Medical History: Prostate Disorder Additional Family Medical History / Comment(s): Father at age 80 from lung cancer with history of prostate cancer. Mother Family Medical History: Congestive Heart Failure (CHF) Additional Family Medical History / Comment(s): Mother at age 89 from heart trouble. Brother(s) Additional Family Medical History / Comment(s): Patient had a total of 6 brothers. One brother has passed and he had multiple medical problems including testicular cancer with metastatic disease to the kidneys, CVA following surgery and diabetes. Other relatives have no major medical problems that she is aware of. Patient has 2 daughters with no major medical problems. General Exam Limitations: no limitations Course Vital Signs 01/25/21 01/25/21 01/25/21 22:07 23:16 23:29 Temperature 98.7 F Pulse Rate 106 H 99 101 H Respiratory 36 H Rate Blood Pressure 142/81 O2 Sat by Pulse 92 L Oximetry 01/26/21 00:05 Temperature Pulse Rate 95 Respiratory 30 H Rate Blood Pressure 135/69 O2 Sat by Pulse 95 Oximetry Medical Decision Making - Lab Data Result diagrams: 01/25/21 22:34 01/25/21 22:34 Lab Results 01/25/21 01/25/21 01/25/21 Range/Units 22:34 22:34 22:34 WBC 12.3 H (3.8-10.6) k/uL RBC 3.99 (3.80-5.40) m/uL Hgb 11.2 L (11.4-16.0) gm/dL Hct 35.0 (34.0-46.0) % MCV 87.6 D (80.0-100.0) fL MCH 28.1 (25.0-35.0) pg MCHC 32.1 (31.0-37.0) g/dL RDW 14.0 (11.5-15.5) % Plt Count 294 (150-450) k/uL MPV 9.2 Neutrophils % 76 % Lymphocytes % 12 % Monocytes % 7 % Eosinophils % 3 % Basophils % 0 % Neutrophils # 9.4 H (1.3-7.7) k/uL Lymphocytes # 1.4 (1.0-4.8) k/uL Monocytes # 0.9 (0-1.0) k/uL Eosinophils # 0.3 (0-0.7) k/uL Basophils # 0.0 (0-0.2) k/uL PT 9.8 (9.0-12.0) sec INR 0.9 (<1.2) APTT 17.9 L (22.0-30.0) sec Sodium 131 L (137-145) mmol/L Potassium 5.0 (3.5-5.1) mmol/L Chloride 95 L (98-107) mmol/L Carbon Dioxide 29 (22-30) mmol/L Anion Gap 7 mmol/L BUN 9 (7-17) mg/dL Creatinine 0.70 (0.52-1.04) mg/dL Est GFR (CKD-EPI)AfAm >90 (>60 ml/min/1.73 sqM) Est GFR (CKD-EPI)NonAf 82 (>60 ml/min/1.73 sqM) Glucose 129 H (74-99) mg/dL Plasma Lactic Acid Tomi (0.7-2.0) mmol/L Calcium 9.6 (8.4-10.2) mg/dL Magnesium 1.7 (1.6-2.3) mg/dL Total Bilirubin 0.4 (0.2-1.3) mg/dL AST 19 (14-36) U/L ALT 8 (4-34) U/L Alkaline Phosphatase 99 (38-126) U/L Troponin I (0.000-0.034) ng/mL C-Reactive Protein 2.4 H (<1.0) mg/dL NT-Pro-B Natriuret Pep pg/mL Total Protein 6.8 (6.3-8.2) g/dL Albumin 3.6 (3.5-5.0) g/dL 01/25/21 01/25/21 01/25/21 Range/Units 22:34 22:34 22:34 WBC (3.8-10.6) k/uL RBC (3.80-5.40) m/uL Hgb (11.4-16.0) gm/dL Hct (34.0-46.0) % MCV (80.0-100.0) fL MCH (25.0-35.0) pg MCHC (31.0-37.0) g/dL RDW (11.5-15.5) % Plt Count (150-450) k/uL MPV Neutrophils % % Lymphocytes % % Monocytes % % Eosinophils % % Basophils % % Neutrophils # (1.3-7.7) k/uL Lymphocytes # (1.0-4.8) k/uL Monocytes # (0-1.0) k/uL Eosinophils # (0-0.7) k/uL Basophils # (0-0.2) k/uL PT (9.0-12.0) sec INR (<1.2) APTT (22.0-30.0) sec Sodium (137-145) mmol/L Potassium (3.5-5.1) mmol/L Chloride (98-107) mmol/L Carbon Dioxide (22-30) mmol/L Anion Gap mmol/L BUN (7-17) mg/dL Creatinine (0.52-1.04) mg/dL Est GFR (CKD-EPI)AfAm (>60 ml/min/1.73 sqM) Est GFR (CKD-EPI)NonAf (>60 ml/min/1.73 sqM) Glucose (74-99) mg/dL Plasma Lactic Acid Tomi 1.3 (0.7-2.0) mmol/L Calcium (8.4-10.2) mg/dL Magnesium (1.6-2.3) mg/dL Total Bilirubin (0.2-1.3) mg/dL AST (14-36) U/L ALT (4-34) U/L Alkaline Phosphatase (38-126) U/L Troponin I <0.012 (0.000-0.034) ng/mL C-Reactive Protein (<1.0) mg/dL NT-Pro-B Natriuret Pep 197 pg/mL Total Protein (6.3-8.2) g/dL Albumin (3.5-5.0) g/dL - EKG Data -: EKG Interpreted by Me (EKG is sinus tachycardia 102 PA 170 QRS 80 QTC 435) Disposition Clinical Impression: COPD exacerbation, Dyspnea, Hypoxia, Acute exacerbation of chronic bronchitis Disposition: ADMITTED IP TO THIS HOSP Condition: Serious Is patient prescribed a controlled substance at d/c from ED?: No
[2021-01-25 23:49] LABS: Basophils % (A) 0 %; Eosinophils # (A) 0.3 k/uL (0-0.7); Eosinophils % (A) 3 %; HGB 11.2 gm/dL (11.4-16.0); Lymphocytes # (A) 1.4 k/uL (1.0-4.8); Lymphocytes % (A) 12 %; MCH 28.1 pg (25.0-35.0); MCHC 32.1 g/dL (31.0-37.0); Mean Platelet Volume 9.2; Monocytes # (A) 0.9 k/uL (0-1.0); Monocytes % (A) 7 %; Neutrophils # (A) 9.4 k/uL (1.3-7.7); Neutrophils % (A) 76 %; Platelet Count 294 k/uL (150-450); RBC 3.99 m/uL (3.80-5.40); WBC 12.3 k/uL (3.8-10.6)
[2021-01-25 23:54] LABS: MCV 87.6 fL (80.0-100.0)
[2021-01-26] MEDS: methylPREDNISolone SOD SUCCI 125 MG/2 ML VIAL IV SCH ×2 (00:04→06:14)
[2021-01-26] MEDS ORDERED: AZITHROMYCIN 500 MG in SODIUM CHLORIDE 0.9% 250 ML IVPB STA (01:02)
[2021-01-26] MEDS ORDERED: ALBUTEROL NEBULIZED 2.5 MG/3 ML INHALATION SCH (08:00)
[2021-01-26] MEDS ORDERED: IPRATROPIUM-ALBUTEROL 3 ML NEB INHALATION PRN ×2 (09:42→11:15)
[2021-01-26] MEDS ORDERED: ACETAMINOPHEN TAB 325 MG TAB PO PRN (09:42)
[2021-01-26] MEDS ORDERED: hydrALAZINE HCL 50 MG TAB PO PRN (09:42)
[2021-01-26] MEDS ORDERED: MELATONIN 5 MG TABLET PO PRN (09:42)
--- NOTE | 2021-01-26 12:17 | P.HPIM ---
History of Present Illness H&P Date: 01/26/21 History of present illness This is an 81-year-old female who resides at [facility] and is a patient of Dr. Ramirez who presented to the emergency department with worsening of shortness of breath and wheezing. Patient states that she has had shortness of breath and wheezing for the past few months. However it seemed to worsen yesterday. Patient has a chronic cough with yellow gold sputum. Patient is a poor historian. She states that she is on O2 at 2.5 L at all times. Patient denies any fevers chills nausea or vomiting at this time. Chest x-rays impression pulmonary fibrosis. Interstitial pulmonary density increased slightly compared to old exam. Normal heart. Superimposed mild acute interstitial pneumonia possible. WC 12.3, hemoglobin 11.2, platelets 294, sodium 131, potassium 5.0, BUN 9, creatinine 0.7, COVID-19 negative. At this time patient is found sitting up in bed in no acute distress. Patient has no complaints or concerns at this time. Patient states that she is feeling better. She did receive an albuterol treatment this morning which has helped. Patient denies any chest pain. Patient states that the wheezing and cough have improved compared to yesterday. Patient remains afebrile, heart rate 94, respirations 18, blood pressure 134/74, pulse ox 99% on 6 L. Review Of Systems: Constitutional: No fever, no chills, no night sweats. No weight change. No weakness, reports fatigue no lethargy. No daytime sleepiness. EENT: No headache. No blurred vision or double vision, no loss of vision. No loss of Hearing, no ringing in the ears, no dizziness. No nasal drainage or congestion. No epistaxis. No sore throat. Lungs: Reported shortness of breath improved, reported cough, reported sputum production yellow/gold sputum. Reported wheezing improved. Cardiovascular: No chest pain, no lower extremity edema. No palpitations. No paroxysmal nocturnal dyspnea. No orthopnea. No lightheadedness or dizziness. No syncopal episodes. Abdominal: no abdominal discomfort. No nausea, vomiting. no diarrhea. No constipation. No bloody or tarry stools. no loss of appetite. Genitourinary: No dysuria, increased frequency, urgency. No urinary retention. Musculoskeletal: No myalgias. No muscle weakness, no gait dysfunction, no frequent falls. No back pain. No neck pain. Integumentary: No wounds, no lesions. No rash or pruritus. No unusual bruising. No change in hair or nails. Neurologic: No aphasia. No facial droop. No change in mentation. No head injury. No headache. No paralysis. No paresthesia. Psychiatric: No depression. No anxiety. No mood swings. Endocrine: No abnormal blood sugars. No weight change. No excessive sweating or thirst. Social history: Patient was a smoker of 1-1/2 packs per day for 40-50 years quitting in 1999 4:15. Denies any illicit drug use, no alcohol use. Patient does not use a CPAP machine at home. She is home O2 dependent. Has a nebulizer. She is , currently residing at [facility]. Family history: Father at 80 from lung cancer with a history of prostate cancer, mother at 89 from heart trouble, patient is total 6 brothers, one brother and multiple medical problems including testicular cancer with metastatic disease to the kidneys, CVA following surgery and diabetes. All of her siblings have no medical problems that she is aware of. Patient has 2 daughters with no major medical problems. Physical examination General Appearance: Alert, cooperative, no distress, this is an 81-year-old female appears stated age. Neck HEENT: Supple, no lymphadenopathy, no thyroid enlargement, no carotid bruits. Lungs: auscultation with wheezes, diminished no crackles, scattered rhonchi, no deformity. Chest Wall: Chest wall normal expansion with deep inspiration no tenderness and no deformity was found on exam, no costochondral pain or discomfort. Heart: Regular rate and rhythm, S1, S2 normal, no murmur, rub or gallop. Back: Symmetric, no curvature, ROM normal, no CVA tenderness. Abdomen: Soft, non-tender, no rebound or rigidity, no hepatosplenomegaly. Extremities: Extremities normal, atraumatic, no cyanosis or edema. Pulses: 2+ and symmetric. Skin: Skin color, texture, tugor normal, no rashes or lesions. Neurologic: Alert oriented x3 cranial nerves II through XII intact, no motor deficit, no abnormal balance or gait Assessment and plan 1. Acute exacerbation of COPD. DuoNeb, Pulmicort, Solu-Medrol 40 mg IV every 6 hours, Lopressor 10 mg by mouth at bedtime, Claritin 10 mg by mouth daily, pulmonology consult appreciated. 2. Hypoxia with dyspnea, as noted above 3. Acute exacerbation of chronic bronchitis, as noted above. Mucinex 600 mg by mouth every 12 hours 4. Hypertension. Hydralazine 50 mg by mouth twice a day, lisinopril 20 mg by mouth twice a day, Lopressor 25 mg by mouth twice a day 5. Hyperlipidemia. Lipitor 40 mg by mouth at bedtime 6. Hypothyroidism. Levothyroxine 50 MCG's by mouth daily 7. Anxiety and depression. Effexor xr 150 mg by mouth, melatonin 5 mg by mouth at bedtime as needed 8. Coronary artery disease. Plavix 75 mg by mouth daily 9. Chronic back pain, Tylenol as needed 10. Osteoarthritis, Tylenol as needed 11. DVT prophylaxis, heparin subcu 12. GI prophylaxis, Protonix 13. COVID-19 negative. Patient was admitted to the hospital during a pandemic Patient be admitted for a minimum 2 nights day. Discharge plan: Return to [facility] Impression and plan of care have been directed as dictated by the signing physician. Tenisha Sanchez nurse practitioner acting as scribe for signing physician. Past Medical History Past Medical History: Heart Failure, COPD, Hearing Disorder / Deafness, Hypertension, Myocardial Infarction ([place]), Osteoarthritis (OA), Respiratory Disorder Additional Past Medical History / Comment(s): HOME OXYGEN 2LNC UNDER 10YEARS Last Myocardial Infarction Date:: 2013 History of Any Multi-Drug Resistant Organisms: None Reported Past Surgical History: Appendectomy, Heart Catheterization With Stent Past Anesthesia/Blood Transfusion Reactions: No Reported Reaction Date of Last Stent Placement:: 2013 Past Psychological History: No Psychological Hx Reported Smoking Status: Former smoker Past Alcohol Use History: None Reported Past Drug Use History: None Reported - Past Family History Father Family Medical History: Prostate Disorder Additional Family Medical History / Comment(s): Father at age 80 from lung cancer with history of prostate cancer. Mother Family Medical History: Congestive Heart Failure (CHF) Additional Family Medical History / Comment(s): Mother at age 89 from heart trouble. Brother(s) Additional Family Medical History / Comment(s): Patient had a total of 6 brothers. One brother has passed and he had multiple medical problems including testicular cancer with metastatic disease to the kidneys, CVA following surgery and diabetes. Other relatives have no major medical problems that she is aware of. Patient has 2 daughters with no major medical problems. Medications and Allergies Home Medications Medication Instructions Recorded Confirmed Type Aspirin EC [Ecotrin Low Dose] 81 mg PO DAILY 04/18/18 01/25/21 History Atorvastatin [Lipitor] 40 mg PO HS 04/18/18 01/25/21 History Clopidogrel [Plavix] 75 mg PO DAILY 04/18/18 01/25/21 History Levothyroxine Sodium [Synthroid] 50 mcg PO DAILY@0600 04/18/18 01/25/21 History Metoprolol Tartrate [Lopressor] 25 mg PO BID 04/18/18 01/25/21 History Ubidecarenone [Co Q-10] 100 mg PO DAILY 04/18/18 01/25/21 History Venlafaxine HCl [Effexor XR] 150 mg PO DAILY 04/18/18 01/25/21 History Acetaminophen Tab [Tylenol] 650 mg PO Q4H PRN 05/07/19 01/25/21 History Budesonide 1 mg INHALATION RT-BID 05/07/19 01/25/21 History Cetirizine HCl [Zyrtec] 10 mg PO DAILY 05/07/19 01/25/21 History Formoterol Fumarate [Perforomist] 20 mcg INHALATION RT-BID@0600,1800 05/07/19 01/25/21 History Ipratropium-Albuterol Nebulize 3 ml INHALATION RT-Q4H PRN 05/07/19 01/25/21 History [Duoneb 0.5 mg-3 mg/3 ml Soln] Montelukast [Singulair] 10 mg PO HS 05/07/19 01/25/21 History lisinopriL [Zestril] 20 mg PO BID 05/07/19 01/25/21 History Cyanocobalamin [Vitamin B-12] 500 mcg PO DAILY 01/10/20 01/25/21 History Ergocalciferol (Vitamin D2) 1,250 mcg PO SA 01/10/20 01/25/21 History [Drisdol] guaiFENesin [Mucinex] 600 mg PO Q12H 01/10/20 01/25/21 History hydrALAZINE HCL 50 mg PO BID PRN 01/10/20 01/25/21 History Dextran 70/Hypromellose [Genteal 1 drop BOTH EYES Q12H PRN 01/25/21 01/25/21 History Tears 0.1%-0.3% Drop] Melatonin 5 mg PO HS PRN 01/25/21 01/25/21 History Omeprazole 20 mg PO HS 01/25/21 01/25/21 History Pantoprazole Sodium [Protonix] 20 mg PO DAILY@0600 01/25/21 01/25/21 History Sennosides/Docusate Sodium [Senna 2 tab PO DAILY 01/25/21 01/25/21 History Plus 8.6-50 mg Tablet] Allergies Allergy/AdvReac Type Severity Reaction Status Date / Time fluticasone Allergy Dyspnea Verified 01/25/21 22:34 [From Advair Diskus] Penicillins Allergy Rash/Hives Verified 01/25/21 22:34 salmeterol Allergy Dyspnea Verified 01/25/21 22:34 [From Advair Diskus] Physical Exam Vitals: Vital Signs Temp Pulse Resp BP Pulse Ox 01/26/21 11:12 97 01/26/21 11:04 93 01/26/21 10:42 18 01/26/21 05:06 94 18 134/74 99 01/26/21 00:05 95 30 H 135/69 95 01/25/21 23:29 101 H 01/25/21 23:16 99 01/25/21 22:45 36 H 01/25/21 22:07 98.7 F 106 H 36 H 142/81 92 L Intake and Output 01/25/21 01/26/21 01/26/21 22:59 06:59 14:59 Other: Weight 58.967 kg Results CBC & Chem 7: 01/25/21 22:34 01/25/21 22:34 Labs: Abnormal Lab Results - Last 24 Hours (Table) 01/25/21 01/25/21 01/25/21 Range/Units 22:34 22:34 22:34 WBC 12.3 H (3.8-10.6) k/uL Hgb 11.2 L (11.4-16.0) gm/dL Neutrophils # 9.4 H (1.3-7.7) k/uL APTT 17.9 L (22.0-30.0) sec Sodium 131 L (137-145) mmol/L Chloride 95 L (98-107) mmol/L Glucose 129 H (74-99) mg/dL C-Reactive Protein 2.4 H (<1.0) mg/dL
--- NOTE | 2021-01-26 13:19 | P.CNPUL ---
History of Present Illness Consult date: 01/26/21 Requesting physician: Wander Mcgovern Reason for consult: dyspnea Chief complaint: Dyspnea, weakness History of present illness: 81-year-old white female patient with past history of COPD, on home oxygen usually at 2,5 L/m, CHF with diastolic dysfunction, hypertension, coronary artery disease with previous stenting, previous myocardial infarction, osteoarthritis, former smoker, quit smoking in 2013, carries [id number] smoking history. Patient is a resident of the [facility]. Patient reports a few days history of increased shortness of breath, weakness, cough, wheezing. And she states she just does not have "the get up and go" in her in the last few days. She follows with Dr. Pedro at the pulmonary office for her history of COPD. Patient is on nebulized Pulmicort 1 mg twice daily, and Perforomist in addition to DuoNeb on a regular basis. She reports no fever or chills, she tested negative for COVID-19 in the ER. Her chest x-ray showed pulmonary fibrosis, interstitial pulmonary density which has increased slightly compared to her old exam, normal size heart, and superimposed mild acute interstitial pneumonia was also in consideration. Her white blood cell count was 12.3, hemoglobin was 11.2, INR was 0.9, sodium is 131, potassium is 5.0, chl oride was 95, the rest of the electrolytes and renal profile were unremarkable, lactic acid was 1.3, LFTs were within normal limits, troponin was less than 0.012, CRP was 2.4, mildly elevated, proBNP was within normal limits at 197. She does have a congested cough, she was started on IV steroids, b ronchodilators, and antibiotics. She is ready starting to sound and feel better on today's exam. Of note, patient had been noted to have nonspecific fibrotic changes and old granulomatous changes on her previous CT scans of the chest. Patient seems to be fairly comfortable, she is resting on the gurney in the emergency department, her daughter is at the bedside, patient is awake and alert, oriented 3, denies any hemoptysis or chest pain. Breathing comfortably. Review of Systems All systems: negative Constitutional: Denies chills, Denies fever Eyes: denies blurred vision, denies pain Ears, nose, mouth and throat: Denies headache, Denies sore throat Cardiovascular: Denies chest pain, Denies shortness of breath Respiratory: Reports cough with sputum, Reports dyspnea, Reports home oxygen, Reports respiratory infections, Reports wheezing, Denies cough Gastrointestinal: Denies abdominal pain, Denies diarrhea, Denies nausea, Denies vomiting Genitourinary: Denies dysuria, Denies hematuria Musculoskeletal: Denies myalgias Integumentary: Denies pruritus, Denies rash Neurological: Denies numbness, Denies weakness Psychiatric: Denies anxiety, Denies depression Endocrine: Denies fatigue, Denies weight change Past Medical History Past Medical History: Heart Failure, COPD, Hearing Disorder / Deafness, Hypert ension, Myocardial Infarction ([place]), Osteoarthritis ([place]), Respiratory Disorder Additional Past Medical History / Comment(s): HOME OXYGEN 2LNC UNDER 10YEARS Last Myocardial Infarction Date:: 2013 History of Any Multi-Drug Resistant Organisms: None Reported Past Surgical History: Appendectomy, Heart Catheterization With Stent Past Anesthesia/Blood Transfusion Reactions: No Reported Reaction Date of Last Stent Placement:: 2013 Past Psychological History: No Psychological Hx Reported Smoking Status: Former smoker Past Alcohol Use History: None Reported Past Drug Use History: None Reported - Past Family History Father Family Medical History: Prostate Disorder Additional Family Medical History / Comment(s): Father at age 80 from lung cancer with history of prostate cancer. Mother Family Medical History: Congestive Heart Failure (CHF) Additional Family Medical History / Comment(s): Mother at age 89 from heart trouble. Brother(s) Additional Family Medical History / Comment(s): Patient had a total of 6 brothers. One brother has passed and he had multiple medical problems including testicular cancer with metastatic disease to the kidneys, CVA following surgery and diabetes. Other relatives have no major medical problems that she is aware of. Patient has 2 daughters with no major medical problems. Medications and Allergies Home Medications Medication Instructions Recorded Confirmed Type Aspirin EC [Ecotrin Low Dose] 81 mg PO DAILY 04/18/18 01/25/21 History Atorvastatin [Lipitor] 40 mg PO HS 04/18/18 01/25/21 History Clopidogrel [Plavix] 75 mg PO DAILY 04/18/18 01/25/21 History Levothyroxine Sodium [Synthroid] 50 mcg PO DAILY@0600 04/18/18 01/25/21 History Metoprolol Tartrate [Lopressor] 25 mg PO BID 04/18/18 01/25/21 History Ubidecarenone [Co Q-10] 100 mg PO DAILY 04/18/18 01/25/21 History Venlafaxine HCl [Effexor XR] 150 mg PO DAILY 04/18/18 01/25/21 History Acetaminophen Tab [Tylenol] 650 mg PO Q4H PRN 05/07/19 01/25/21 History Budesonide 1 mg INHALATION RT-BID 05/07/19 01/25/21 History Cetirizine HCl [Zyrtec] 10 mg PO DAILY 05/07/19 01/25/21 History Formoterol Fumarate [Perforomist] 20 mcg INHALATION RT-BID@0600,1800 05/07/19 01/25/21 History Ipratropium-Albuterol Nebulize 3 ml INHALATION RT-Q4H PRN 05/07/19 01/25/21 History [Duoneb 0.5 mg-3 mg/3 ml Soln] Montelukast [Singulair] 10 mg PO HS 05/07/19 01/25/21 History lisinopriL [Zestril] 20 mg PO BID 05/07/19 01/25/21 History Cyanocobalamin [Vitamin B-12] 500 mcg PO DAILY 01/10/20 01/25/21 History Ergocalciferol (Vitamin D2) 1,250 mcg PO SA 01/10/20 01/25/21 History [Drisdol] guaiFENesin [Mucinex] 600 mg PO Q12H 01/10/20 01/25/21 History hydrALAZINE HCL 50 mg PO BID PRN 01/10/20 01/25/21 History Dextran 70/Hypromellose [Genteal 1 drop BOTH EYES Q12H PRN 01/25/21 01/25/21 History Tears 0.1%-0.3% Drop] Melatonin 5 mg PO HS PRN 01/25/21 01/25/21 History Omeprazole 20 mg PO HS 01/25/21 01/25/21 History Pantoprazole Sodium [Protonix] 20 mg PO DAILY@0600 01/25/21 01/25/21 History Sennosides/Docusate Sodium [Senna 2 tab PO DAILY 01/25/21 01/25/21 History Plus 8.6-50 mg Tablet] Allergies Allergy/AdvReac Type Severity Reaction Status Date / Time fluticasone Allergy Dyspnea Verified 01/25/21 22:34 [From Advair Diskus] Penicillins Allergy Rash/Hives Verified 01/25/21 22:34 salmeterol Allergy Dyspnea Verified 01/25/21 22:34 [From Advair Diskus] Physical Exam Vitals: Vital Signs Temp Pulse Resp BP Pulse Ox 01/26/21 11:12 97 01/26/21 11:04 93 01/26/21 10:42 18 01/26/21 05:06 94 18 134/74 99 01/26/21 00:05 95 30 H 135/69 95 01/25/21 23:29 101 H 01/25/21 23:16 99 01/25/21 22:45 36 H 01/25/21 22:07 98.7 F 106 H 36 H 142/81 92 L Intake and Output 01/25/21 01/26/21 01/26/21 22:59 06:59 14:59 Other: Weight 58.967 kg GENERAL EXAM: Alert, very pleasant, 81-year-old frail looking white female, resting in bed, creatinine 5 L of oxygen and the pulse ox of 99% comfortable in no apparent distress. HEAD: Normocephalic/atraumatic. EYES: Normal reaction of pupils, equal size. Conjunctiva pink, sclera white. NOSE: Clear with pink turbinates. THROAT: No erythema or exudates. NECK: No masses, no JVD, no thyroid enlargement, no adenopathy. CHEST: No chest wall deformity. Symmetrical expansion. LUNGS: Equal air entry with diminished breath sounds, with no significant wheezing, does have occasional congested cough CVS: Regular rate and rhythm, normal S1 and S2, no gallops, no murmurs, no rubs ABDOMEN: Soft, nontender. No hepatosplenomegaly, normal bowel sounds, no guarding or rigidity. EXTREMITIES: No clubbing, no edema, no cyanosis, 2+ pulses and upper and lower extremities. MUSCULOSKELETAL: Muscle strength and tone normal. SPINE: No scoliosis or deformity SKIN: No rashes CENTRAL NERVOUS SYSTEM: Alert and oriented -3. No focal deficits, tone is normal in all 4 extremities. PSYCHIATRIC: Alert and oriented -3. Appropriate affect. Intact judgment and insight. Results - Laboratory Findings CBC and BMP: 01/25/21 22:34 01/25/21 22:34 PT/INR, D-dimer PT 9.8 sec (9.0-12.0) 01/25/21 22:34 INR 0.9 (<1.2) 01/25/21 22:34 Abnormal lab findings: Abnormal Labs 01/25/21 01/25/21 01/25/21 22:34 22:34 22:34 WBC 12.3 H Hgb 11.2 L Neutrophils # 9.4 H APTT 17.9 L Sodium 131 L Chloride 95 L Glucose 129 H C-Reactive Protein 2.4 H - Diagnostic Findings Chest x-ray: report reviewed, image reviewed Additional studies: EKG reviewed Assessment and Plan Plan: Assessment: #1. Acute on chronic hypoxic respiratory failure related to acute exacerbation of COPD. COVID-19 PCR was negative, chest x-ray shows pulmonary fibrosis, with superimposed mild acute interstitial prominence, pneumonia seems to be less likely. Patient is covered with empiric antibiotics #2. History of chronic CHF, with diastolic dysfunction #3. History of advanced COPD, and pulmonary fibrosis, patient is on home oxygen 24 7, patient usually wears 2 L of oxygen on a regular basis #4. Previous history of smoking, in remission since 2013, does carry 50-pack- year smoking history #5. Coronary artery disease with previous history of stenting #6. Previous history of myocardial infarction #7. History of hypertension #8. Hyperlipidemia #9. Hypothyroidism #10. Chronic back pain #11. Depression #12. Resident of a local [facility] Plan: Chest x-ray has been reviewed No clear evidence of pneumonia We'll treat the patient for acute exacerbation of COPD We can switch the antibiotics to oral doxycycline Continue IV steroids and nebulized bronchodilators We'll continue to follow her clinical course If sHe remains stable and improving can be considered for discharge back to the ECF in the next 24-48 hours I performed a history & physical examination of the patient and discussed their management with my nurse practitioner, Aviva Delacruz. I reviewed the nurse practitioner's note and agree with the documented findings and plan of care. Lung sounds are positive for diminished breayth sounds throughout the lung lainez. The findings and the impression was discussed with the patient. I attest to the documentation by the nurse practitioner. Time with Patient: Greater than 30
[2021-01-26] MEDS: IPRATROPIUM-ALBUTEROL 3 ML NEB INHALATION SCH ×3 (15:30→19:47)
[2021-01-26] MEDS: SENNOSIDES-DOCUSATE SODIUM 1 EACH TAB PO SCH (15:34)
[2021-01-26] MEDS: VENLAFAXINE HCL ER 150 MG CAP PO SCH (15:35)
[2021-01-26] MEDS: LORATADINE 10 MG TAB PO SCH (15:35)
[2021-01-26] MEDS: guaiFENesin 600 MG TABLET.ER PO SCH ×2 (15:35→20:45)
[2021-01-26] MEDS: methylPREDNISolone SOD SUCCI 40 MG/ML 1 ML VIAL IV SCH ×2 (15:35→17:41)
[2021-01-26] MEDS: lisinopriL 20 MG TAB PO SCH ×2 (15:35→20:45)
[2021-01-26] MEDS: SODIUM CHLORIDE 0.9% 1,000 ML IV SCH ×3 (15:35→17:42)
[2021-01-26] MEDS: CLOPIDOGREL 75 MG TAB PO SCH (15:36)
[2021-01-26] MEDS: METOPROLOL TARTRATE 25 MG TAB PO SCH ×2 (15:36→20:45)
[2021-01-26] MEDS: DOXYCYCLINE 100 MG CAP PO SCH ×2 (16:07→21:18)
[2021-01-26] MEDS: BUDESONIDE 1 MG/2 ML NEBU INHALATION SCH (19:47)
[2021-01-26] MEDS: ATORVASTATIN 40 MG TAB PO SCH (20:45)
[2021-01-26] MEDS: MONTELUKAST 10 MG TAB PO SCH (20:45)
[2021-01-27] MEDS: methylPREDNISolone SOD SUCCI 40 MG/ML 1 ML VIAL IV SCH ×5 (01:26→23:14)
[2021-01-27] MEDS: LEVOTHYROXINE 50 MCG TAB PO SCH (05:13)
[2021-01-27] MEDS ORDERED: AZITHROMYCIN 500 MG in SODIUM CHLORIDE 0.9% 250 ML IVPB SCH (06:00)
[2021-01-27 07:10] LABS: Glucose,Whole Blood 127 mg/dL (75-99)
[2021-01-27] MEDS: IPRATROPIUM-ALBUTEROL 3 ML NEB INHALATION SCH ×4 (07:23→20:06)
[2021-01-27] MEDS: BUDESONIDE 1 MG/2 ML NEBU INHALATION SCH ×2 (07:23→20:06)
[2021-01-27] MEDS: SODIUM CHLORIDE 0.9% 1,000 ML IV SCH ×3 (08:52→23:17)
[2021-01-27] MEDS: CLOPIDOGREL 75 MG TAB PO SCH (08:56)
[2021-01-27] MEDS: ASPIRIN 81 MG PO SCH (08:56)
[2021-01-27] MEDS: SENNOSIDES-DOCUSATE SODIUM 1 EACH TAB PO SCH (08:56)
[2021-01-27] MEDS: CYANOCOBALAMIN 500 MCG TAB PO SCH (08:56)
[2021-01-27] MEDS: lisinopriL 20 MG TAB PO SCH ×2 (08:56→20:07)
[2021-01-27] MEDS: LORATADINE 10 MG TAB PO SCH (08:56)
[2021-01-27] MEDS: guaiFENesin 600 MG TABLET.ER PO SCH ×2 (08:56→20:07)
[2021-01-27] MEDS: METOPROLOL TARTRATE 25 MG TAB PO SCH ×2 (08:56→20:06)
[2021-01-27] MEDS: PANTOPRAZOLE 40 MG TABLET PO SCH (08:56)
[2021-01-27] MEDS: DOXYCYCLINE 100 MG CAP PO SCH ×2 (08:57→20:07)
[2021-01-27] MEDS: VENLAFAXINE HCL ER 150 MG CAP PO SCH ×2 (08:57→10:40)
[2021-01-27 10:15] LABS: Basophils % (A) 0 %; Eosinophils % (A) 0 %; HCT 37.8 % (34.0-46.0); HGB 11.6 gm/dL (11.4-16.0); Hypochromasia Slight; Lymphocytes # (A) 0.8 k/uL (1.0-4.8); Lymphocytes % (A) 6 %; MCH 28.2 pg (25.0-35.0); MCHC 30.6 g/dL (31.0-37.0); MCV 92.1 fL (80.0-100.0); Mean Platelet Volume 7.4; Monocytes # (A) 0.2 k/uL (0-1.0); Monocytes % (A) 1 %; Neutrophils % (A) 92 %; Platelet Count 570 k/uL (150-450); RBC 4.11 m/uL (3.80-5.40); RDW 13.7 % (11.5-15.5)
[2021-01-27 10:36] LABS: Calcium 10.3 mg/dL (8.4-10.2); Potassium 4.6 mmol/L (3.5-5.1)
--- NOTE | 2021-01-27 10:43 | P.PN ---
Subjective Progress Note Date: 01/27/21 This is an 81-year-old female who resides at [facility] and is a patient of Dr. Ramirez who presented to the emergency department with worsening of shortness of breath and wheezing. Patient states that she has had shortness of breath and wheezing for the past few months. However it seemed to worsen yesterday. Patient has a chronic cough with yellow gold sputum. Patient is a poor historian. She states that she is on O2 at 2.5 L at all times. Patient denies any fevers chills nausea or vomiting at this time. Chest x-rays impression pulmonary fibrosis. Interstitial pulmonary density increased slightly compared to old exam. Normal heart. Superimposed mild acute interstitial pneumonia possible. WC 12.3, hemoglobin 11.2, platelets 294, sodium 131, potassium 5.0, BUN 9, creatinine 0.7, COVID-19 negative. At this time patient is found sitting up in bed in no acute distress. Patient has no complaints or concerns at this time. Patient states that she is feeling better. She did receive an albuterol treatment this morning which has helped. Patient denies any chest pain. Patient states that the wheezing and cough have improved compared to yesterday. Patient remains afebrile, heart rate 94, respirations 18, blood pressure 134/74, pulse ox 99% on 6 L. 01/27: Patient is found sitting up in bed resting comfortably. Patient has no new complaints. Patient states that she feels exactly like she did yesterday. Patient states that she does better after her breathing treatment however when she is at [facility] she does not get her breathing treatments and a timely manner. We will change her eating treatments to 4 times a day as scheduled and twice a day as scheduled for the next 2 weeks. Patient has been afebrile pulse rate 80, pulse ox 94% on 4 L blood pressure 149/68. Patient does have shortness of breath with talking at times and purse lipped breathing. This is all baseline for the patient. WBC 13.0, hemoglobin 11.6, platelets 570, potassium 4.6, BUN 14, creatinine 0.75. Review Of Systems: Constitutional: No fever, no chills, no night sweats. No weight change. No weakness, reports fatigue no lethargy. No daytime sleepiness. EENT: No headache. No blurred vision or double vision, no loss of vision. No loss of Hearing, no ringing in the ears, no dizziness. No nasal drainage or congestion. No epistaxis. No sore throat. Lungs: Reported shortness of breath improved, reported cough, reported sputum production yellow/gold sputum. Reported wheezing improved. Cardiovascular: No chest pain, no lower extremity edema. No palpitations. No p aroxysmal nocturnal dyspnea. No orthopnea. No lightheadedness or dizziness. No syncopal episodes. Abdominal: no abdominal discomfort. No nausea, vomiting. no diarrhea. No constipation. No bloody or tarry stools. no loss of appetite. Genitourinary: No dysuria, increased frequency, urgency. No urinary retention. Musculoskeletal: No myalgias. No muscle weakness, no gait dysfunction, no freq uent falls. No back pain. No neck pain. Integumentary: No wounds, no lesions. No rash or pruritus. No unusual bruising. No change in hair or nails. Neurologic: No aphasia. No facial droop. No change in mentation. No head injury. No headache. No paralysis. No paresthesia. Psychiatric: No depression. No anxiety. No mood swings. Endocrine: No abnormal blood sugars. No weight change. No excessive sweating or thirst. Physical examination General Appearance: Alert, cooperative, no distress, this is an 81-year-old female appears stated age. Neck HEENT: Supple, no lymphadenopathy, no thyroid enlargement, no carotid bruits. Lungs: auscultation with wheezes, diminished no crackles, scattered rhonchi, no deformity. Chest Wall: Chest wall normal expansion with deep inspiration no tenderness and no deformity was found on exam, no costochondral pain or discomfort. Heart: Regular rate and rhythm, S1, S2 normal, no murmur, rub or gallop. Back: Symmetric, no curvature, ROM normal, no CVA tenderness. Abdomen: Soft, non-tender, no rebound or rigidity, no hepatosplenomegaly. Extremities: Extremities normal, atraumatic, no cyanosis or edema. Pulses: 2+ and symmetric. Skin: Skin color, texture, tugor normal, no rashes or lesions. Neurologic: Alert oriented x3 cranial nerves II through XII intact, no motor deficit, no abnormal balance or gait Assessment and plan 1. Acute exacerbation of COPD. DuoNeb, Pulmicort, Solu-Medrol 40 mg IV every 6 hours, Lopressor 10 mg by mouth at bedtime, Claritin 10 mg by mouth daily, pulmonology consult appreciated. Upon return to [facility] will schedule updraft treatments 4 times a day and twice a day. 2. Hypoxia with dyspnea, as noted above. 3. Acute exacerbation of chronic bronchitis, as noted above. Mucinex 600 mg by mouth every 12 hours 4. Hypertension. Hydralazine 50 mg by mouth twice a day, lisinopril 20 mg by mouth twice a day, Lopressor 25 mg by mouth twice a day 5. Hyperlipidemia. Lipitor 40 mg by mouth at bedtime 6. Hypothyroidism. Levothyroxine 50 MCG's by mouth daily 7. Anxiety and depression. Effexor xr 150 mg by mouth, melatonin 5 mg by mouth at bedtime as needed 8. Coronary artery disease. Plavix 75 mg by mouth daily 9. Chronic back pain, Tylenol as needed 10. Osteoarthritis, Tylenol as needed 11. DVT prophylaxis, heparin subcu 12. GI prophylaxis, Protonix 13. COVID-19 negative. Patient was admitted to the hospital during a pandemic Patient be admitted for a minimum 2 nights day. Discharge plan: Return to [facility] Thursday Impression and plan of care have been directed as dictated by the signing physician. Tenisha Sanchez nurse practitioner acting as scribe for signing physician. Objective - Vital Signs Vital signs: Vital Signs Temp 97.7 F 01/27/21 07:00 Pulse 80 01/27/21 07:38 Resp 17 01/27/21 07:00 BP 149/68 01/27/21 07:00 Pulse Ox 94 L 01/27/21 07:00 Intake & Output 01/26/21 01/27/21 01/27/21 18:59 06:59 18:59 Intake Total 120 1200 Output Total 1 Balance 119 1200 Intake: Intake, IV Titration 1200 Amount Sodium Chloride 0.9% 1, 1200 000 ml @ 100 mls/hr IV . Q10H [facility] Rx#:[id number] Oral 120 Output: Urine 1 Other: Voiding Method Bedpan # Voids 1 6 - Labs CBC & Chem 7: 01/27/21 09:19 01/27/21 09:19 Labs: Abnormal Lab Results - Last 24 Hours (Table) 01/27/21 01/27/21 01/27/21 Range/Units 06:58 09:19 09:19 WBC 13.0 H (3.8-10.6) k/uL MCHC 30.6 L (31.0-37.0) g/dL Plt Count 570 H (150-450) k/uL Neutrophils # 12.0 H (1.3-7.7) k/uL Lymphocytes # 0.8 L (1.0-4.8) k/uL Glucose 184 H (74-99) mg/dL POC Glucose (mg/dL) 127 H (75-99) mg/dL Calcium 10.3 H (8.4-10.2) mg/dL
--- NOTE | 2021-01-27 11:44 | P.PN ---
Subjective Progress Note Date: 01/27/21 Principal diagnosis: acute exacerbation of COPD 81-year-old white female patient with past history of COPD, on home oxygen usually at 2,5 L/m, CHF with diastolic dysfunction, hypertension, coronary artery disease with previous stenting, previous myocardial infarction, osteoart hritis, former smoker, quit smoking in 2013, carries [id number] smoking history. Patient is a resident of the [facility] on [facility]. Patient reports a few days history of increased shortness of breath, weakness, cough, wheezing. And she states she just does not have "the get up and go" in her in the last few days. She follows with Dr. Pedro at the pulmonary office for her history of COPD. Patient is on nebulized Pulmicort 1 mg twice daily, and Perforomist in addition to DuoNeb on a regular basis. She reports no fever or chills, she tested negative for COVID-19 in the ER. Her chest x-ray showed pulmonary fibrosis, interstitial pulmonary density which has increased slightly compared to her old exam, normal size heart, and superimposed mild acute interstitial pneumonia was also in consideration. Her white blood cell count was 12.3, hemoglobin was 11.2, INR was 0.9, sodium is 131, potassium is 5.0, chloride was 95, the rest of the electrolytes and renal profile were un remarkable, lactic acid was 1.3, LFTs were within normal limits, troponin was less than 0.012, CRP was 2.4, mildly elevated, proBNP was within normal limits at 197. She does have a congested cough, she was started on IV steroids, bronchodilators, and antibiotics. She is ready starting to sound and feel better on today's exam. Of note, patient had been noted to have nonspecific fibrotic changes and old granulomatous changes on her previous CT scans of the chest. Patient seems to be fairly comfortable, she is resting on the gurney in the emergency department, her daughter is at the bedside, patient is awake and alert, oriented 3, denies any hemoptysis or chest pain. Breathing comfortably. On January 27 2021 patient seen in follow-up. she is awake alert, in no acute distress, on 4 L of oxygen her pulse ox is 94%, she is afebrile, vital signs have been stable. no fever or chills, no chest discomfort. She does get dyspneic with exertion, no signs of any acute respiratory distress, she remains on a combination of IV Solu-Medrol, 40 mg every 6 hours, she is on nebulized bronchodilators, and doxycycline. today's labs have been noted. covid 19 pcr was negative Objective - Vital Signs Vital signs: Vital Signs Temp 97.7 F 01/27/21 07:00 Pulse 80 01/27/21 07:38 Resp 17 01/27/21 07:00 BP 149/68 01/27/21 07:00 Pulse Ox 94 L 01/27/21 07:00 Intake & Output 01/26/21 01/27/21 01/27/21 18:59 06:59 18:59 Intake Total 120 1200 Output Total 1 Balance 119 1200 Weight 58.967 kg Intake: Intake, IV Titration 1200 Amount Sodium Chloride 0.9% 1, 1200 000 ml @ 100 mls/hr IV . Q10H [facility] Rx#:[id number] Oral 120 Output: Urine 1 Other: Voiding Method Bedpan # Voids 1 6 - Exam GENERAL EXAM: Alert, very pleasant, 81-year-old frail looking white female, resting in bed, creatinine 4 L of oxygen and the pulse ox of 99% comfortable in no apparent distress. HEAD: Normocephalic/atraumatic. EYES: Normal reaction of pupils, equal size. Conjunctiva pink, sclera white. NOSE: Clear with pink turbinates. THROAT: No erythema or exudates. NECK: No masses, no JVD, no thyroid enlargement, no adenopathy. CHEST: No chest wall deformity. Symmetrical expansion. LUNGS: Equal air entry with diminished breath sounds, with no significant wheezing, does have occasional congested cough CVS: Regular rate and rhythm, normal S1 and S2, no gallops, no murmurs, no rubs ABDOMEN: Soft, nontender. No hepatosplenomegaly, normal bowel sounds, no guarding or rigidity. EXTREMITIES: No clubbing, no edema, no cyanosis, 2+ pulses and upper and lower extremities. MUSCULOSKELETAL: Muscle strength and tone normal. SPINE: No scoliosis or deformity SKIN: No rashes CENTRAL NERVOUS SYSTEM: Alert and oriented -3. No focal deficits, tone is normal in all 4 extremities. PSYCHIATRIC: Alert and oriented -3. Appropriate affect. Intact judgment and insight. - Labs CBC & Chem 7: 01/27/21 09:19 01/27/21 09:19 Labs: Abnormal Lab Results - Last 24 Hours (Table) 01/27/21 01/27/21 01/27/21 Range/Units 06:58 09:19 09:19 WBC 13.0 H (3.8-10.6) k/uL MCHC 30.6 L (31.0-37.0) g/dL Plt Count 570 H (150-450) k/uL Neutrophils # 12.0 H (1.3-7.7) k/uL Lymphocytes # 0.8 L (1.0-4.8) k/uL Glucose 184 H (74-99) mg/dL POC Glucose (mg/dL) 127 H (75-99) mg/dL Calcium 10.3 H (8.4-10.2) mg/dL Assessment and Plan Plan: Assessment: #1. Acute on chronic hypoxic respiratory failure related to acute exacerbation of COPD. COVID-19 PCR was negative, chest x-ray shows pulmonary fibrosis, with superimposed mild acute interstitial prominence, pneumonia seems to be less likely. Patient is covered with empiric antibiotics #2. History of chronic CHF, with diastolic dysfunction #3. History of advanced COPD, and pulmonary fibrosis, patient is on home oxygen 24 7, patient usually wears 2 L of oxygen on a regular basis #4. Previous history of smoking, in remission since 2013, does carry [id number] smoking history #5. Coronary artery disease with previous history of stenting #6. Previous history of myocardial infarction #7. History of hypertension #8. Hyperlipidemia #9. Hypothyroidism #10. Chronic back pain #11. Depression #12. Resident of a local [facility] Plan: No acute events overnight Vital signs have been stable, Breathing is improving Continue current medical treatment Continue current medical treatment Continue IV steroids, Antibiotics,And nebulized bronchodilators consider discharge back to the ECF in next 24 hours I performed a history & physical examination of the patient and discussed their management with my nurse practitioner, Aviva Delacruz. I reviewed the nurse practitioner's note and agree with the documented findings and plan of care. Lung sounds are positive for diminished breayth sounds throughout the lung lainez. The findings and the impression was discussed with the patient. I attest to the documentation by the nurse practitioner. Time with Patient: Less than 30
[2021-01-27 12:10] LABS: Glucose,Whole Blood 111 mg/dL (75-99)
[2021-01-27 14:06] VITALS: RESP 18
[2021-01-27 16:53] LABS: Glucose,Whole Blood 101 mg/dL (75-99)
[2021-01-27] MEDS: ATORVASTATIN 40 MG TAB PO SCH (20:06)
[2021-01-27] MEDS: MONTELUKAST 10 MG TAB PO SCH (20:07)
[2021-01-28 02:30] VITALS: TEMP 97.8
[2021-01-28] MEDS: methylPREDNISolone SOD SUCCI 40 MG/ML 1 ML VIAL IV SCH ×2 (06:22→12:04)
[2021-01-28] MEDS: LEVOTHYROXINE 50 MCG TAB PO SCH (06:22)
[2021-01-28] MEDS: IPRATROPIUM-ALBUTEROL 3 ML NEB INHALATION SCH ×2 (07:21→11:08)
[2021-01-28] MEDS: BUDESONIDE 1 MG/2 ML NEBU INHALATION SCH (07:21)
[2021-01-28 07:23] LABS: Glucose,Whole Blood 128 mg/dL (75-99)
--- NOTE | 2021-01-28 08:02 | P.PN ---
Subjective Progress Note Date: 01/28/21 Principal diagnosis: acute exacerbation of COPD 81-year-old white female patient with past history of COPD, on home oxygen usually at 2,5 L/m, CHF with diastolic dysfunction, hypertension, coronary artery disease with previous stenting, previous myocardial infarction, osteoart hritis, former smoker, quit smoking in 2013, carries [id number]-qekj smoking history. Patient is a resident of the [facility] on [facility]. Patient reports a few days history of increased shortness of breath, weakness, cough, wheezing. And she states she just does not have "the get up and go" in her in the last few days. She follows with Dr. Pedro at the pulmonary office for her history of COPD. Patient is on nebulized Pulmicort 1 mg twice daily, and Perforomist in addition to DuoNeb on a regular basis. She reports no fever or chills, she tested negative for COVID-19 in the ER. Her chest x-ray showed pulmonary fibrosis, interstitial pulmonary density which has increased slightly compared to her old exam, normal size heart, and superimposed mild acute interstitial pneumonia was also in consideration. Her white blood cell count was 12.3, hemoglobin was 11.2, INR was 0.9, sodium is 131, potassium is 5.0, chloride was 95, the rest of the electrolytes and renal profile were un remarkable, lactic acid was 1.3, LFTs were within normal limits, troponin was less than 0.012, CRP was 2.4, mildly elevated, proBNP was within normal limits at 197. She does have a congested cough, she was started on IV steroids, bronchodilators, and antibiotics. She is ready starting to sound and feel better on today's exam. Of note, patient had been noted to have nonspecific fibrotic changes and old granulomatous changes on her previous CT scans of the chest. Patient seems to be fairly comfortable, she is resting on the gurney in the emergency department, her daughter is at the bedside, patient is awake and alert, oriented 3, denies any hemoptysis or chest pain. Breathing comfortably. On January 27 2021 patient seen in follow-up. she is awake alert, in no acute distress, on 4 L of oxygen her pulse ox is 94%, she is afebrile, vital signs have been stable. no fever or chills, no chest discomfort. She does get dyspneic with exertion, no signs of any acute respiratory distress, she remains on a combination of IV Solu-Medrol, 40 mg every 6 hours, she is on nebulized bronchodilators, and doxycycline. today's labs have been noted. covid 19 pcr was negative On today's evaluation on 01/28/2021 patient seen in follow-up on observation unit, she sitting up unaided then, she is eating breakfast, her breathing is improving, no acute events overnight, less dyspneic and bronchospastic. She is on 3 L of oxygen, pulse ox 97%. No fever or chills, vital signs have been stable, no altered mentation, lung sounds reveal some mild scattered rhonchi, and a few end expiratory wheezes. No complaints of chest pain, no hemoptysis. No new labs today. Patient is anticipated to return to [facility] today. Objective - Vital Signs Vital signs: Vital Signs Temp 97.8 F 01/28/21 01:58 Pulse 90 01/28/21 07:42 Resp 18 01/28/21 01:58 BP 148/67 01/28/21 01:58 Pulse Ox 97 01/28/21 01:58 Intake & Output 01/27/21 01/28/21 01/28/21 18:59 06:59 18:59 Output Total 200 425 Balance -200 -425 Weight 58.967 kg Output: Urine 200 425 Other: # Voids 3 1 - Exam GENERAL EXAM: Alert, very pleasant, 81-year-old frail looking white female, res ting in bed, creatinine 4 L of oxygen and the pulse ox of 99% comfortable in no apparent distress. HEAD: Normocephalic/atraumatic. EYES: Normal reaction of pupils, equal size. Conjunctiva pink, sclera white. NOSE: Clear with pink turbinates. THROAT: No erythema or exudates. NECK: No masses, no JVD, no thyroid enlargement, no adenopathy. CHEST: No chest wall deformity. Symmetrical expansion. LUNGS: Equal air entry with diminished breath sounds, with no significant wheezing, does have occasional congested cough CVS: Regular rate and rhythm, normal S1 and S2, no gallops, no murmurs, no rubs ABDOMEN: Soft, nontender. No hepatosplenomegaly, normal bowel sounds, no guarding or rigidity. EXTREMITIES: No clubbing, no edema, no cyanosis, 2+ pulses and upper and lower extremities. MUSCULOSKELETAL: Muscle strength and tone normal. SPINE: No scoliosis or deformity SKIN: No rashes CENTRAL NERVOUS SYSTEM: Alert and oriented -3. No focal deficits, tone is normal in all 4 extremities. PSYCHIATRIC: Alert and oriented -3. Appropriate affect. Intact judgment and insight. - Labs CBC & Chem 7: 01/27/21 09:19 01/27/21 09:19 Labs: Abnormal Lab Results - Last 24 Hours (Table) 01/27/21 01/27/21 01/27/21 Range/Units 09:19 09:19 12:06 WBC 13.0 H (3.8-10.6) k/uL MCHC 30.6 L (31.0-37.0) g/dL Plt Count 570 H (150-450) k/uL Neutrophils # 12.0 H (1.3-7.7) k/uL Lymphocytes # 0.8 L (1.0-4.8) k/uL Glucose 184 H (74-99) mg/dL POC Glucose (mg/dL) 111 H (75-99) mg/dL Calcium 10.3 H (8.4-10.2) mg/dL 01/27/21 01/28/21 Range/Units 16:52 07:16 WBC (3.8-10.6) k/uL MCHC (31.0-37.0) g/dL Plt Count (150-450) k/uL Neutrophils # (1.3-7.7) k/uL Lymphocytes # (1.0-4.8) k/uL Glucose (74-99) mg/dL POC Glucose (mg/dL) 101 H 128 H (75-99) mg/dL Calcium (8.4-10.2) mg/dL Assessment and Plan Plan: Assessment: #1. Acute on chronic hypoxic respiratory failure related to acute exacerbation of COPD. COVID-19 PCR was negative, chest x-ray shows pulmonary fibrosis, with superimposed mild acute interstitial prominence, pneumonia seems to be less likely. Patient is covered with empiric antibiotics #2. History of chronic CHF, with diastolic dysfunction #3. History of advanced COPD, and pulmonary fibrosis, patient is on home oxygen 24 7, patient usually wears 2 L of oxygen on a regular basis #4. Previous history of smoking, in remission since 2013, does carry 50-pack- year smoking history #5. Coronary artery disease with previous history of stenting #6. Previous history of myocardial infarction #7. History of hypertension #8. Hyperlipidemia #9. Hypothyroidism #10. Chronic back pain #11. Depression #12. Resident of a local [facility] Plan: No acute events overnight Vital signs have been stable, Patient may be considered for discharge back to the ECF today she can finish prednisone taper starting at 40 mg tapering by 10 mg every 4 days She can finish outpatient course of doxycycline She is already on oxygen at the ECF Outpatient follow-up with Dr. Pedro in the office in one week she consider discharge back to the ECF in next 24 hours I performed a history & physical examination of the patient and discussed their management with my nurse practitioner, Aviva Delacruz. I reviewed the nurse practitioner's note and agree with the documented findings and plan of care. Lung sounds are positive for diminished breayth sounds throughout the lung lainez. The findings and the impression was discussed with the patient. I attest to the documentation by the nurse practitioner. Time with Patient: Less than 30
[2021-01-28 08:18] VITALS: BP 152/68
[2021-01-28] MEDS: ASPIRIN 81 MG PO SCH (08:21)
[2021-01-28] MEDS: CYANOCOBALAMIN 500 MCG TAB PO SCH (08:21)
[2021-01-28] MEDS: lisinopriL 20 MG TAB PO SCH (08:22)
[2021-01-28] MEDS: VENLAFAXINE HCL ER 150 MG CAP PO SCH (08:22)
[2021-01-28] MEDS: LORATADINE 10 MG TAB PO SCH (08:22)
[2021-01-28] MEDS: PANTOPRAZOLE 40 MG TABLET PO SCH (08:22)
[2021-01-28] MEDS: guaiFENesin 600 MG TABLET.ER PO SCH (08:22)
[2021-01-28] MEDS: METOPROLOL TARTRATE 25 MG TAB PO SCH (08:22)
[2021-01-28] MEDS: DOXYCYCLINE 100 MG CAP PO SCH (08:22)
[2021-01-28] MEDS: CLOPIDOGREL 75 MG TAB PO SCH (08:22)
[2021-01-28] MEDS: SENNOSIDES-DOCUSATE SODIUM 1 EACH TAB PO SCH (08:23)
[2021-01-28 11:22] VITALS: PULSE 88
--- NOTE | 2021-01-28 11:55 | P.DS ---
Providers Date of admission: 01/26/21 11:35 Expected date of discharge: 01/28/21 Attending physician: Tru Bustamante Consults: 01/25/21 23:31 Consult Physician Routine Consulting Provider: Viktoria Potter Consult Reason/Comments: copd Do you want consulting provider notified?: Yes Primary care physician: Frida Ramirez [facility] Course: This is an 81-year-old female who resides at [facility] and is a patient of Dr. Ramirez who presented to the emergency department with worsening of shortness of breath and wheezing. Patient states that she has had shortness of breath and wheezing for the past few months. However it seemed to worsen yesterday. Patient has a chronic cough with yellow gold sputum. Patient is a poor historian. She states that she is on O2 at 2.5 L at all times. Patient denies any fevers chills nausea or vomiting at this time. Chest x-rays impression pulmonary fibrosis. Interstitial pulmonary density increased slightly compared to old exam. Normal heart. Superimposed mild acute interstitial pneumonia possible. WC 12.3, hemoglobin 11.2, platelets 294, sodium 131, potassium 5.0, BUN 9, creatinine 0.7, COVID-19 negative. At this time patient is found sitting up in bed in no acute distress. Patient has no complaints or concerns at this time. Patient states that she is feeling better. She did receive an albuterol treatment this morning which has helped. Patient denies any chest pain. Patient states that the wheezing and cough have improved compared to yesterday. Patient remains afebrile, heart rate 94, respirations 18, blood pressure 134/74, pulse ox 99% on 6 L. 01/27: Patient is found sitting up in bed resting comfortably. Patient has no new complaints. Patient states that she feels exactly like she did yesterday. Patient states that she does better after her breathing treatment however when she is at [facility] she does not get her breathing treatments and a timely manner. We will change her eating treatments to 4 times a day as scheduled and twice a day as scheduled for the next 2 weeks. Patient has been afebrile pulse rate 80, pulse ox 94% on 4 L blood pressure 149/68. Patient does have shortness of breath with talking at times and purse lipped breathing. This is all baseline for the patient. WBC 13.0, hemoglobin 11.6, platelets 570, potassium 4.6, BUN 14, creatinine 0.75. 01/28: Patient has been seen by pulmonary medicine and cleared for discharge. Patient states that she is breathing much improved today. We will plan to transition IV Solu-Medrol over to oral prednisone, continue doxycycline oral as well as nebulizer treatments. No new concerns from the patient's nurse. Patient will be discharged to [facility] in stable condition. DISCHARGE DIAGNOSES 1. Acute exacerbation of COPD. 2. Hypoxia with dyspnea, as noted above. 3. Acute exacerbation of chronic bronchitis. 4. Hypertension. 5. Hyperlipidemia. 6. Hypothyroidism. 7. Generalized anxiety disorder and recurrent depression. 8. Coronary artery disease. 9. Chronic back pain. 10. Osteoarthritis, generalized. 11. COVID-19 negative. Patient was admitted to the hospital during a pandemic DISCHARGE PLAN Return to [facility] Impression and plan of care have been directed as dictated by the signing physician. Katie Flor nurse practitioner acting as scribe for signing physic renato. Patient Condition at Discharge: Good Plan - Discharge Summary New Discharge Prescriptions: New predniSONE 0 mg PO DIRECTED #30 tab Ipratropium-Albuterol Nebulize [Duoneb 0.5 mg-3 mg/3 ml Soln] 3 ml INHALATION RT-QID ml Doxycycline [Vibramycin] 100 mg PO BID #8 cap Continue Venlafaxine HCl [Effexor XR] 150 mg PO DAILY Ubidecarenone [Co Q-10] 100 mg PO DAILY Clopidogrel [Plavix] 75 mg PO DAILY Atorvastatin [Lipitor] 40 mg PO HS Metoprolol Tartrate [Lopressor] 25 mg PO BID Aspirin EC [Ecotrin Low Dose] 81 mg PO DAILY Levothyroxine Sodium [Synthroid] 50 mcg PO DAILY@0600 Acetaminophen Tab [Tylenol] 650 mg PO Q4H PRN PRN Reason: Fever And/ Or Pain Budesonide 1 mg INHALATION RT-BID Cetirizine HCl [Zyrtec] 10 mg PO DAILY Formoterol Fumarate [Perforomist] 20 mcg INHALATION RT-BID@0600,1800 Ipratropium-Albuterol Nebulize [Duoneb 0.5 mg-3 mg/3 ml Soln] 3 ml INHALATION RT-Q4H PRN PRN Reason: Shortness Of Breath lisinopriL [Zestril] 20 mg PO BID Montelukast [Singulair] 10 mg PO HS hydrALAZINE HCL 50 mg PO BID PRN PRN Reason: SBP > 160 guaiFENesin [Mucinex] 600 mg PO Q12H Cyanocobalamin [Vitamin B-12] 500 mcg PO DAILY Ergocalciferol (Vitamin D2) [Drisdol (50,000 Iu)] 1,250 mcg PO SA Pantoprazole Sodium [Protonix] 20 mg PO DAILY@0600 Melatonin 5 mg PO HS PRN PRN Reason: Insomnia Sennosides/Docusate Sodium [Senna Plus 8.6-50 mg Tablet] 2 tab PO DAILY Dextran 70/Hypromellose [Genteal Tears 0.1%-0.3% Drop] 1 drop BOTH EYES Q12H PRN PRN Reason: Dry Eye(S) Discontinued Omeprazole 20 mg PO HS Discharge Medication List Aspirin EC [Ecotrin Low Dose] 81 mg PO DAILY 04/18/18 [History] Atorvastatin [Lipitor] 40 mg PO HS 04/18/18 [History] Clopidogrel [Plavix] 75 mg PO DAILY 04/18/18 [History] Levothyroxine Sodium [Synthroid] 50 mcg PO DAILY@0600 04/18/18 [History] Metoprolol Tartrate [Lopressor] 25 mg PO BID 04/18/18 [History] Ubidecarenone [Co Q-10] 100 mg PO DAILY 04/18/18 [History] Venlafaxine HCl [Effexor XR] 150 mg PO DAILY 04/18/18 [History] Acetaminophen Tab [Tylenol] 650 mg PO Q4H PRN 05/07/19 [History] Budesonide 1 mg INHALATION RT-BID 05/07/19 [History] Cetirizine HCl [Zyrtec] 10 mg PO DAILY 05/07/19 [History] Formoterol Fumarate [Perforomist] 20 mcg INHALATION RT-BID@0600,1800 05/07/19 [History] Ipratropium-Albuterol Nebulize [Duoneb 0.5 mg-3 mg/3 ml Soln] 3 ml INHALATION RT-Q4H PRN 05/07/19 [History] Montelukast [Singulair] 10 mg PO HS 05/07/19 [History] lisinopriL [Zestril] 20 mg PO BID 05/07/19 [History] Cyanocobalamin [Vitamin B-12] 500 mcg PO DAILY 01/10/20 [History] Ergocalciferol (Vitamin D2) [Drisdol (50,000 Iu)] 1,250 mcg PO SA 01/10/20 [History] guaiFENesin [Mucinex] 600 mg PO Q12H 01/10/20 [History] hydrALAZINE HCL 50 mg PO BID PRN 01/10/20 [History] Dextran 70/Hypromellose [Genteal Tears 0.1%-0.3% Drop] 1 drop BOTH EYES Q12H PRN 01/25/21 [History] Melatonin 5 mg PO HS PRN 01/25/21 [History] Pantoprazole Sodium [Protonix] 20 mg PO DAILY@0600 01/25/21 [History] Sennosides/Docusate Sodium [Senna Plus 8.6-50 mg Tablet] 2 tab PO DAILY 01/25/21 [History] Doxycycline [Vibramycin] 100 mg PO BID #8 cap 01/28/21 [Rx] Ipratropium-Albuterol Nebulize [Duoneb 0.5 mg-3 mg/3 ml Soln] 3 ml INHALATION RT-QID ml 01/28/21 [Rx] predniSONE 0 mg PO DIRECTED #30 tab 01/28/21 [Rx] Follow up Appointment(s)/Referral(s): Frida Ramirez MD [Primary Care Provider] - 1-2 days Nico Pedro DO [Doctor of Osteopathic Medicine] - 02/15/21 2:15 pm Patient Instructions/Handouts: COPD (Chronic Obstructive Pulmonary Disease) (DC) Discharge Disposition: TRANSFER TO SNF/ECF
[2021-01-28 12:05] LABS: Glucose,Whole Blood 112 mg/dL (75-99)
== END 2021-01-28 14:38 | DRG 190 ==
LOC: EC 21:58 → 6NMEDSUR 23:32 → 4SSUR 01-26 05:55 → OBSVTOIN 01-26 11:35 → 1SOBS 01-26 16:16
PROVIDERS: ADMIT Internal Medicine Geriatric Medicine; ATTEND Internal Medicine Geriatric Medicine
DX: J44.1 Chronic obstructive pulmonary disease with (acute) exacerbation (principal); J96.21 Acute and chronic respiratory failure with hypoxia; J18.9 Pneumonia, unspecified organism; F33.9 Major depressive disorder, recurrent, unspecified; I50.32 Chronic diastolic (congestive) heart failure; E03.9 Hypothyroidism, unspecified; E78.5 Hyperlipidemia, unspecified; F41.1 Generalized anxiety disorder; G89.29 Other chronic pain; H91.90 Unspecified hearing loss, unspecified ear; I11.0 Hypertensive heart disease with heart failure; I25.10 Atherosclerotic heart disease of native coronary artery without angina pectoris; I25.2 Old myocardial infarction; Z20.822 Contact with and (suspected) exposure to COVID-19; J84.10 Pulmonary fibrosis, unspecified; M19.90 Unspecified osteoarthritis, unspecified site; M54.9 Dorsalgia, unspecified; J44.0 Chronic obstructive pulmonary disease with (acute) lower respiratory infection; Z79.02 Long term (current) use of antithrombotics/antiplatelets; Z79.51 Long term (current) use of inhaled steroids; Z79.82 Long term (current) use of aspirin; Z79.890 Hormone replacement therapy; Z79.899 Other long term (current) drug therapy; Z80.1 Family history of malignant neoplasm of trachea, bronchus and lung; Z82.3 Family history of stroke; Z82.49 Family history of ischemic heart disease and other diseases of the circulatory system; Z83.3 Family history of diabetes mellitus; Z87.891 Personal history of nicotine dependence; Z95.5 Presence of coronary angioplasty implant and graft; Z99.81 Dependence on supplemental oxygen; Z88.0 Allergy status to penicillin; Z88.8 Allergy status to other drugs, medicaments and biological substances
CPT/HCPCS: 36415; 71045; 80048; 80053; 83605; 83735; 83880; 84484; 85025; 85610; 85730; 86140; 87635; 93005; 94640; 96361; 96365; 96368; 96375; 96376; 99285

== ENCOUNTER 2021-04-21 13:21 | Inpatient (IN) | payer MEDICARE, BC, OTHER ==
[2021-04-21] MEDS ORDERED: ALBUTEROL HFA INHALER INHALATION STA (13:55)
[2021-04-21] MEDS ORDERED: IPRATROPIUM-ALBUTEROL 3 ML NEB INHALATION STA (13:55)
[2021-04-21] MEDS ORDERED: methylPREDNISolone SOD SUCCI 125 MG/2 ML VIAL IV STA (13:55)
[2021-04-21 15:27] LABS: INR 0.9 (<1.2); Partial Thromboplastin Time 23.1 sec (22.0-30.0); Prothrombin Time 9.8 sec (9.0-12.0)
[2021-04-21 15:28] LABS: Albumin 4.1 g/dL (3.5-5.0); Calcium 9.8 mg/dL (8.4-10.2); Magnesium 2.2 mg/dL (1.6-2.3); Total Bilirubin 0.7 mg/dL (0.2-1.3); Total Protein 7.9 g/dL (6.3-8.2)
[2021-04-21 15:30] LABS: HCT 41.4 % (34.0-46.0); HGB 12.7 gm/dL (11.4-16.0); Hypochromasia Marked; MCH 27.1 pg (25.0-35.0); MCHC 30.6 g/dL (31.0-37.0); MCV 88.6 fL (80.0-100.0); Platelet Count 388 k/uL (150-450); RBC 4.68 m/uL (3.80-5.40); RDW 15.5 % (11.5-15.5); WBC 35.5 k/uL (3.8-10.6)
[2021-04-21 15:34] LABS: Potassium 4.9 mmol/L (3.5-5.1)
--- NOTE | 2021-04-21 15:41 | XR ---
EXAMINATION TYPE: XR chest 2V DATE OF EXAM: 04/21/2021 COMPARISON: 01/25/2021 HISTORY: Short of breath TECHNIQUE: 2 views FINDINGS: Heart is normal. Lungs are clear consolidation. There is coarsening of interstitial marking s. There are no hilar masses. Bony thorax is intact. IMPRESSION: Pulmonary fibrotic changes. No acute lung disease. No change compared to old exam. No obv ious heart failure.
[2021-04-21 16:11] LABS: Band Neutrophils % 6 %; Lymphocytes # (M) 0.71 k/uL (1.0-4.8); Monocytes # (M) 1.78 k/uL (0-1.0); Neutrophils % (M) 87 %; Nucleated Red Blood Cells 0 /100 WBC (0-0); Total Cells Counted 100
[2021-04-21] MEDS ORDERED: NALOXONE 0.4 MG/ML 1 ML VIAL IV PRN (16:38)
[2021-04-21] MEDS ORDERED: ACETAMINOPHEN TAB 325 MG TAB PO PRN (16:38)
[2021-04-21] MEDS ORDERED: ARTIFICIAL TEARS-HYPROMELLOSE DROPS 15 ML BTL BOTH EYES PRN (16:40)
[2021-04-21] MEDS ORDERED: MELATONIN 5 MG TABLET PO PRN (16:40)
[2021-04-21] MEDS ORDERED: MECLIZINE 12.5 MG TAB PO PRN (16:40)
[2021-04-21] MEDS ORDERED: hydrALAZINE HCL 50 MG TAB PO PRN (16:40)
[2021-04-21] MEDS ORDERED: LEVOFLOXACIN 500MG-D5W PMX 500 MG in DEXTROSE/WATER 1 100ML.BAG IVPB ONE (17:15)
--- NOTE | 2021-04-21 17:58 | ED ---
General Adult HPI - General Chief complaint: Shortness of Breath Stated complaint: COPD, SOB Time Seen by Provider: 04/21/21 13:33 Source: EMS, RN notes reviewed, old records reviewed Limitations: no limitations - History of Present Illness Initial comments: Patient is an 81-year-old female with past medical history remarkable for chronic hypoxic respiratory failure secondary to COPD and pulmonary fibrosis on 2 L nasal cannula, heart failure, LA who presents to the emergency Department complaining of 3 week history of progressive worsening shortness of breath. She is been on steroids as well as Levaquin at her facility, concerned over possible infectious etiology. She presents today over worsening shortness of breath. She denies any chest pain, some leg edema, abdominal pain, nausea, vomiting. Denies any headaches, joint pain. States she was vaccinated for COVID-19. Endorses a mild cough that is minimally productive. States this happened before and is usually a bad COPD. She states she has exertional dyspnea but denies any worsening orthopnea, PND. His no other acute complaints at this time. - Related Data Home Medications Medication Instructions Recorded Confirmed Aspirin EC [Ecotrin Low Dose] 81 mg PO DAILY@89904/18/18 04/21/21 Atorvastatin [Lipitor] 40 mg PO HS@209904/18/18 04/21/21 Clopidogrel [Plavix] 75 mg PO DAILY@89904/18/18 04/21/21 Levothyroxine Sodium [Synthroid] 50 mcg PO DAILY@0604/18/18 04/21/21 Metoprolol Tartrate [Lopressor] 25 mg PO BID@09,209904/18/18 04/21/21 Ubidecarenone [Co Q-10] 100 mg PO DAILY@89904/18/18 04/21/21 Venlafaxine HCl [Effexor XR] 150 mg PO DAILY@89904/18/18 04/21/21 Budesonide 1 mg INHALATION RT-BID@0900,209905/07/19 04/21/21 Cetirizine HCl [Zyrtec] 10 mg PO DAILY@0900 05/07/19 04/21/21 Formoterol Fumarate [Perforomist] 20 mcg INHALATION RT-BID@0600,1800 05/07/19 04/21/21 Ipratropium-Albuterol Nebulize 3 ml INHALATION RT-Q4H PRN 05/07/19 04/21/21 [Duoneb 0.5 mg-3 mg/3 ml Soln] Montelukast [Singulair] 10 mg PO HS@209905/07/19 04/21/21 lisinopriL [Zestril] 20 mg PO BID@899,209905/07/19 04/21/21 Cyanocobalamin [Vitamin B-12] 500 mcg PO DAILY@89901/10/20 04/21/21 Ergocalciferol (Vitamin D2) 1,250 mcg PO SA@89901/10/20 04/21/21 [Drisdol (50,000 Iu)] guaiFENesin [Mucinex] 600 mg PO BID@899,209901/10/20 04/21/21 hydrALAZINE HCL 50 mg PO BID PRN 01/10/20 04/21/21 Dextran 70/Hypromellose [Genteal 1 drop BOTH EYES Q12H PRN 01/25/21 04/21/21 Tears 0.1%-0.3% Drop] Melatonin 5 mg PO HS PRN 01/25/21 04/21/21 Pantoprazole Sodium [Protonix] 20 mg PO DAILY@0601/25/21 04/21/21 Sennosides/Docusate Sodium [Senna 2 tab PO DAILY@89901/25/21 04/21/21 Plus 8.6-50 mg Tablet] Acetaminophen [Tylenol Arthritis] 650 mg PO Q4H PRN 04/21/21 04/21/21 Levofloxacin [Levaquin] 250 mg PO DAILY@89904/21/21 04/21/21 Meclizine [Antivert] 12.5 mg PO Q8H PRN 04/21/21 04/21/21 predniSONE 10 mg PO DAILY@89904/21/21 04/21/21 Previous Rx's Medication Instructions Recorded Ipratropium-Albuterol Nebulize 3 ml INHALATION RT-QID ml 01/28/21 [Duoneb 0.5 mg-3 mg/3 ml Soln] Allergies Allergy/AdvReac Type Severity Reaction Status Date / Time fluticasone Allergy Dyspnea Verified 04/21/21 14:24 [From Advair Diskus] Penicillins Allergy Rash/Hives Verified 04/21/21 14:24 salmeterol Allergy Dyspnea Verified 04/21/21 14:24 [From Advair Diskus] Review of Systems ROS Statement: Those systems with pertinent positive or pertinent negative responses have been documented in the HPI. Review of Systems: CONST: Denies fever EYES: Denies blurry vision ENT: Denies nasal congestion C/V: Denies Chest pain RESP: Endorses wheezing, shortness of breath GI: Denies abdominal pain : Denies dysuria SKIN: Denies rash. MSK: Denies joint pain. NEURO: Denies headache ROS Other: All systems not noted in ROS Statement are negative. Past Medical History Past Medical History: Heart Failure, COPD, Hearing Disorder / Deafness, Hypertension, Myocardial Infarction (LA), Osteoarthritis (OA), Respiratory Disorder Additional Past Medical History / Comment(s): HOME OXYGEN 2LNC UNDER 10YEARS, COVID unsure when Last Myocardial Infarction Date:: 2013 History of Any Multi-Drug Resistant Organisms: None Reported Past Surgical History: Appendectomy, Heart Catheterization With Stent Past Anesthesia/Blood Transfusion Reactions: No Reported Reaction Date of Last Stent Placement:: 2013 Past Psychological History: No Psychological Hx Reported Smoking Status: Former smoker Past Alcohol Use History: None Reported Past Drug Use History: None Reported - Past Family History Father Family Medical History: Prostate Disorder Additional Family Medical History / Comment(s): Father at age 80 from lung cancer with history of prostate cancer. Mother Family Medical History: Congestive Heart Failure (CHF) Additional Family Medical History / Comment(s): Mother at age 89 from heart trouble. Brother(s) Additional Family Medical History / Comment(s): Patient had a total of 6 brot hers. One brother has passed and he had multiple medical problems including testicular cancer with metastatic disease to the kidneys, CVA following surgery and diabetes. Other relatives have no major medical problems that she is aware of. Patient has 2 daughters with no major medical problems. General Exam - General Exam Comments Initial Comments: General: Appears mildly tachypnea but otherwise no acute distress. HEAD: Normal with no signs of head trauma. EYES: PERRLA, EOMI, conjunctiva normal, no discharge. ENT: Hearing grossly intact, normal oropharynx. RESPIRATORY: Diffuse bilateral end expiratory wheezing. No rhonchi auscultated. C/V: Regular rate and rhythm. S1 and S2 auscultated, no edema, peripheral pulses 2+ and intact throughout ABD: Abd is soft, nontender, nondistended EXT: Normal range of motion, no obvious deformity SKIN: No rashes or lesions observed on exposed skin. NEURO: Alert and oriented 4. No focal deficits. Limitations: no limitations Course Vital Signs 04/21/21 04/21/21 04/21/21 13:35 13:44 15:46 Temperature 98.8 F Pulse Rate 102 H 108 H Respiratory 20 26 H 22 Rate Blood Pressure 184/90 130/67 O2 Sat by Pulse 90 L 93 L Oximetry 04/21/21 04/21/21 04/21/21 16:06 16:16 17:05 Temperature Pulse Rate 101 H 99 92 Respiratory 20 18 20 Rate Blood Pressure 136/75 O2 Sat by Pulse 93 L Oximetry Medical Decision Making - Medical Decision Making Based on the patient's presentation and physical exam, I'm concerned for acute pulmonary process for current symptoms, particularly COPD possible infectious etiology. We will obtain a screening EKG as well as chest x-ray, as well as basic laboratory studies. She'll be given breathing treatments. We will obtain vital signs. She was in agreement this plan. Patient also receive IV steroids and magnesium. EKG shows sinus tachycardia which resolves following multiple breathing treatments and rest. Chest x-ray reveals pulmonary fibrotic changes, no acute lung disease, no acute changes. Laboratory studies are remarkable for a leukocytosis of 35.5 which could be related to her prednisone she has been taking of the facility. Laboratory studies are otherwise unremarkable including a negative lactic acid. Covid and flu swabs are negative. Cultures were obtained and sent. On reevaluation, her breathing is improved. Wheezing is improved. She is resting comfortably. She still requiring 6 L nasal cannula at this time to maintain saturations from 90-95%. Therefore we will admit her to the hospital. She was in agreement this plan. I spoke with pulmonology occupational health coordinator who was in agreement with this plan. She'll receive 40 mg every 6 hours of steroids as well as every 4 hours DuoNeb breathing treatments. We will continue her Levaquin. I spoke with the admitting physician, Dr. Shankar who accepted the patient. Patient was admitted in serous condition to telemetry bed. - Lab Data Result diagrams: 04/21/21 15:04 04/21/21 15:04 Lab Results 04/21/21 04/21/21 04/21/21 Range/Units 14:28 15:04 15:04 WBC 35.5 H (3.8-10.6) k/uL RBC 4.68 (3.80-5.40) m/uL Hgb 12.7 (11.4-16.0) gm/dL Hct 41.4 (34.0-46.0) % MCV 88.6 (80.0-100.0) fL MCH 27.1 (25.0-35.0) pg MCHC 30.6 L (31.0-37.0) g/dL RDW 15.5 (11.5-15.5) % Plt Count 388 (150-450) k/uL MPV 8.0 Neutrophils % (Manual) 87 % Band Neuts % (Manual) 6 % Lymphocytes % (Manual) 2 % Monocytes % (Manual) 5 % Neutrophils # (Manual) 33.00 H (1.3-7.7) k/uL Lymphocytes # (Manual) 0.71 L (1.0-4.8) k/uL Monocytes # (Manual) 1.78 H (0-1.0) k/uL Nucleated RBCs 0 (0-0) /100 WBC Manual Slide Review Performed Hypochromasia Marked PT 9.8 (9.0-12.0) sec INR 0.9 (<1.2) APTT 23.1 (22.0-30.0) sec Sodium (137-145) mmol/L Potassium (3.5-5.1) mmol/L Chloride (98-107) mmol/L Carbon Dioxide (22-30) mmol/L Anion Gap mmol/L BUN (7-17) mg/dL Creatinine (0.52-1.04) mg/dL Est GFR (CKD-EPI)AfAm (>60 ml/min/1.73 sqM) Est GFR (CKD-EPI)NonAf (>60 ml/min/1.73 sqM) Glucose (74-99) mg/dL Calcium (8.4-10.2) mg/dL Magnesium (1.6-2.3) mg/dL Total Bilirubin (0.2-1.3) mg/dL AST (14-36) U/L ALT (4-34) U/L Alkaline Phosphatase (38-126) U/L Total Protein (6.3-8.2) g/dL Albumin (3.5-5.0) g/dL Coronavirus (PCR) Not Detected (Not Detectd) Influenza Type A RNA (Not Detectd) Influenza Type B (PCR) (Not Detectd) 04/21/21 04/21/21 Range/Units 15:04 16:35 WBC (3.8-10.6) k/uL RBC (3.80-5.40) m/uL Hgb (11.4-16.0) gm/dL Hct (34.0-46.0) % MCV (80.0-100.0) fL MCH (25.0-35.0) pg MCHC (31.0-37.0) g/dL RDW (11.5-15.5) % Plt Count (150-450) k/uL MPV Neutrophils % (Manual) % Band Neuts % (Manual) % Lymphocytes % (Manual) % Monocytes % (Manual) % Neutrophils # (Manual) (1.3-7.7) k/uL Lymphocytes # (Manual) (1.0-4.8) k/uL Monocytes # (Manual) (0-1.0) k/uL Nucleated RBCs (0-0) /100 WBC Manual Slide Review Hypochromasia PT (9.0-12.0) sec INR (<1.2) APTT (22.0-30.0) sec Sodium 134 L (137-145) mmol/L Potassium 4.9 (3.5-5.1) mmol/L Chloride 96 L (98-107) mmol/L Carbon Dioxide 25 (22-30) mmol/L Anion Gap 13 mmol/L BUN 15 (7-17) mg/dL Creatinine 0.86 (0.52-1.04) mg/dL Est GFR (CKD-EPI)AfAm 74 (>60 ml/min/1.73 sqM) Est GFR (CKD-EPI)NonAf 65 (>60 ml/min/1.73 sqM) Glucose 174 H (74-99) mg/dL Calcium 9.8 (8.4-10.2) mg/dL Magnesium 2.2 (1.6-2.3) mg/dL Total Bilirubin 0.7 (0.2-1.3) mg/dL AST 30 (14-36) U/L ALT 11 (4-34) U/L Alkaline Phosphatase 84 (38-126) U/L Total Protein 7.9 (6.3-8.2) g/dL Albumin 4.1 (3.5-5.0) g/dL Coronavirus (PCR) (Not Detectd) Influenza Type A RNA Not Detected (Not Detectd) Influenza Type B (PCR) Not Detected (Not Detectd) - EKG Data -: EKG Interpreted by Me EKG Comments: 12-lead Electrocardiogram Interpretation Note EKG was reviewed and interpreted by myself. 12-lead ECG performed at 1450 is interpreted by me as revealing sinus tachycardia at a rate of 120 beats per minute. Bieber is normal. VT interval is 166 seconds, QRS duration 72 ms, QTc is 472 ms.. There were no ST or T wave abnormalities to suggest myocardial ischemia or injury. R wave progression across the precordium was satisfactory. By my interpretation this EKG is non-diagnostic for acute ischemia. Disposition Clinical Impression: COPD exacerbation, Acute and chronic respiratory failure with hypoxia, Leukocyt osis Disposition: ADMITTED IP TO THIS HOSP Condition: Serious
[2021-04-21] MEDS: HEPARIN SODIUM,PORCINE/PF 5,000 UNIT/0.5 ML SYRINGE SQ SCH (19:40)
[2021-04-21] MEDS: methylPREDNISolone SOD SUCCI 40 MG/ML 1 ML VIAL IV SCH (19:44)
[2021-04-21] MEDS: ATORVASTATIN 40 MG TAB PO SCH (19:45)
[2021-04-21] MEDS: MONTELUKAST 10 MG TAB PO SCH (19:45)
[2021-04-21] MEDS: METOPROLOL TARTRATE 25 MG TAB PO SCH (19:46)
[2021-04-21] MEDS: lisinopriL 20 MG TAB PO SCH (19:46)
[2021-04-21] MEDS: guaiFENesin 600 MG TABLET.ER PO SCH (19:50)
[2021-04-21] MEDS: IPRATROPIUM-ALBUTEROL 3 ML NEB INHALATION SCH (20:34)
[2021-04-21] MEDS: FORMOTEROL FUMARATE 20 MCG/2 ML NEBU INHALATION SCH (20:34)
[2021-04-21] MEDS: BUDESONIDE 1 MG/2 ML NEBU INHALATION SCH (20:35)
[2021-04-22] MEDS: methylPREDNISolone SOD SUCCI 40 MG/ML 1 ML VIAL IV SCH ×5 (01:10→23:47)
[2021-04-22] MEDS: IPRATROPIUM-ALBUTEROL 3 ML NEB INHALATION SCH ×7 (03:16→23:22)
[2021-04-22] MEDS ORDERED: NON FORMULARY DRUG (Ubidecarenone [Co Q-10] 100 MG Capsule) PO SCH (09:00)
[2021-04-22] MEDS ORDERED: DEXTROSE IVPB SCH (09:00)
[2021-04-22] MEDS ORDERED: LEVOFLOXACIN IVPB SCH (09:00)
[2021-04-22] MEDS ORDERED: PMX IVPB SCH (09:00)
[2021-04-22] MEDS ORDERED: WATER IVPB SCH (09:00)
[2021-04-22] MEDS: FORMOTEROL FUMARATE 20 MCG/2 ML NEBU INHALATION SCH ×2 (09:05→19:34)
[2021-04-22] MEDS: LORATADINE 10 MG TAB PO SCH ×2 (09:29→09:36)
[2021-04-22] MEDS: LEVOTHYROXINE 50 MCG TAB PO SCH (09:29)
[2021-04-22] MEDS: CLOPIDOGREL 75 MG TAB PO SCH ×2 (09:29→09:40)
[2021-04-22] MEDS: SENNOSIDES-DOCUSATE SODIUM 1 EACH TAB PO SCH (09:31)
[2021-04-22] MEDS: ASPIRIN 81 MG PO SCH (09:32)
[2021-04-22] MEDS: PANTOPRAZOLE 40 MG TABLET PO SCH (09:32)
[2021-04-22] MEDS: CYANOCOBALAMIN 500 MCG TAB PO SCH (09:35)
[2021-04-22] MEDS: HEPARIN SODIUM,PORCINE/PF 5,000 UNIT/0.5 ML SYRINGE SQ SCH ×3 (09:41→22:03)
[2021-04-22] MEDS: METOPROLOL TARTRATE 25 MG TAB PO SCH ×2 (09:41→21:54)
[2021-04-22] MEDS: lisinopriL 20 MG TAB PO SCH ×2 (09:42→21:54)
[2021-04-22] MEDS: guaiFENesin 600 MG TABLET.ER PO SCH ×2 (09:48→21:54)
[2021-04-22 10:32] LABS: HCT 34.6 % (34.0-46.0); HGB 11.1 gm/dL (11.4-16.0); Hypochromasia Slight; MCH 28.1 pg (25.0-35.0); MCHC 32.1 g/dL (31.0-37.0); MCV 87.4 fL (80.0-100.0); Mean Platelet Volume 8.2; Platelet Count 378 k/uL (150-450); RBC 3.96 m/uL (3.80-5.40); RDW 15.2 % (11.5-15.5); WBC 21.7 k/uL (3.8-10.6)
[2021-04-22 10:37] LABS: African American GFR (CKD) 66 (>60 ml/min/1.73 sqM); Anion Gap 11 mmol/L; Blood Urea Nitrogen 22 mg/dL (7-17); Calcium 9.6 mg/dL (8.4-10.2); Carbon Dioxide 32 mmol/L (22-30); Chloride 93 mmol/L (98-107); Glucose 177 mg/dL (74-99); Non-African American GFR(CKD) 58 (>60 ml/min/1.73 sqM); Potassium 4.6 mmol/L (3.5-5.1); Sodium 136 mmol/L (137-145)
[2021-04-22] MEDS: VENLAFAXINE HCL ER 150 MG CAP PO SCH (10:38)
[2021-04-22] MEDS: BUDESONIDE 1 MG/2 ML NEBU INHALATION SCH ×2 (10:44→19:34)
[2021-04-22 11:20] LABS: Magnesium 2.1 mg/dL (1.6-2.3)
--- NOTE | 2021-04-22 14:29 | P.CNPUL ---
History of Present Illness Consult date: 04/22/21 Requesting physician: Drew An Reason for consult: dyspnea Chief complaint: Shortness of breath History of present illness: 81-year-old female patient of Dr. Corral with past medical history of COPD, pulmonary fibrosis, lately her oxygen requirement had increased to 4 L on a regular basis, history of chronic CHF, previous history of myocardial infarction, hypothyroidism, hypertension, osteoarthritis, and a former smoker, patient presented emergency department on 04/21/2021 with complaints of increasing shortness of breath for the past 3 weeks, chest congestion, cough however she is not able to bring up any phlegm. She denies any chest pain, no hemoptysis, no leg edema, no nausea vomiting or diarrhea. She has completed COVID-19 vaccination, she has received 2 injections of Moderna vaccine and booster. Chest x-ray showed pulmonary fibrotic changes, no acute lung disease, no obvious heart failure. She'll labs have been reviewed showing evidence of acute leukocytosis with white blood cell count of 35.5, hemoglobin 12.7, platelet count of 388, neutrophils of 33, lymphocytes of 0.71, coagulation profile was within normal limits, sodium is 134, potassium is 4.9, chloride is 96, BUN of 15, creatinine 0.86, LFTs were within normal limits, lactic acid was 1.7, COVID-19 PCR was negative, influenza A and B were negative. Patient was started on nebulized bronchodilators, empiric antibiotics in the form of Levaquin and IV steroids with Solu-Medrol 40 mg every 6 hours, she still coughing, however she is feeling better, she is resting comfortably on the gurney in the emergency department and she is awaiting a bed on the floor. Review of Systems All systems: negative Constitutional: Denies chills, Denies fever Eyes: denies blurred vision, denies pain Ears, nose, mouth and throat: Denies headache, Denies sore throat Cardiovascular: Denies chest pain, Denies shortness of breath Respiratory: Reports congestion, Reports dyspnea, Reports wheezing, Denies cough Gastrointestinal: Denies abdominal pain, Denies diarrhea, Denies nausea, Denies vomiting Genitourinary: Denies dysuria, Denies hematuria Musculoskeletal: Denies myalgias Integumentary: Denies pruritus, Denies rash Neurological: Denies numbness, Denies weakness Psychiatric: Denies anxiety, Denies depression Endocrine: Denies fatigue, Denies weight change Past Medical History Past Medical History: Heart Failure, COPD, Hearing Disorder / Deafness, Hypertension, Myocardial Infarction ([place]), Osteoarthritis (OA), Respiratory D isorder Additional Past Medical History / Comment(s): HOME OXYGEN 2LNC UNDER 10YEARS, COVID unsure when Last Myocardial Infarction Date:: 2013 History of Any Multi-Drug Resistant Organisms: None Reported Past Surgical History: Appendectomy, Heart Catheterization With Stent Past Anesthesia/Blood Transfusion Reactions: No Reported Reaction Date of Last Stent Placement:: 2013 Past Psychological History: No Psychological Hx Reported Smoking Status: Former smoker Past Alcohol Use History: None Reported Past Drug Use History: None Reported - Past Family History Father Family Medical History: Prostate Disorder Additional Family Medical History / Comment(s): Father at age 80 from lung cancer with history of prostate cancer. Mother Family Medical History: Congestive Heart Failure (CHF) Additional Family Medical History / Comment(s): Mother at age 89 from heart trouble. Brother(s) Additional Family Medical History / Comment(s): Patient had a total of 6 brothers. One brother has passed and he had multiple medical problems including testicular cancer with metastatic disease to the kidneys, CVA following surgery and diabetes. Other relatives have no major medical problems that she is aware of. Patient has 2 daughters with no major medical problems. Medications and Allergies Home Medications Medication Instructions Recorded Confirmed Type Aspirin EC [Ecotrin Low Dose] 81 mg PO DAILY@89904/18/18 04/21/21 History Atorvastatin [Lipitor] 40 mg PO HS@209904/18/18 04/21/21 History Clopidogrel [Plavix] 75 mg PO DAILY@89904/18/18 04/21/21 History Levothyroxine Sodium [Synthroid] 50 mcg PO DAILY@59904/18/18 04/21/21 History Metoprolol Tartrate [Lopressor] 25 mg PO BID@04/18/18 04/21/21 History Ubidecarenone [Co Q-10] 100 mg PO DAILY@0904/18/18 04/21/21 History Venlafaxine HCl [Effexor XR] 150 mg PO DAILY@89904/18/18 04/21/21 History Budesonide 1 mg INHALATION RT-BID@899,2100 05/07/19 04/21/21 History Cetirizine HCl [Zyrtec] 10 mg PO DAILY@89905/07/19 04/21/21 History Formoterol Fumarate [Perforomist] 20 mcg INHALATION RT-BID@0600,1800 05/07/19 04/21/21 History Ipratropium-Albuterol Nebulize 3 ml INHALATION RT-Q4H PRN 05/07/19 04/21/21 History [Duoneb 0.5 mg-3 mg/3 ml Soln] Montelukast [Singulair] 10 mg PO HS@209905/07/19 04/21/21 History lisinopriL [Zestril] 20 mg PO BID@0900,209905/07/19 04/21/21 History Cyanocobalamin [Vitamin B-12] 500 mcg PO DAILY@89901/10/20 04/21/21 History Ergocalciferol (Vitamin D2) 1,250 mcg PO SA@89901/10/20 04/21/21 History [Drisdol (50,000 Iu)] guaiFENesin [Mucinex] 600 mg PO BID@09,209901/10/20 04/21/21 History hydrALAZINE HCL 50 mg PO BID PRN 01/10/20 04/21/21 History Dextran 70/Hypromellose [Genteal 1 drop BOTH EYES Q12H PRN 01/25/21 04/21/21 History Tears 0.1%-0.3% Drop] Melatonin 5 mg PO HS PRN 01/25/21 04/21/21 History Pantoprazole Sodium [Protonix] 20 mg PO DAILY@0601/25/21 04/21/21 History Sennosides/Docusate Sodium [Senna 2 tab PO DAILY@0901/25/21 04/21/21 History Plus 8.6-50 mg Tablet] Ipratropium-Albuterol Nebulize 3 ml INHALATION RT-QID ml 01/28/21 04/21/21 Rx [Duoneb 0.5 mg-3 mg/3 ml Soln] Acetaminophen [Tylenol Arthritis] 650 mg PO Q4H PRN 04/21/21 04/21/21 History Levofloxacin [Levaquin] 250 mg PO DAILY@0900 04/21/21 04/21/21 History Meclizine [Antivert] 12.5 mg PO Q8H PRN 04/21/21 04/21/21 History predniSONE 10 mg PO DAILY@0900 04/21/21 04/21/21 History Allergies Allergy/AdvReac Type Severity Reaction Status Date / Time fluticasone Allergy Dyspnea Verified 04/21/21 14:24 [From Advair Diskus] Penicillins Allergy Rash/Hives Verified 04/21/21 14:24 salmeterol Allergy Dyspnea Verified 04/21/21 14:24 [From Advair Diskus] Physical Exam Vitals: Vital Signs Temp Pulse Resp BP Pulse Ox 04/22/21 12:54 78 18 04/22/21 12:46 73 18 94 L 04/22/21 12:42 78 18 04/22/21 11:34 68 18 127/54 95 04/22/21 09:46 92 18 92 L 04/22/21 09:14 98 22 04/22/21 09:06 93 22 95 04/22/21 08:00 97.6 F 90 18 150/65 93 L 04/22/21 03:28 84 04/22/21 03:17 81 04/22/21 02:54 80 16 107/94 95 04/22/21 00:18 75 18 118/52 93 L 04/21/21 22:17 75 20 116/61 96 04/21/21 21:26 78 20 113/58 95 04/21/21 20:58 82 04/21/21 20:46 83 04/21/21 20:45 83 04/21/21 20:35 80 04/21/21 19:56 82 18 113/57 92 L 04/21/21 18:58 78 18 113/60 96 04/21/21 17:05 92 20 136/75 93 L 04/21/21 16:16 99 18 04/21/21 16:06 101 H 20 04/21/21 15:46 108 H 22 130/67 93 L GENERAL EXAM: Alert, very pleasant, 81-year-old white female, on 4 L of oxygen with a pulse ox of 94% comfortable in no apparent distress. HEAD: Normocephalic/atraumatic. EYES: Normal reaction of pupils, equal size. Conjunctiva pink, sclera white. NOSE: Clear with pink turbinates. THROAT: No erythema or exudates. NECK: No masses, no JVD, no thyroid enlargement, no adenopathy. CHEST: No chest wall deformity. Symmetrical expansion. LUNGS: Equal air entry with diminished breath sounds on the mild bibasilar scrap worker ckles CVS: Regular rate and rhythm, normal S1 and S2, no gallops, no murmurs, no rubs ABDOMEN: Soft, nontender. No hepatosplenomegaly, normal bowel sounds, no guarding or rigidity. EXTREMITIES: No clubbing, no edema, no cyanosis, 2+ pulses and upper and lower extremities. MUSCULOSKELETAL: Muscle strength and tone normal. SPINE: No scoliosis or deformity SKIN: No rashes CENTRAL NERVOUS SYSTEM: Alert and oriented -3. No focal deficits, tone is normal in all 4 extremities. PSYCHIATRIC: Alert and oriented -3. Appropriate affect. Intact judgment and insight. Results - Laboratory Findings CBC and BMP: 04/22/21 09:51 04/22/21 09:51 PT/INR, D-dimer PT 9.8 sec (9.0-12.0) 04/21/21 15:04 INR 0.9 (<1.2) 04/21/21 15:04 Abnormal lab findings: Abnormal Labs 04/21/21 04/21/21 04/22/21 15:04 15:04 09:51 WBC 35.5 H 21.7 H Hgb 11.1 L MCHC 30.6 L Neutrophils # (Manual) 33.00 H Lymphocytes # (Manual) 0.71 L Monocytes # (Manual) 1.78 H Sodium 134 L Chloride 96 L Carbon Dioxide BUN Glucose 174 H 04/22/21 09:51 WBC Hgb MCHC Neutrophils # (Manual) Lymphocytes # (Manual) Monocytes # (Manual) Sodium 136 L Chloride 93 L Carbon Dioxide 32 H BUN 22 H Glucose 177 H - Diagnostic Findings Chest x-ray: report reviewed, image reviewed Assessment and Plan Plan: Assessment: #1. Acute exacerbation of COPD and purulent tracheobronchitis rule out possibility of underlying interstitial pneumonia. Chest x-ray is showing chronic pulmonary fibrosis, no acute lung disease, COVID-19 and influenza A and B were negative #2. Acute leukocytosis related to the above #3. Status post completed COVID 19 vaccination #4. Chronic CHF with diastolic dysfunction #5. History of advanced COPD and pulmonary fibrosis, patient is currently up to 4 L of oxygen on a regular basis #6. Previous history of smoking in remission since 2013, does carry [id number] smoking history #7. Coronary artery disease with previous history of stenting #8. Hypertension #9. Hypothyroidism #10. Chronic back pain #11. Depression #12. Resident of a local [facility] Plan: Continue with Levaquin for empiric antibiotic coverage Obtain procalcitonin level Send a proBNP level Continue with nebulized bronchodilators Continue with IV steroids We'll continue to follow I performed a history & physical examination of the patient and discussed their management with my nurse practitioner, Aviva Delacruz. I reviewed the nurse practitioner's note and agree with the documented findings and plan of care. Lung sounds are positive for mild crackles throughout the lung lainez. The findings and the impression was discussed with the patient. I attest to the documentation by the nurse practitioner. Time with Patient: Greater than 30
--- NOTE | 2021-04-22 16:27 | P.HPIM ---
History of Present Illness H&P Date: 04/22/21 Chief Complaint: Worsening dyspnea 3 weeks This is an 81-year-old female resident of [facility], presented to the ER with worsening dyspnea, hypoxia, wheezing 3 weeks with occasional cough, worsened with exertion. Failed outpatient treatment, steroids, antibiotics-Levaquin. Denies chest pain, palpitations, nausea vomiting, diarrhea, abdominal pain Patient is a poor historian. Lactic acid negative, Covid/flu negative. Labs unremarkable with the exception of WBC of 35.5, suspect related to prior prednisone she had been on at the [facility]. On admission required 6 L nasal cannula to maintain O2 sats in the 90s in a patient who normally is maintained on 2 L nasal cannula O2. Chest x-ray reporting coarsening of interstitial markings ,pulmonary fibrotic changes, no acute lung disease, no change compared to prior exam, no obvious heart failure. IV steroids, nebulized bronchodilators and antibiotics initiated in the ER. Review of Systems ROS Statement: Those systems with pertinent positive or pertinent negative responses have been documented in the HPI. ROS Other: All systems not noted in ROS Statement are negative. Past Medical History Past Medical History: Heart Failure, COPD, Hearing Disorder / Deafness, Hypertension, Myocardial Infarction ([place]), Osteoarthritis (OA), Respiratory Disorder Additional Past Medical History / Comment(s): HOME OXYGEN 2LNC UNDER 10YEARS, COVID unsure when Last Myocardial Infarction Date:: 2013 History of Any Multi-Drug Resistant Organisms: None Reported Past Surgical History: Appendectomy, Heart Catheterization With Stent Past Anesthesia/Blood Transfusion Reactions: No Reported Reaction Date of Last Stent Placement:: 2013 Past Psychological History: No Psychological Hx Reported Smoking Status: Former smoker Past Alcohol Use History: None Reported Past Drug Use History: None Reported - Past Family History Father Family Medical History: Prostate Disorder Additional Family Medical History / Comment(s): Father at age 80 from lung cancer with history of prostate cancer. Mother Family Medical History: Congestive Heart Failure (CHF) Additional Family Medical History / Comment(s): Mother at age 89 from heart trouble. Brother(s) Additional Family Medical History / Comment(s): Patient had a total of 6 brothers. One brother has passed and he had multiple medical problems including testicular cancer with metastatic disease to the kidneys, CVA following surgery and diabetes. Other relatives have no major medical problems that she is aware of. Patient has 2 daughters with no major medical problems. Medications and Allergies Home Medications Medication Instructions Recorded Confirmed Type Aspirin EC [Ecotrin Low Dose] 81 mg PO DAILY@89904/18/18 04/21/21 History Atorvastatin [Lipitor] 40 mg PO HS@209904/18/18 04/21/21 History Clopidogrel [Plavix] 75 mg PO DAILY@0904/18/18 04/21/21 History Levothyroxine Sodium [Synthroid] 50 mcg PO DAILY@0604/18/18 04/21/21 History Metoprolol Tartrate [Lopressor] 25 mg PO BID@0900,209904/18/18 04/21/21 History Ubidecarenone [Co Q-10] 100 mg PO DAILY@89904/18/18 04/21/21 History Venlafaxine HCl [Effexor XR] 150 mg PO DAILY@89904/18/18 04/21/21 History Budesonide 1 mg INHALATION RT-BID@0900,209905/07/19 04/21/21 History Cetirizine HCl [Zyrtec] 10 mg PO DAILY@89905/07/19 04/21/21 History Formoterol Fumarate [Perforomist] 20 mcg INHALATION RT-BID@0600,1800 05/07/19 04/21/21 History Ipratropium-Albuterol Nebulize 3 ml INHALATION RT-Q4H PRN 05/07/19 04/21/21 History [Duoneb 0.5 mg-3 mg/3 ml Soln] Montelukast [Singulair] 10 mg PO HS@209905/07/19 04/21/21 History lisinopriL [Zestril] 20 mg PO BID@0900,209905/07/19 04/21/21 History Cyanocobalamin [Vitamin B-12] 500 mcg PO DAILY@89901/10/20 04/21/21 History Ergocalciferol (Vitamin D2) 1,250 mcg PO SA@89901/10/20 04/21/21 History [Drisdol (50,000 Iu)] guaiFENesin [Mucinex] 600 mg PO BID@0900,209901/10/20 04/21/21 History hydrALAZINE HCL 50 mg PO BID PRN 01/10/20 04/21/21 History Dextran 70/Hypromellose [Genteal 1 drop BOTH EYES Q12H PRN 01/25/21 04/21/21 History Tears 0.1%-0.3% Drop] Melatonin 5 mg PO HS PRN 01/25/21 04/21/21 History Pantoprazole Sodium [Protonix] 20 mg PO DAILY@0601/25/21 04/21/21 History Sennosides/Docusate Sodium [Senna 2 tab PO DAILY@0901/25/21 04/21/21 History Plus 8.6-50 mg Tablet] Ipratropium-Albuterol Nebulize 3 ml INHALATION RT-QID ml 01/28/21 04/21/21 Rx [Duoneb 0.5 mg-3 mg/3 ml Soln] Acetaminophen [Tylenol Arthritis] 650 mg PO Q4H PRN 04/21/21 04/21/21 History Levofloxacin [Levaquin] 250 mg PO DAILY@89904/21/21 04/21/21 History Meclizine [Antivert] 12.5 mg PO Q8H PRN 04/21/21 04/21/21 History predniSONE 10 mg PO DAILY@89904/21/21 04/21/21 History Allergies Allergy/AdvReac Type Severity Reaction Status Date / Time fluticasone Allergy Dyspnea Verified 04/21/21 14:24 [From Advair Diskus] Penicillins Allergy Rash/Hives Verified 04/21/21 14:24 salmeterol Allergy Dyspnea Verified 04/21/21 14:24 [From Advair Diskus] Physical Exam Vitals: Vital Signs Temp Pulse Resp BP Pulse Ox 04/22/21 09:46 92 18 92 L 04/22/21 09:14 98 22 04/22/21 09:06 93 22 95 04/22/21 08:00 97.6 F 90 18 150/65 93 L 04/22/21 03:28 84 04/22/21 03:17 81 04/22/21 02:54 80 16 107/94 95 04/22/21 00:18 75 18 118/52 93 L 04/21/21 22:17 75 20 116/61 96 04/21/21 21:26 78 20 113/58 95 04/21/21 20:58 82 04/21/21 20:46 83 04/21/21 20:45 83 04/21/21 20:35 80 04/21/21 19:56 82 18 113/57 92 L 04/21/21 18:58 78 18 113/60 96 04/21/21 17:05 92 20 136/75 93 L 04/21/21 16:16 99 18 04/21/21 16:06 101 H 20 04/21/21 15:46 108 H 22 130/67 93 L 04/21/21 13:44 26 H 04/21/21 13:35 98.8 F 102 H 20 184/90 90 L PHYSICAL EXAM: VITAL SIGNS: As above GENERAL: Sitting up in bed, no acute distress HEENT: Conjunctivae normal. eyes normal. NECK: No JVD. No thyroid enlargement. No LNs CARDIOVASCULAR: S1, S2 regular. No murmur RESPIRATION: Breath sounds diminished in the bases. Fine bibasilar crackles. ABDOMEN: Soft, nontender . No guarding. no masses palpable. No ascites, No hepatosplenomegaly.Bowel sounds heard. LEGS: No edema. no swelling PSYCHIATRY: Alert and oriented X3, mood and affect normal. NERVOUS SYSTEM: Cranial N 2-12 grossly normal. Moves all 4 limbs. Diffuse weakness,No focal deficits. Strength and sensation grossly intact.. Skin: Warm and dry, no rash Results CBC & Chem 7: 04/22/21 09:51 04/22/21 09:51 Labs: Abnormal Lab Results - Last 24 Hours (Table) 04/21/21 04/21/21 04/22/21 Range/Units 15:04 15:04 09:51 WBC 35.5 H 21.7 H (3.8-10.6) k/uL Hgb 11.1 L (11.4-16.0) gm/dL MCHC 30.6 L (31.0-37.0) g/dL Neutrophils # (Manual) 33.00 H (1.3-7.7) k/uL Lymphocytes # (Manual) 0.71 L (1.0-4.8) k/uL Monocytes # (Manual) 1.78 H (0-1.0) k/uL Sodium 134 L (137-145) mmol/L Chloride 96 L (98-107) mmol/L Carbon Dioxide (22-30) mmol/L BUN (7-17) mg/dL Glucose 174 H (74-99) mg/dL 04/22/21 Range/Units 09:51 WBC (3.8-10.6) k/uL Hgb (11.4-16.0) gm/dL MCHC (31.0-37.0) g/dL Neutrophils # (Manual) (1.3-7.7) k/uL Lymphocytes # (Manual) (1.0-4.8) k/uL Monocytes # (Manual) (0-1.0) k/uL Sodium 136 L (137-145) mmol/L Chloride 93 L (98-107) mmol/L Carbon Dioxide 32 H (22-30) mmol/L BUN 22 H (7-17) mg/dL Glucose 177 H (74-99) mg/dL Assessment and Plan Assessment: Acute COPD exacerbation with purulent tracheobronchitis, failed outpatient treatment Acute on chronic hypoxic respiratory failure secondary to the above, wears 2 L nasal cannula at home. Acute Leukocytosis, suspect steroid-induced from recent steroid use and the above Advanced COPD, pulmonary fibrosis, history of [id number] smoking history, quit in 2013 Hypertension Hyperlipidemia Hypothyroidism Generalized anxiety disorder Recurrent depression CAD, history of stenting Chronic back pain Osteoarthritis COVID-19 negative [facility] resident Plan: Continue current medication regime, monitoring and symptomatically treatment. Aggressive pulmonary toileting, nebulized bronchodilators, steroids. Tapering off oxygen in progress. Pro-calcitonin pending .Pulmonary consult in place with recommendations pending. The impression and plan of care has been dictated as directed. : I performed a history and examination of this patient, discussed the same with the dictator. I agree with the dictator's note ,documented as a scribe. Any additional findings or plans will be noted.
[2021-04-22] MEDS ORDERED: LEVOFLOXACIN 250MG-D5W PMX 250 MG in DEXTROSE/WATER 1 50ML.BAG IVPB SCH (20:00)
[2021-04-22] MEDS ORDERED: VANCOMYCIN IV PER PHARMACY 1 EACH MISC MISCELLANE PRN (20:16)
[2021-04-22] MEDS ORDERED: VANCOMYCIN 1,250 MG in SODIUM CHLORIDE 0.9% 250 ML IVPB ONE (21:00)
[2021-04-22] MEDS: MONTELUKAST 10 MG TAB PO SCH (21:54)
[2021-04-22] MEDS: ATORVASTATIN 40 MG TAB PO SCH (21:54)
[2021-04-23] MEDS: IPRATROPIUM-ALBUTEROL 3 ML NEB INHALATION SCH ×6 (03:53→23:29)
[2021-04-23] MEDS: LEVOTHYROXINE 50 MCG TAB PO SCH (05:30)
[2021-04-23] MEDS: PANTOPRAZOLE 40 MG TABLET PO SCH (05:30)
[2021-04-23] MEDS: methylPREDNISolone SOD SUCCI 40 MG/ML 1 ML VIAL IV SCH ×3 (05:30→17:57)
[2021-04-23 07:18] LABS: African American GFR (CKD) 76 (>60 ml/min/1.73 sqM); Anion Gap 8 mmol/L; Blood Urea Nitrogen 20 mg/dL (7-17); Calcium 9.8 mg/dL (8.4-10.2); Carbon Dioxide 30 mmol/L (22-30); Chloride 97 mmol/L (98-107); Glucose 128 mg/dL (74-99); Non-African American GFR(CKD) 66 (>60 ml/min/1.73 sqM); Potassium 5.5 mmol/L (3.5-5.1); Sodium 135 mmol/L (137-145)
[2021-04-23] MEDS: HEPARIN SODIUM,PORCINE/PF 5,000 UNIT/0.5 ML SYRINGE SQ SCH ×3 (08:09→21:43)
[2021-04-23] MEDS: VENLAFAXINE HCL ER 150 MG CAP PO SCH (08:10)
[2021-04-23] MEDS: lisinopriL 20 MG TAB PO SCH ×2 (08:10→21:39)
[2021-04-23] MEDS: guaiFENesin 600 MG TABLET.ER PO SCH ×2 (08:10→21:39)
[2021-04-23] MEDS: LORATADINE 10 MG TAB PO SCH (08:10)
[2021-04-23] MEDS: METOPROLOL TARTRATE 25 MG TAB PO SCH ×2 (08:10→21:39)
[2021-04-23] MEDS: CLOPIDOGREL 75 MG TAB PO SCH (08:10)
[2021-04-23] MEDS: ASPIRIN 81 MG PO SCH (08:10)
[2021-04-23] MEDS: CYANOCOBALAMIN 500 MCG TAB PO SCH (08:11)
[2021-04-23] MEDS: SENNOSIDES-DOCUSATE SODIUM 1 EACH TAB PO SCH (08:11)
[2021-04-23] MEDS: FORMOTEROL FUMARATE 20 MCG/2 ML NEBU INHALATION SCH ×2 (09:20→21:19)
[2021-04-23] MEDS: BUDESONIDE 1 MG/2 ML NEBU INHALATION SCH ×2 (09:20→21:19)
[2021-04-23] MEDS ORDERED: VANCOMYCIN 1,000 MG in SODIUM CHLORIDE 0.9% 250 ML IVPB SCH (12:00)
--- NOTE | 2021-04-23 15:19 | P.PN ---
Subjective Progress Note Date: 04/23/21 Principal diagnosis: Dyspnea 81-year-old female patient of Dr. Corral with past medical history of COPD, pulmonary fibrosis, lately her oxygen requirement had increased to 4 L on a regular basis, history of chronic CHF, previous history of myocardial infarction, hypothyroidism, hypertension, osteoarthritis, and a former smoker, patient presented emergency department on 04/21/2021 with complaints of increasing shortness of breath for the past 3 weeks, chest congestion, cough however she is not able to bring up any phlegm. She denies any chest pain, no hemoptysis, no leg edema, no nausea vomiting or diarrhea. She has completed COVID-19 vaccination, she has received 2 injections of Moderna vaccine and booster. Chest x-ray showed pulmonary fibrotic changes, no acute lung disease, no obvious heart failure. She'll labs have been reviewed showing evidence of acute leukocytosis with white blood cell count of 35.5, hemoglobin 12.7, platelet count of 388, neutrophils of 33, lymphocytes of 0.71, coagulation profile was within normal limits, sodium is 134, potassium is 4.9, chloride is 96, BUN of 15, creatinine 0.86, LFTs were within normal limits, lactic acid was 1.7, COVID-19 PCR was negative, influenza A and B were negative. Patient was started on nebulized bronchodilators, empiric antibiotics in the form of Levaquin and IV steroids with Solu-Medrol 40 mg every 6 hours, she still coughing, however she is feeling better, she is resting comfortably on the gu rney in the emergency department and she is awaiting a bed on the floor. On 04/23/2021 patient is seen in follow-up on medical surgical floor, she is awake and alert, in no acute distress , she is currently on 4 L of oxygen, lung sounds reveal a few scattered wheezes, she does have some shortness of breath with activity but overall improving, she has 0.9 normal saline at 20 ML per hour, no other drips, vital signs have been stable, no fever or chills, today's labs have been reviewed showing sodium of 135, potassium is 5.5, chloride is 97, B1 is 20, creatinine 0.84. ProCalcitonin level was elevated at 1.73, influenza A and B were negative. Blood culture showed Staphylococcus epidermidis, patient initially was put on vancomycin, vancomycin is discontinued now. Patient remains on Levaquin. She is on IV steroids with Solu-Medrol 40 mg every 6 hours, nebulized bronchodilators. Objective - Vital Signs Vital signs: Vital Signs Temp 97.0 F L 04/23/21 13:32 Pulse 91 04/23/21 13:32 Resp 18 04/23/21 13:32 BP 150/73 04/23/21 13:32 Pulse Ox 93 L 04/23/21 13:32 Intake & Output 04/22/21 04/23/21 04/23/21 18:59 06:59 18:59 Output Total 350 400 Balance -350 -400 Weight 54.5 kg Output: Urine 350 400 Other: Voiding Method Diaper External Catheter # Voids 1 # Bowel Movements 1 - Exam GENERAL EXAM: Alert, very pleasant, 81-year-old white female, on 4 L of oxygen with a pulse ox of 94% comfortable in no apparent distress. HEAD: Normocephalic/atraumatic. EYES: Normal reaction of pupils, equal size. Conjunctiva pink, sclera white. NOSE: Clear with pink turbinates. THROAT: No erythema or exudates. NECK: No masses, no JVD, no thyroid enlargement, no adenopathy. CHEST: No chest wall deformity. Symmetrical expansion. LUNGS: Equal air entry with diminished breath sounds on the mild bibasilar crackles CVS: Regular rate and rhythm, normal S1 and S2, no gallops, no murmurs, no rubs ABDOMEN: Soft, nontender. No hepatosplenomegaly, normal bowel sounds, no guarding or rigidity. EXTREMITIES: No clubbing, no edema, no cyanosis, 2+ pulses and upper and lower extremities. MUSCULOSKELETAL: Muscle strength and tone normal. SPINE: No scoliosis or deformity SKIN: No rashes CENTRAL NERVOUS SYSTEM: Alert and oriented -3. No focal deficits, tone is normal in all 4 extremities. PSYCHIATRIC: Alert and oriented -3. Appropriate affect. Intact judgment and insight. - Labs CBC & Chem 7: 04/22/21 09:51 04/23/21 05:04 Labs: Abnormal Lab Results - Last 24 Hours (Table) 04/22/21 04/23/21 Range/Units 09:51 05:04 Sodium 135 L (137-145) mmol/L Potassium 5.5 H (3.5-5.1) mmol/L Chloride 97 L (98-107) mmol/L BUN 20 H (7-17) mg/dL Glucose 128 H (74-99) mg/dL Procalcitonin 1.73 H (0.02-0.09) ng/mL Microbiology - Last 24 Hours (Table) 04/21/21 16:27 Blood Culture Gram Stain - Final Blood Blood Culture - Preliminary Staphylococcus epidermidis 04/21/21 16:10 Blood Culture - Preliminary Blood No Growth after 24 hours 04/21/21 16:27 Blood Culture - Final Blood Assessment and Plan Plan: Assessment: #1. Acute exacerbation of COPD and purulent tracheobronchitis rule out possibility of underlying interstitial pneumonia. Chest x-ray is showing chronic pulmonary fibrosis, no acute lung disease, COVID-19 and influenza A and B were negative #2. Acute leukocytosis related to the above, improving #3. Status post completed COVID 19 vaccination #4. Chronic CHF with diastolic dysfunction #5. History of advanced COPD and pulmonary fibrosis, patient is currently up to 4 L of oxygen on a regular basis #6. Previous history of smoking in remission since 2013, does carry [id number] smoking history #7. Coronary artery disease with previous history of stenting #8. Hypertension #9. Hypothyroidism #10. Chronic back pain #11. Depression #12. Resident of a local [facility] #13. Staph epidermidis and not single blood culture, possibly a skin contaminant, vancomycin will be discontinued, patient is maintained on Levaquin Plan: We will discontinue vancomycin, final blood culture came back positive for Staphylococcus epidermidis Continue with Levaquin for empiric antibiotic coverage Procalcitonin level was elevated at 1.73, Continue with nebulized bronchodilators Continue with IV steroids Follow-up chest x-ray tomorrow We'll continue to follow I performed a history & physical examination of the patient and discussed their management with my nurse practitioner, vAiva Delacruz. I reviewed the nurse practitioner's note and agree with the documented findings and plan of care. Lung sounds are positive for mild crackles throughout the lung lainez. The findings and the impression was discussed with the patient. I attest to the documentation by the nurse practitioner. Time with Patient: Less than 30
[2021-04-23] MEDS: ALPRAZolam 0.25 MG TAB PO PRN (17:58)
[2021-04-23] MEDS: ATORVASTATIN 40 MG TAB PO SCH (21:39)
[2021-04-23] MEDS: MONTELUKAST 10 MG TAB PO SCH (21:40)
[2021-04-23] MEDS: LEVOFLOXACIN 250 MG TAB PO SCH (21:40)
[2021-04-24] MEDS: ALPRAZolam 0.25 MG TAB PO PRN ×3 (00:20→17:56)
[2021-04-24] MEDS: methylPREDNISolone SOD SUCCI 40 MG/ML 1 ML VIAL IV SCH ×4 (00:20→17:55)
[2021-04-24] MEDS: IPRATROPIUM-ALBUTEROL 3 ML NEB INHALATION SCH ×6 (03:22→23:48)
[2021-04-24] MEDS: PANTOPRAZOLE 40 MG TABLET PO SCH (05:33)
[2021-04-24] MEDS: LEVOTHYROXINE 50 MCG TAB PO SCH (05:33)
[2021-04-24 06:01] LABS: African American GFR (CKD) 80 (>60 ml/min/1.73 sqM); Anion Gap 7 mmol/L; Blood Urea Nitrogen 18 mg/dL (7-17); Calcium 9.6 mg/dL (8.4-10.2); Carbon Dioxide 32 mmol/L (22-30); Chloride 98 mmol/L (98-107); Glucose 115 mg/dL (74-99); Non-African American GFR(CKD) 69 (>60 ml/min/1.73 sqM); Potassium 5.1 mmol/L (3.5-5.1); Sodium 137 mmol/L (137-145)
[2021-04-24] MEDS: BUDESONIDE 1 MG/2 ML NEBU INHALATION SCH ×2 (07:35→19:43)
[2021-04-24] MEDS: FORMOTEROL FUMARATE 20 MCG/2 ML NEBU INHALATION SCH ×2 (07:36→19:43)
[2021-04-24] MEDS: METOPROLOL TARTRATE 25 MG TAB PO SCH ×2 (09:16→22:11)
[2021-04-24] MEDS: LORATADINE 10 MG TAB PO SCH (09:16)
[2021-04-24] MEDS: guaiFENesin 600 MG TABLET.ER PO SCH ×2 (09:16→22:11)
[2021-04-24] MEDS: VENLAFAXINE HCL ER 150 MG CAP PO SCH (09:16)
[2021-04-24] MEDS: CLOPIDOGREL 75 MG TAB PO SCH (09:16)
[2021-04-24] MEDS: CYANOCOBALAMIN 500 MCG TAB PO SCH (09:17)
[2021-04-24] MEDS: ASPIRIN 81 MG PO SCH (09:17)
[2021-04-24] MEDS: lisinopriL 20 MG TAB PO SCH ×2 (09:17→22:11)
[2021-04-24] MEDS: SENNOSIDES-DOCUSATE SODIUM 1 EACH TAB PO SCH (09:17)
[2021-04-24] MEDS: HEPARIN SODIUM,PORCINE/PF 5,000 UNIT/0.5 ML SYRINGE SQ SCH ×2 (09:18→22:13)
--- NOTE | 2021-04-24 10:30 | XR ---
EXAMINATION TYPE: XR chest 1V portable DATE OF EXAM: 04/24/2021 COMPARISON: Chest x-ray 04/21/2021, CT chest 01/10/2020 HISTORY: Covid positive, abnormal chest x-ray TECHNIQUE: Single frontal view of the chest is obtained. FINDINGS: There is no focal air space opacity, pleural effusion, or pneumothorax seen. Interstitial changes are present towards the lung bases. The cardiac silhouette size is stable, the aorta is dens e. Apical pleural scarring suspected on the right greater than left, there are overlying artifacts. U pper lobe lucencies likely reflect underlying emphysematous change The osseous structures are intact . IMPRESSION: Emphysema, follow-up as indicated
--- NOTE | 2021-04-24 13:22 | P.PN ---
Subjective Progress Note Date: 04/24/21 Principal diagnosis: Dyspnea 81-year-old female patient of Dr. Corral with past medical history of COPD, pulmonary fibrosis, lately her oxygen requirement had increased to 4 L on a regular basis, history of chronic CHF, previous history of myocardial infarction, hypothyroidism, hypertension, osteoarthritis, and a former smoker, patient presented emergency department on 04/21/2021 with complaints of increasing shortness of breath for the past 3 weeks, chest congestion, cough however she is not able to bring up any phlegm. She denies any chest pain, no hemoptysis, no leg edema, no nausea vomiting or diarrhea. She has completed COVID-19 vaccination, she has received 2 injections of Moderna vaccine and booster. Chest x-ray showed pulmonary fibrotic changes, no acute lung disease, no obvious heart failure. She'll labs have been reviewed showing evidence of acute leukocytosis with white blood cell count of 35.5, hemoglobin 12.7, platelet count of 388, neutrophils of 33, lymphocytes of 0.71, coagulation profile was within normal limits, sodium is 134, potassium is 4.9, chloride is 96, BUN of 15, creatinine 0.86, LFTs were within normal limits, lactic acid was 1.7, COVID-19 PCR was negative, influenza A and B were negative. Patient was started on nebulized bronchodilators, empiric antibiotics in the form of Levaquin and IV steroids with Solu-Medrol 40 mg every 6 hours, she still coughing, however she is feeling better, she is resting comfortably on the gu rney in the emergency department and she is awaiting a bed on the floor. On 04/23/2021 patient is seen in follow-up on medical surgical floor, she is awake and alert, in no acute distress , she is currently on 4 L of oxygen, lung sounds reveal a few scattered wheezes, she does have some shortness of breath with activity but overall improving, she has 0.9 normal saline at 20 ML per hour, no other drips, vital signs have been stable, no fever or chills, today's labs have been reviewed showing sodium of 135, potassium is 5.5, chloride is 97, B1 is 20, creatinine 0.84. ProCalcitonin level was elevated at 1.73, influenza A and B were negative. Blood culture showed Staphylococcus epidermidis, patient initially was put on vancomycin, vancomycin is discontinued now. Patient remains on Levaquin. She is on IV steroids with Solu-Medrol 40 mg every 6 hours, nebulized bronchodilators. On 04/24/2021 patient seen in follow-up on medical surgical floor, she still was short of breath with any exertion, but looks but she is more comfortable today, coughing up some yellow colored phlegm, she is on 4 L of oxygen pulse ox is 94%, rule out sounds reveal coarse diffuse rales bilaterally. She still is very weak, dyspneic with any exertion, she has not been up out of bed much, she is on point and was seen at 20 ML per hour, continues on IV steroids, and breathing treatments, she remains on Levaquin for empiric antibiotic coverage. Objective - Vital Signs Vital signs: Vital Signs Temp 97.7 F 04/24/21 00:51 Pulse 92 04/24/21 08:42 Resp 19 04/24/21 08:42 BP 176/78 04/24/21 08:42 Pulse Ox 94 L 04/24/21 08:42 Intake & Output 04/23/21 04/24/21 04/24/21 18:59 06:59 18:59 Output Total 400 950 Balance -400 -950 Weight 59.5 kg Output: Urine 400 950 Other: Voiding Method Diaper Diaper External Catheter External Catheter - Exam GENERAL EXAM: Alert, very pleasant, 81-year-old white female, on 4 L of oxygen with a pulse ox of 94% comfortable in no apparent distress. HEAD: Normocephalic/atraumatic. EYES: Normal reaction of pupils, equal size. Conjunctiva pink, sclera white. NOSE: Clear with pink turbinates. THROAT: No erythema or exudates. NECK: No masses, no JVD, no thyroid enlargement, no adenopathy. CHEST: No chest wall deformity. Symmetrical expansion. LUNGS: Equal air entry with diminished breath sounds on the mild bibasilar crackles CVS: Regular rate and rhythm, normal S1 and S2, no gallops, no murmurs, no rubs ABDOMEN: Soft, nontender. No hepatosplenomegaly, normal bowel sounds, no guarding or rigidity. EXTREMITIES: No clubbing, no edema, no cyanosis, 2+ pulses and upper and lower extremities. MUSCULOSKELETAL: Muscle strength and tone normal. SPINE: No scoliosis or deformity SKIN: No rashes CENTRAL NERVOUS SYSTEM: Alert and oriented -3. No focal deficits, tone is normal in all 4 extremities. PSYCHIATRIC: Alert and oriented -3. Appropriate affect. Intact judgment and insight. - Labs CBC & Chem 7: 04/22/21 09:51 04/24/21 03:58 Labs: Abnormal Lab Results - Last 24 Hours (Table) 04/24/21 04/24/21 Range/Units 03:58 03:58 Carbon Dioxide 32 H (22-30) mmol/L BUN 18 H (7-17) mg/dL Glucose 115 H (74-99) mg/dL Procalcitonin 0.55 H (0.02-0.09) ng/mL Microbiology - Last 24 Hours (Table) 04/21/21 16:10 Blood Culture - Preliminary Blood No Growth after 48 hours Assessment and Plan Plan: Assessment: #1. Acute exacerbation of COPD and purulent tracheobronchitis rule out possibility of underlying interstitial pneumonia. Chest x-ray is showing chronic pulmonary fibrosis, no acute lung disease, COVID-19 and influenza A and B were negative #2. Acute leukocytosis related to the above, improving #3. Status post completed COVID 19 vaccination #4. Chronic CHF with diastolic dysfunction #5. History of advanced COPD and pulmonary fibrosis, patient is currently up to 4 L of oxygen on a regular basis #6. Previous history of smoking in remission since 2013, does carry [id number] smoking history #7. Coronary artery disease with previous history of stenting #8. Hypertension #9. Hypothyroidism #10. Chronic back pain #11. Depression #12. Resident of a local [facility] #13. Staph epidermidis and not single blood culture, possibly a skin contaminant, vancomycin will be discontinued, patient is maintained on Levaquin Plan: Still dyspneic, bronchospastic Very weak No acute events, Continue current antibiotic coverage Today's pro-calcitonin level has improved no fevers overnight Continue IV steroids The patient is quite weak, Patient may need to be considered for outpatient rehab after discharge I performed a history & physical examination of the patient and discussed their management with my nurse practitioner, Aviva Delacruz. I reviewed the nurse practitioner's note and agree with the documented findings and plan of care. Lung sounds are positive for mild crackles throughout the lung lainez. The findings and the impression was discussed with the patient. I attest to the documentation by the nurse practitioner. Time with Patient: Less than 30
--- NOTE | 2021-04-24 15:49 | P.PN ---
Subjective Progress Note Date: 04/23/21 This is an 81-year-old female resident of [facility], presented to the ER with worsening dyspnea, hypoxia, wheezing 3 weeks with occasional cough, worsened with exertion. Failed outpatient treatment, steroids, antibiotics-Levaquin. Denies chest pain, palpitations, nausea vomiting, diarrhea, abdominal pain Patient is a poor historian. Lactic acid negative, Covid/flu negative. Labs unremarkable with the exception of WBC of 35.5, suspect related to prior prednisone she had been on at the [facility]. On admission required 6 L nasal cannula to maintain O2 sats in the 90s in a patient who normally is maintained on 2 L nasal cannula O2. Chest x-ray reporting coarsening of interstitial markings ,pulmonary fibrotic changes, no acute lung disease, no change compared to prior exam, no obvious heart failure. IV steroids, nebulized bronchodilators and antibiotics initiated in the ER. 04/23/2021 maintaining O2 sats in the 90s on 4 L nasal cannula with exertional shortness of breath reported. Patient is on Effexor,complains of breakthrough anxiety/panic attacks. Antibiotics adjusted with vancomycin discontinued as blood culture reported Staphylococcus epidermidis. Procalcitonin 1.73. Continues on Levaquin, nebulized bronchodilators and IV steroids. Afebrile. Potassium 5.5, repeat ordered. Renal function stable. Objective - Vital Signs Vital signs: Vital Signs Temp 97.0 F L 04/23/21 13:32 Pulse 80 04/23/21 16:57 Resp 18 04/23/21 13:32 BP 150/73 04/23/21 13:32 Pulse Ox 93 L 04/23/21 13:32 Intake & Output 04/22/21 04/23/21 04/23/21 18:59 06:59 18:59 Output Total 350 400 Balance -350 -400 Weight 54.5 kg Output: Urine 350 400 Other: Voiding Method Diaper External Catheter # Voids 1 # Bowel Movements 1 - Exam PHYSICAL EXAM: VITAL SIGNS: As above GENERAL: Sitting up in bed, no acute distress, O2 sat at baseline-4 L nasal cannula HEENT: Conjunctivae normal. eyes normal. NECK: No JVD. No thyroid enlargement. No LNs CARDIOVASCULAR: S1, S2 regular. No murmur RESPIRATION: Breath sounds diminished in the bases. Fine bibasilar crackles. ABDOMEN: Soft, nontender . No guarding. no masses palpable.Positive Bowel sounds. LEGS: No edema. no swelling PSYCHIATRY: Alert and oriented X3, mood and affect normal. NERVOUS SYSTEM: Cranial N 2-12 grossly normal. Moves all 4 limbs. Diffuse weakness,No focal deficits. Strength and sensation grossly intact.. Skin: Warm and dry, no rash - Labs CBC & Chem 7: 04/22/21 09:51 04/24/21 03:58 Labs: Abnormal Lab Results - Last 24 Hours (Table) 04/22/21 04/23/21 Range/Units 09:51 05:04 Sodium 135 L (137-145) mmol/L Potassium 5.5 H (3.5-5.1) mmol/L Chloride 97 L (98-107) mmol/L BUN 20 H (7-17) mg/dL Glucose 128 H (74-99) mg/dL Procalcitonin 1.73 H (0.02-0.09) ng/mL Microbiology - Last 24 Hours (Table) 04/21/21 16:27 Blood Culture Gram Stain - Final Blood Blood Culture - Preliminary Staphylococcus epidermidis 04/21/21 16:10 Blood Culture - Preliminary Blood No Growth after 24 hours 04/21/21 16:27 Blood Culture - Final Blood Assessment and Plan Assessment: Acute COPD exacerbation with purulent tracheobronchitis, failed outpatient treatment. Acute on chronic hypoxic respiratory failure secondary to the above, wears 2 L nasal cannula at home. Acute Leukocytosis, suspect steroid-induced from recent steroid use and the above Advanced COPD, pulmonary fibrosis, history of [id number] smoking history, quit in 2013 Hypertension Hyperlipidemia Hypothyroidism Generalized anxiety disorder Recurrent depression CAD, history of stenting Chronic back pain Osteoarthritis COVID-19 negative ECF resident Anxiety, history of Plan: Continue current medication regime, monitoring and symptomatically treatment. PT/OT .Maintain aggressive pulmonary toileting, nebulized bronchodilators, steroids. Xanax added as per PCP for anxiety/panic attacks and will need to be further addressed outpatient in clinic as patient states her Effexor does not appear to be helping her anymore. The impression and plan of care has been dictated as directed. : I performed a history and examination of this patient, discussed the same with the dictator. I agree with the dictator's note ,documented as a scribe. Any additional findings or plans will be noted.
--- NOTE | 2021-04-24 15:55 | P.PN ---
Subjective Progress Note Date: 04/24/21 This is an 81-year-old female resident of [facility], presented to the ER with worsening dyspnea, hypoxia, wheezing 3 weeks with occasional cough, worsened with exertion. Failed outpatient treatment, steroids, antibiotics-Levaquin. Denies chest pain, palpitations, nausea vomiting, diarrhea, abdominal pain Patient is a poor historian. Lactic acid negative, Covid/flu negative. Labs unremarkable with the exception of WBC of 35.5, suspect related to prior prednisone she had been on at the [facility]. On admission required 6 L nasal cannula to maintain O2 sats in the 90s in a patient who normally is maintained on 2 L nasal cannula O2. Chest x-ray reporting coarsening of interstitial markings ,pulmonary fibrotic changes, no acute lung disease, no change compared to prior exam, no obvious heart failure. IV steroids, nebulized bronchodilators and antibiotics initiated in the ER. 04/23/2021 maintaining O2 sats in the 90s on 4 L nasal cannula with exertional shortness of breath reported. Patient is on Effexor,complains of breakthrough anxiety/panic attacks. Antibiotics adjusted with vancomycin discontinued as blood culture reported Staphylococcus epidermidis. Procalcitonin 1.73. Continues on Levaquin, nebulized bronchodilators and IV steroids. Afebrile. Potassium 5.5, repeat ordered. Renal function stable. 04/24/2021 better air entry today. Maintained on Levaquin with pro-calcitonin trending down, 0.55. Afebrile. Continues on nebulized bronchodilators, steroids. Patient is at baseline on O2, maintaining O2 sats of 99% on 4 L nasal cannula. Reports her exertional shortness of breath is at baseline. Renal function stable. Fragile, weak. PT/OT evaluation pending. Objective - Vital Signs Vital signs: Vital Signs Temp 97.5 F L 04/24/21 14:00 Pulse 80 04/24/21 15:24 Resp 18 04/24/21 14:00 BP 172/75 04/24/21 14:00 Pulse Ox 95 04/24/21 14:00 Intake & Output 04/23/21 04/24/21 04/24/21 18:59 06:59 18:59 Output Total 400 950 Balance -400 -950 Weight 59.5 kg Output: Urine 400 950 Other: Voiding Method Diaper Diaper External Catheter External Catheter - Exam PHYSICAL EXAM: VITAL SIGNS: As above GENERAL: Sitting up at side of bed, no acute distress, O2 sat at baseline-4 L nasal cannula HEENT: Conjunctivae normal. eyes normal. Oral mucosa moist. NECK: No JVD. No thyroid enlargement. No LNs CARDIOVASCULAR: S1, S2 regular. No murmur RESPIRATION: Breath sounds diminished in the bases. Fine bibasilar crackles. ABDOMEN: Soft, nontender . No guarding. no masses palpable.Positive Bowel sounds. LEGS: No edema. no swelling PSYCHIATRY: Alert and oriented X3, mood and affect normal. NERVOUS SYSTEM: Cranial N 2-12 grossly normal. Moves all 4 limbs. Diffuse weakness,No focal deficits. Strength and sensation grossly intact.. Skin: Warm and dry, no rash - Labs CBC & Chem 7: 04/22/21 09:51 04/24/21 03:58 Labs: Abnormal Lab Results - Last 24 Hours (Table) 04/24/21 04/24/21 Range/Units 03:58 03:58 Carbon Dioxide 32 H (22-30) mmol/L BUN 18 H (7-17) mg/dL Glucose 115 H (74-99) mg/dL Procalcitonin 0.55 H (0.02-0.09) ng/mL Microbiology - Last 24 Hours (Table) 04/21/21 16:27 Blood Culture Gram Stain - Final Blood Blood Culture - Final Staphylococcus epidermidis 04/21/21 16:10 Blood Culture - Preliminary Blood No Growth after 48 hours Assessment and Plan Assessment: Acute COPD exacerbation with purulent tracheobronchitis, failed outpatient treatment. Acute on chronic hypoxic respiratory failure secondary to the above, wears 2 L nasal cannula at home. Acute Leukocytosis, suspect steroid-induced from recent steroid use and the above Advanced COPD, pulmonary fibrosis, history of [id number] smoking history, quit in 2013 Hypertension Hyperlipidemia Hypothyroidism Generalized anxiety disorder Recurrent depression CAD, history of stenting Chronic back pain Osteoarthritis COVID-19 negative ECF resident Anxiety, history of Plan: Continue current medication regime, monitoring and symptomatically treatme nt. PT/OT .Maintain aggressive pulmonary toileting, nebulized bronchodilators, steroids. Xanax added as per PCP for anxiety/panic attacks and will need to be further addressed outpatient in clinic as patient states her Effexor does not appear to be helping her anymore. Discharge planning in progress for return to [facility] subacute rehab., Possibly tomorrow pending final DC recommendations and clearance per pulmonary. The impression and plan of care has been dictated as directed. : I performed a history and examination of this patient, discussed the same with the dictator. I agree with the dictator's note ,documented as a scribe. Any additional findings or plans will be noted.
[2021-04-24 20:29] LABS: Appearance,Urine Clear (Clear); Bacteria,Urine Rare /hpf; Bilirubin,Urine Negative (Negative); Blood,Urine Negative (Negative); Color,Urine Light Yellow; Glucose,Urine (UA) Negative (Negative); Ketones,Urine Negative (Negative); Leukocyte Esterase,Urine Moderate (Negative); Nitrite,Urine Negative (Negative); Protein,Urine Negative (Negative); RBC,Urine 1 /hpf (0-5); Urobilinogen,Urine <2.0 mg/dL (<2.0); WBC,Urine 21 /hpf (0-5)
[2021-04-24] MEDS: LEVOFLOXACIN 250 MG TAB PO SCH (22:12)
[2021-04-24] MEDS: MONTELUKAST 10 MG TAB PO SCH (22:12)
[2021-04-24] MEDS: ATORVASTATIN 40 MG TAB PO SCH (22:12)
[2021-04-25] MEDS: methylPREDNISolone SOD SUCCI 40 MG/ML 1 ML VIAL IV SCH ×3 (00:40→14:16)
[2021-04-25] MEDS: IPRATROPIUM-ALBUTEROL 3 ML NEB INHALATION SCH ×3 (03:32→11:16)
[2021-04-25] MEDS: PANTOPRAZOLE 40 MG TABLET PO SCH (05:53)
[2021-04-25] MEDS: LEVOTHYROXINE 50 MCG TAB PO SCH (05:53)
[2021-04-25] MEDS ORDERED: SODIUM CHLORIDE 0.65% NASAL SPRAY 44 ML BTL NASAL PRN (07:00)
[2021-04-25] MEDS: BUDESONIDE 1 MG/2 ML NEBU INHALATION SCH (07:41)
[2021-04-25] MEDS: FORMOTEROL FUMARATE 20 MCG/2 ML NEBU INHALATION SCH (07:41)
[2021-04-25] MEDS: HEPARIN SODIUM,PORCINE/PF 5,000 UNIT/0.5 ML SYRINGE SQ SCH ×2 (08:27→08:43)
[2021-04-25] MEDS: CLOPIDOGREL 75 MG TAB PO SCH (08:28)
[2021-04-25] MEDS: ASPIRIN 81 MG PO SCH (08:28)
[2021-04-25] MEDS: LORATADINE 10 MG TAB PO SCH (08:28)
[2021-04-25] MEDS: SENNOSIDES-DOCUSATE SODIUM 1 EACH TAB PO SCH (08:28)
[2021-04-25] MEDS: VENLAFAXINE HCL ER 150 MG CAP PO SCH (08:28)
[2021-04-25] MEDS: lisinopriL 20 MG TAB PO SCH ×2 (08:28→08:50)
[2021-04-25] MEDS: METOPROLOL TARTRATE 25 MG TAB PO SCH (08:28)
[2021-04-25] MEDS: guaiFENesin 600 MG TABLET.ER PO SCH (08:28)
[2021-04-25] MEDS: CYANOCOBALAMIN 500 MCG TAB PO SCH (08:30)
--- NOTE | 2021-04-25 09:49 | P.DS ---
Providers Date of admission: 04/21/21 16:38 Expected date of discharge: 04/25/21 Attending physician: Len Shankar Consults: 04/21/21 16:39 Consult Physician Routine Consulting Provider: Viktoria Potter Consult Reason/Comments: copd exacerbation, acute on chronic hypoxic respiratory failure Do you want consulting provider notified?: Yes Primary care physician: Arthur Corral Hospital Course: Final Diagnoses: Acute COPD exacerbation with purulent tracheobronchitis, failed outpatient treatment. Acute on chronic hypoxic respiratory failure secondary to the above, wears 2 L nasal cannula at home. Acute Leukocytosis, suspect steroid-induced from recent steroid use and the above Advanced COPD, pulmonary fibrosis, history of [id number] smoking history, quit in 2013 Hypertension Hyperlipidemia Hypothyroidism Generalized anxiety disorder Recurrent depression CAD, history of stenting Chronic back pain Osteoarthritis COVID-19 negative [facility] resident Anxiety, history of Hospital course:This is an 81-year-old female resident of [facility], presented to the ER with worsening dyspnea, hypoxia, wheezing 3 weeks with occasional cough, worsened with exertion. Failed outpatient treatment, steroids, antibiotics-Levaquin. Denies chest pain, palpitations, nausea vomiting, diarrhea, abdominal pain Patient is a poor historian. Lactic acid negative, Covid/flu negative. Labs unremarkable with the exception of WBC of 35.5, suspect related to prior prednisone she had been on at the [facility]. On admission required 6 L nasal cannula to maintain O2 sats in the 90s in a patient who normally is maintained on 2 L nasal cannula O2. Chest x-ray reporting coarsening of interstitial markings ,pulmonary fibrotic changes, no acute lung disease, no change compared to prior exam, no obvious heart failure. IV steroids, nebulized bronchodilators and antibiotics initiated in the ER. 04/23/2021 maintaining O2 sats in the 90s on 4 L nasal cannula with exertional shortness of breath reported. Patient is on Effexor,complains of breakthrough anxiety/panic attacks. Antibiotics adjusted with vancomycin discontinued as blood culture reported Staphylococcus epidermidis. Procalcitonin 1.73. Continues on Levaquin, nebulized bronchodilators and IV steroids. Afebrile. Potassium 5.5, repeat ordered. Renal function stable. 04/24/2021 better air entry today. Maintained on Levaquin with pro-calcitonin trending down, 0.55. Afebrile. Continues on nebulized bronchodilators, steroids. Patient is at baseline on O2, maintaining O2 sats of 99% on 4 L nasal cannula. Reports her exertional shortness of breath is at baseline. Renal function stable. Fragile, weak. PT/OT evaluation pending. Significant clinical improvement. Oxygen weaned down to 2 L nasal cannula( baseline) maintaining O2 sats in the 90s. Afebrile. Denies chest pain, palpitations. Patient will be discharged to [facility] today in a stable condition with guarded prognosis pending final DC recommendations and clearance per pulmonary. The impression and plan of care has been dictated as directed. : I performed a history and examination of this patient, discussed the same with the dictator. I agree with the dictator's note ,documented as a scribe. Any additional findings or plans will be noted. Patient Condition at Discharge: Stable Plan - Discharge Summary Discharge Rx Participant: No New Discharge Prescriptions: New Sodium Chloride 0.65% Nasal [Deep Sea (Saline)] 2 spray NASAL QID PRN ml PRN Reason: Dry Nasal Passages predniSONE 10 mg PO DIRECTED #1 tab Acetaminophen Tab [Tylenol] 650 mg PO Q6HR PRN tab PRN Reason: Mild Pain Or Fever > 100.5 Continue Venlafaxine HCl [Effexor XR] 150 mg PO DAILY@0900 Ubidecarenone [Co Q-10] 100 mg PO DAILY@0900 Clopidogrel [Plavix] 75 mg PO DAILY@0900 Atorvastatin [Lipitor] 40 mg PO HS@2100 Metoprolol Tartrate [Lopressor] 25 mg PO BID@0900,2100 Aspirin EC [Ecotrin Low Dose] 81 mg PO DAILY@0900 Levothyroxine Sodium [Synthroid] 50 mcg PO DAILY@0600 Budesonide 1 mg INHALATION RT-BID@0900,2100 Cetirizine HCl [Zyrtec] 10 mg PO DAILY@0900 Formoterol Fumarate [Perforomist] 20 mcg INHALATION RT-BID@0600,1800 Ipratropium-Albuterol Nebulize [Duoneb 0.5 mg-3 mg/3 ml Soln] 3 ml INHALATION RT-Q4H PRN PRN Reason: Shortness Of Breath lisinopriL [Zestril] 20 mg PO BID@0900,2100 Montelukast [Singulair] 10 mg PO HS@2100 hydrALAZINE HCL 50 mg PO BID PRN PRN Reason: SBP > 160 guaiFENesin [Mucinex] 600 mg PO BID@899,2099 Cyanocobalamin [Vitamin B-12] 500 mcg PO DAILY@09 Ergocalciferol (Vitamin D2) [Drisdol (50,000 Iu)] 1,250 mcg PO SA@0900 Pantoprazole Sodium [Protonix] 20 mg PO DAILY@0600 Acetaminophen [Tylenol Arthritis] 650 mg PO Q4H PRN PRN Reason: GENERAL DISCOMFORT Melatonin 5 mg PO HS PRN PRN Reason: Insomnia Sennosides/Docusate Sodium [Senna Plus 8.6-50 mg Tablet] 2 tab PO DAILY@0900 Dextran 70/Hypromellose [Genteal Tears 0.1%-0.3% Drop] 1 drop BOTH EYES Q12H PRN PRN Reason: Dry Eye(S) Ipratropium-Albuterol Nebulize [Duoneb 0.5 mg-3 mg/3 ml Soln] 3 ml INHALATION RT-QID ml Levofloxacin [Levaquin] 250 mg PO DAILY@09 Meclizine [Antivert] 12.5 mg PO Q8H PRN PRN Reason: DIZZINESS Changed predniSONE 10 mg PO DAILY@0900 #0 Discharge Medication List Aspirin EC [Ecotrin Low Dose] 81 mg PO DAILY@0904/18/18 [History] Atorvastatin [Lipitor] 40 mg PO HS@209904/18/18 [History] Clopidogrel [Plavix] 75 mg PO DAILY@0904/18/18 [History] Levothyroxine Sodium [Synthroid] 50 mcg PO DAILY@0604/18/18 [History] Metoprolol Tartrate [Lopressor] 25 mg PO BID@0900,209904/18/18 [History] Ubidecarenone [Co Q-10] 100 mg PO DAILY@89904/18/18 [History] Venlafaxine HCl [Effexor XR] 150 mg PO DAILY@89904/18/18 [History] Budesonide 1 mg INHALATION RT-BID@0900,209905/07/19 [History] Cetirizine HCl [Zyrtec] 10 mg PO DAILY@89905/07/19 [History] Formoterol Fumarate [Perforomist] 20 mcg INHALATION RT-BID@0600,1800 05/07/19 [History] Ipratropium-Albuterol Nebulize [Duoneb 0.5 mg-3 mg/3 ml Soln] 3 ml INHALATION RT-Q4H PRN 05/07/19 [History] Montelukast [Singulair] 10 mg PO HS@209905/07/19 [History] lisinopriL [Zestril] 20 mg PO BID@899,209905/07/19 [History] Cyanocobalamin [Vitamin B-12] 500 mcg PO DAILY@89901/10/20 [History] Ergocalciferol (Vitamin D2) [Drisdol (50,000 Iu)] 1,250 mcg PO SA@89901/10/20 [History] guaiFENesin [Mucinex] 600 mg PO BID@899,209901/10/20 [History] hydrALAZINE HCL 50 mg PO BID PRN 01/10/20 [History] Dextran 70/Hypromellose [Genteal Tears 0.1%-0.3% Drop] 1 drop BOTH EYES Q12H PRN 01/25/21 [History] Melatonin 5 mg PO HS PRN 01/25/21 [History] Pantoprazole Sodium [Protonix] 20 mg PO DAILY@0601/25/21 [History] Sennosides/Docusate Sodium [Senna Plus 8.6-50 mg Tablet] 2 tab PO DAILY@0900 1 [History] Ipratropium-Albuterol Nebulize [Duoneb 0.5 mg-3 mg/3 ml Soln] 3 ml INHALATION RT-QID ml 01/28/21 [Rx] Acetaminophen [Tylenol Arthritis] 650 mg PO Q4H PRN 04/21/21 [History] Levofloxacin [Levaquin] 250 mg PO DAILY@0900 04/21/21 [History] Meclizine [Antivert] 12.5 mg PO Q8H PRN 04/21/21 [History] Acetaminophen Tab [Tylenol] 650 mg PO Q6HR PRN tab 04/25/21 [Rx] Sodium Chloride 0.65% Nasal [Deep Sea (Saline)] 2 spray NASAL QID PRN ml 04/25/21 [Rx] predniSONE 10 mg PO DIRECTED #1 tab 04/25/21 [Rx] predniSONE 10 mg PO DAILY@0900 #0 04/25/21 [Rx] Follow up Appointment(s)/Referral(s): Arthur Corral MD [Primary Care Provider] - 3 Days Activity/Diet/Wound Care/Special Instructions: Jag cbc,bmp in 3 days
[2021-04-25 09:51] LABS: African American GFR (CKD) 80.7 (60.0-200.0); Anion Gap 9.8 mmol/L (10.00-18.00); BUN/Creat Ratio 19.88 Ratio (12.00-20.00); Blood Urea Nitrogen 15.9 mg/dL (9.0-27.0); Calcium 9.8 mg/dL (8.7-10.3); Carbon Dioxide 30.2 mmol/L (20.0-27.5); Non-African American GFR(CKD) 69.6 (60.0-200.0)
[2021-04-25] MEDS: ALPRAZolam 0.25 MG TAB PO PRN (12:42)
--- NOTE | 2021-04-25 14:26 | P.PN ---
Subjective Progress Note Date: 04/25/21 Principal diagnosis: Dyspnea 81-year-old female patient of Dr. Corral with past medical history of COPD, pulmonary fibrosis, lately her oxygen requirement had increased to 4 L on a regular basis, history of chronic CHF, previous history of myocardial infarction, hypothyroidism, hypertension, osteoarthritis, and a former smoker, patient presented emergency department on 04/21/2021 with complaints of increasing shortness of breath for the past 3 weeks, chest congestion, cough however she is not able to bring up any phlegm. She denies any chest pain, no hemoptysis, no leg edema, no nausea vomiting or diarrhea. She has completed COVID-19 vaccination, she has received 2 injections of Moderna vaccine and booster. Chest x-ray showed pulmonary fibrotic changes, no acute lung disease, no obvious heart failure. She'll labs have been reviewed showing evidence of acute leukocytosis with white blood cell count of 35.5, hemoglobin 12.7, platelet count of 388, neutrophils of 33, lymphocytes of 0.71, coagulation profile was within normal limits, sodium is 134, potassium is 4.9, chloride is 96, BUN of 15, creatinine 0.86, LFTs were within normal limits, lactic acid was 1.7, COVID-19 PCR was negative, influenza A and B were negative. Patient was started on nebulized bronchodilators, empiric antibiotics in the form of Levaquin and IV steroids with Solu-Medrol 40 mg every 6 hours, she still coughing, however she is feeling better, she is resting comfortably on the gu rney in the emergency department and she is awaiting a bed on the floor. On 04/23/2021 patient is seen in follow-up on medical surgical floor, she is awake and alert, in no acute distress , she is currently on 4 L of oxygen, lung sounds reveal a few scattered wheezes, she does have some shortness of breath with activity but overall improving, she has 0.9 normal saline at 20 ML per hour, no other drips, vital signs have been stable, no fever or chills, today's labs have been reviewed showing sodium of 135, potassium is 5.5, chloride is 97, B1 is 20, creatinine 0.84. ProCalcitonin level was elevated at 1.73, influenza A and B were negative. Blood culture showed Staphylococcus epidermidis, patient initially was put on vancomycin, vancomycin is discontinued now. Patient remains on Levaquin. She is on IV steroids with Solu-Medrol 40 mg every 6 hours, nebulized bronchodilators. On 04/24/2021 patient seen in follow-up on medical surgical floor, she still was short of breath with any exertion, but looks but she is more comfortable today, coughing up some yellow colored phlegm, she is on 4 L of oxygen pulse ox is 94%, rule out sounds reveal coarse diffuse rales bilaterally. She still is very weak, dyspneic with any exertion, she has not been up out of bed much, she is on point and was seen at 20 ML per hour, continues on IV steroids, and breathing treatments, she remains on Levaquin for empiric antibiotic coverage. On 04/25/2021 patient seen in follow-up on medical surgical floor, she sits up in the recliner, breathing much more comfortably, still slightly dyspneic with exertion however less dyspneic and bronchospastic, occasional cough, no compressive chest pain, vital signs have been stable, no acute events overnight. She is currently on 2 L of oxygen pulse ox is 97%, afebrile. His labs have been reviewed, sodium is 139, potassium is 5.0, chloride is 99, BUN is 15.9, creatinine 0.8, urinalysis showed moderate leuks, and elevated white blood cells at 21, pro calcitonin levels and was down to 0.55 on yesterday's labs, patient remains on Levaquin for empiric antibiotic coverage, she remains on DuoNeb, Pulmicort, Perforomist, and Solu-Medrol 40 mg every 6 hours. Objective - Vital Signs Vital signs: Vital Signs Temp 97.4 F L 04/25/21 08:00 Pulse 75 04/25/21 11:24 Resp 18 04/25/21 11:24 BP 187/78 04/25/21 08:00 Pulse Ox 97 04/25/21 08:00 Intake & Output 04/24/21 04/25/21 04/25/21 18:59 06:59 18:59 Output Total 900 800 Balance -900 -800 Weight 60 kg Output: Urine 900 800 Other: Voiding Method Diaper External Catheter # Voids 2 - Exam GENERAL EXAM: Alert, very pleasant, 81-year-old white female, on 4 L of oxygen with a pulse ox of 97% comfortable in no apparent distress. HEAD: Normocephalic/atraumatic. EYES: Normal reaction of pupils, equal size. Conjunctiva pink, sclera white. NOSE: Clear with pink turbinates. THROAT: No erythema or exudates. NECK: No masses, no JVD, no thyroid enlargement, no adenopathy. CHEST: No chest wall deformity. Symmetrical expansion. LUNGS: Equal air entry with diminished breath sounds on the mild bibasilar crackles CVS: Regular rate and rhythm, normal S1 and S2, no gallops, no murmurs, no rubs ABDOMEN: Soft, nontender. No hepatosplenomegaly, normal bowel sounds, no guarding or rigidity. EXTREMITIES: No clubbing, no edema, no cyanosis, 2+ pulses and upper and lower extremities. MUSCULOSKELETAL: Muscle strength and tone normal. SPINE: No scoliosis or deformity SKIN: No rashes CENTRAL NERVOUS SYSTEM: Alert and oriented -3. No focal deficits, tone is normal in all 4 extremities. PSYCHIATRIC: Alert and oriented -3. Appropriate affect. Intact judgment and insight. - Labs CBC & Chem 7: 04/22/21 09:51 04/25/21 05:48 Labs: Abnormal Lab Results - Last 24 Hours (Table) 04/24/21 04/25/21 Range/Units 20:10 05:48 Carbon Dioxide 30.2 H (20.0-27.5) mmol/L Anion Gap 9.80 L (10.00-18.00) mmol/L Glucose 122 H (70-110) mg/dL Ur Leukocyte Esterase Moderate H (Negative) Urine WBC 21 H (0-5) /hpf Urine Bacteria Rare H (None) /hpf Microbiology - Last 24 Hours (Table) 04/24/21 20:10 Urine Culture - Preliminary Urine,Clean Catch 04/21/21 16:10 Blood Culture - Preliminary Blood No Growth after 72 hours 04/21/21 16:27 Blood Culture Gram Stain - Final Blood Blood Culture - Final Staphylococcus epidermidis Assessment and Plan Plan: Assessment: #1. Acute exacerbation of COPD and purulent tracheobronchitis rule out possibility of underlying interstitial pneumonia. Chest x-ray is showing chronic pulmonary fibrosis, no acute lung disease, COVID-19 and influenza A and B were negative #2. Acute leukocytosis related to the above, improving #3. Status post completed COVID 19 vaccination #4. Chronic CHF with diastolic dysfunction #5. History of advanced COPD and pulmonary fibrosis, patient is currently up to 4 L of oxygen on a regular basis #6. Previous history of smoking in remission since 2013, does carry 50-pack- year smoking history #7. Coronary artery disease with previous history of stenting #8. Hypertension #9. Hypothyroidism #10. Chronic back pain #11. Depression #12. Resident of a local F #13. Staph epidermidis and not single blood culture, possibly a skin contaminant, vancomycin will be discontinued, patient is maintained on Levaquin Plan: Patient is doing much better on today's exam Breathing easier Currently on 2 L of oxygen Vital signs have been stable, she's been afebrile She is up in the chair, tolerating activity well But generally patient remains weak No acute events, Currently discharge planning is in progress for discharge to [facility] I performed a history & physical examination of the patient and discussed their management with my nurse practitioner, Aviva Delacruz. I reviewed the nurse practitioner's note and agree with the documented findings and plan of care. Lung sounds are positive for mild crackles throughout the lung lainez. The findings and the impression was discussed with the patient. I attest to the documentation by the nurse practitioner. Time with Patient: Less than 30
[2021-04-25 15:01] VITALS: BP 150/55; PULSE 80; RESP 19; TEMP 97.7
[2021-04-27] MEDS ORDERED: ERGOCALCIFEROL 1,250 MCG (50,000 IU) CAPSULE PO SCH (09:00)
== END 2021-04-25 15:33 | DRG 190 ==
LOC: EC 13:21 → 4SSUR 16:38
PROVIDERS: ADMIT Family Medicine; ATTEND Family Medicine
DX: J44.1 Chronic obstructive pulmonary disease with (acute) exacerbation (principal); J96.21 Acute and chronic respiratory failure with hypoxia; F33.9 Major depressive disorder, recurrent, unspecified; I50.32 Chronic diastolic (congestive) heart failure; J44.0 Chronic obstructive pulmonary disease with (acute) lower respiratory infection; Z20.822 Contact with and (suspected) exposure to COVID-19; E03.9 Hypothyroidism, unspecified; E78.5 Hyperlipidemia, unspecified; F41.0 Panic disorder [episodic paroxysmal anxiety]; F41.1 Generalized anxiety disorder; G89.29 Other chronic pain; H91.90 Unspecified hearing loss, unspecified ear; I11.0 Hypertensive heart disease with heart failure; J84.10 Pulmonary fibrosis, unspecified; M19.90 Unspecified osteoarthritis, unspecified site; M54.9 Dorsalgia, unspecified; I25.10 Atherosclerotic heart disease of native coronary artery without angina pectoris; Z95.5 Presence of coronary angioplasty implant and graft; I25.2 Old myocardial infarction; Z99.81 Dependence on supplemental oxygen; Z79.02 Long term (current) use of antithrombotics/antiplatelets; Z79.82 Long term (current) use of aspirin; Z79.890 Hormone replacement therapy; Z88.0 Allergy status to penicillin; Z88.8 Allergy status to other drugs, medicaments and biological substances; Z79.899 Other long term (current) drug therapy; Z87.891 Personal history of nicotine dependence; Z80.1 Family history of malignant neoplasm of trachea, bronchus and lung; Z82.3 Family history of stroke; Z82.49 Family history of ischemic heart disease and other diseases of the circulatory system; Z83.3 Family history of diabetes mellitus
CPT/HCPCS: 36415; 71045; 71046; 80048; 80053; 81001; 83605; 83735; 83880; 84145; 85025; 85027; 85610; 85730; 87040; 87086; 87502; 87635; 93005; 94640; 96374; 96375; 99285

== ENCOUNTER → 2022-02-13 | Outpatient (CLI) | payer MEDICARE, BC, OTHER ==
--- NOTE | 2022-02-13 12:09 | CT ---
EXAMINATION TYPE: CT chest w con CT DLP: 412 mGycm, Automated exposure control for dose reduction was used. DATE OF EXAM: 02/13/2022 11:57 AM COMPARISON: CTA chest 01/10/2020. CLINICAL INDICATION:Female, 82 years old with history of R91.1 Lung nodule. TECHNIQUE: Multiple axial images were obtained through the chest following the administration of 70 c c of Isovue 300. Coronal and sagittal reformats reviewed. FINDINGS: LUNGS/ PLEURA: Biapical pleural-parenchymal scarring. Moderate to severe centrilobular emphysematous changes. No pneumothorax or pleural effusion. There is a nodular consolidation abutting the pleura a nd the major fissure within the right upper lobe (series 4, image 18). This measures 1.[address] able right upper lobe 5 mm nodule with central calcification (series 4, image 12). AIRWAY: Patent and unremarkable.. HEART: Size within normal limits. No pericardial effusion. Coronary artery calcifications. Aortic sommer vular and mitral annulus calcifications. MEDIASTINUM: No gross evidence of adenopathy. VASCULATURE: No aortic aneurysm. Atherosclerotic calcification of the aorta and its branches. MUSCULOSKELETAL: No acute osseous abnormalities. Chronic-appearing central compression deformity of t he superior endplate of T4 with sclerosis identified. Moderate multilevel degenerative disc disease. SOFT TISSUES/LYMPH NODES: Unremarkable. LOWER NECK: No significant findings. UPPER ABDOMEN: Small hiatal hernia. IMPRESSION: 1. Interval development of right upper lobe peripheral nodular consolidation measuring up 1.3 cm. Fol low-up CT chest in 3 months is recommended. 2. Stable right upper lobe pulmonary nodule with central calcification, may represent a hamartoma. 3. Moderate to severe COPD changes.
== END | disposition home or self-care (01) ==
LOC: RADCTMAIN 10:41
PROVIDERS: ATTEND Internal Medicine Critical Care Medicine
DX: R91.1 Solitary pulmonary nodule (principal)
CPT/HCPCS: 82565; 84520; 71260; 36415; Q9967

== ENCOUNTER → 2022-02-21 | Outpatient (CLI) | payer MEDICARE, BC, OTHER ==
--- NOTE | 2022-02-21 12:11 | CT ---
EXAMINATION TYPE: CT chest w con DATE OF EXAM: 02/21/2022 COMPARISON: 02/13/2022 HISTORY: R91.1 SOLITARY PULMONARY NODULE Automated exposure control for dose reduction was used. CONTRAST: CT scan of the chest is performed with IV Contrast, patient injected with 100 mL of Isovue 300. FINDINGS: LUNGS: Bilateral apical scarring is redemonstrated. Right upper lobe pleural-based nodule is again se en and is unchanged in size and currently measures 1.3 cm x 1.0 cm. No additional pulmonary nodules a re seen. Moderate COPD changes. Emphysematous change noted as was seen previously. No focal consolida tion MEDIASTINUM: There are no greater than 1 cm hilar or mediastinal lymph nodes. No pericardial effusi on is seen. Thoracic aorta is of normal caliber. The heart is not enlarged. UPPER ABDOMEN: No significant abnormality appreciated. OTHER: No additional significant abnormality is seen. IMPRESSION: 1. Stable pleural-based nodule right upper lobe. Documented Stability over a two-year timeframe is re commended. 2. Biapical scarring. 3. COPD and underlying emphysema.
== END | disposition home or self-care (01) ==
LOC: RADCTMAIN 10:51
PROVIDERS: ATTEND Family Medicine
DX: J43.9 Emphysema, unspecified (principal); R91.1 Solitary pulmonary nodule
CPT/HCPCS: 71260; Q9967

== ENCOUNTER 2022-03-10 11:42 | Inpatient (IN) | payer MEDICARE, BC, OTHER ==
[2022-03-10] MEDS ORDERED: NITROGLYCERIN OINT 1 INCH/GM PACKET TOPICAL STA (12:09)
[2022-03-10] MEDS ORDERED: ASPIRIN 81 MG PO STA (12:09)
--- NOTE | 2022-03-10 12:37 | ED ---
General Adult HPI - General Chief complaint: GI Bleed Stated complaint: abd pain, coffee ground emesis Time Seen by Provider: 03/10/22 12:00 Source: patient, RN/MD, RN notes reviewed, old records reviewed Mode of arrival: ambulatory Limitations: altered mental status (Patient just seems very exhausted and doesn't want answer any questions at this time. Difficult to get a good history.) - History of Present Illness Initial comments: This is an 82-year-old female who was sent in from the [place] [facility] for coffee- ground emesis that started today. Patient was also complaining of abdominal pain. Patient's abdomen also looks a little distended. Patient is only on Plavix no other blood thinners. Patient herself is not giving much of the history because she seems to be exhausted. She does complain of abdominal pain. There was no mention of any fever or difficulty breathing or chest pain. Patient denied to me chest pain. There is no family member friend or caregiver with the patient in the face arrival get further history. - Related Data Home Medications Medication Instructions Recorded Confirmed Aspirin EC [Ecotrin Low Dose] 81 mg PO DAILY@89904/18/18 04/21/21 Atorvastatin [Lipitor] 40 mg PO HS@209904/18/18 04/21/21 Clopidogrel [Plavix] 75 mg PO DAILY@89904/18/18 04/21/21 Levothyroxine Sodium [Synthroid] 50 mcg PO DAILY@0604/18/18 04/21/21 Metoprolol Tartrate [Lopressor] 25 mg PO BID@0900,209904/18/18 04/21/21 Ubidecarenone [Co Q-10] 100 mg PO DAILY@89904/18/18 04/21/21 Venlafaxine HCl [Effexor XR] 150 mg PO DAILY@89904/18/18 04/21/21 Budesonide 1 mg INHALATION RT-BID@0900,209905/07/19 04/21/21 Cetirizine HCl [Zyrtec] 10 mg PO DAILY@0905/07/19 04/21/21 Formoterol Fumarate [Perforomist] 20 mcg INHALATION RT-BID@0600,1800 05/07/19 04/21/21 Ipratropium-Albuterol Nebulize 3 ml INHALATION RT-Q4H PRN 05/07/19 04/21/21 [Duoneb 0.5 mg-3 mg/3 ml Soln] Montelukast [Singulair] 10 mg PO HS@209905/07/19 04/21/21 lisinopriL [Zestril] 20 mg PO BID@899,209905/07/19 04/21/21 Cyanocobalamin [Vitamin B-12] 500 mcg PO DAILY@89901/10/20 04/21/21 Ergocalciferol (Vitamin D2) 1,250 mcg PO SA@89901/10/20 04/21/21 [Drisdol (50,000 Iu)] guaiFENesin [Mucinex] 600 mg PO BID@899,209901/10/20 04/21/21 hydrALAZINE HCL 50 mg PO BID PRN 01/10/20 04/21/21 Dextran 70/Hypromellose [Genteal 1 drop BOTH EYES Q12H PRN 01/25/21 04/21/21 Tears 0.1%-0.3% Drop] Melatonin 5 mg PO HS PRN 01/25/21 04/21/21 Pantoprazole Sodium [Protonix] 20 mg PO DAILY@59901/25/21 04/21/21 Sennosides/Docusate Sodium [Senna 2 tab PO DAILY@89901/25/21 04/21/21 Plus 8.6-50 mg Tablet] Acetaminophen [Tylenol Arthritis] 650 mg PO Q4H PRN 04/21/21 04/21/21 Levofloxacin [Levaquin] 250 mg PO DAILY@89904/21/21 04/21/21 Meclizine [Antivert] 12.5 mg PO Q8H PRN 04/21/21 04/21/21 Previous Rx's Medication Instructions Recorded Ipratropium-Albuterol Nebulize 3 ml INHALATION RT-QID ml 01/28/21 [Duoneb 0.5 mg-3 mg/3 ml Soln] Acetaminophen Tab [Tylenol] 650 mg PO Q6HR PRN tab 04/25/21 Sodium Chloride 0.65% Nasal [Deep 2 spray NASAL QID PRN ml 04/25/21 Sea (Saline)] predniSONE 10 mg PO DIRECTED #1 tab 04/25/21 predniSONE 10 mg PO DAILY@0900 #0 04/25/21 Allergies Allergy/AdvReac Type Severity Reaction Status Date / Time fluticasone Allergy Dyspnea Verified 04/21/21 14:24 [From Advair Diskus] Penicillins Allergy Rash/Hives Verified 04/21/21 14:24 salmeterol Allergy Dyspnea Verified 04/21/21 14:24 [From Advair Diskus] Review of Systems ROS Statement: Those systems with pertinent positive or pertinent negative responses have been documented in the HPI. ROS Other: All systems not noted in ROS Statement are negative. Past Medical History Past Medical History: Heart Failure, COPD, Hearing Disorder / Deafness, Hypertension, Myocardial Infarction ([place]), Osteoarthritis (OA), Respiratory Disorder Additional Past Medical History / Comment(s): HOME OXYGEN 4LNC UNDER 10YEARS, COVID unsure when Last Myocardial Infarction Date:: 2013 History of Any Multi-Drug Resistant Organisms: None Reported Past Surgical History: Appendectomy, Heart Catheterization With Stent Past Anesthesia/Blood Transfusion Reactions: No Reported Reaction Date of Last Stent Placement:: 2013 Past Psychological History: No Psychological Hx Reported Smoking Status: Former smoker Past Alcohol Use History: None Reported Past Drug Use History: None Reported - Past Family History Father Family Medical History: Prostate Disorder Additional Family Medical History / Comment(s): Father at age 80 from lung cancer with history of prostate cancer. Mother Family Medical History: Congestive Heart Failure (CHF) Additional Family Medical History / Comment(s): Mother at age 89 from heart trouble. Brother(s) Additional Family Medical History / Comment(s): Patient had a total of 6 brothers. One brother has passed and he had multiple medical problems including testicular cancer with metastatic disease to the kidneys, CVA following surgery and diabetes. Other relatives have no major medical problems that she is aware of. Patient has 2 daughters with no major medical problems. General Exam - General Exam Comments Initial Comments: GENERAL: Patient is well-developed and well-nourished. Patient is nontoxic and well- hydrated and is in mild distress. ENT: Neck is soft and supple. No significant lymphadenopathy is noted. Oropharynx is clear. Moist mucous membranes. Neck has full range of motion without eliciting any pain. EYES: The sclera were anicteric and conjunctiva were pink and moist. Extraocular movements were intact and pupils were equal round and reactive to light. Eyelids were unremarkable. PULMONARY: Unlabored respirations. Good breath sounds bilaterally. No audible rales rhonchi or wheezing was noted. CARDIOVASCULAR: There is a regular rate and rhythm without any murmurs gallops or rubs. ABDOMEN: Diffuse abdominal pain with mild distention SKIN: Skin is clear with no lesions or rashes and otherwise unremarkable. NEUROLOGIC: Patient is alert and oriented x3. Cranial nerves II through XII are grossly intact. Motor and sensory are also intact. Normal speech, volume and content. Symmetrical smile. MUSCULOSKELETAL: Normal extremities with adequate strength and full range of motion. LYMPHATICS: No significant lymphadenopathy is noted PSYCHIATRIC: Normal psychiatric evaluation. Limitations: no limitations Course Vital Signs 03/10/22 11:44 Temperature 96.4 F L Pulse Rate 77 Respiratory 24 Rate Blood Pressure 109/93 O2 Sat by Pulse 91 L Oximetry Procedures - Sepsis Sepsis Focused Exam #1 Time Sepsis Criteria Met: 14:05 Sepsis Focused Exam Date: 03/10/22 Sepsis Focused Exam Time: 14:33 Sepsis Focused Exam Complete: Yes Vital Signs & RN Notes Reviewed: Yes Capillary Refill: < 2 Seconds: Fingers Peripheral Pulses: Normal: Radial (R) Skin Color: Normal for Patient Respiratory Exam: rhonchi Cardiovascular Exam: regular rate Medical Decision Making - Medical Decision Making EKG was interpreted by me. EKG shows sinus rhythm at 87 bpm DE interval is 170 QRS is 77 QT interval 353 QTC is 397. Patient's EKG shows no obvious ST segment elevation or depression. I interpreted the computed tomography scan it showed colitis and a distended stomach. Patient also had an area in the adnexa that look like an ovarian cyst I interpreted chest x-ray showed no acute abnormality. Patient's lactic acid was up so I gave the patient 2 L of fluid which was 30 mL per KG. Patient also started on Levaquin and Flagyl. I spoke with Dr. Silva he came down and saw the patient when the patient in the unit I spoke with Dr. Potter he agreed to take the patient in the unit I wrote admitting orders I spoke with Dr. young and admitted the patient to him and consulted surgery and ICU. - Lab Data Result diagrams: 03/10/22 12:34 03/10/22 12:34 Lab Results 11/21/22 11/21/22 11/21/22 Range/Units 12:28 12:30 12:34 WBC 36.6 H (3.8-10.6) k/uL RBC 3.85 (3.80-5.40) m/uL Hgb 8.3 L (11.4-16.0) gm/dL Hct 30.1 L (34.0-46.0) % MCV 78.2 L (80.0-100.0) fL MCH 21.6 L (25.0-35.0) pg MCHC 27.6 L (31.0-37.0) g/dL RDW 18.0 H (11.5-15.5) % Plt Count 580 H (150-450) k/uL MPV 8.1 Neutrophils % (Manual) 87 % Band Neuts % (Manual) 1 % Lymphocytes % (Manual) 5 % Monocytes % (Manual) 7 % Eosinophils % (Manual) 1 % Myelocytes % 1 % Neutrophils # (Manual) 32.20 H (1.3-7.7) k/uL Lymphocytes # (Manual) 1.83 (1.0-4.8) k/uL Monocytes # (Manual) 2.56 H (0-1.0) k/uL Eosinophils # (Manual) 0.37 (0-0.7) k/uL Myelocytes # (Manual) 0.37 H (0) k/uL Nucleated RBCs 1 H (0-0) /100 WBC Manual Slide Review Performed Hypochromasia Marked Anisocytosis Slight Microcytosis Slight PT (9.0-12.0) sec INR (<1.2) APTT (22.0-30.0) sec Sodium (137-145) mmol/L Potassium (3.5-5.1) mmol/L Chloride (98-107) mmol/L Carbon Dioxide (22-30) mmol/L Anion Gap mmol/L BUN (7-17) mg/dL Creatinine (0.52-1.04) mg/dL Est GFR (CKD-EPI)AfAm (>60 ml/min/1.73 sqM) Est GFR (CKD-EPI)NonAf (>60 ml/min/1.73 sqM) Glucose (74-99) mg/dL Lactic Ac Sepsis Rflx Plasma Lactic Acid Tomi (0.7-2.0) mmol/L Calcium (8.4-10.2) mg/dL Magnesium (1.6-2.3) mg/dL Total Bilirubin (0.2-1.3) mg/dL AST (14-36) U/L ALT (4-34) U/L Alkaline Phosphatase (38-126) U/L Total Protein (6.3-8.2) g/dL Albumin (3.5-5.0) g/dL Gastric Occult Blood (Negative) Blood Type O Positive Blood Type Confirm O Positive Blood Type Recheck No Previous Record Bld Type Recheck Status CABO Indicated Antibody Screen NEGATIVE Spec Expiration Date 03/13/2022 - 232903/10/22 03/10/22 03/10/22 Range/Units 12:34 12:34 12:34 WBC (3.8-10.6) k/uL RBC (3.80-5.40) m/uL Hgb (11.4-16.0) gm/dL Hct (34.0-46.0) % MCV (80.0-100.0) fL MCH (25.0-35.0) pg MCHC (31.0-37.0) g/dL RDW (11.5-15.5) % Plt Count (150-450) k/uL MPV Neutrophils % (Manual) % Band Neuts % (Manual) % Lymphocytes % (Manual) % Monocytes % (Manual) % Eosinophils % (Manual) % Myelocytes % % Neutrophils # (Manual) (1.3-7.7) k/uL Lymphocytes # (Manual) (1.0-4.8) k/uL Monocytes # (Manual) (0-1.0) k/uL Eosinophils # (Manual) (0-0.7) k/uL Myelocytes # (Manual) (0) k/uL Nucleated RBCs (0-0) /100 WBC Manual Slide Review Hypochromasia Anisocytosis Microcytosis PT 10.2 (9.0-12.0) sec INR 0.9 (<1.2) APTT 18.9 L (22.0-30.0) sec Sodium 135 L (137-145) mmol/L Potassium 5.1 (3.5-5.1) mmol/L Chloride 93 L (98-107) mmol/L Carbon Dioxide 32 H (22-30) mmol/L Anion Gap 10 mmol/L BUN 34 H (7-17) mg/dL Creatinine 1.98 H (0.52-1.04) mg/dL Est GFR (CKD-EPI)AfAm 27 (>60 ml/min/1.73 sqM) Est GFR (CKD-EPI)NonAf 23 (>60 ml/min/1.73 sqM) Glucose 120 H (74-99) mg/dL Lactic Ac Sepsis Rflx Plasma Lactic Acid Tomi 5.5 H* (0.7-2.0) mmol/L Calcium 9.3 (8.4-10.2) mg/dL Magnesium 2.5 H (1.6-2.3) mg/dL Total Bilirubin 0.7 (0.2-1.3) mg/dL AST 36 (14-36) U/L ALT 18 (4-34) U/L Alkaline Phosphatase 92 (38-126) U/L Total Protein 6.1 L (6.3-8.2) g/dL Albumin 3.6 (3.5-5.0) g/dL Gastric Occult Blood (Negative) Blood Type Blood Type Confirm Blood Type Recheck Bld Type Recheck Status Antibody Screen Spec Expiration Date 03/10/22 03/10/22 Range/Units 13:05 13:38 WBC (3.8-10.6) k/uL RBC (3.80-5.40) m/uL Hgb (11.4-16.0) gm/dL Hct (34.0-46.0) % MCV (80.0-100.0) fL MCH (25.0-35.0) pg MCHC (31.0-37.0) g/dL RDW (11.5-15.5) % Plt Count (150-450) k/uL MPV Neutrophils % (Manual) % Band Neuts % (Manual) % Lymphocytes % (Manual) % Monocytes % (Manual) % Eosinophils % (Manual) % Myelocytes % % Neutrophils # (Manual) (1.3-7.7) k/uL Lymphocytes # (Manual) (1.0-4.8) k/uL Monocytes # (Manual) (0-1.0) k/uL Eosinophils # (Manual) (0-0.7) k/uL Myelocytes # (Manual) (0) k/uL Nucleated RBCs (0-0) /100 WBC Manual Slide Review Hypochromasia Anisocytosis Microcytosis PT (9.0-12.0) sec INR (<1.2) APTT (22.0-30.0) sec Sodium (137-145) mmol/L Potassium (3.5-5.1) mmol/L Chloride (98-107) mmol/L Carbon Dioxide (22-30) mmol/L Anion Gap mmol/L BUN (7-17) mg/dL Creatinine (0.52-1.04) mg/dL Est GFR (CKD-EPI)AfAm (>60 ml/min/1.73 sqM) Est GFR (CKD-EPI)NonAf (>60 ml/min/1.73 sqM) Glucose (74-99) mg/dL Lactic Ac Sepsis Rflx Y Plasma Lactic Acid Tomi (0.7-2.0) mmol/L Calcium (8.4-10.2) mg/dL Magnesium (1.6-2.3) mg/dL Total Bilirubin (0.2-1.3) mg/dL AST (14-36) U/L ALT (4-34) U/L Alkaline Phosphatase (38-126) U/L Total Protein (6.3-8.2) g/dL Albumin (3.5-5.0) g/dL Gastric Occult Blood Positive (Negative) Blood Type Blood Type Confirm Blood Type Recheck Bld Type Recheck Status Antibody Screen Spec Expiration Date Critical Care Time Critical Care Time: Yes Total Critical Care Time: 35 Disposition Clinical Impression: Upper GI bleed, Anemia, Ischemic bowel disease, Colitis, Renal insufficiency, Ovarian cyst, Sepsis Disposition: ADMITTED IP TO THIS [facility] Time of Disposition: 14:35
--- NOTE | 2022-03-10 13:01 | XR ---
EXAMINATION TYPE: XR chest 2V DATE OF EXAM: 03/10/2022 COMPARISON: 04/24/2021 TECHNIQUE: PA and lateral views submitted. HISTORY: Chest Pain FINDINGS: Hyperinflation. Pleural thickening with 5 mm nodule in the right upper lobe. Coarsened interstitial e levated left hemidiaphragm. Degenerative changes of the spine. Hyperinflation. IMPRESSION: 1. COPD with findings suggestive of pulmonary fibrosis. Stable nodular densities in the right upper l obe unchanged from prior exam. Measuring less than a centimeter.
[2022-03-10 13:02] LABS: Anisocytosis Slight; HCT 30.1 % (34.0-46.0); HGB 8.3 gm/dL (11.4-16.0); Hypochromasia Marked; MCH 21.6 pg (25.0-35.0); MCHC 27.6 g/dL (31.0-37.0); MCV 78.2 fL (80.0-100.0); Mean Platelet Volume 8.1; Microcytosis Slight; Platelet Count 580 k/uL (150-450); RBC 3.85 m/uL (3.80-5.40)
[2022-03-10 13:03] LABS: Albumin 3.6 g/dL (3.5-5.0); Calcium 9.3 mg/dL (8.4-10.2); Magnesium 2.5 mg/dL (1.6-2.3); Potassium 5.1 mmol/L (3.5-5.1); Total Bilirubin 0.7 mg/dL (0.2-1.3); Total Protein 6.1 g/dL (6.3-8.2)
--- NOTE | 2022-03-10 13:11 | CT ---
EXAMINATION TYPE: CT abdomen pelvis wo con DATE OF EXAM: 03/10/2022 COMPARISON: 01/09/2018 HISTORY: Abdominal pain, coffee ground emesis. CT DLP: 701.1 mGycm Automated exposure control for dose reduction was used. TECHNIQUE: Helical acquisition of images was performed from the lung bases through the pelvis. FINDINGS: LUNG BASES: Emphysematous changes are noted involving the lung bases with interlobular septal thicken ing compatible with mild chronic interstitial lung disease. Subsegmental areas of scarring or atelect asis noted bilaterally LIVER/GB: Liver homogeneous in attenuation. Gallbladder is somewhat distended with no definite gallst ones. PANCREAS: No significant abnormality is seen. SPLEEN: No significant abnormality is seen. ADRENALS: No significant abnormality is seen. KIDNEYS: No significant abnormality is seen. URINARY BLADDER: No significant abnormality is seen. ADENOPATHY: None visualized. OSSEOUS STRUCTURES: Hypertrophic degenerative changes of the spine. Bilateral hip arthropathy. Suspe ct multilevel canal stenosis and foraminal encroachment.. BOWEL: Extensive changes of diverticulosis with no evidence of obstruction. There is mild wall thick ening of the transverse colon extending to the splenic flexure with mild induration of the fat could be on the basis of colitis. There is no evidence of diverticula in the region. OTHER: There is a right adnexal cyst is atypical given the patient's age. Measuring 3.2 cm. Aorta demonstrates vascular calcifications with no evidence of aneurysm. Coronary artery calcificatio n noted. IMPRESSION: 1. Mild induration of the fat surrounding the transverse colon extending to the splenic flexure. Bassam elate for mild colitis of infectious or inflammatory. Correlate clinically to exclude potential ische tonio changes. 2. Distention of the gastric bubble with small hiatal hernia. 3. Distention of the gallbladder with no evidence of gallstone. 4. There is a 3.1 cm right adnexal cyst likely ovarian is somewhat atypical given the patient's demog raphics. Correlate with pelvic ultrasound as clinically warranted. Correlation with CA-125 could be o btained as clinically warranted. 5. Correlate for COPD and pulmonary interstitial fibrosis. 6. Diverticulosis of the sigmoid colon.
[2022-03-10 13:12] LABS: INR 0.9 (<1.2); Prothrombin Time 10.2 sec (9.0-12.0)
[2022-03-10 13:13] LABS: Partial Thromboplastin Time 18.9 sec (22.0-30.0)
[2022-03-10] MEDS ORDERED: SODIUM CHLORIDE 0.9% 2,000 ML IV ONE (13:15)
[2022-03-10 13:25] LABS: Band Neutrophils % 1 %; Eosinophils # (M) 0.37 k/uL (0-0.7); Myelocytes # (M) 0.37 k/uL (0); Myelocytes % 1 %; Neutrophils % (M) 87 %; Nucleated Red Blood Cells 1 /100 WBC (0-0); Total Cells Counted 200
[2022-03-10 13:26] LABS: Lymphocytes # (M) 1.83 k/uL (1.0-4.8); Monocytes # (M) 2.56 k/uL (0-1.0); WBC 36.6 k/uL (3.8-10.6)
[2022-03-10] MEDS ORDERED: LEVOFLOXACIN 750MG-D5W PMX 750 MG in DEXTROSE/WATER 1 150ML.BAG IVPB STA (13:43)
[2022-03-10] MEDS ORDERED: metroNIDAZOLE-NS PMX 500 MG in SALINE 1 100ML.BAG IVPB STA (14:09)
--- NOTE | 2022-03-10 14:13 | XR ---
EXAMINATION TYPE: XR KUB DATE OF EXAM: 03/10/2022 COMPARISON: NONE HISTORY: NG tube placement TECHNIQUE: One view abdominal series FINDINGS: The osseous structures are intact. The bowel gas pattern is nonspecific. NG tube is seen with tip ov erlying the gastric fundus. Gastric bubble does appear to be distended. Arthropathy of the hips and d egenerative change of the spine is osteopenic. IMPRESSION: 1. NG tube appears to overlie the gastric fundus. The gastric bubble appears to be distended stable f rom recent CT scan
[2022-03-10] MEDS ORDERED: PANTOPRAZOLE 40 MG/10 ML VIAL IVP STA (14:18)
[2022-03-10] MEDS ORDERED: NALOXONE 0.4 MG/ML 1 ML VIAL IV PRN (14:37)
--- NOTE | 2022-03-10 15:22 | P.GSCN ---
History of Present Illness Consult date: 03/10/22 History of present illness: CHIEF COMPLAINT: Coffee-ground emesis HISTORY OF PRESENT ILLNESS: This 82-year-old female who presents to the ER from senior living with evidence of coffee-ground emesis. Per chart her vomiting started today. Patient is on Plavix and aspirin. Patient did complain of some mid abdominal pain earlier which has now resolved. She does report that her abdomen is more distended than usual. She is having regular bowel movements. Patient denies any prior history of GI bleed. She's never had EGD completed. She does report having a colonoscopy done a few years ago. She reports that it's normal. Patient does have a known cardiac history with cardiac stents as well as a history of COPD and pulmonary fibrosis. Patient's hemoglobin on a dmission was 8.3 gastric occult blood was positive. Patient has been started on antibiotics for possible colitis. She has NG tube in place for distention of the gastric bubble with small hiatal hernia. There is about 200 mL coffee- ground material noted in NG tube canister. Patient does have shortness of breath. Oxygen saturation desats when she is talking down into the 80s. Otherwise she is around 90% on nasal cannula. She does sound congested but is able to clear with cough. Patient is being admitted to the ICU and critical care service is on consult. Surgical service consulted in regards to GIB bleed and possible ischemic bowel. Patient's lactic acid level is elevated and has le ukocytosis. PAST MEDICAL HISTORY: Heart Failure, COPD, Hearing Disorder / Deafness, Hypertension, Myocardial Infarction (NC), Osteoarthritis (OA), Respiratory Disorder, COPD, pulmonary fibrosis, home O2 PAST SURGICAL HISTORY: Appendectomy, heart catheterization with stent MEDICATIONS: See below ALLERGIES: See below SOCIAL HISTORY: No illicit drug use. REVIEW OF SYSTEMS: CONSTITUTIONAL: Denies fever or chills. HEENT: Denies blurred vision, vision changes, or eye pain. Denies hemoptysis CARDIOVASCULAR: Denies chest pain or pressure. RESPIRATORY: No shortness of breath. GASTROINTESTINAL: See HPI for pertinent findings HEMATOLOGIC: Denies bleeding disorders. GENITOURINARY: Denies any blood in urine or increased urinary frequency. SKIN: Denies pruitis. Denies rash. PHYSICAL EXAM: VITAL SIGNS: Reviewed GENERAL: Well-developed in no acute distress. HEENT: No sclera icterus. Extraocular movements grossly intact. Moist buccal mucosa. Head is atraumatic, normocephalic. No nasal drainage. ABDOMEN: Soft. Distended, nontender NEUROLOGIC: Alert and oriented. Cranial nerves II through XII grossly intact. LABORATORY DATA: WBC 36.6 Hgb 8.3 platelets 580. Hemoglobin in April 2021 was 11.1. MCV low at 78.2 INR 0.9 Sodium 135 potassium 5.1 creatinine 1.98 Lactic acid 5.5 Magnesium 2.5 Total bili 0.7 AST 36 ALT 18 alk phos 92 Gastric occult blood positive IMAGING: Computed tomography scan abdomen and pelvis mild induration of the fat surrounding transverse colon extending to the splenic flexure. Correlate for mild colitis or infectious or inflammatory. Correlate clinically to exclude potential ischemic changes. Distention of the gastric bubble with small hiatal hernia. Distention of the gallbladder with no evidence of gallstone. There is a 3.1 cm right adnexal cyst likely ovarian somewhat atypical given the patient's demographics. Correlate with pelvic ultrasound if clinically warranted. Correlation with CA-125 could be obtained as clinically warranted. Correlate for COPD and pulmonary interstitial fibrosis. Diverticulosis of the sigmoid c olon. Chest x-ray COPD with findings suggest pulmonary fibrosis. Stable nodular densities in the right upper lobe unchanged from prior exam. Measuring less than 1 cm. KUB x-ray NG tube appears to overlap the gastric fundus. Gastric bubble appears to be distended stable from recent computed tomography scan. ASSESSMENT: 1. Possible colitis exact etiology unclear. Possibly infectious versus ischemic 2. Acute GI bleed with coffee ground emesis 3. Acute blood loss anemia 4. Distention of the gastric bubble with small hiatal hernia 5. Distention of the gallbladder with no gallstones 6. Right adnexal cyst somewhat atypical noted on computed tomography scan 7. Acute renal failure 8. History of COPD and pulmonary fibrosis 9. Coronary artery disease with stent on Plavix 10. Elevated lactic acid level 11. Leukocytosis PLAN: -Keep patient nothing by mouth -Continue NG tube for decompression -Continue to monitor NG tube output -Continue IV fluids -Continue IV Protonix twice a day -Continue antibiotics for possible infectious colitis -Check stool for C. diff -Agree with ICU admission and critical care consult -Hold Plavix Thank you for this consultation Physician Missile Mechanic note has been reviewed by physician. Signing provider agrees with the documented findings, assessment, and plan of care. Past Medical History Past Medical History: Heart Failure, COPD, Hearing Disorder / Deafness, Hypertension, Myocardial Infarction (NC), Osteoarthritis (OA), Respiratory Disorder Additional Past Medical History / Comment(s): HOME OXYGEN 4LNC UNDER 10YEARS, COVID unsure when Last Myocardial Infarction Date:: 2013 History of Any Multi-Drug Resistant Organisms: None Reported Past Surgical History: Appendectomy, Heart Catheterization With Stent Past Anesthesia/Blood Transfusion Reactions: No Reported Reaction Date of Last Stent Placement:: 2013 Past Psychological History: No Psychological Hx Reported Smoking Status: Former smoker Past Alcohol Use History: None Reported Past Drug Use History: None Reported - Past Family History Father Family Medical History: Prostate Disorder Additional Family Medical History / Comment(s): Father at age 80 from lung cancer with history of prostate cancer. Mother Family Medical History: Congestive Heart Failure (CHF) Additional Family Medical History / Comment(s): Mother at age 89 from heart trouble. Brother(s) Additional Family Medical History / Comment(s): Patient had a total of 6 brothers. One brother has passed and he had multiple medical problems including testicular cancer with metastatic disease to the kidneys, CVA following surgery and diabetes. Other relatives have no major medical problems that she is aware of. Patient has 2 daughters with no major medical problems. Medications and Allergies Home Medications Medication Instructions Recorded Confirmed Type Aspirin EC [Ecotrin Low Dose] 81 mg PO DAILY@89904/18/18 04/21/21 History Atorvastatin [Lipitor] 40 mg PO HS@209904/18/18 04/21/21 History Clopidogrel [Plavix] 75 mg PO DAILY@89904/18/18 04/21/21 History Levothyroxine Sodium [Synthroid] 50 mcg PO DAILY@59904/18/18 04/21/21 History Metoprolol Tartrate [Lopressor] 25 mg PO BID@899,209904/18/18 04/21/21 History Ubidecarenone [Co Q-10] 100 mg PO DAILY@89904/18/18 04/21/21 History Venlafaxine HCl [Effexor XR] 150 mg PO DAILY@89904/18/18 04/21/21 History Budesonide 1 mg INHALATION RT-BID@899,209905/07/19 04/21/21 History Cetirizine HCl [Zyrtec] 10 mg PO DAILY@89905/07/19 04/21/21 History Formoterol Fumarate [Perforomist] 20 mcg INHALATION RT-BID@0600,1800 05/07/19 04/21/21 History Ipratropium-Albuterol Nebulize 3 ml INHALATION RT-Q4H PRN 05/07/19 04/21/21 History [Duoneb 0.5 mg-3 mg/3 ml Soln] Montelukast [Singulair] 10 mg PO HS@209905/07/19 04/21/21 History lisinopriL [Zestril] 20 mg PO BID@899,209905/07/19 04/21/21 History Cyanocobalamin [Vitamin B-12] 500 mcg PO DAILY@89901/10/20 04/21/21 History Ergocalciferol (Vitamin D2) 1,250 mcg PO SA@89901/10/20 04/21/21 History [Drisdol (50,000 Iu)] guaiFENesin [Mucinex] 600 mg PO BID@09,209901/10/20 04/21/21 History hydrALAZINE HCL 50 mg PO BID PRN 01/10/20 04/21/21 History Dextran 70/Hypromellose [Genteal 1 drop BOTH EYES Q12H PRN 01/25/21 04/21/21 History Tears 0.1%-0.3% Drop] Melatonin 5 mg PO HS PRN 01/25/21 04/21/21 History Pantoprazole Sodium [Protonix] 20 mg PO DAILY@59901/25/21 04/21/21 History Sennosides/Docusate Sodium [Senna 2 tab PO DAILY@89901/25/21 04/21/21 History Plus 8.6-50 mg Tablet] Ipratropium-Albuterol Nebulize 3 ml INHALATION RT-QID ml 01/28/21 04/21/21 Rx [Duoneb 0.5 mg-3 mg/3 ml Soln] Acetaminophen [Tylenol Arthritis] 650 mg PO Q4H PRN 04/21/21 04/21/21 History Levofloxacin [Levaquin] 250 mg PO DAILY@89904/21/21 04/21/21 History Meclizine [Antivert] 12.5 mg PO Q8H PRN 04/21/21 04/21/21 History Acetaminophen Tab [Tylenol] 650 mg PO Q6HR PRN tab 04/25/21 Rx Sodium Chloride 0.65% Nasal [Deep 2 spray NASAL QID PRN ml 04/25/21 Rx Sea (Saline)] predniSONE 10 mg PO DIRECTED #1 tab 04/25/21 Rx predniSONE 10 mg PO DAILY@0900 #0 04/25/21 04/21/21 Rx Allergies Allergy/AdvReac Type Severity Reaction Status Date / Time fluticasone Allergy Dyspnea Verified 04/21/21 14:24 [From Advair Diskus] Penicillins Allergy Rash/Hives Verified 04/21/21 14:24 salmeterol Allergy Dyspnea Verified 04/21/21 14:24 [From Advair Diskus] Surgical - Exam Vital Signs Temp Pulse Resp BP Pulse Ox 96.4 F L 77 24 109/93 91 L 03/10/22 11:44 03/10/22 11:44 03/10/22 11:44 03/10/22 11:44 03/10/22 11:44 Results - Labs 03/10/22 12:34 03/10/22 12:34 Abnormal Lab Results - Last 24 Hours (Table) 03/10/22 03/10/22 03/10/22 Range/Units 12:34 12:34 12:34 WBC 36.6 H (3.8-10.6) k/uL Hgb 8.3 L (11.4-16.0) gm/dL Hct 30.1 L (34.0-46.0) % MCV 78.2 L (80.0-100.0) fL MCH 21.6 L (25.0-35.0) pg MCHC 27.6 L (31.0-37.0) g/dL RDW 18.0 H (11.5-15.5) % Plt Count 580 H (150-450) k/uL Neutrophils # (Manual) 32.20 H (1.3-7.7) k/uL Monocytes # (Manual) 2.56 H (0-1.0) k/uL Myelocytes # (Manual) 0.37 H (0) k/uL Nucleated RBCs 1 H (0-0) /100 WBC APTT 18.9 L (22.0-30.0) sec Sodium 135 L (137-145) mmol/L Chloride 93 L (98-107) mmol/L Carbon Dioxide 32 H (22-30) mmol/L BUN 34 H (7-17) mg/dL Creatinine 1.98 H (0.52-1.04) mg/dL Glucose 120 H (74-99) mg/dL Plasma Lactic Acid Tmoi (0.7-2.0) mmol/L Magnesium 2.5 H (1.6-2.3) mg/dL Total Protein 6.1 L (6.3-8.2) g/dL 03/10/22 Range/Units 12:34 WBC (3.8-10.6) k/uL Hgb (11.4-16.0) gm/dL Hct (34.0-46.0) % MCV (80.0-100.0) fL MCH (25.0-35.0) pg MCHC (31.0-37.0) g/dL RDW (11.5-15.5) % Plt Count (150-450) k/uL Neutrophils # (Manual) (1.3-7.7) k/uL Monocytes # (Manual) (0-1.0) k/uL Myelocytes # (Manual) (0) k/uL Nucleated RBCs (0-0) /100 WBC APTT (22.0-30.0) sec Sodium (137-145) mmol/L Chloride (98-107) mmol/L Carbon Dioxide (22-30) mmol/L BUN (7-17) mg/dL Creatinine (0.52-1.04) mg/dL Glucose (74-99) mg/dL Plasma Lactic Acid Tomi 5.5 H* (0.7-2.0) mmol/L Magnesium (1.6-2.3) mg/dL Total Protein (6.3-8.2) g/dL Diabetes panel 03/10/22 Range/Units 12:34 Sodium 135 L (137-145) mmol/L Potassium 5.1 (3.5-5.1) mmol/L Chloride 93 L (98-107) mmol/L Carbon Dioxide 32 H (22-30) mmol/L BUN 34 H (7-17) mg/dL Creatinine 1.98 H (0.52-1.04) mg/dL Glucose 120 H (74-99) mg/dL Calcium 9.3 (8.4-10.2) mg/dL AST 36 (14-36) U/L ALT 18 (4-34) U/L Alkaline Phosphatase 92 (38-126) U/L Total Protein 6.1 L (6.3-8.2) g/dL Albumin 3.6 (3.5-5.0) g/dL Calcium panel 03/10/22 Range/Units 12:34 Calcium 9.3 (8.4-10.2) mg/dL Albumin 3.6 (3.5-5.0) g/dL Pituitary panel 03/10/22 Range/Units 12:34 Sodium 135 L (137-145) mmol/L Potassium 5.1 (3.5-5.1) mmol/L Chloride 93 L (98-107) mmol/L Carbon Dioxide 32 H (22-30) mmol/L BUN 34 H (7-17) mg/dL Creatinine 1.98 H (0.52-1.04) mg/dL Glucose 120 H (74-99) mg/dL Calcium 9.3 (8.4-10.2) mg/dL Adrenal panel 03/10/22 Range/Units 12:34 Sodium 135 L (137-145) mmol/L Potassium 5.1 (3.5-5.1) mmol/L Chloride 93 L (98-107) mmol/L Carbon Dioxide 32 H (22-30) mmol/L BUN 34 H (7-17) mg/dL Creatinine 1.98 H (0.52-1.04) mg/dL Glucose 120 H (74-99) mg/dL Calcium 9.3 (8.4-10.2) mg/dL Total Bilirubin 0.7 (0.2-1.3) mg/dL AST 36 (14-36) U/L ALT 18 (4-34) U/L Alkaline Phosphatase 92 (38-126) U/L Total Protein 6.1 L (6.3-8.2) g/dL Albumin 3.6 (3.5-5.0) g/dL
[2022-03-10 15:46] LABS: Anisocytosis Slight; Hypochromasia Marked; MCH 21.2 pg (25.0-35.0); MCHC 26.7 g/dL (31.0-37.0); MCV 79.2 fL (80.0-100.0); Mean Platelet Volume 8.1; Microcytosis Slight; Platelet Count 498 k/uL (150-450); RBC 3.03 m/uL (3.80-5.40); RDW 18.1 % (11.5-15.5); WBC 29.5 k/uL (3.8-10.6)
[2022-03-10 15:52] LABS: HGB 6.4 gm/dL (11.4-16.0)
[2022-03-10 16:14] LABS: Band Neutrophils % 6 %; Lymphocytes # (M) 1.18 k/uL (1.0-4.8); Monocytes # (M) 1.18 k/uL (0-1.0); Neutrophils % (M) 86 %; Nucleated Red Blood Cells 0 /100 WBC (0-0); Total Cells Counted 100
[2022-03-10 16:15] LABS: Polychromasia Present
[2022-03-10] MEDS: PANTOPRAZOLE 40 MG/10 ML VIAL IVP SCH (20:58)
[2022-03-10] MEDS ORDERED: NITROFURANTOIN MONOHYD/M-CRYST 100 MG CAP PO SCH (21:00)
[2022-03-10 22:28] LABS: Anisocytosis Slight; Basophils # (A) 0.2 k/uL (0-0.2); Basophils % (A) 1 %; Eosinophils # (A) 0.1 k/uL (0-0.7); Eosinophils % (A) 0 %; Hypochromasia Marked; Lymphocytes # (A) 0.9 k/uL (1.0-4.8); Lymphocytes % (A) 3 %; MCH 22.9 pg (25.0-35.0); MCHC 29.1 g/dL (31.0-37.0); MCV 78.6 fL (80.0-100.0); Microcytosis Slight; Monocytes # (A) 1.5 k/uL (0-1.0); Monocytes % (A) 4 %; Neutrophils # (A) 32.1 k/uL (1.3-7.7); Neutrophils % (A) 91 %; Platelet Count 451 k/uL (150-450); Poikilocytosis Slight; RBC 3.94 m/uL (3.80-5.40); RDW 17.7 % (11.5-15.5); WBC 35.2 k/uL (3.8-10.6)
[2022-03-10 22:49] LABS: Poikilocytosis (M) Present
[2022-03-10] MEDS: SODIUM CHLORIDE 0.9% 1,000 ML IV SCH (22:52)
[2022-03-11 00:07] LABS: Glucose,Whole Blood 87 mg/dL (70-110)
[2022-03-11] MEDS: metroNIDAZOLE-NS PMX 500 MG in SALINE 1 100ML.BAG IVPB SCH ×4 (00:38→17:30)
[2022-03-11 01:15] LABS: Anisocytosis Slight; Basophils # (A) 0.1 k/uL (0-0.2); Basophils % (A) 0 %; Eosinophils # (A) 0.2 k/uL (0-0.7); Eosinophils % (A) 1 %; HGB 8.1 gm/dL (11.4-16.0); Hypochromasia Marked; Lymphocytes % (A) 3 %; MCH 23.2 pg (25.0-35.0); MCHC 28.8 g/dL (31.0-37.0); MCV 80.6 fL (80.0-100.0); Mean Platelet Volume 7.9; Microcytosis Slight; Monocytes # (A) 1.2 k/uL (0-1.0); Monocytes % (A) 4 %; Neutrophils % (A) 91 %; Platelet Count 435 k/uL (150-450); Poikilocytosis Slight; RBC 3.48 m/uL (3.80-5.40); RDW 17.5 % (11.5-15.5); WBC 31.9 k/uL (3.8-10.6)
[2022-03-11 05:19] LABS: Calcium 7.6 mg/dL (8.4-10.2); Potassium 5.3 mmol/L (3.5-5.1)
[2022-03-11 05:23] LABS: Anisocytosis Slight; HCT 28.4 % (34.0-46.0); HGB 8.2 gm/dL (11.4-16.0); Hypochromasia Marked; MCH 23.5 pg (25.0-35.0); MCHC 28.8 g/dL (31.0-37.0); MCV 81.6 fL (80.0-100.0); Mean Platelet Volume 8.1; Platelet Count 433 k/uL (150-450); Poikilocytosis Slight; RBC 3.48 m/uL (3.80-5.40); RDW 17.4 % (11.5-15.5); WBC 30.5 k/uL (3.8-10.6)
[2022-03-11 06:15] LABS: Band Neutrophils % 3 %; Lymphocytes # (M) 1.53 k/uL (1.0-4.8); Metamyelocytes # (M) 0.31 k/uL (0); Metamyelocytes % 1 %; Monocytes # (M) 0.61 k/uL (0-1.0); Neutrophils % (M) 90 %; Nucleated Red Blood Cells 0 /100 WBC (0-0); Total Cells Counted 200
[2022-03-11 06:18] LABS: Polychromasia Present
[2022-03-11 06:19] LABS: Ovalocytes Present
[2022-03-11] MEDS: PANTOPRAZOLE 40 MG/10 ML VIAL IVP SCH ×2 (08:04→20:58)
[2022-03-11] MEDS ORDERED: IPRATROPIUM-ALBUTEROL 3 ML NEB INHALATION PRN (09:12)
[2022-03-11 09:39] LABS: Amylase 60 U/L (30-110); Lipase 10 U/L (23-300)
[2022-03-11] MEDS: NOREPINEPHRINE 4 MG in SODIUM CHLORIDE 0.9% 250 ML IV SCH (10:13)
[2022-03-11] MEDS: LEVOTHYROXINE IVP 100 MCG/5 ML VIAL IV SCH (10:13)
[2022-03-11] MEDS: SODIUM CHLORIDE 0.9% 1,000 ML IV SCH ×2 (10:14→16:16)
[2022-03-11] MEDS: ACETAMINOPHEN IV (For NPO) 1,000 MG in EMPTY BAG 1 BAG IVPB PRN (14:08)
--- NOTE | 2022-03-11 14:22 | P.HPIM ---
History of Present Illness H&P Date: 03/11/22 Chief Complaint: Lethargic, Abdominal pain, coffee-ground emesis This is an 81-year-old female resident of [facility], presented to the ER with lethargy, coffee-ground emesis and abdominal pain that started earlier that day, prior to admission. Patient is on Plavix and aspirin. Abdomen is distended. Patient is a poor historian. Denies chest pain, palpitations.Computed t omography scan abdomen and pelvis reporting mild induration of the fat surrounding transverse colon extending to the splenic flexure. Correlate for mild colitis or infectious or inflammatory. Correlate clinically to exclude potential ischemic changes. Distention of the gastric bubble with small hiatal hernia. Distention of the gallbladder with no evidence of gallstone. There is a 3.1 cm right adnexal cyst likely ovarian somewhat atypical given the patient's demographics. Correlate with pelvic ultrasound if clinically warranted. Correlation with CA-125 could be obtained as clinically warranted. Correlate for COPD and pulmonary interstitial fibrosis. Diverticulosis of the sigmoid colon. Evaluated by surgery, NG tube placed. KUB reporting NG tube appears to overlap the gastric fundus. Gastric bubble appears to be distended stable from recent computed tomography scan. Shortly after admission, developed hypotension with systolic blood pressures up into the 80s, maps of 56, responded to IV fluids and did not require pressor support. Staff reports normal bowel movement last night without any bleeding. No further nausea, vomiting. I and O reporting 300 MLS of gastric drainage per NG,removed as per surgery's recommendations. Lactic acid elevated, received IV fluids, recovered. Levaquin and Flagyl initiated. Gastric for occult blood negative, stool for C. difficile-negative.Currently requiring 6 L nasal cannula to maintain O2 sats in the 90s in a patient who normally is maintained on 2 L nasal cannula O2. Chest x-ray reporting COPD with findings suggestive of pulmo nary fibrosis. Stable nodular densities in the right upper lobe unchanged from prior exam. Measuring less than 1 cm. EKG reported sinus rhythm. Afebrile, WBC 36.6 on admission, currently down to 30.5. Hemoglobin on admission 9 currently count 8.2, platelets 433, INR 0.9. Sodium 136, calcium 5.3, BUN 34, creatinine down to 1.6 from 1.98, glucose stable. Review of Systems ROS Statement: Those systems with pertinent positive or pertinent negative responses have been documented in the HPI. ROS Other: All systems not noted in ROS Statement are negative. Past Medical History Past Medical History: Coronary Artery Disease (CAD), Heart Failure, COPD, Hearing Disorder / Deafness, Hyperlipidemia, Hypertension, Myocardial Infarction ([place]), Osteoarthritis (OA), Thyroid Disorder Additional Past Medical History / Comment(s): COPD, HOME OXYGEN 4LNC UNDER 10YEARS, COVID unsure when. CAD and previous [place] and previous coronary stenting, CHF preserved LV , sigmoid diverticulosis, pulmonary nodule in the RUL pleural based 1.3 cm, upper lip edema, hypothyroidism, chronic depression, chronic back pain, resident of a local [facility] Last Myocardial Infarction Date:: 2013 History of Any Multi-Drug Resistant Organisms: None Reported Past Surgical History: Appendectomy, Heart Catheterization With Stent Past Anesthesia/Blood Transfusion Reactions: No Reported Reaction Date of Last Stent Placement:: 2013 Past Psychological History: No Psychological Hx Reported Smoking Status: Former smoker Past Alcohol Use History: None Reported Additional Past Alcohol Use History / Comment(s): The patient was a smoker one and a half pack per day for 40-50 years ago quit in 2013 or 2014. She denies any illicit drug use, no alcohol use. Patient does not have a CPAP at home. Patient is home O2 dependent. She has a nebulizer in the home. She has been for the past 3 years and worked in the past as a housewife. Past Drug Use History: None Reported - Past Family History Father Family Medical History: Prostate Disorder Additional Family Medical History / Comment(s): Father at age 80 from lung cancer with history of prostate cancer. Mother Family Medical History: Congestive Heart Failure (CHF) Additional Family Medical History / Comment(s): Mother at age 89 from heart trouble. Brother(s) Additional Family Medical History / Comment(s): Patient had a total of 6 brothers. One brother has passed and he had multiple medical problems including testicular cancer with metastatic disease to the kidneys, CVA following surgery and diabetes. Other relatives have no major medical problems that she is aware of. Patient has 2 daughters with no major medical problems. Medications and Allergies Home Medications Medication Instructions Recorded Confirmed Type Aspirin EC [Ecotrin Low Dose] 81 mg PO DAILY@0900 04/18/18 03/10/22 History Atorvastatin [Lipitor] 40 mg PO HS@2100 04/18/18 11/21/22 History Clopidogrel [Plavix] 75 mg PO DAILY@0900 04/18/18 03/10/22 History Levothyroxine Sodium [Synthroid] 50 mcg PO DAILY@0600 04/18/18 03/10/22 History Metoprolol Tartrate [Lopressor] 25 mg PO BID@0900,2100 04/18/18 03/10/22 History Ubidecarenone [Co Q-10] 100 mg PO DAILY@0904/18/18 03/10/22 History Venlafaxine HCl [Effexor XR] 150 mg PO DAILY@0900 04/18/18 03/10/22 History Budesonide 1 mg INHALATION RT-BID@0900,209905/07/19 03/10/22 History Cetirizine HCl [Zyrtec] 10 mg PO DAILY@0905/07/19 03/10/22 History Formoterol Fumarate [Perforomist] 20 mcg INHALATION RT-BID@0600,1800 05/07/19 03/10/22 History Ipratropium-Albuterol Nebulize 3 ml INHALATION RT-Q4H PRN 05/07/19 03/10/22 History [Duoneb 0.5 mg-3 mg/3 ml Soln] Montelukast [Singulair] 10 mg PO HS@209905/07/19 03/10/22 History lisinopriL [Zestril] 20 mg PO BID@0900,209905/07/19 03/10/22 History Ergocalciferol (Vitamin D2) 1,250 mcg PO SA@89901/10/20 03/10/22 History [Drisdol (50,000 Iu)] guaiFENesin [Mucinex] 600 mg PO BID@0900,2100 01/10/20 03/10/22 History hydrALAZINE HCL 50 mg PO BID PRN 01/10/20 03/10/22 History Melatonin 5 mg PO HS PRN 01/25/21 03/10/22 History Pantoprazole Sodium [Protonix] 20 mg PO DAILY@0600 01/25/21 03/10/22 History Ipratropium-Albuterol Nebulize 3 ml INHALATION RT-QID ml 01/28/21 03/10/22 Rx [Duoneb 0.5 mg-3 mg/3 ml Soln] predniSONE 10 mg PO DAILY@0900 #0 04/25/21 03/10/22 Rx Acetaminophen Tab [Tylenol Tab] 1,000 mg PO Q6HR PRN 03/10/22 03/10/22 History Albuterol Sulfate [Albuterol 2 puff PO RT-QID PRN 03/10/22 03/10/22 History Sulfate Hfa] Calcium Carbonate [Tums] 1,000 mg PO QID PRN 03/10/22 03/10/22 History Cyanocobalamin [Vitamin B-12] 500 mcg PO DAILY@0900 03/10/22 03/10/22 History Pregabalin [Lyrica] 75 mg PO BID@0900,209903/10/22 03/10/22 History clonazePAM [Klonopin] 0.5 mg PO HS@2100 03/10/22 03/10/22 History predniSONE 5 mg PO DAILY@0900 03/10/22 03/10/22 History rOPINIRole HCL [Requip] 0.5 mg PO HS@2100 03/10/22 03/10/22 History traMADol HCL 50 - 100 mg PO Q6H PRN 03/10/22 03/10/22 History Allergies Allergy/AdvReac Type Severity Reaction Status Date / Time fluticasone Allergy Dyspnea Verified 03/10/22 16:07 [From Advair Diskus] Penicillins Allergy Rash/Hives Verified 03/10/22 16:07 salmeterol Allergy Dyspnea Verified 03/10/22 16:07 [From Advair Diskus] Physical Exam Vitals: Vital Signs Temp Pulse Resp BP Pulse Ox 03/11/22 11:00 86 18 130/37 93 L 03/11/22 10:30 81 16 126/44 95 03/11/22 10:00 82 17 118/40 96 03/11/22 09:30 81 16 126/46 97 03/11/22 09:00 84 18 125/52 96 03/11/22 08:30 87 21 141/62 94 L 03/11/22 08:00 97.8 F 90 18 127/54 93 L 03/11/22 07:30 92 16 142/75 93 L 03/11/22 07:00 91 13 140/46 94 L 03/11/22 06:45 92 22 140/46 93 L 03/11/22 06:30 86 23 128/78 91 L 03/11/22 06:15 92 11 L 128/78 92 L 03/11/22 06:00 89 23 120/62 93 L 03/11/22 05:45 89 17 120/62 93 L 03/11/22 05:30 89 16 110/62 93 L 03/11/22 05:15 87 11 L 110/62 94 L 03/11/22 05:00 90 19 134/47 94 L 03/11/22 04:45 90 14 134/47 94 L 03/11/22 04:30 90 8 L 122/55 94 L 03/11/22 04:15 91 20 122/55 94 L 03/11/22 04:00 97.6 F 90 21 109/41 93 L 03/11/22 03:45 90 32 H 109/41 93 L 03/11/22 03:30 91 17 111/49 94 L 03/11/22 03:15 88 14 111/49 93 L 03/11/22 03:00 90 18 116/50 92 L 03/11/22 02:45 90 16 116/50 94 L 03/11/22 02:30 89 14 86/48 93 L 03/11/22 02:17 89 13 86/48 95 03/11/22 02:00 89 17 102/59 93 L 03/11/22 01:45 89 19 102/59 94 L 03/11/22 01:30 90 16 100/44 90 L 03/11/22 01:15 90 15 100/44 94 L 03/11/22 01:00 88 15 100/43 94 L 03/11/22 00:45 91 18 100/43 94 L 03/11/22 00:30 90 17 83/42 94 L 03/11/22 00:15 92 14 116/42 03/11/22 00:04 98.6 F 90 35 H 93 L 03/10/22 23:55 90 22 109/45 95 03/10/22 23:45 92 26 H 109/45 95 03/10/22 23:30 92 15 95/51 95 03/10/22 23:15 91 15 95/51 94 L 03/10/22 23:00 92 15 120/76 95 03/10/22 22:45 92 31 H 120/76 98 03/10/22 22:30 94 14 174/164 92 L 03/10/22 22:15 92 14 78/47 92 L 03/10/22 22:00 96 16 111/36 92 L 03/10/22 21:54 96 36 H 111/36 93 L 03/10/22 21:50 95 03/10/22 21:40 94 18 98/88 87 L 03/10/22 21:30 97.9 F 94 24 120/50 90 L 03/10/22 21:20 92 20 105/89 94 L 03/10/22 21:10 92 14 87/54 95 03/10/22 21:00 93 21 72/49 81 L 03/10/22 20:50 96 17 104/59 91 L 03/10/22 20:40 94 22 113/48 90 L 03/10/22 20:30 94 15 103/81 75 L 03/10/22 20:20 93 19 91/45 86 L 03/10/22 20:10 92 18 122/102 49 L 03/10/22 20:00 93 26 H 110/47 57 L 03/10/22 19:50 92 14 92/62 58 L 03/10/22 19:40 91 21 109/99 73 L 03/10/22 19:30 91 16 106/82 66 L 03/10/22 19:20 90 19 95/81 100 03/10/22 19:10 92 17 119/85 79 L 03/10/22 19:00 91 27 H 91/80 96 03/10/22 18:50 89 27 H 108/44 87 L 03/10/22 18:37 98.0 F 90 22 102/74 92 L 03/10/22 18:17 97.9 F 89 20 134/52 93 L 03/10/22 18:15 97.9 F 89 22 134/52 93 L 03/10/22 18:07 97.9 F 88 22 101/65 93 L 03/10/22 17:45 87 15 106/70 92 L 03/10/22 17:30 85 18 109/76 93 L 03/10/22 17:00 84 18 76/49 93 L 03/10/22 16:30 86 21 97/49 93 L 03/10/22 16:00 87 22 78/53 93 L 03/10/22 15:30 87 20 52/38 93 L 03/10/22 15:00 84 20 100/55 93 L 03/10/22 14:30 81 18 116/42 90 L 03/10/22 14:00 80 20 100/44 93 L 03/10/22 13:30 86 22 80/41 93 L 03/10/22 13:00 84 22 137/103 93 L 03/10/22 12:30 82 20 141/119 93 L 03/10/22 12:00 84 109/93 93 L 03/10/22 11:46 86 93 L 03/10/22 11:44 96.4 F L 77 24 109/93 91 L Intake and Output 03/10/22 03/11/22 03/11/22 22:59 06:59 14:59 Intake Total 310 2880 750 Output Total 965 175 Balance 310 1915 575 Intake: Intake, IV Titration 2880 750 Amount ACETAMINOPHEN IV (For NPO 100 ) 1,000 mg In Empty Bag 1 bag @ 400 mls/hr IVPB Q6HR PRN Rx#:[id number] Sodium Chloride 0.9% 1, 780 650 000 ml @ 130 mls/hr IV . Q7H42M [facility] Rx#:[id number] Sodium Chloride 0.9% 2, 2000 000 ml @ 999 mls/hr IV . Q2H1M ONE Rx#:[id number] metroNIDAZOLE-NS PMX 500 100 mg In Saline 1 100ml.bag @ 100 mls/hr IVPB Q6HR [facility] Rx#:[id number] Blood Product 310 Rc As-1 Unit 310 [id number] Output: Gastric Drainage 300 Urine 665 175 Other: Voiding Method Indwelling Catheter Indwelling Catheter # Bowel Movements 2 Weight 72.6 kg PHYSICAL EXAM: VITAL SIGNS: As above GENERAL: Lethargic, Sitting up in bed, no acute distress, minimal disorientated HEENT: Conjunctivae normal. eyes normal. NECK: Supple, No JVD. No thyroid enlargement. No LNs CARDIOVASCULAR: S1, S2 regular. No murmur RESPIRATION: Breath sounds diminished, occasional scattered rhonchi. ABDOMEN: Soft, distended. Diffuse tenderness across bilateral upper quadrants, No guarding. no masses palpable. No ascites, No hepatosplenomegaly.hypoactive Bowel sounds. LEGS: No edema. no swelling PSYCHIATRY: Alert and oriented X2, mood and affect normal. NERVOUS SYSTEM: Cranial N 2-12 grossly normal. Diffuse weakness,No focal deficits. Strength and sensation grossly intact. Skin:Warm and dry, no rash. Results CBC & Chem 7: 03/11/22 04:36 03/11/22 04:36 Labs: Abnormal Lab Results - Last 24 Hours (Table) 03/10/22 03/10/22 03/10/22 Range/Units 12:30 12:34 12:34 WBC 36.6 H (3.8-10.6) k/uL RBC (3.80-5.40) m/uL Hgb 8.3 L (11.4-16.0) gm/dL Hct 30.1 L (34.0-46.0) % MCV 78.2 L (80.0-100.0) fL MCH 21.6 L (25.0-35.0) pg MCHC 27.6 L (31.0-37.0) g/dL RDW 18.0 H (11.5-15.5) % Plt Count 580 H (150-450) k/uL Neutrophils # (1.3-7.7) k/uL Neutrophils # (Manual) 32.20 H (1.3-7.7) k/uL Lymphocytes # (1.0-4.8) k/uL Monocytes # (0-1.0) k/uL Monocytes # (Manual) 2.56 H (0-1.0) k/uL Metamyelocytes # (Man) (0) k/uL Myelocytes # (Manual) 0.37 H (0) k/uL Nucleated RBCs 1 H (0-0) /100 WBC APTT 18.9 L (22.0-30.0) sec Sodium (137-145) mmol/L Potassium (3.5-5.1) mmol/L Chloride (98-107) mmol/L Carbon Dioxide (22-30) mmol/L BUN (7-17) mg/dL Creatinine (0.52-1.04) mg/dL Glucose (74-99) mg/dL Plasma Lactic Acid Tomi (0.7-2.0) mmol/L Calcium (8.4-10.2) mg/dL Magnesium (1.6-2.3) mg/dL Total Protein (6.3-8.2) g/dL Lipase (23-300) U/L Crossmatch See Detail 03/10/22 03/10/22 03/10/22 Range/Units 12:34 12:34 13:14 WBC (3.8-10.6) k/uL RBC (3.80-5.40) m/uL Hgb (11.4-16.0) gm/dL Hct (34.0-46.0) % MCV (80.0-100.0) fL MCH (25.0-35.0) pg MCHC (31.0-37.0) g/dL RDW (11.5-15.5) % Plt Count (150-450) k/uL Neutrophils # (1.3-7.7) k/uL Neutrophils # (Manual) (1.3-7.7) k/uL Lymphocytes # (1.0-4.8) k/uL Monocytes # (0-1.0) k/uL Monocytes # (Manual) (0-1.0) k/uL Metamyelocytes # (Man) (0) k/uL Myelocytes # (Manual) (0) k/uL Nucleated RBCs (0-0) /100 WBC APTT (22.0-30.0) sec Sodium 135 L (137-145) mmol/L Potassium (3.5-5.1) mmol/L Chloride 93 L (98-107) mmol/L Carbon Dioxide 32 H (22-30) mmol/L BUN 34 H (7-17) mg/dL Creatinine 1.98 H (0.52-1.04) mg/dL Glucose 120 H (74-99) mg/dL Plasma Lactic Acid Tomi 5.5 H* 5.0 H* (0.7-2.0) mmol/L Calcium (8.4-10.2) mg/dL Magnesium 2.5 H (1.6-2.3) mg/dL Total Protein 6.1 L (6.3-8.2) g/dL Lipase (23-300) U/L Crossmatch 03/10/22 03/10/22 03/10/22 Range/Units 15:28 18:52 21:27 WBC 29.5 H 35.2 H (3.8-10.6) k/uL RBC 3.03 L (3.80-5.40) m/uL Hgb 6.4 L* D 9.0 L D (11.4-16.0) gm/dL Hct 24.0 L 31.0 L (34.0-46.0) % MCV 79.2 L 78.6 L (80.0-100.0) fL MCH 21.2 L 22.9 L (25.0-35.0) pg MCHC 26.7 L 29.1 L (31.0-37.0) g/dL RDW 18.1 H 17.7 H (11.5-15.5) % Plt Count 498 H 451 H (150-450) k/uL Neutrophils # 32.1 H (1.3-7.7) k/uL Neutrophils # (Manual) 27.10 H (1.3-7.7) k/uL Lymphocytes # 0.9 L (1.0-4.8) k/uL Monocytes # 1.5 H (0-1.0) k/uL Monocytes # (Manual) 1.18 H (0-1.0) k/uL Metamyelocytes # (Man) (0) k/uL Myelocytes # (Manual) (0) k/uL Nucleated RBCs (0-0) /100 WBC APTT (22.0-30.0) sec Sodium (137-145) mmol/L Potassium (3.5-5.1) mmol/L Chloride (98-107) mmol/L Carbon Dioxide (22-30) mmol/L BUN (7-17) mg/dL Creatinine (0.52-1.04) mg/dL Glucose (74-99) mg/dL Plasma Lactic Acid Tomi 5.6 H* (0.7-2.0) mmol/L Calcium (8.4-10.2) mg/dL Magnesium (1.6-2.3) mg/dL Total Protein (6.3-8.2) g/dL Lipase (23-300) U/L Crossmatch 03/10/22 03/11/22 03/11/22 Range/Units 22:04 01:01 01:01 WBC 31.9 H (3.8-10.6) k/uL RBC 3.48 L (3.80-5.40) m/uL Hgb 8.1 L (11.4-16.0) gm/dL Hct 28.0 L (34.0-46.0) % MCV (80.0-100.0) fL MCH 23.2 L (25.0-35.0) pg MCHC 28.8 L (31.0-37.0) g/dL RDW 17.5 H (11.5-15.5) % Plt Count (150-450) k/uL Neutrophils # 29.0 H (1.3-7.7) k/uL Neutrophils # (Manual) (1.3-7.7) k/uL Lymphocytes # (1.0-4.8) k/uL Monocytes # 1.2 H (0-1.0) k/uL Monocytes # (Manual) (0-1.0) k/uL Metamyelocytes # (Man) (0) k/uL Myelocytes # (Manual) (0) k/uL Nucleated RBCs (0-0) /100 WBC APTT (22.0-30.0) sec Sodium (137-145) mmol/L Potassium (3.5-5.1) mmol/L Chloride (98-107) mmol/L Carbon Dioxide (22-30) mmol/L BUN (7-17) mg/dL Creatinine (0.52-1.04) mg/dL Glucose (74-99) mg/dL Plasma Lactic Acid Tomi 3.8 H* 2.2 H* (0.7-2.0) mmol/L Calcium (8.4-10.2) mg/dL Magnesium (1.6-2.3) mg/dL Total Protein (6.3-8.2) g/dL Lipase (23-300) U/L Crossmatch 03/11/22 03/11/22 03/11/22 Range/Units 04:36 04:36 04:36 WBC 30.5 H (3.8-10.6) k/uL RBC 3.48 L (3.80-5.40) m/uL Hgb 8.2 L (11.4-16.0) gm/dL Hct 28.4 L (34.0-46.0) % MCV (80.0-100.0) fL MCH 23.5 L (25.0-35.0) pg MCHC 28.8 L (31.0-37.0) g/dL RDW 17.4 H (11.5-15.5) % Plt Count (150-450) k/uL Neutrophils # (1.3-7.7) k/uL Neutrophils # (Manual) 28.30 H (1.3-7.7) k/uL Lymphocytes # (1.0-4.8) k/uL Monocytes # (0-1.0) k/uL Monocytes # (Manual) (0-1.0) k/uL Metamyelocytes # (Man) 0.31 H (0) k/uL Myelocytes # (Manual) (0) k/uL Nucleated RBCs (0-0) /100 WBC APTT (22.0-30.0) sec Sodium 136 L (137-145) mmol/L Potassium 5.3 H (3.5-5.1) mmol/L Chloride 109 H (98-107) mmol/L Carbon Dioxide (22-30) mmol/L BUN 34 H (7-17) mg/dL Creatinine 1.60 H (0.52-1.04) mg/dL Glucose (74-99) mg/dL Plasma Lactic Acid Tomi (0.7-2.0) mmol/L Calcium 7.6 L (8.4-10.2) mg/dL Magnesium (1.6-2.3) mg/dL Total Protein (6.3-8.2) g/dL Lipase 10 L (23-300) U/L Crossmatch Thrombosis Risk Factor Assmnt - Choose All That Apply Each Factor Represents 1 point: Abnormal pulmonary function (COPD), Hx of IBD, Sepsis (< 1month) Each Risk Factor Represents 3 Points: Age 75 years or older Thrombosis Risk Factor Assessment Total Risk Factor Score: 6 Thrombosis Risk Factor Assessment Level: High Risk Assessment and Plan Assessment: Sepsis secondary to Acute GI bleed with coffee ground emesis,abdominal pain, CT suggesting possible colitis, infectious or ischemic, gallbladder distention w ithout gallstones, 3.1 cm atypical right adnexal cyst, likely [id number] ordered. [id number] reports patient's weight is consistently being monitored, diet intake is challenging and fluctuates between 5 and 10 pounds, with no significant weight loss. Acute blood loss anemia Acute on chronic hypoxic respiratory failure secondary to the above, wears 2 L nasal cannula at home Lactic acidosis present on admission secondary to the above Leukocytosis secondary to the above Acute renal failure, improving with IV fluid hydration Advanced COPD, pulmonary fibrosis, history of [id number] smoking history, quit in 2013 Small hiatal hernia reported per ct. Hypertension Hyperlipidemia Hypothyroidism Generalized anxiety disorder Recurrent depression CAD, history of stenting on Plavix Chronic back pain Osteoarthritis COVID-19 negative [facility] resident Anxiety, history of Obesity, BMI 26.6 Plan: Continue on current medication regime ,monitoring and symptomatic treatment. Surgery consult in place, recommendations pending. NG tube has been discontinued as per surgery secondary to minimal output. Stool for C. difficile pending. Maintain gentle IV fluid hydration. CA-125 ordered in regards to atypical right adnexal cyst 3.1 cm. PPI ordered for GI prophylaxis. ICU management as per diver's tender. Prognosis guarded given multiple complex medical issues. The impression and plan of care has been dictated as directed. : I performed a history and examination of this patient, discussed the same with the dictator. I agree with the dictator's note ,documented as a scribe. Any additional findings or plans will be noted.
[2022-03-11] MEDS: LORazepam 2 MG/ML INJ IV PRN (14:32)
--- NOTE | 2022-03-11 14:59 | P.PN ---
Subjective Progress Note Date: 03/11/22 CHIEF COMPLAINT: Coffee-ground emesis HISTORY OF PRESENT ILLNESS: Patient presented to the hospital with evidence of coffee-ground emesis. She is currently in the ICU. She's on 8 L oxygen satting at 93%. Afebrile. WBC is 30.5 hemoglobin 6.4 up to 9.0 and now at 8.2 platelets 433 sodium is 136 potassium is 5.3 creatinine is 1.60 lactic acid has normalized at 1.5 stool for C. diff is negative. She's had no NG tube output. She did have a brown liquidy stool. Patient did receive 1 unit of blood ye sterday. No further evidence of bleeding. Patient seen and examined with Dr. Silva PHYSICAL EXAM: VITAL SIGNS: Reviewed. GENERAL: Well-developed in no acute distress. HEENT: No sclera icterus. Extraocular movements grossly intact. Moist buccal mucosa. Head is atraumatic, normocephalic. ABDOMEN: Soft. Nontender. NEUROLOGIC: lethargic ASSESSMENT: 1. Colitis exact etiology unclear. Possibly infectious versus ischemic 2. Acute GI bleed with coffee ground emesis 3. Acute blood loss anemia 4. Distention of the gastric bubble with small hiatal hernia 5. Distention of the gallbladder with no gallstones 6. Right adnexal cyst somewhat atypical noted on computed tomography scan 7. Acute renal failure 8. History of COPD and pulmonary fibrosis 9. Coronary artery disease with stent on Plavix 10. Elevated lactic acid level 11. Leukocytosis PLAN: -Discontinue NG tube -Keep patient nothing by mouth except for ice chips -Continue IV fluids -Continue IV for Protonix -Continue antibiotics -Continue to hold Plavix -Continue supportive care -Continue ICU management Physician Test Preparer note has been reviewed by physician. Signing provider agrees with the documented findings, assessment, and plan of care. Objective - Vital Signs Vital signs: Vital Signs Temp 97.0 F L 03/11/22 12:00 Pulse 82 03/11/22 12:00 Resp 15 03/11/22 12:00 BP 129/43 03/11/22 12:00 Pulse Ox 94 L 03/11/22 12:00 FiO2 Intake & Output 03/10/22 03/11/22 03/11/22 18:59 06:59 18:59 Intake Total 0 3190 750 Output Total 965 175 Balance 0 2225 575 Weight 68.039 kg 72.6 kg Intake: Intake, IV Titration 2880 750 Amount ACETAMINOPHEN IV (For NPO 100 ) 1,000 mg In Empty Bag 1 bag @ 400 mls/hr IVPB Q6HR PRN Rx#:[id number] Sodium Chloride 0.9% 1, 780 650 000 ml @ 130 mls/hr IV . Q7H42M [facility] Rx#:[id number] Sodium Chloride 0.9% 2, 2000 000 ml @ 999 mls/hr IV . Q2H1M ONE Rx#:[id number] metroNIDAZOLE-NS PMX 500 100 mg In Saline 1 100ml.bag @ 100 mls/hr IVPB Q6HR [facility] Rx#:[id number] Blood Product 0 310 Rc As-1 Unit 0 310 [id number] Output: Gastric Drainage 300 Urine 665 175 Other: Voiding Method Indwelling Catheter Indwelling Catheter # Bowel Movements 2 - Labs CBC & Chem 7: 03/11/22 04:36 03/11/22 04:36 Labs: Abnormal Lab Results - Last 24 Hours (Table) 03/10/22 03/10/22 03/10/22 Range/Units 12:30 12:34 12:34 WBC 36.6 H (3.8-10.6) k/uL RBC (3.80-5.40) m/uL Hgb 8.3 L (11.4-16.0) gm/dL Hct 30.1 L (34.0-46.0) % MCV 78.2 L (80.0-100.0) fL MCH 21.6 L (25.0-35.0) pg MCHC 27.6 L (31.0-37.0) g/dL RDW 18.0 H (11.5-15.5) % Plt Count 580 H (150-450) k/uL Neutrophils # (1.3-7.7) k/uL Neutrophils # (Manual) 32.20 H (1.3-7.7) k/uL Lymphocytes # (1.0-4.8) k/uL Monocytes # (0-1.0) k/uL Monocytes # (Manual) 2.56 H (0-1.0) k/uL Metamyelocytes # (Man) (0) k/uL Myelocytes # (Manual) 0.37 H (0) k/uL Nucleated RBCs 1 H (0-0) /100 WBC APTT 18.9 L (22.0-30.0) sec Sodium (137-145) mmol/L Potassium (3.5-5.1) mmol/L Chloride (98-107) mmol/L Carbon Dioxide (22-30) mmol/L BUN (7-17) mg/dL Creatinine (0.52-1.04) mg/dL Glucose (74-99) mg/dL Plasma Lactic Acid Tomi (0.7-2.0) mmol/L Calcium (8.4-10.2) mg/dL Magnesium (1.6-2.3) mg/dL Total Protein (6.3-8.2) g/dL Lipase (23-300) U/L Crossmatch See Detail 03/10/22 03/10/22 03/10/22 Range/Units 12:34 12:34 13:14 WBC (3.8-10.6) k/uL RBC (3.80-5.40) m/uL Hgb (11.4-16.0) gm/dL Hct (34.0-46.0) % MCV (80.0-100.0) fL MCH (25.0-35.0) pg MCHC (31.0-37.0) g/dL RDW (11.5-15.5) % Plt Count (150-450) k/uL Neutrophils # (1.3-7.7) k/uL Neutrophils # (Manual) (1.3-7.7) k/uL Lymphocytes # (1.0-4.8) k/uL Monocytes # (0-1.0) k/uL Monocytes # (Manual) (0-1.0) k/uL Metamyelocytes # (Man) (0) k/uL Myelocytes # (Manual) (0) k/uL Nucleated RBCs (0-0) /100 WBC APTT (22.0-30.0) sec Sodium 135 L (137-145) mmol/L Potassium (3.5-5.1) mmol/L Chloride 93 L (98-107) mmol/L Carbon Dioxide 32 H (22-30) mmol/L BUN 34 H (7-17) mg/dL Creatinine 1.98 H (0.52-1.04) mg/dL Glucose 120 H (74-99) mg/dL Plasma Lactic Acid Tomi 5.5 H* 5.0 H* (0.7-2.0) mmol/L Calcium (8.4-10.2) mg/dL Magnesium 2.5 H (1.6-2.3) mg/dL Total Protein 6.1 L (6.3-8.2) g/dL Lipase (23-300) U/L Crossmatch 03/10/22 03/10/22 03/10/22 Range/Units 15:28 18:52 21:27 WBC 29.5 H 35.2 H (3.8-10.6) k/uL RBC 3.03 L (3.80-5.40) m/uL Hgb 6.4 L* D 9.0 L D (11.4-16.0) gm/dL Hct 24.0 L 31.0 L (34.0-46.0) % MCV 79.2 L 78.6 L (80.0-100.0) fL MCH 21.2 L 22.9 L (25.0-35.0) pg MCHC 26.7 L 29.1 L (31.0-37.0) g/dL RDW 18.1 H 17.7 H (11.5-15.5) % Plt Count 498 H 451 H (150-450) k/uL Neutrophils # 32.1 H (1.3-7.7) k/uL Neutrophils # (Manual) 27.10 H (1.3-7.7) k/uL Lymphocytes # 0.9 L (1.0-4.8) k/uL Monocytes # 1.5 H (0-1.0) k/uL Monocytes # (Manual) 1.18 H (0-1.0) k/uL Metamyelocytes # (Man) (0) k/uL Myelocytes # (Manual) (0) k/uL Nucleated RBCs (0-0) /100 WBC APTT (22.0-30.0) sec Sodium (137-145) mmol/L Potassium (3.5-5.1) mmol/L Chloride (98-107) mmol/L Carbon Dioxide (22-30) mmol/L BUN (7-17) mg/dL Creatinine (0.52-1.04) mg/dL Glucose (74-99) mg/dL Plasma Lactic Acid Tomi 5.6 H* (0.7-2.0) mmol/L Calcium (8.4-10.2) mg/dL Magnesium (1.6-2.3) mg/dL Total Protein (6.3-8.2) g/dL Lipase (23-300) U/L Crossmatch 03/10/22 03/11/22 03/11/22 Range/Units 22:04 01:01 01:01 WBC 31.9 H (3.8-10.6) k/uL RBC 3.48 L (3.80-5.40) m/uL Hgb 8.1 L (11.4-16.0) gm/dL Hct 28.0 L (34.0-46.0) % MCV (80.0-100.0) fL MCH 23.2 L (25.0-35.0) pg MCHC 28.8 L (31.0-37.0) g/dL RDW 17.5 H (11.5-15.5) % Plt Count (150-450) k/uL Neutrophils # 29.0 H (1.3-7.7) k/uL Neutrophils # (Manual) (1.3-7.7) k/uL Lymphocytes # (1.0-4.8) k/uL Monocytes # 1.2 H (0-1.0) k/uL Monocytes # (Manual) (0-1.0) k/uL Metamyelocytes # (Man) (0) k/uL Myelocytes # (Manual) (0) k/uL Nucleated RBCs (0-0) /100 WBC APTT (22.0-30.0) sec Sodium (137-145) mmol/L Potassium (3.5-5.1) mmol/L Chloride (98-107) mmol/L Carbon Dioxide (22-30) mmol/L BUN (7-17) mg/dL Creatinine (0.52-1.04) mg/dL Glucose (74-99) mg/dL Plasma Lactic Acid Tomi 3.8 H* 2.2 H* (0.7-2.0) mmol/L Calcium (8.4-10.2) mg/dL Magnesium (1.6-2.3) mg/dL Total Protein (6.3-8.2) g/dL Lipase (23-300) U/L Crossmatch 03/11/22 03/11/22 03/11/22 Range/Units 04:36 04:36 04:36 WBC 30.5 H (3.8-10.6) k/uL RBC 3.48 L (3.80-5.40) m/uL Hgb 8.2 L (11.4-16.0) gm/dL Hct 28.4 L (34.0-46.0) % MCV (80.0-100.0) fL MCH 23.5 L (25.0-35.0) pg MCHC 28.8 L (31.0-37.0) g/dL RDW 17.4 H (11.5-15.5) % Plt Count (150-450) k/uL Neutrophils # (1.3-7.7) k/uL Neutrophils # (Manual) 28.30 H (1.3-7.7) k/uL Lymphocytes # (1.0-4.8) k/uL Monocytes # (0-1.0) k/uL Monocytes # (Manual) (0-1.0) k/uL Metamyelocytes # (Man) 0.31 H (0) k/uL Myelocytes # (Manual) (0) k/uL Nucleated RBCs (0-0) /100 WBC APTT (22.0-30.0) sec Sodium 136 L (137-145) mmol/L Potassium 5.3 H (3.5-5.1) mmol/L Chloride 109 H (98-107) mmol/L Carbon Dioxide (22-30) mmol/L BUN 34 H (7-17) mg/dL Creatinine 1.60 H (0.52-1.04) mg/dL Glucose (74-99) mg/dL Plasma Lactic Acid Tomi (0.7-2.0) mmol/L Calcium 7.6 L (8.4-10.2) mg/dL Magnesium (1.6-2.3) mg/dL Total Protein (6.3-8.2) g/dL Lipase 10 L (23-300) U/L Crossmatch
[2022-03-11] MEDS ORDERED: LEVOFLOXACIN 750MG-D5W PMX 750 MG in DEXTROSE/WATER 1 150ML.BAG IVPB SCH (15:00)
--- NOTE | 2022-03-11 15:06 | P.CNPUL ---
History of Present Illness Consult date: 03/11/22 Reason for consult: COPD History of present illness: This is an 82-year-old female patient who presented to the emergency department because of abdominal pain and coffee-ground emesis. The patient had some mid abdominal pain that became rather diffuse of the later stage. No bright red blood per rectum. No melanotic stools. Apparently she was having regular bowel movement. No abdominal distention. No ascites. The patient has had a col onoscopy 2 years back and I do not think she has had a previous EGD. She came into the emergency department. The patient had a Gastroccult positive. The patient had a CAT scan of the abdomen that was noted and there was evidence of diverticulosis and possible transverse colitis. There was mild induration of the fat surrounding transverse colon extending to the splenic flexure. Possibility of ischemic colitis cannot be completely ruled out. There was distention of the gastric bubble with small hiatal hernia. There was distention of the gallbladder without evidence of any gallstones. No other underlying COPD in the background along with diverticulosis. The patient was seen by general surgery. The patient was covered with a combination of antibiotics and the patient is currently on Levaquin and Flagyl. NG tube was inserted operative morbidity with minimal at this point in time in the order of 200 mL since the patient up from the emergency department. The patient is currently on normal saline at the rate of 130 mL an hour. The patient was already given a total of 3 L of IV fluid. Her sodium level is at 136 with a potassium level of 5.3 and a BUN is 34 with a creatinine of 1.6. Note that the patient had acute kidney injury and the creatinine was as high as 1.9. At time of admission. At the same time, the white cell count improved slightly from 35 down to 30.5. Hemo globin dropped from 9 down to 8.2. Also, we're markedly lactic acid level that was high at 3.8 dropped down to 1.5. Stool for C. diff has been negative. Patient is resting comfortably in bed at this point in time. Amylase and lipase are also within normal limits. Review of Systems Constitutional: Reports fatigue, Reports poor appetite, Reports weakness, Reports weight loss Eyes: denies as per HPI, denies blurred vision, denies bulging eye, denies decreased vision, denies diplopia, denies discharge, denies dry eye, denies irri tation, denies itching, denies pain, denies photophobia, denies loss of peripheral vision, denies loss of vision, denies tunnel vision/blind spots Ears: bilateral: decreased hearing, deny: ear discharge, earache, tinnitus Ears, nose, mouth and throat: Reports as per HPI Breasts: absent: as per HPI, change in shape, gynecomastia, masses, nipple discharge, pain, skin changes, swelling Cardiovascular: Reports as per HPI, Reports decreased exercise tolerance, Reports dyspnea on exertion Respiratory: Reports cough, Reports dyspnea, Reports home oxygen Gastrointestinal: Reports as per HPI, Reports coffee ground emesis, Reports nausea, Reports vomiting Genitourinary: Reports as per HPI Menstruation: Reports as per HPI Musculoskeletal: Reports as per HPI Musculoskeletal: absent: ankle pain, ankle stiffness, ankle swelling, as per HPI, elbow pain, elbow stiffness, elbow swelling, foot pain, foot stiffness, foot swelling, hand pain, hand stiffness, hand swelling, hip pain, hip stiffness, hip swelling, knee pain, knee stiffness, knee swelling, shoulder pain, shoulder stiffness, shoulder swelling, wrist pain, wrist stiffness, wrist swelling Integumentary: Reports as per HPI Neurological: Reports as per HPI Psychiatric: Reports as per HPI Endocrine: Reports as per HPI Allergic/Immunologic: Reports as per HPI Past Medical History Past Medical History: Coronary Artery Disease (CAD), Heart Failure, COPD, Hearing Disorder / Deafness, Hyperlipidemia, Hypertension, Myocardial Infarction (PR), Osteoarthritis (OA), Thyroid Disorder Additional Past Medical History / Comment(s): COPD, HOME OXYGEN 4LNC UNDER 10YEARS, COVID unsure when. CAD and previous PR and previous coronary stenting, CHF preserved LV , sigmoid diverticulosis, pulmonary nodule in the RUL pleural based 1.3 cm, upper lip edema, hypothyroidism, chronic depression, chronic back pain, resident of a local [facility] Last Myocardial Infarction Date:: 2013 History of Any Multi-Drug Resistant Organisms: None Reported Past Surgical History: Appendectomy, Heart Catheterization With Stent Past Anesthesia/Blood Transfusion Reactions: No Reported Reaction Date of Last Stent Placement:: 2013 Past Psychological History: No Psychological Hx Reported Smoking Status: Former smoker Past Alcohol Use History: None Reported Additional Past Alcohol Use History / Comment(s): The patient was a smoker one and a half pack per day for 40-50 years ago quit in 2013 or 2014. She denies any illicit drug use, no alcohol use. Patient does not have a CPAP at home. Patient is home O2 dependent. She has a nebulizer in the home. She has been for the past 3 years and worked in the past as a housewife. Past Drug Use History: None Reported - Past Family History Father Family Medical History: Prostate Disorder Additional Family Medical History / Comment(s): Father at age 80 from lung cancer with history of prostate cancer. Mother Family Medical History: Congestive Heart Failure (CHF) Additional Family Medical History / Comment(s): Mother at age 89 from heart trouble. Brother(s) Additional Family Medical History / Comment(s): Patient had a total of 6 brothers. One brother has passed and he had multiple medical problems including testicular cancer with metastatic disease to the kidneys, CVA following surgery and diabetes. Other relatives have no major medical problems that she is aware of. Patient has 2 daughters with no major medical problems. Medications and Allergies Home Medications Medication Instructions Recorded Confirmed Type Aspirin EC [Ecotrin Low Dose] 81 mg PO DAILY@0900 04/18/18 03/10/22 History Atorvastatin [Lipitor] 40 mg PO HS@209904/18/18 03/10/22 History Clopidogrel [Plavix] 75 mg PO DAILY@89904/18/18 03/10/22 History Levothyroxine Sodium [Synthroid] 50 mcg PO DAILY@0600 04/18/18 03/10/22 History Metoprolol Tartrate [Lopressor] 25 mg PO BID@09,209904/18/18 03/10/22 History Ubidecarenone [Co Q-10] 100 mg PO DAILY@0904/18/18 03/10/22 History Venlafaxine HCl [Effexor XR] 150 mg PO DAILY@0900 04/18/18 03/10/22 History Budesonide 1 mg INHALATION RT-BID@0900,209905/07/19 03/10/22 History Cetirizine HCl [Zyrtec] 10 mg PO DAILY@0900 05/07/19 03/10/22 History Formoterol Fumarate [Perforomist] 20 mcg INHALATION RT-BID@0600,1800 05/07/19 03/10/22 History Ipratropium-Albuterol Nebulize 3 ml INHALATION RT-Q4H PRN 05/07/19 03/10/22 History [Duoneb 0.5 mg-3 mg/3 ml Soln] Montelukast [Singulair] 10 mg PO HS@209905/07/19 03/10/22 History lisinopriL [Zestril] 20 mg PO BID@0900,209905/07/19 03/10/22 History Ergocalciferol (Vitamin D2) 1,250 mcg PO SA@89901/10/20 03/10/22 History [Drisdol (50,000 Iu)] guaiFENesin [Mucinex] 600 mg PO BID@0900,209901/10/20 03/10/22 History hydrALAZINE HCL 50 mg PO BID PRN 01/10/20 03/10/22 History Melatonin 5 mg PO HS PRN 01/25/21 03/10/22 History Pantoprazole Sodium [Protonix] 20 mg PO DAILY@0600 01/25/21 03/10/22 History Ipratropium-Albuterol Nebulize 3 ml INHALATION RT-QID ml 01/28/21 03/10/22 Rx [Duoneb 0.5 mg-3 mg/3 ml Soln] predniSONE 10 mg PO DAILY@0900 #0 04/25/21 03/10/22 Rx Acetaminophen Tab [Tylenol Tab] 1,000 mg PO Q6HR PRN 03/10/22 03/10/22 History Albuterol Sulfate [Albuterol 2 puff PO RT-QID PRN 03/10/22 03/10/22 History Sulfate Hfa] Calcium Carbonate [Tums] 1,000 mg PO QID PRN 03/10/22 03/10/22 History Cyanocobalamin [Vitamin B-12] 500 mcg PO DAILY@0900 03/10/22 03/10/22 History Pregabalin [Lyrica] 75 mg PO BID@0900,209903/10/22 03/10/22 History clonazePAM [Klonopin] 0.5 mg PO HS@209903/10/22 03/10/22 History predniSONE 5 mg PO DAILY@0900 03/10/22 03/10/22 History rOPINIRole HCL [Requip] 0.5 mg PO HS@2099 03/10/22 03/10/22 History traMADol HCL 50 - 100 mg PO Q6H PRN 03/10/22 03/10/22 History Allergies Allergy/AdvReac Type Severity Reaction Status Date / Time fluticasone Allergy Dyspnea Verified 03/10/22 16:07 [From Advair Diskus] Penicillins Allergy Rash/Hives Verified 03/10/22 16:07 salmeterol Allergy Dyspnea Verified 03/10/22 16:07 [From Advair Diskus] Physical Exam Vitals: Vital Signs Temp Pulse Resp BP Pulse Ox 03/11/22 08:00 97.8 F 90 24 127/54 93 L 03/11/22 07:30 92 16 142/75 93 L 03/11/22 07:00 91 13 140/46 94 L 03/11/22 06:45 92 22 140/46 93 L 03/11/22 06:30 86 23 128/78 91 L 03/11/22 06:15 92 11 L 128/78 92 L 03/11/22 06:00 89 23 120/62 93 L 03/11/22 05:45 89 17 120/62 93 L 03/11/22 05:30 89 16 110/62 93 L 03/11/22 05:15 87 11 L 110/62 94 L 03/11/22 05:00 90 19 134/47 94 L 03/11/22 04:45 90 14 134/47 94 L 03/11/22 04:30 90 8 L 122/55 94 L 03/11/22 04:15 91 20 122/55 94 L 03/11/22 04:00 97.6 F 90 21 109/41 93 L 03/11/22 03:45 90 32 H 109/41 93 L 03/11/22 03:30 91 17 111/49 94 L 03/11/22 03:15 88 14 111/49 93 L 03/11/22 03:00 90 18 116/50 92 L 03/11/22 02:45 90 16 116/50 94 L 03/11/22 02:30 89 14 86/48 93 L 03/11/22 02:17 89 13 86/48 95 03/11/22 02:00 89 17 102/59 93 L 03/11/22 01:45 89 19 102/59 94 L 03/11/22 01:30 90 16 100/44 90 L 03/11/22 01:15 90 15 100/44 94 L 03/11/22 01:00 88 15 100/43 94 L 03/11/22 00:45 91 18 100/43 94 L 03/11/22 00:30 90 17 83/42 94 L 03/11/22 00:15 92 14 116/42 03/11/22 00:04 98.6 F 90 35 H 93 L 03/10/22 23:55 90 22 109/45 95 03/10/22 23:45 92 26 H 109/45 95 03/10/22 23:30 92 15 95/51 95 03/10/22 23:15 91 15 95/51 94 L 03/10/22 23:00 92 15 120/76 95 03/10/22 22:45 92 31 H 120/76 98 03/10/22 22:30 94 14 174/164 92 L 03/10/22 22:15 92 14 78/47 92 L 03/10/22 22:00 96 16 111/36 92 L 03/10/22 21:54 96 36 H 111/36 93 L 03/10/22 21:50 95 03/10/22 21:40 94 18 98/88 87 L 03/10/22 21:30 97.9 F 94 24 120/50 90 L 03/10/22 21:20 92 20 105/89 94 L 03/10/22 21:10 92 14 87/54 95 03/10/22 21:00 93 21 72/49 81 L 03/10/22 20:50 96 17 104/59 91 L 03/10/22 20:40 94 22 113/48 90 L 03/10/22 20:30 94 15 103/81 75 L 03/10/22 20:20 93 19 91/45 86 L 03/10/22 20:10 92 18 122/102 49 L 03/10/22 20:00 93 26 H 110/47 57 L 03/10/22 19:50 92 14 92/62 58 L 03/10/22 19:40 91 21 109/99 73 L 03/10/22 19:30 91 16 106/82 66 L 03/10/22 19:20 90 19 95/81 100 03/10/22 19:10 92 17 119/85 79 L 03/10/22 19:00 91 27 H 91/80 96 03/10/22 18:50 89 27 H 108/44 87 L 03/10/22 18:37 98.0 F 90 22 102/74 92 L 03/10/22 18:17 97.9 F 89 20 134/52 93 L 03/10/22 18:15 97.9 F 89 22 134/52 93 L 03/10/22 18:07 97.9 F 88 22 101/65 93 L 03/10/22 17:45 87 15 106/70 92 L 03/10/22 17:30 85 18 109/76 93 L 03/10/22 17:00 84 18 76/49 93 L 03/10/22 16:30 86 21 97/49 93 L 03/10/22 16:00 87 22 78/53 93 L 03/10/22 15:30 87 20 52/38 93 L 03/10/22 15:00 84 20 100/55 93 L 03/10/22 14:30 81 18 116/42 90 L 03/10/22 14:00 80 20 100/44 93 L 03/10/22 13:30 86 22 80/41 93 L 03/10/22 13:00 84 22 137/103 93 L 03/10/22 12:30 82 20 141/119 93 L 03/10/22 12:00 84 109/93 93 L 03/10/22 11:46 86 93 L 03/10/22 11:44 96.4 F L 77 24 109/93 91 L Intake and Output 03/10/22 03/11/22 03/11/22 22:59 06:59 14:59 Intake Total 310 2880 360 Output Total 965 70 Balance 310 1915 290 Intake: Intake, IV Titration 2880 360 Amount ACETAMINOPHEN IV (For NPO 100 ) 1,000 mg In Empty Bag 1 bag @ 400 mls/hr IVPB Q6HR PRN Rx#:[id number] Sodium Chloride 0.9% 1, 780 260 000 ml @ 130 mls/hr IV . Q7H42M [facility] Rx#:[id number] Sodium Chloride 0.9% 2, 2000 000 ml @ 999 mls/hr IV . Q2H1M ONE Rx#:[id number] metroNIDAZOLE-NS PMX 500 100 mg In Saline 1 100ml.bag @ 100 mls/hr IVPB Q6HR [facility] Rx#:[id number] Blood Product 310 Rc As-1 Unit 310 [id number] Output: Gastric Drainage 300 Urine 665 70 Other: Voiding Method Indwelling Catheter # Bowel Movements 2 Weight 72.6 kg Gen. appearance the patient is calm and comfortable and the patient has a NG tube in place. Head exam was generally normal. There was no scleral icterus or corneal arcus. Mucous membranes were moist. Neck was supple and without jugular venous distension, thyromegaly, or carotid bruits. Carotids were easily palpable bilaterally. There was no adenopathy. Lungs sounds are diminished bilaterally and there is some scattered rhonchi and scattered expiratory wheeze Cardiac exam revealed the PMI to be normally situated and sized. The rhythm was regular and no extrasystoles were noted during several minutes of auscultation. The first and second heart sounds were normal and physiologic splitting of the second heart sound was noted. There were no murmurs, rubs, clicks, or gallops. Abdomen is soft and there is some mild direct tenderness to the rather diffuse. No organomegaly. No ascites. No rebound tenderness. No guarding. Bowel sounds are hypoactive. Examination of the extremities revealed easily palpable radial, femoral and pedal pulses. There was no cyanosis, clubbing or edema. Examination of the skin revealed no evidence of significant rashes, suspicious appearing nevi or other concerning lesions. Neurologically, the patient is awake and alert and the patient does not have any focal neurological deficit. Cranial nerves are essentially intact. Results - Laboratory Findings CBC and BMP: 03/11/22 04:36 03/11/22 04:36 PT/INR, D-dimer PT 10.2 sec (9.0-12.0) 03/10/22 12:34 INR 0.9 (<1.2) 03/10/22 12:34 Abnormal lab findings: Abnormal Labs 03/10/22 03/10/22 03/10/22 12:30 12:34 12:34 WBC 36.6 H RBC Hgb 8.3 L Hct 30.1 L MCV 78.2 L MCH 21.6 L MCHC 27.6 L RDW 18.0 H Plt Count 580 H Neutrophils # Neutrophils # (Manual) 32.20 H Lymphocytes # Monocytes # Monocytes # (Manual) 2.56 H Metamyelocytes # (Man) Myelocytes # (Manual) 0.37 H Nucleated RBCs 1 H APTT 18.9 L Sodium Potassium Chloride Carbon Dioxide BUN Creatinine Glucose Plasma Lactic Acid Tomi Calcium Magnesium Total Protein Crossmatch See Detail 03/10/22 03/10/22 03/10/22 12:34 12:34 13:14 WBC RBC Hgb Hct MCV MCH MCHC RDW Plt Count Neutrophils # Neutrophils # (Manual) Lymphocytes # Monocytes # Monocytes # (Manual) Metamyelocytes # (Man) Myelocytes # (Manual) Nucleated RBCs APTT Sodium 135 L Potassium Chloride 93 L Carbon Dioxide 32 H BUN 34 H Creatinine 1.98 H Glucose 120 H Plasma Lactic Acid Tomi 5.5 H* 5.0 H* Calcium Magnesium 2.5 H Total Protein 6.1 L Crossmatch 03/10/22 03/10/22 03/10/22 15:28 18:52 21:27 WBC 29.5 H 35.2 H RBC 3.03 L Hgb 6.4 L* D 9.0 L D Hct 24.0 L 31.0 L MCV 79.2 L 78.6 L MCH 21.2 L 22.9 L MCHC 26.7 L 29.1 L RDW 18.1 H 17.7 H Plt Count 498 H 451 H Neutrophils # 32.1 H Neutrophils # (Manual) 27.10 H Lymphocytes # 0.9 L Monocytes # 1.5 H Monocytes # (Manual) 1.18 H Metamyelocytes # (Man) Myelocytes # (Manual) Nucleated RBCs APTT Sodium Potassium Chloride Carbon Dioxide BUN Creatinine Glucose Plasma Lactic Acid Tomi 5.6 H* Calcium Magnesium Total Protein Crossmatch 03/10/22 03/11/22 03/11/22 22:04 01:01 01:01 WBC 31.9 H RBC 3.48 L Hgb 8.1 L Hct 28.0 L MCV MCH 23.2 L MCHC 28.8 L RDW 17.5 H Plt Count Neutrophils # 29.0 H Neutrophils # (Manual) Lymphocytes # Monocytes # 1.2 H Monocytes # (Manual) Metamyelocytes # (Man) Myelocytes # (Manual) Nucleated RBCs APTT Sodium Potassium Chloride Carbon Dioxide BUN Creatinine Glucose Plasma Lactic Acid Tomi 3.8 H* 2.2 H* Calcium Magnesium Total Protein Crossmatch 03/11/22 03/11/22 04:36 04:36 WBC 30.5 H RBC 3.48 L Hgb 8.2 L Hct 28.4 L MCV MCH 23.5 L MCHC 28.8 L RDW 17.4 H Plt Count Neutrophils # Neutrophils # (Manual) 28.30 H Lymphocytes # Monocytes # Monocytes # (Manual) Metamyelocytes # (Man) 0.31 H Myelocytes # (Manual) Nucleated RBCs APTT Sodium 136 L Potassium 5.3 H Chloride 109 H Carbon Dioxide BUN 34 H Creatinine 1.60 H Glucose Plasma Lactic Acid Tomi Calcium 7.6 L Magnesium Total Protein Crossmatch - Diagnostic Findings Chest x-ray: image reviewed Assessment and Plan Plan: Acute abdominal pain, possible colitis, currently under investigation. Please refer to the CAT scan of the abdomen and pelvis Coffee-ground emesis, the patient is post and G-tube insertion without evidence of any acute ongoing GI bleed for now. 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 The patient received 3 L since admission Monitor white cell count Monitor lactate Continue Levaquin and Flagyl General surgery consultation Keep the NG tube in place and keep the patient nothing by mouth for now IV Protonix Check amylase and lipase Check pro calcitonin level Monitor hemoglobin Stress dose hydrocortisone 50 mg every 8 hours Resume bronchodilators Titrate FiO2 to maintain a saturation above 90% Provide the patient incentive spirometer Start the patient on Synthroid 25 mg IV daily Hold the rest of the oral medication Heparin subcu 5000 units every 8 hours for DVT prophylaxis Blood cultures We'll follow Time with Patient: Greater than 30
[2022-03-11] MEDS: IPRATROPIUM-ALBUTEROL 3 ML NEB INHALATION SCH ×3 (15:48→20:52)
[2022-03-11] MEDS ORDERED: HYDROCORTISONE SUCCINATE 100 MG/2 ML VIAL IV SCH (16:00)
[2022-03-11] MEDS ORDERED: FUROSEMIDE 10 MG/ML 4 ML VIAL IV STA (16:24)
[2022-03-11] MEDS: methylPREDNISolone SOD SUCCI 125 MG/2 ML VIAL IV SCH (18:27)
[2022-03-12] MEDS: methylPREDNISolone SOD SUCCI 125 MG/2 ML VIAL IV SCH ×3 (00:02→17:35)
[2022-03-12] MEDS: metroNIDAZOLE-NS PMX 500 MG in SALINE 1 100ML.BAG IVPB SCH ×4 (00:02→17:34)
[2022-03-12] MEDS: ACETAMINOPHEN IV (For NPO) 1,000 MG in EMPTY BAG 1 BAG IVPB PRN (00:03)
[2022-03-12] MEDS: NOREPINEPHRINE 4 MG in SODIUM CHLORIDE 0.9% 250 ML IV SCH (02:17)
[2022-03-12] MEDS: LORazepam 2 MG/ML INJ IV PRN (03:15)
[2022-03-12 07:59] LABS: Anisocytosis Slight; Basophils # (A) 0.1 k/uL (0-0.2); Basophils % (A) 0 %; Eosinophils # (A) 0.1 k/uL (0-0.7); Eosinophils % (A) 0 %; HCT 32.5 % (34.0-46.0); HGB 8.9 gm/dL (11.4-16.0); Hypochromasia Marked; Lymphocytes # (A) 0.3 k/uL (1.0-4.8); Lymphocytes % (A) 1 %; MCH 22.6 pg (25.0-35.0); MCHC 27.5 g/dL (31.0-37.0); MCV 82.1 fL (80.0-100.0); Mean Platelet Volume 8.6; Microcytosis Slight; Monocytes # (A) 0.3 k/uL (0-1.0); Monocytes % (A) 1 %; Neutrophils # (A) 26.9 k/uL (1.3-7.7); Neutrophils % (A) 97 %; Platelet Count 493 k/uL (150-450); Poikilocytosis Slight; RBC 3.96 m/uL (3.80-5.40)
[2022-03-12 08:06] LABS: WBC 27.8 k/uL (3.8-10.6)
[2022-03-12] MEDS: IPRATROPIUM-ALBUTEROL 3 ML NEB INHALATION SCH ×5 (08:07→22:12)
[2022-03-12 08:08] LABS: Calcium 9.5 mg/dL (8.4-10.2); Potassium 5.1 mmol/L (3.5-5.1)
--- NOTE | 2022-03-12 08:46 | XR ---
EXAMINATION TYPE: XR chest 1V portable DATE OF EXAM: 03/12/2022 COMPARISON: 03/10/2022 HISTORY: Chest pain TECHNIQUE: Single frontal view of the chest is obtained. FINDINGS: Bilateral lower lobe subsegmental consolidation. There is apical pleural thickening and no dularity in the right upper lobe stable. Underlying COPD and chronic interstitial lung disease suspec amarilis diffuse osteopenia. IMPRESSION: 1. COPD with chronic changes of interstitial lung disease. Subcentimeter right upper lobe pulmonary n odularity persists. 2. New left lower lobe infiltrate and small effusion.
[2022-03-12] MEDS: LEVOFLOXACIN 750MG-D5W PMX 750 MG in DEXTROSE/WATER 1 150ML.BAG IVPB SCH (09:10)
[2022-03-12] MEDS: PANTOPRAZOLE 40 MG/10 ML VIAL IVP SCH ×2 (09:11→21:33)
[2022-03-12] MEDS: LEVOTHYROXINE IVP 100 MCG/5 ML VIAL IV SCH (09:11)
[2022-03-12] MEDS: DEXMEDETOMIDINE/0.9% NACL(PMX) 400 MCG in EMPTY BAG 1 BAG IV SCH ×2 (10:12→18:00)
--- NOTE | 2022-03-12 11:54 | P.PN ---
Progress Note - Text Progress Note Date: 03/12/22 The patient is resting in her bed. She appears to be asleep. She has no real complaints of abdominal pain. On exam vital signs appear stable. Leukocytosis has improved slightly to 30,000. Lactic acidosis has improved to normal. Abdomen soft nontender. Sepsis of unclear origin this point. Patient will continue receive supportive care.
--- NOTE | 2022-03-12 12:00 | XR ---
EXAMINATION TYPE: XR chest 1V DATE OF EXAM: 03/12/2022 COMPARISON: 03/12/2022 HISTORY: Line placement TECHNIQUE: Single frontal view of the chest is obtained. FINDINGS: Left-sided central line seen with tip overlying the SVC. Diffuse emphysematous changes. No dularity in the right upper lobe is stable. No sizable pneumothorax. Underlying chronic interstitial lung disease and basilar atelectasis favored over infiltrate. IMPRESSION: 1. Left-sided central line appears in good position with no sizable pneumothorax. 2. COPD and chronic interstitial lung disease. Multiple 1 cm or less pulmonary nodules right upper lo be.
--- NOTE | 2022-03-12 13:42 | P.PN ---
Subjective 03/11/22: This is an 81-year-old female resident of [facility], presented to the ER with lethargy, coffee-ground emesis and abdominal pain that started earlier that day, prior to admission. Patient is on Plavix and aspirin. Abdomen is distended. Patient is a poor historian. Denies chest pain, palpitations.Computed tomography scan abdomen and pelvis reporting mild induration of the fat surrounding transverse colon extending to the splenic flexure. Correlate for mild colitis or infectious or inflammatory. Correlate clinically to exclude po tential ischemic changes. Distention of the gastric bubble with small hiatal hernia. Distention of the gallbladder with no evidence of gallstone. There is a 3.1 cm right adnexal cyst likely ovarian somewhat atypical given the patient's demographics. Correlate with pelvic ultrasound if clinically warranted. Correlation with CA-125 could be obtained as clinically warranted. Correlate for COPD and pulmonary interstitial fibrosis. Diverticulosis of the sigmoid colon. Evaluated by surgery, NG tube placed. KUB reporting NG tube appears to overlap the gastric fundus. Gastric bubble appears to be distended stable from recent computed tomography scan. addendum 03/11/2022 Shortly after admission, developed hypotension with systolic blood pressures up into the 80s, maps of 56, responded to IV fluids and did not require pressor support. Staff reports normal bowel movement last night without any bleeding. No further nausea, vomiting. I and O reporting 300 MLS of gastric drainage per N G,removed as per surgery's recommendations. Lactic acid elevated, received IV fluids, recovered. Levaquin and Flagyl initiated. Gastric for occult blood negative, stool for C. difficile-negative.Currently requiring 6 L nasal cannula to maintain O2 sats in the 90s in a patient who normally is maintained on 2 L nasal cannula O2. Chest x-ray reporting COPD with findings suggestive of pulmonary fibrosis. Stable nodular densities in the right upper lobe unchanged from prior exam. Measuring less than 1 cm. EKG reported sinus rhythm. Afebrile, WBC 36.6 on admission, currently down to 30.5. Hemoglobin on admission 9 currently count 8.2, platelets 433, INR 0.9. Sodium 136, calcium 5.3, BUN 34, creatinine down to 1.6 [id number] 2021: patient is city need to security. March 12, 2022: patient is in the intensive care unit. She has high flow, nasal cannula oxygen, and 15 L per minute. She is Somnelent and not easily arousable.Blood pressure is controlled, Restaurant, heart rate or normal. She remains on Levaquin and Flagyl along with IV fluids normal. See you at 1:30 cc per hour. She's NPO.She is on Dexmedetomidine for agitiation. I discussed her case with her daughter. Labs shown improving white countdown to 27.8 hemoglobin to 8.9, last shift continues to be at 26.9 neutrophils chemistries Rafiq you want to 38,31.21 CO2 is 25.CA, 1 25 is normal at 15.7, pro calcitonin was elevated at 9.87. Blood cultures are negative times two. Chest x-ray showed central line and good position, COPD, multiple 1 cm less Duenas nodules in the right upper lobe. General surgery notes from today reviewed. Pulmonology/critical care notes are pending for today. Objective - Vital Signs Vital signs: Vital Signs Temp 97.8 F 03/12/22 08:00 Pulse 73 03/12/22 11:00 Resp 15 03/12/22 11:00 BP 153/65 03/12/22 11:00 Pulse Ox 93 L 03/12/22 11:00 FiO2 Intake & Output 03/11/22 03/12/22 03/12/22 18:59 06:59 18:59 Intake Total 1100 380 72.214 Output Total 790 1700 265 Balance 310 -1320 -192.786 Weight 71.8 kg Intake: IV 360 70 ACETAMINOPHEN IV (For NPO 100 ) 1,000 mg In Empty Bag 1 bag @ 400 mls/hr IVPB Q6HR PRN Rx#:[id number] Levofloxacin 750Mg-D5w 100 Pmx 750 mg In Dextrose/ Water 1 150ml.bag @ 100 mls/hr IVPB Q24H [facility] Rx#: [id number] NS 0.9 160 70 Intake, IV Titration 1100 20 2.214 Amount ACETAMINOPHEN IV (For NPO 100 ) 1,000 mg In Empty Bag 1 bag @ 400 mls/hr IVPB Q6HR PRN Rx#:[id number] Dexmedetomidine/0.9% NaCl 2.214 (Pmx) 400 mcg In Empty Bag 1 bag @ 0.2 MCG/KG/HR 3.59 mls/hr IV .Q24H [facility] Rx#:[id number] Sodium Chloride 0.9% 1, 1000 20 000 ml @ 130 mls/hr IV . Q7H42M [facility] Rx#:[id number] Output: Urine 790 1700 265 Other: Voiding Method Indwelling Catheter Indwelling Catheter - Exam GENERAL:asleep/sedated in bed, no acute distress, NECK: Supple, No JVD. No thyroid enlargement. No LNs CARDIOVASCULAR: S1, S2 regular. No murmur RESPIRATION: Breath sounds diminished, occasional scattered rhonchi. ABDOMEN: Soft, distended. Diffuse tenderness across bilateral upper quadrants, No guarding. no masses palpable. No ascites, No hepatosplenomegaly.hypoactive Bowel sounds.Patient grimaces and moans with palpat LEGS: No edema. no swelling PSYCHIATRY: Alert and oriented X2, mood and affect normal. NERVOUS SYSTEM: Cranial N 2-12 grossly normal. Diffuse weakness,No focal deficits. Strength and sensation grossly intact. Skin:Warm and dry, no rash. - Labs CBC & Chem 7: 03/12/22 07:33 03/12/22 07:33 Labs: Abnormal Lab Results - Last 24 Hours (Table) 03/11/22 03/12/22 03/12/22 Range/Units 04:36 07:33 07:33 WBC 27.8 H (3.8-10.6) k/uL Hgb 8.9 L (11.4-16.0) gm/dL Hct 32.5 L (34.0-46.0) % MCH 22.6 L (25.0-35.0) pg MCHC 27.5 L (31.0-37.0) g/dL RDW 18.0 H (11.5-15.5) % Plt Count 493 H (150-450) k/uL Neutrophils # 26.9 H (1.3-7.7) k/uL Lymphocytes # 0.3 L (1.0-4.8) k/uL Chloride 109 H (98-107) mmol/L BUN 38 H (7-17) mg/dL Creatinine 1.21 H (0.52-1.04) mg/dL Glucose 122 H (74-99) mg/dL Procalcitonin 9.87 H (0.02-0.09) ng/mL Microbiology - Last 24 Hours (Table) 03/10/22 12:15 Blood Culture - Preliminary Blood No Growth after 24 hours 03/10/22 12:20 Blood Culture - Preliminary Blood No Growth after 24 hours Assessment and Plan (1) Acute and chronic respiratory failure with hypoxia Current Visit: No Status: Acute Code(s): J96.21 - ACUTE AND CHRONIC RESPIRATORY FAILURE WITH HYPOXIA SNOMED Code(s): 89744792 (2) Sepsis Current Visit: Yes Status: Acute Code(s): A41.9 - SEPSIS, UNSPECIFIED ORGANISM SNOMED Code(s): 88552314 (3) Anemia Current Visit: Yes Status: Acute Code(s): D64.9 - ANEMIA, UNSPECIFIED SNOMED Code(s): 116792536 (4) Colitis Current Visit: Yes Status: Acute Code(s): K52.9 - NONINFECTIVE GASTROENTERIT IS AND COLITIS, UNSPECIFIED SNOMED Code(s): 54527011 (5) Ischemic bowel disease Current Visit: Yes Status: Acute Code(s): K55.9 - VASCULAR DISORDER OF INTESTINE, UNSPECIFIED SNOMED Code(s): 25057143 (6) Renal insufficiency Current Visit: Yes Status: Acute Code(s): N28.9 - DISORDER OF KIDNEY AND URETER, UNSPECIFIED SNOMED Code(s): 397053826 (7) Hypoxia Current Visit: No Status: Acute Code(s): R09.02 - HYPOXEMIA SNOMED Code(s): 196719251 (8) Leukocytosis Current Visit: No Status: Acute Code(s): D72.829 - ELEVATED WHITE BLOOD CELL COUNT, UNSPECIFIED SNOMED Code(s): 111898666 Plan: Continue her current medication regimen and treatment by critical care and general surgery.Will wait on repeat laboratory studies for tomorrow.We will reevaluate her in the next 24 hours. Her case was discussed with her daughter.
--- NOTE | 2022-03-12 16:24 | P.PCN ---
Date of Procedure: 03/12/22 Preoperative Diagnosis: Colitis, acute hypoxemic respiratory failure Postoperative Diagnosis: Same Procedure(s) Performed: Triple-lumen catheter insertion Anesthesia: BENTLEY Surgeon: Viktoria Potter Estimated Blood Loss (ml): 0 Pathology: other Condition: critical Disposition: ICU Operative Findings: Indication: Hemodynamic monitoring/Intravenous access. A time-out was completed verifying correct patient, procedure, site, positioning, and implant(s) or special equipment if applicable. The patient was placed in a dependent position appropriate for central line placement based on the vein to be cannulated. The patient s left neck was prepped and draped in sterile fashion. 1% Lidocaine was used to anesthetize the surrounding skin area. A triple lumen 9F Cordis catheter was introduced into the left internal jugular vein using Seldinger technique. The catheter was threaded smoothly over the guide wire and appropriate blood return was obtained. Each lumen of the catheter was evacuated of air and flushed with sterile saline. The catheter was then sutured in place to the skin and a sterile dressing applied. Perfusion to the extremity distal to the point of catheter insertion was checked and found to be adequate. The patient tolerated the procedure well and there were no complications.
--- NOTE | 2022-03-12 16:31 | P.PN ---
Subjective Progress Note Date: 03/12/22 This is an 82-year-old female patient who presented to the emergency department because of abdominal pain and coffee-ground emesis. The patient had some mid abdominal pain that became rather diffuse of the later stage. No bright red blood per rectum. No melanotic stools. Apparently she was having regular bowel movement. No abdominal distention. No ascites. The patient has had a colonoscopy 2 years back and I do not think she has had a previous EGD. She came into the emergency department. The patient had a Gastroccult positive. The patient had a CAT scan of the abdomen that was noted and there was evidence of diverticulosis and possible transverse colitis. There was mild induration of the fat surrounding transverse colon extending to the splenic flexure. Possibility of ischemic colitis cannot be completely ruled out. There was distention of the gastric bubble with small hiatal hernia. There was distention of the gallbladder without evidence of any gallstones. No other underlying COPD in the background along with diverticulosis. The patient was seen by general surgery. The patient was covered with a combination of antibiotics and the patient is currently on Levaquin and Flagyl. NG tube was inserted operative morbidity with minimal at this point in time in the order of 200 mL since the patient up from the emergency department. The patient is currently on normal saline at the rate of 130 mL an hour. The patient was already given a total of 3 L of IV fluid. Her sodium level is at 136 with a potassium level of 5.3 and a BUN is 34 with a creatinine of 1.6. Note that the patient had acute kidney injury and the creatinine was as high as 1.9. At time of admission. At the same time, the white cell count improved slightly from 35 down to 30.5. Hemoglobin dropped from 9 down to 8.2. Also, we're markedly lactic acid level that was high at 3.8 dropped down to 1.5. Stool for C. diff has been negative. Patient is resting comfortably in bed at this point in time. Amylase and lipase are also within normal limits. On 03/11/2022, the patient is being seen for a follow-up, Overnight, the patient became restless and intermedius and this morning the patient is more agitated and restless. Recent that, I suggested to start the patient on Precedex drip to control agitation. At the same time, the patient become more hypoxic. She was placed on 50 L of oxygen nasal cannula to maintain saturation above 90%. She has a mild degree of respiratory distress. The triple-lumen catheter was inserted in the left IJ. This was done for IV access. At the same time, the patient was found to be septic. This is probably related to ischemic colitis. The pro-calcitonin level was at 9.8. Lactic acid level dropped down to 1.2. The patient is currently on a combination of Levaquin and Flagyl. GI surgeries on the case. No significant abdominal distention or pain. On the blood work, the white cell count dropped down to 27 and hemoglobin is at 8.9. The creati nine also improved and the patient's creatinine of 1.2 with a BUN of 38 and a sodium level is at 143. Amylase and lipase levels are essentially within normal limits. The blood cultures are negative for now. The chest x-ray post line insertion showed that the left-sided triple lumen catheter is in a good location and the patient has some background COPD and multiple less than 1 cm nodules also seen in the right lung. The patient remains nothing by mouth for now. The patient is on no pressors for now. Objective - Vital Signs Vital signs: Vital Signs Temp 97.7 F 03/12/22 12:00 Pulse 51 L 03/12/22 14:00 Resp 22 03/12/22 14:00 BP 95/44 03/12/22 14:00 Pulse Ox 95 03/12/22 14:00 FiO2 Intake & Output 03/11/22 03/12/22 03/12/22 18:59 06:59 18:59 Intake Total 1100 380 301.480 Output Total 790 1700 375 Balance 310 -1320 -73.520 Weight 71.8 kg Intake: IV 360 280 ACETAMINOPHEN IV (For NPO 100 ) 1,000 mg In Empty Bag 1 bag @ 400 mls/hr IVPB Q6HR PRN Rx#:[id number] Levofloxacin 750Mg-D5w 100 150 Pmx 750 mg In Dextrose/ Water 1 150ml.bag @ 100 mls/hr IVPB Q24H [facility] Rx#: [id number] NS 0.9 160 130 Intake, IV Titration 1100 20 21.480 Amount ACETAMINOPHEN IV (For NPO 100 ) 1,000 mg In Empty Bag 1 bag @ 400 mls/hr IVPB Q6HR PRN Rx#:[id number] Dexmedetomidine/0.9% NaCl 21.480 (Pmx) 400 mcg In Empty Bag 1 bag @ 0.2 MCG/KG/HR 3.59 mls/hr IV .Q24H [facility] Rx#:[id number] Sodium Chloride 0.9% 1, 1000 20 000 ml @ 130 mls/hr IV . Q7H42M [facility] Rx#:[id number] Output: Urine 790 1700 375 Other: Voiding Method Indwelling Catheter Indwelling Catheter - Exam Gen. appearance the patient is calm and comfortable and the patient has a NG tube removed and the patient is currently on 15 L O2 nasal cannula Head exam was generally normal. There was no scleral icterus or corneal arcus. Mucous membranes were moist. Neck was supple and without jugular venous distension, thyromegaly, or carotid bruits. Carotids were easily palpable bilaterally. There was no adenopathy. Lungs sounds are diminished bilaterally and there is some scattered rhonchi and scattered expiratory wheeze Cardiac exam revealed the PMI to be normally situated and sized. The rhythm was regular and no extrasystoles were noted during several minutes of auscultation. The first and second heart sounds were normal and physiologic splitting of the second heart sound was noted. There were no murmurs, rubs, clicks, or gallops. Abdomen is soft and there is some mild direct tenderness to the rather diffuse. No organomegaly. No ascites. No rebound tenderness. No guarding. Bowel sound s are hypoactive. Examination of the extremities revealed easily palpable radial, femoral and pedal pulses. There was no cyanosis, clubbing or edema. Examination of the skin revealed no evidence of significant rashes, suspicious appearing nevi or other concerning lesions. Neurologically, the patient is awake and alert and the patient does not have any focal neurological deficit. Cranial nerves are essentially intact. - Labs CBC & Chem 7: 03/12/22 07:33 03/12/22 07:33 Labs: Abnormal Lab Results - Last 24 Hours (Table) 03/11/22 03/12/22 03/12/22 Range/Units 04:36 07:33 07:33 WBC 27.8 H (3.8-10.6) k/uL Hgb 8.9 L (11.4-16.0) gm/dL Hct 32.5 L (34.0-46.0) % MCH 22.6 L (25.0-35.0) pg MCHC 27.5 L (31.0-37.0) g/dL RDW 18.0 H (11.5-15.5) % Plt Count 493 H (150-450) k/uL Neutrophils # 26.9 H (1.3-7.7) k/uL Lymphocytes # 0.3 L (1.0-4.8) k/uL Chloride 109 H (98-107) mmol/L BUN 38 H (7-17) mg/dL Creatinine 1.21 H (0.52-1.04) mg/dL Glucose 122 H (74-99) mg/dL Procalcitonin 9.87 H (0.02-0.09) ng/mL Microbiology - Last 24 Hours (Table) 03/10/22 12:15 Blood Culture - Preliminary Blood No Growth after 48 hours 03/10/22 12:20 Blood Culture - Preliminary Blood No Growth after 48 hours Assessment and Plan Plan: Acute abdominal pain, possible colitis, Rule out possibility of an ischemic colitis and secondary sepsis, . Please refer to the CAT scan of the abdomen and pelvis. Coffee-ground emesis, the patient is post and G-tube insertion without evidence of any acute ongoing GI bleed for now.no evidence of any ongoing GI bleed and NG tube was removed Acute blood loss anemia posttransfusion with units of packed RBC and hemoglobin is at 8.2 a low-dose stimulant of 6.4 and current hemoglobin is at 8.9 and there is no evidence of any acute GI bleed for now Acute hypoxic respiratory failure currently on 50 L of oxygen by nasal cannula Acute delirium, currently on Precedex Acute lactic acidosis, improving Acute kidney injury, improving Acute leukocytosis, white blood count , improved compared to yesterday Advanced oxygen-dependent and steroid-dependent COPD, maintain on prednisone at 5 mg, currently on IV Solu-Medrol Coronary artery disease with previous coronary stenting maintain on Plavix on outpatient basis pulmonary fibrosis 1.3 cm pleural-based right upper lobe lesion identified on the previous CAT scan of the chest Hyperlipidemia Hypothyroidism 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
[2022-03-12] MEDS: SODIUM CHLORIDE 0.9% 1,000 ML IV SCH (17:36)
[2022-03-12] MEDS ORDERED: HALOPERIDOL LACTATE 5 MG/ML 1 ML VIAL IVP PRN (17:49)
[2022-03-12 19:30] LABS: ABG Base Excess -1.1 mmol/L; ABG HCO3 25 mmol/L (21-25); ABG Oxygen Saturation 91.8 % (94-97); ABG PCO2 49 mmHg (35-45); ABG PH 7.32 (7.35-7.45); ABG PO2 63 mmHg (83-108); ABG TCO2 27 mmol/L (19-24); Allen Test Performed? Yes
[2022-03-12] MEDS: HALOPERIDOL LACTATE 5 MG/ML 1 ML VIAL IVP PRN (20:07)
[2022-03-12 20:12] LABS: Anisocytosis Slight; HGB 8.5 gm/dL (11.4-16.0); Hypochromasia Marked; MCH 23.6 pg (25.0-35.0); MCHC 29.3 g/dL (31.0-37.0); MCV 80.4 fL (80.0-100.0); Mean Platelet Volume 7.6; Microcytosis Slight; Platelet Count 423 k/uL (150-450); Poikilocytosis Slight; WBC 27.1 k/uL (3.8-10.6)
[2022-03-12 20:32] LABS: Albumin 3.1 g/dL (3.5-5.0); Calcium 9.5 mg/dL (8.4-10.2); Potassium 4.3 mmol/L (3.5-5.1); Total Bilirubin 0.3 mg/dL (0.2-1.3); Total Protein 5.4 g/dL (6.3-8.2)
[2022-03-13] MEDS: metroNIDAZOLE-NS PMX 500 MG in SALINE 1 100ML.BAG IVPB SCH ×5 (00:34→23:33)
[2022-03-13] MEDS: methylPREDNISolone SOD SUCCI 125 MG/2 ML VIAL IV SCH ×4 (00:34→23:33)
[2022-03-13] MEDS: DEXMEDETOMIDINE/0.9% NACL(PMX) 400 MCG in EMPTY BAG 1 BAG IV SCH ×2 (02:00→08:46)
[2022-03-13] MEDS: NOREPINEPHRINE 4 MG in SODIUM CHLORIDE 0.9% 250 ML IV SCH (02:52)
[2022-03-13] MEDS: HALOPERIDOL LACTATE 5 MG/ML 1 ML VIAL IVP PRN ×5 (03:15→21:12)
[2022-03-13] MEDS ORDERED: hydrALAZINE HCL 20 MG/ML 1 ML VIAL IVP PRN (06:00)
[2022-03-13] MEDS: hydrALAZINE HCL 20 MG/ML 1 ML VIAL IVP SCH ×4 (06:06→17:10)
[2022-03-13] MEDS: SODIUM CHLORIDE 0.9% 1,000 ML IV SCH (07:08)
--- NOTE | 2022-03-13 07:43 | XR ---
EXAMINATION TYPE: XR chest 1V portable DATE OF EXAM: 03/13/2022 COMPARISON: 03/12/2022 HISTORY: Shortness of breath TECHNIQUE: Single frontal view of the chest is obtained. FINDINGS: The heart size normal. There is no airspace consolidation. There is no pleural effusion or pneumothorax. There are prominent interstitial markings consistent with chronic interstitial changes versus mild pu lmonary vascular congestion. Clinical correlation is recommended. There is been no interval change IMPRESSION: Prominent interstitial markings particularly in the right lower lobe unchanged compared to previous. Chronic changes versus vascular congestion.
[2022-03-13] MEDS: IPRATROPIUM-ALBUTEROL 3 ML NEB INHALATION SCH ×4 (08:29→20:11)
[2022-03-13] MEDS: LEVOTHYROXINE IVP 100 MCG/5 ML VIAL IV SCH (08:44)
[2022-03-13] MEDS: PANTOPRAZOLE 40 MG/10 ML VIAL IVP SCH ×2 (08:44→21:12)
[2022-03-13 09:06] LABS: Calcium 9.7 mg/dL (8.4-10.2)
[2022-03-13 09:23] LABS: Anisocytosis Slight; Basophils # (A) 0.1 k/uL (0-0.2); Basophils % (A) 0 %; Eosinophils # (A) 0.1 k/uL (0-0.7); Eosinophils % (A) 0 %; HCT 30.3 % (34.0-46.0); Hypochromasia Marked; Lymphocytes # (A) 0.2 k/uL (1.0-4.8); Lymphocytes % (A) 1 %; MCH 24.4 pg (25.0-35.0); MCHC 29.8 g/dL (31.0-37.0); MCV 81.8 fL (80.0-100.0); Mean Platelet Volume 9.6; Microcytosis Slight; Monocytes # (A) 0.9 k/uL (0-1.0); Monocytes % (A) 3 %; Neutrophils % (A) 95 %; Poikilocytosis Slight; RDW 18.1 % (11.5-15.5); WBC 25.4 k/uL (3.8-10.6)
[2022-03-13 10:14] LABS: Platelet Count 296 k/uL (150-450)
--- NOTE | 2022-03-13 10:22 | P.PN ---
Subjective Progress Note Date: 03/13/22 Principal diagnosis: Abdominal pain 82-year-old female admitted 3 days ago with abdominal pain and sepsis. Patient's CAT scan suggesting presence of ischemic colitis. White blood cell count on admission 36 down to 25 today. Lactic acid was 5.5 on admission down to 1.1 last night. Patient having some respiratory sufficiency. Describes pain in the abdomen and lower extremities and back. Objective - Vital Signs Vital signs: Vital Signs Temp 98.2 F 03/13/22 04:00 Pulse 71 03/13/22 10:00 Resp 14 03/13/22 10:00 BP 90/43 03/13/22 10:00 Pulse Ox 97 03/13/22 10:00 FiO2 60 03/13/22 08:34 Intake & Output 03/12/22 03/13/22 03/13/22 18:59 06:59 18:59 Intake Total 548.457 914.132 209.893 Output Total 565 620 150 Balance -16.543 294.132 59.893 Weight 71.5 kg Intake: IV 490 800 150 Levofloxacin 750Mg-D5w 150 Pmx 750 mg In Dextrose/ Water 1 150ml.bag @ 100 mls/hr IVPB Q24H [facility] Rx#: [id number] NS 0.9 240 600 150 flagyl 100 metroNIDAZOLE-NS PMX 500 200 mg In Saline 1 100ml.bag @ 100 mls/hr IVPB Q6HR [facility] Rx#:[id number] Intake, IV Titration 58.457 114.132 59.893 Amount Dexmedetomidine/0.9% NaCl 58.457 114.132 59.893 (Pmx) 400 mcg In Empty Bag 1 bag @ 0.2 MCG/KG/HR 3.59 mls/hr IV .Q24H [facility] Rx#:[id number] Output: Urine 565 620 150 Other: Voiding Method Indwelling Catheter Indwelling Catheter Indwelling Catheter - Exam Abdomen: Soft, mild diffuse tenderness, no rebound or guarding - Labs CBC & Chem 7: 03/13/22 08:12 03/13/22 08:12 Labs: Abnormal Lab Results - Last 24 Hours (Table) 03/12/22 03/12/22 03/12/22 Range/Units 19:27 20:00 20:00 WBC 27.1 H (3.8-10.6) k/uL RBC 3.60 L (3.80-5.40) m/uL Hgb 8.5 L (11.4-16.0) gm/dL Hct 29.0 L (34.0-46.0) % MCH 23.6 L (25.0-35.0) pg MCHC 29.3 L (31.0-37.0) g/dL RDW 18.0 H (11.5-15.5) % Neutrophils # (1.3-7.7) k/uL Lymphocytes # (1.0-4.8) k/uL ABG pH 7.32 L (7.35-7.45) ABG pCO2 49 H (35-45) mmHg ABG pO2 63 L (83-108) mmHg ABG Total CO2 27 H (19-24) mmol/L ABG O2 Saturation 91.8 L (94-97) % Sodium (137-145) mmol/L Chloride 109 H (98-107) mmol/L BUN 38 H (7-17) mg/dL Creatinine 1.09 H (0.52-1.04) mg/dL Glucose 137 H (74-99) mg/dL AST 88 H (14-36) U/L Total Protein 5.4 L (6.3-8.2) g/dL Albumin 3.1 L (3.5-5.0) g/dL 03/13/22 03/13/22 Range/Units 08:12 08:12 WBC 25.4 H (3.8-10.6) k/uL RBC 3.70 L (3.80-5.40) m/uL Hgb 9.0 L (11.4-16.0) gm/dL Hct 30.3 L (34.0-46.0) % MCH 24.4 L (25.0-35.0) pg MCHC 29.8 L (31.0-37.0) g/dL RDW 18.1 H (11.5-15.5) % Neutrophils # 24.0 H (1.3-7.7) k/uL Lymphocytes # 0.2 L (1.0-4.8) k/uL ABG pH (7.35-7.45) ABG pCO2 (35-45) mmHg ABG pO2 (83-108) mmHg ABG Total CO2 (19-24) mmol/L ABG O2 Saturation (94-97) % Sodium 147 H (137-145) mmol/L Chloride 112 H (98-107) mmol/L BUN 41 H (7-17) mg/dL Creatinine (0.52-1.04) mg/dL Glucose 113 H (74-99) mg/dL AST (14-36) U/L Total Protein (6.3-8.2) g/dL Albumin (3.5-5.0) g/dL Microbiology - Last 24 Hours (Table) 03/10/22 12:15 Blood Culture - Preliminary Blood No Growth after 48 hours 03/10/22 12:20 Blood Culture - Preliminary Blood No Growth after 48 hours Assessment and Plan (1) Colitis Narrative/Plan: 82-year-old female with admission for abdominal pain and sepsis. The patient's CAT scan suggest ischemic colitis. Patient's lab findings are improving. Continue antibiotics. Continue supportive care. Will follow. Current Visit: Yes Status: Acute Code(s): K52.9 - NONINFECTIVE GASTROE NTERITIS AND COLITIS, UNSPECIFIED SNOMED Code(s): 81264680
[2022-03-13] MEDS: SODIUM CHLORIDE 0.45% 1,000 ML IV SCH (10:49)
--- NOTE | 2022-03-13 11:32 | P.PN ---
Subjective 03/11/22: This is an 81-year-old female resident of [facility], presented to the ER with lethargy, coffee-ground emesis and abdominal pain that started earlier that day, prior to admission. Patient is on Plavix and aspirin. Abdomen is distended. Patient is a poor historian. Denies chest pain, palpitations.Computed tomography scan abdomen and pelvis reporting mild induration of the fat surrounding transverse colon extending to the splenic flexure. Correlate for mild colitis or infectious or inflammatory. Correlate clinically to exclude po tential ischemic changes. Distention of the gastric bubble with small hiatal hernia. Distention of the gallbladder with no evidence of gallstone. There is a 3.1 cm right adnexal cyst likely ovarian somewhat atypical given the patient's demographics. Correlate with pelvic ultrasound if clinically warranted. Correlation with CA-125 could be obtained as clinically warranted. Correlate for COPD and pulmonary interstitial fibrosis. Diverticulosis of the sigmoid colon. Evaluated by surgery, NG tube placed. KUB reporting NG tube appears to overlap the gastric fundus. Gastric bubble appears to be distended stable from recent computed tomography scan. addendum 03/11/2022 Shortly after admission, developed hypotension with systolic blood pressures up into the 80s, maps of 56, responded to IV fluids and did not require pressor support. Staff reports normal bowel movement last night without any bleeding. No further nausea, vomiting. I and O reporting 300 MLS of gastric drainage per N G,removed as per surgery's recommendations. Lactic acid elevated, received IV fluids, recovered. Levaquin and Flagyl initiated. Gastric for occult blood negative, stool for C. difficile-negative.Currently requiring 6 L nasal cannula to maintain O2 sats in the 90s in a patient who normally is maintained on 2 L nasal cannula O2. Chest x-ray reporting COPD with findings suggestive of pulmonary fibrosis. Stable nodular densities in the right upper lobe unchanged from prior exam. Measuring less than 1 cm. EKG reported sinus rhythm. Afebrile, WBC 36.6 on admission, currently down to 30.5. Hemoglobin on admission 9 currently count 8.2, platelets 433, INR 0.9. Sodium 136, calcium 5.3, BUN 34, creatinine down to 1.6 [id number] 2021: patient is city need to security. March 12, 2022: patient is in the intensive care unit. She has high flow, nasal cannula oxygen, and 15 L per minute. She is Somnelent and not easily arousable.Blood pressure is controlled, Restaurant, heart rate or normal. She remains on Levaquin and Flagyl along with IV fluids normal. See you at 1:30 cc per hour. She's NPO.She is on Dexmedetomidine for agitiation. I discussed her case with her daughter. Labs shown improving white countdown to 27.8 hemoglobin to 8.9, last shift continues to be at 26.9 neutrophils chemistries Rafiq you want to 38,31.21 CO2 is 25.CA, 1 25 is normal at 15.7, pro calcitonin was elevated at 9.87. Blood cultures are negative times two. Chest x-ray showed central line and good position, COPD, multiple 1 cm less Duenas nodules in the right upper lobe. General surgery notes from today reviewed. Pulmonology/critical care notes are pending for today. 03/13/2022: Patient remains intensive care unit. She is currently on Arava to nasal cannula oxygen. She is somnolent and not easily arousable at this time. Staff report they've not given her any sedation. She did receive 10 mg hyd ralazine IV push every 6 hours when necessary for her hypertension. This is now resolved and she is borderline hypotensive. She remains on metronidazole and Levaquin for about a coverage for ischemic colitis. She has Haldol and lorazepam for agitation. His methylprednisolone for her COPD along with DuoNeb updrafts ordered. She remains on IV fluids at 75 mL per hour. Nicole studies show a continue reduction of her WBC count now down to 25.4 with a neutrophil count of 24. Hemoglobin is 9.0 this morning. Platelets 296. Chemistries show a sodium 147 potassium 5. BUN is elevated at 41 and crit of 0.98 Flor case was discussed with critical care/pulmonology today. Objective - Vital Signs Vital signs: Vital Signs Temp 98.2 F 03/13/22 04:00 Pulse 75 03/13/22 11:21 Resp 22 03/13/22 11:21 BP 90/43 03/13/22 10:00 Pulse Ox 95 03/13/22 11:20 FiO2 50 03/13/22 11:20 Intake & Output 03/12/22 03/13/22 03/13/22 18:59 06:59 18:59 Intake Total 548.457 914.132 486.280 Output Total 565 620 205 Balance -16.543 294.132 281.280 Weight 71.5 kg Intake: IV 490 800 325 Levofloxacin 750Mg-D5w 150 Pmx 750 mg In Dextrose/ Water 1 150ml.bag @ 100 mls/hr IVPB Q24H MELANIA Rx#: [id number] NS 0.9 240 600 225 flagyl 100 metroNIDAZOLE-NS PMX 500 200 100 mg In Saline 1 100ml.bag @ 100 mls/hr IVPB Q6HR MELANIA Rx#:[id number] Intake, IV Titration 58.457 114.132 161.280 Amount Dexmedetomidine/0.9% NaCl 58.457 114.132 86.280 (Pmx) 400 mcg In Empty Bag 1 bag @ 0.2 MCG/KG/HR 3.59 mls/hr IV .Q24H MELANIA Rx#:[id number] Sodium Chloride 0.45% 1, 75 000 ml @ 75 mls/hr IV . [id number] MELANIA Rx#:[id number] Output: Urine 565 620 205 Other: Voiding Method Indwelling Catheter Indwelling Catheter Indwelling Catheter - Exam GENERAL:asleep/sedated in bed, no acute distress, NECK: Supple, No JVD. No thyroid enlargement. No LNs CARDIOVASCULAR: S1, S2 regular. No murmur RESPIRATION: Breath sounds diminished, occasional scattered rhonchi. ABDOMEN: Soft, distended. Diffuse tenderness across bilateral upper quadrants, No guarding. no masses palpable. No ascites, No hepatosplenomegaly.hypoactive Bowel sounds.Patient grimaces and moans with palpat LEGS: No edema. no swelling PSYCHIATRY: Unconscious NERVOUS SYSTEM: Cranial N 2-12 grossly normal. Diffuse weakness,No focal deficits. Skin:Warm and dry, no rash. - Labs CBC & Chem 7: 03/13/22 08:12 03/13/22 08:12 Labs: Abnormal Lab Results - Last 24 Hours (Table) 03/12/22 03/12/22 03/12/22 Range/Units 19:27 20:00 20:00 WBC 27.1 H (3.8-10.6) k/uL RBC 3.60 L (3.80-5.40) m/uL Hgb 8.5 L (11.4-16.0) gm/dL Hct 29.0 L (34.0-46.0) % MCH 23.6 L (25.0-35.0) pg MCHC 29.3 L (31.0-37.0) g/dL RDW 18.0 H (11.5-15.5) % Neutrophils # (1.3-7.7) k/uL Lymphocytes # (1.0-4.8) k/uL ABG pH 7.32 L (7.35-7.45) ABG pCO2 49 H (35-45) mmHg ABG pO2 63 L (83-108) mmHg ABG Total CO2 27 H (19-24) mmol/L ABG O2 Saturation 91.8 L (94-97) % Sodium (137-145) mmol/L Chloride 109 H (98-107) mmol/L BUN 38 H (7-17) mg/dL Creatinine 1.09 H (0.52-1.04) mg/dL Glucose 137 H (74-99) mg/dL AST 88 H (14-36) U/L Total Protein 5.4 L (6.3-8.2) g/dL Albumin 3.1 L (3.5-5.0) g/dL 03/13/22 03/13/22 Range/Units 08:12 08:12 WBC 25.4 H (3.8-10.6) k/uL RBC 3.70 L (3.80-5.40) m/uL Hgb 9.0 L (11.4-16.0) gm/dL Hct 30.3 L (34.0-46.0) % MCH 24.4 L (25.0-35.0) pg MCHC 29.8 L (31.0-37.0) g/dL RDW 18.1 H (11.5-15.5) % Neutrophils # 24.0 H (1.3-7.7) k/uL Lymphocytes # 0.2 L (1.0-4.8) k/uL ABG pH (7.35-7.45) ABG pCO2 (35-45) mmHg ABG pO2 (83-108) mmHg ABG Total CO2 (19-24) mmol/L ABG O2 Saturation (94-97) % Sodium 147 H (137-145) mmol/L Chloride 112 H (98-107) mmol/L BUN 41 H (7-17) mg/dL Creatinine (0.52-1.04) mg/dL Glucose 113 H (74-99) mg/dL AST (14-36) U/L Total Protein (6.3-8.2) g/dL Albumin (3.5-5.0) g/dL Microbiology - Last 24 Hours (Table) 03/10/22 12:15 Blood Culture - Preliminary Blood No Growth after 48 hours 03/10/22 12:20 Blood Culture - Preliminary Blood No Growth after 48 hours Assessment and Plan (1) Acute and chronic respiratory failure with hypoxia Current Visit: No Status: Acute Code(s): J96.21 - ACUTE AND CHRONIC RESPIRATORY FAILURE WITH HYPOXIA SNOMED Code(s): 07035019 (2) Sepsis Current Visit: Yes Status: Acute Code(s): A41.9 - SEPSIS, UNSPECIFIED ORGANISM SNOMED Code(s): 32471016 (3) Anemia Current Visit: Yes Status: Acute Code(s): D64.9 - ANEMIA, UNSPECIFIED SNOMED Code(s): 178360426 (4) Colitis Current Visit: Yes Status: Acute Code(s): K52.9 - NONINFECTIVE GASTROENTERITIS AND COLITIS, UNSPECIFIED SNOMED Code(s): 14648276 (5) Ischemic bowel disease Current Visit: Yes Status: Acute Code(s): K55.9 - VASCULAR DISORDER OF INTESTINE, UNSPECIFIED SNOMED Code(s): 30020164 (6) Renal insufficiency Current Visit: Yes Status: Acute Code(s): N28.9 - DISORDER OF KIDNEY AND URETER, UNSPECIFIED SNOMED Code(s): 512383917 (7) Hypoxia Current Visit: No Status: Acute Code(s): R09.02 - HYPOXEMIA SNOMED Code(s): 876252803 (8) Leukocytosis Current Visit: No Status: Acute Code(s): D72.829 - ELEVATED WHITE BLOOD CELL COUNT, UNSPECIFIED SNOMED Code(s): 431272932 Plan: Continue her current medication regimen and treatment by critical care and general surgery. Will wait on repeat laboratory studies for tomorrow. We will reevaluate her in the next 24 hours. Her case was discussed with the critical care/pulmonology today. No family was at bedside.
[2022-03-13] MEDS: LORazepam 2 MG/ML INJ IV PRN ×3 (13:15→22:17)
--- NOTE | 2022-03-13 14:58 | P.PN ---
Subjective Progress Note Date: 03/13/22 This is an 82-year-old female patient who presented to the emergency department because of abdominal pain and coffee-ground emesis. The patient had some mid abdominal pain that became rather diffuse of the later stage. No bright red blood per rectum. No melanotic stools. Apparently she was having regular bowel movement. No abdominal distention. No ascites. The patient has had a colonoscopy 2 years back and I do not think she has had a previous EGD. She came into the emergency department. The patient had a Gastroccult positive. The patient had a CAT scan of the abdomen that was noted and there was evidence of diverticulosis and possible transverse colitis. There was mild induration of the fat surrounding transverse colon extending to the splenic flexure. Possibility of ischemic colitis cannot be completely ruled out. There was distention of the gastric bubble with small hiatal hernia. There was distention of the gallbladder without evidence of any gallstones. No other underlying COPD in the background along with diverticulosis. The patient was seen by general surgery. The patient was covered with a combination of antibiotics and the patient is currently on Levaquin and Flagyl. NG tube was inserted operative morbidity with minimal at this point in time in the order of 200 mL since the patient up from the emergency department. The patient is currently on normal saline at the rate of 130 mL an hour. The patient was already given a total of 3 L of IV fluid. Her sodium level is at 136 with a potassium level of 5.3 and a BUN is 34 with a creatinine of 1.6. Note that the patient had acute kidney injury and the creatinine was as high as 1.9. At time of admission. At the same time, the white cell count improved slightly from 35 down to 30.5. Hemoglobin dropped from 9 down to 8.2. Also, we're markedly lactic acid level that was high at 3.8 dropped down to 1.5. Stool for C. diff has been negative. Patient is resting comfortably in bed at this point in time. Amylase and lipase are also within normal limits. On 03/12/2022, the patient is being seen for a follow-up, Overnight, the patient became restless and intermedius and this morning the patient is more agitated and restless. Recent that, I suggested to start the patient on Precedex drip to control agitation. At the same time, the patient become more hypoxic. She was placed on 50 L of oxygen nasal cannula to maintain saturation above 90%. She has a mild degree of respiratory distress. The triple-lumen catheter was inserted in the left IJ. This was done for IV access. At the same time, the patient was found to be septic. This is probably related to ischemic colitis. The pro-calcitonin level was at 9.8. Lactic acid level dropped down to 1.2. The patient is currently on a combination of Levaquin and Flagyl. GI surgeries on the case. No significant abdominal distention or pain. On the blood work, the white cell count dropped down to 27 and hemoglobin is at 8.9. The creati nine also improved and the patient's creatinine of 1.2 with a BUN of 38 and a sodium level is at 143. Amylase and lipase levels are essentially within normal limits. The blood cultures are negative for now. The chest x-ray post line insertion showed that the left-sided triple lumen catheter is in a good location and the patient has some background COPD and multiple less than 1 cm nodules also seen in the right lung. The patient remains nothing by mouth for now. The patient is on no pressors for now. On 03/13/2022, the patient is being seen for a follow-up. Overall, more stable compared to yesterday and the patient is very comfortable with a combination of Precedex and Haldol. Precedex infusion is being used and currently the patient is on 0.4 mcg/kg/h. The patient is also on high flow oxygen at 60 L with an FiO2 of 50%. She was afebrile and she was given external warming. Her abdomen is nontender. Bowel sounds are hypoactive and sluggish. No evidence of any GI bleeding or coffee-ground emesis. The patient has a white cell count of 25 with a hemoglobin of 9 and a platelet count of 296. Sodium is at 147, potassium is at 5, the BUN is at 41 with a creatinine of 0.9 and a serum bicarb is at 26. The patient remains on a combination of IV Levaquin and Flagyl. She does have some upper airway secretions. She needs to do somewhat aggressive pulmonary toileting. Otherwise, her chest occasionally some microvesicle congestion. No other acute abnormalities. She remains on normal saline which is running at the rate of 50 mL an hour. She is on IV Protonix. No focal neurological deficits. Following simple commands. No significant agitation on today's evaluation. Objective - Vital Signs Vital signs: Vital Signs Temp 98.2 F 03/13/22 04:00 Pulse 71 03/13/22 10:00 Resp 14 03/13/22 10:00 BP 90/43 03/13/22 10:00 Pulse Ox 97 03/13/22 10:00 FiO2 60 03/13/22 08:34 Intake & Output 03/12/22 03/13/22 03/13/22 18:59 06:59 18:59 Intake Total 548.457 914.132 209.893 Output Total 565 620 150 Balance -16.543 294.132 59.893 Weight 71.5 kg Intake: IV 490 800 150 Levofloxacin 750Mg-D5w 150 Pmx 750 mg In Dextrose/ Water 1 150ml.bag @ 100 mls/hr IVPB Q24H MELANIA Rx#: [id number] NS 0.9 240 600 150 flagyl 100 metroNIDAZOLE-NS PMX 500 200 mg In Saline 1 100ml.bag @ 100 mls/hr IVPB Q6HR MELANIA Rx#:[id number] Intake, IV Titration 58.457 114.132 59.893 Amount Dexmedetomidine/0.9% NaCl 58.457 114.132 59.893 (Pmx) 400 mcg In Empty Bag 1 bag @ 0.2 MCG/KG/HR 3.59 mls/hr IV .Q24H MELANIA Rx#:[id number] Output: Urine 565 620 150 Other: Voiding Method Indwelling Catheter Indwelling Catheter Indwelling Catheter - Exam Gen. appearance the patient is calm and comfortable and the patient has a NG tube removed and the patient is currently on high flow oxygen with 60 L and FiO2 of 50% L O2 nasal cannula Head exam was generally normal. There was no scleral icterus or corneal arcus. Mucous membranes were moist. Neck was supple and without jugular venous distension, thyromegaly, or carotid bruits. Carotids were easily palpable bilaterally. There was no adenopathy. Lungs sounds are diminished bilaterally and there is some scattered rhonchi and scattered expiratory wheeze Cardiac exam revealed the PMI to be normally situated and sized. The rhythm was regular and no extrasystoles were noted during several minutes of auscultation. The first and second heart sounds were normal and physiologic splitting of the second heart sound was noted. There were no murmurs, rubs, clicks, or gallops. Abdomen is soft and there is some mild direct tenderness to the rather diffuse. No organomegaly. No ascites. No rebound tenderness. No guarding. Bowel sounds are hypoactive. Examination of the extremities revealed easily palpable radial, femoral and pedal pulses. There was no cyanosis, clubbing or edema. Examination of the skin revealed no evidence of significant rashes, suspicious appearing nevi or other concerning lesions. Neurologically, the patient is awake and alert and the patient does not have any focal neurological deficit. Cranial nerves are essentially intact. The patient is less agitated and is following some simple commands. She remains drowsy and sedated as the patient is currently on Precedex and Haldol. - Labs CBC & Chem 7: 03/13/22 08:12 03/13/22 08:12 Labs: Abnormal Lab Results - Last 24 Hours (Table) 03/12/22 03/12/22 03/12/22 Range/Units 19:27 20:00 20:00 WBC 27.1 H (3.8-10.6) k/uL RBC 3.60 L (3.80-5.40) m/uL Hgb 8.5 L (11.4-16.0) gm/dL Hct 29.0 L (34.0-46.0) % MCH 23.6 L (25.0-35.0) pg MCHC 29.3 L (31.0-37.0) g/dL RDW 18.0 H (11.5-15.5) % Neutrophils # (1.3-7.7) k/uL Lymphocytes # (1.0-4.8) k/uL ABG pH 7.32 L (7.35-7.45) ABG pCO2 49 H (35-45) mmHg ABG pO2 63 L (83-108) mmHg ABG Total CO2 27 H (19-24) mmol/L ABG O2 Saturation 91.8 L (94-97) % Sodium (137-145) mmol/L Chloride 109 H (98-107) mmol/L BUN 38 H (7-17) mg/dL Creatinine 1.09 H (0.52-1.04) mg/dL Glucose 137 H (74-99) mg/dL AST 88 H (14-36) U/L Total Protein 5.4 L (6.3-8.2) g/dL Albumin 3.1 L (3.5-5.0) g/dL 03/13/22 03/13/22 Range/Units 08:12 08:12 WBC 25.4 H (3.8-10.6) k/uL RBC 3.70 L (3.80-5.40) m/uL Hgb 9.0 L (11.4-16.0) gm/dL Hct 30.3 L (34.0-46.0) % MCH 24.4 L (25.0-35.0) pg MCHC 29.8 L (31.0-37.0) g/dL RDW 18.1 H (11.5-15.5) % Neutrophils # 24.0 H (1.3-7.7) k/uL Lymphocytes # 0.2 L (1.0-4.8) k/uL ABG pH (7.35-7.45) ABG pCO2 (35-45) mmHg ABG pO2 (83-108) mmHg ABG Total CO2 (19-24) mmol/L ABG O2 Saturation (94-97) % Sodium 147 H (137-145) mmol/L Chloride 112 H (98-107) mmol/L BUN 41 H (7-17) mg/dL Creatinine (0.52-1.04) mg/dL Glucose 113 H (74-99) mg/dL AST (14-36) U/L Total Protein (6.3-8.2) g/dL Albumin (3.5-5.0) g/dL Microbiology - Last 24 Hours (Table) 03/10/22 12:15 Blood Culture - Preliminary Blood No Growth after 48 hours 03/10/22 12:20 Blood Culture - Preliminary Blood No Growth after 48 hours Assessment and Plan Plan: Acute abdominal pain, possible colitis, Rule out possibility of an ischemic colitis and secondary sepsis, . Please refer to the CAT scan of the abdomen and pelvis. The patient remains on same antibiotic coverage of Levaquin and Flagyl. The white cell count remains elevated. Lactic acid level is normalized. GI surgeries on the case. She continues to be nothing by mouth and the bowel has placed into rest. Coffee-ground emesis, the patient is post and G-tube insertion without evidence of any acute ongoing GI bleed for now.no evidence of any ongoing GI bleed and NG tube was removed Acute blood loss anemia posttransfusion with units of packed RBC and hemoglobin is at 8.2 a low-dose stimulant of 6.4 and current hemoglobin is at 8.9 and there is no evidence of any acute GI bleed for now Acute hypoxic respiratory failure currently on 60 L with an FiO2 of 50% and a chest x-ray showing some mild pulmonary vessel congestion. Acute leukocytosis, white cell count remains elevated at 25 Acute delirium, currently on Precedex and Haldol on an as-needed basis, clinically improved compared to yesterday Acute lactic acidosis, improving Acute kidney injury, improving Acute leukocytosis, white blood count , improved compared to yesterday Advanced oxygen-dependent and steroid-dependent COPD, maintain on prednisone at 5 mg, currently on IV Solu-Medrol Coronary artery disease with previous coronary stenting maintain on Plavix on outpatient basis pulmonary fibrosis 1.3 cm pleural-based right upper lobe lesion identified on the previous CAT scan of the chest Hyperlipidemia Hypothyroidism 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 Chronic back pain Depression Plan Continue IV fluids half-normal saline at the rate of 75 mL an hour No pressors for now White cell count is still elevated 25 Lactate improved Continue Levaquin and Flagyl Triple lumen catheter was inserted Give the patient nothing by mouth Monitor hemoglobin and there is no evidence of any GI bleeding Continue bronchodilators Continue steroids and the patient is currently on IV Solu-Medrol 60 mg every 8 hours Continue Precedex for delirium Continue the rest of the supportive care Start the patient on Synthroid 25 mg IV daily Hold the rest of the oral medication Heparin subcu 5000 units every 8 hours for DVT prophylaxis Blood cultures are negative We'll follow
[2022-03-14] MEDS: DEXMEDETOMIDINE/0.9% NACL(PMX) 400 MCG in EMPTY BAG 1 BAG IV SCH ×3 (01:18→20:28)
[2022-03-14] MEDS: hydrALAZINE HCL 20 MG/ML 1 ML VIAL IVP SCH ×4 (01:34→17:16)
[2022-03-14] MEDS: metroNIDAZOLE-NS PMX 500 MG in SALINE 1 100ML.BAG IVPB SCH ×3 (04:52→18:01)
[2022-03-14] MEDS: SODIUM CHLORIDE 0.45% 1,000 ML IV SCH ×2 (04:55→17:18)
[2022-03-14 06:14] LABS: Anisocytosis Slight; Basophils % (A) 0 %; Eosinophils % (A) 0 %; HCT 27.8 % (34.0-46.0); Hypochromasia Marked; Lymphocytes # (A) 0.4 k/uL (1.0-4.8); Lymphocytes % (A) 2 %; MCH 22.7 pg (25.0-35.0); MCHC 28.9 g/dL (31.0-37.0); MCV 78.5 fL (80.0-100.0); Mean Platelet Volume 8.5; Microcytosis Slight; Monocytes # (A) 0.3 k/uL (0-1.0); Monocytes % (A) 2 %; Neutrophils # (A) 17.6 k/uL (1.3-7.7); Neutrophils % (A) 96 %; Platelet Count 372 k/uL (150-450); Poikilocytosis Slight; RBC 3.54 m/uL (3.80-5.40); RDW 18.2 % (11.5-15.5); WBC 18.4 k/uL (3.8-10.6)
[2022-03-14 06:26] LABS: Calcium 9.7 mg/dL (8.4-10.2); Potassium 4.1 mmol/L (3.5-5.1)
[2022-03-14] MEDS: LORazepam 2 MG/ML INJ IV PRN ×3 (07:01→20:36)
[2022-03-14] MEDS: NOREPINEPHRINE 4 MG in SODIUM CHLORIDE 0.9% 250 ML IV SCH (07:07)
--- NOTE | 2022-03-14 08:33 | XR ---
EXAMINATION TYPE: XR chest 1V DATE OF EXAM: 03/14/2022 6:25 AM COMPARISON: Chest radiograph from one day prior. TECHNIQUE: XR chest 1V Portable AP radiograph of the chest. CLINICAL INDICATION:Female, 82 years old with history of dyspnea; FINDINGS: Lungs/Pleura: Scattered subtle reticular and hazy opacities. No evidence of pneumothorax, focal conso lidation or pleural effusion. Pulmonary vascularity: Unremarkable. Heart/mediastinum: Cardiomediastinal silhouette is unremarkable. Musculoskeletal: No acute osseous pathology. Other findings: None Lines/Tubes: Left internal jugular central venous catheter with distal tip at the cavoatrial junction. IMPRESSION: 1. Multifocal subtle reticular and hazy airspace opacities. Correlate for atypical viral infection. 2. Left central venous catheter with tip in appropriate position.
[2022-03-14] MEDS: IPRATROPIUM-ALBUTEROL 3 ML NEB INHALATION SCH ×4 (08:41→20:00)
[2022-03-14] MEDS: methylPREDNISolone SOD SUCCI 125 MG/2 ML VIAL IV SCH ×2 (08:59→16:58)
[2022-03-14] MEDS: PANTOPRAZOLE 40 MG/10 ML VIAL IVP SCH ×2 (09:12→20:26)
[2022-03-14] MEDS: LEVOTHYROXINE IVP 100 MCG/5 ML VIAL IV SCH (09:13)
[2022-03-14] MEDS: LEVOFLOXACIN 750MG-D5W PMX 750 MG in DEXTROSE/WATER 1 150ML.BAG IVPB SCH (09:18)
--- NOTE | 2022-03-14 09:55 | P.PN ---
Subjective Progress Note Date: 03/14/22 Principal diagnosis: Abdominal pain Patient somewhat confused this morning. Denies pain currently. Still short of breath. White blood cell count improved at 18.4 today. Objective - Vital Signs Vital signs: Vital Signs Temp 97.2 F L 03/14/22 05:00 Pulse 79 03/14/22 09:00 Resp 15 03/14/22 09:00 BP 116/58 03/14/22 09:00 Pulse Ox 95 03/14/22 09:00 FiO2 53 03/14/22 09:00 Intake & Output 03/13/22 03/14/22 03/14/22 18:59 06:59 18:59 Intake Total 0152.244 0121.718 160.651 Output Total 565 420 60 Balance 594.893 666.718 100.651 Weight 72.6 kg Intake: IV 325 200 NS 0.9 225 metroNIDAZOLE-NS PMX 500 100 200 mg In Saline 1 100ml.bag @ 100 mls/hr IVPB Q6HR MELANIA Rx#:[id number] Intake, IV Titration 834.893 886.718 160.651 Amount Dexmedetomidine/0.9% NaCl 159.893 61.718 10.651 (Pmx) 400 mcg In Empty Bag 1 bag @ 0.2 MCG/KG/HR 3.59 mls/hr IV .Q24H MELANIA Rx#:[id number] Sodium Chloride 0.45% 1, 675 825 150 000 ml @ 75 mls/hr IV . [id number] MELANIA Rx#:[id number] Output: Urine 565 420 60 Other: Voiding Method Indwelling Catheter Indwelling Catheter - Exam Abdomen: Soft, minimal distention, nontender at this time - Labs CBC & Chem 7: 03/14/22 05:56 03/14/22 05:56 Labs: Abnormal Lab Results - Last 24 Hours (Table) 03/13/22 03/13/22 03/14/22 Range/Units 08:12 08:12 05:56 WBC 18.4 H (3.8-10.6) k/uL RBC 3.54 L (3.80-5.40) m/uL Hgb 8.0 L (11.4-16.0) gm/dL Hct 27.8 L (34.0-46.0) % MCV 78.5 L (80.0-100.0) fL MCH 22.7 L (25.0-35.0) pg MCHC 28.9 L (31.0-37.0) g/dL RDW 18.2 H (11.5-15.5) % Neutrophils # 24.0 H 17.6 H (1.3-7.7) k/uL Lymphocytes # 0.2 L 0.4 L (1.0-4.8) k/uL Sodium (137-145) mmol/L Chloride (98-107) mmol/L BUN (7-17) mg/dL Creatinine (0.52-1.04) mg/dL Glucose (74-99) mg/dL Procalcitonin 1.71 H (0.02-0.09) ng/mL 03/14/22 Range/Units 05:56 WBC (3.8-10.6) k/uL RBC (3.80-5.40) m/uL Hgb (11.4-16.0) gm/dL Hct (34.0-46.0) % MCV (80.0-100.0) fL MCH (25.0-35.0) pg MCHC (31.0-37.0) g/dL RDW (11.5-15.5) % Neutrophils # (1.3-7.7) k/uL Lymphocytes # (1.0-4.8) k/uL Sodium 146 H (137-145) mmol/L Chloride 113 H (98-107) mmol/L BUN 41 H (7-17) mg/dL Creatinine 1.12 H (0.52-1.04) mg/dL Glucose 118 H (74-99) mg/dL Procalcitonin (0.02-0.09) ng/mL Microbiology - Last 24 Hours (Table) 03/10/22 12:20 Blood Culture - Preliminary Blood No Growth after 72 hours 03/10/22 12:15 Blood Culture - Preliminary Blood No Growth after 72 hours Assessment and Plan (1) Colitis Narrative/Plan: 82-year-old female with sepsis possibly on the basis of ischemic colitis. Patient clinically has slowly improved. Continue IV antibiotics. Continue bowel rest. Maximize pulmonary support. Will follow. Current Visit: Yes Status: Acute Code(s): K52.9 - NONINFECTIVE GASTROENTERITIS AND COLITIS, UNSPECIFIED SNOMED Code(s): 66660381
--- NOTE | 2022-03-14 10:08 | P.PN ---
Subjective Progress Note Date: 03/14/22 This is an 82-year-old female patient who presented to the emergency department because of abdominal pain and coffee-ground emesis. The patient had some mid abdominal pain that became rather diffuse of the later stage. No bright red blood per rectum. No melanotic stools. Apparently she was having regular bowel movement. No abdominal distention. No ascites. The patient has had a colonoscopy 2 years back and I do not think she has had a previous EGD. She came into the emergency department. The patient had a Gastroccult positive. The patient had a CAT scan of the abdomen that was noted and there was evidence of diverticulosis and possible transverse colitis. There was mild induration of the fat surrounding transverse colon extending to the splenic flexure. Possibility of ischemic colitis cannot be completely ruled out. There was distention of the gastric bubble with small hiatal hernia. There was distention of the gallbladder without evidence of any gallstones. No other underlying COPD in the background along with diverticulosis. The patient was seen by general surgery. The patient was covered with a combination of antibiotics and the patient is currently on Levaquin and Flagyl. NG tube was inserted operative morbidity with minimal at this point in time in the order of 200 mL since the patient up from the emergency department. The patient is currently on normal saline at the rate of 130 mL an hour. The patient was already given a total of 3 L of IV fluid. Her sodium level is at 136 with a potassium level of 5.3 and a BUN is 34 with a creatinine of 1.6. Note that the patient had acute kidney injury and the creatinine was as high as 1.9. At time of admission. At the same time, the white cell count improved slightly from 35 down to 30.5. Hemoglobin dropped from 9 down to 8.2. Also, we're markedly lactic acid level that was high at 3.8 dropped down to 1.5. Stool for C. diff has been negative. Patient is resting comfortably in bed at this point in time. Amylase and lipase are also within normal limits. On 03/12/2022, the patient is being seen for a follow-up, Overnight, the patient became restless and intermedius and this morning the patient is more agitated and restless. Recent that, I suggested to start the patient on Precedex drip to control agitation. At the same time, the patient become more hypoxic. She was placed on 50 L of oxygen nasal cannula to maintain saturation above 90%. She has a mild degree of respiratory distress. The triple-lumen catheter was inserted in the left IJ. This was done for IV access. At the same time, the patient was found to be septic. This is probably related to ischemic colitis. The pro-calcitonin level was at 9.8. Lactic acid level dropped down to 1.2. The patient is currently on a combination of Levaquin and Flagyl. GI surgeries on the case. No significant abdominal distention or pain. On the blood work, the white cell count dropped down to 27 and hemoglobin is at 8.9. The creati nine also improved and the patient's creatinine of 1.2 with a BUN of 38 and a sodium level is at 143. Amylase and lipase levels are essentially within normal limits. The blood cultures are negative for now. The chest x-ray post line insertion showed that the left-sided triple lumen catheter is in a good location and the patient has some background COPD and multiple less than 1 cm nodules also seen in the right lung. The patient remains nothing by mouth for now. The patient is on no pressors for now. On 03/13/2022, the patient is being seen for a follow-up. Overall, more stable compared to yesterday and the patient is very comfortable with a combination of Precedex and Haldol. Precedex infusion is being used and currently the patient is on 0.4 mcg/kg/h. The patient is also on high flow oxygen at 60 L with an FiO2 of 50%. She was afebrile and she was given external warming. Her abdomen is nontender. Bowel sounds are hypoactive and sluggish. No evidence of any GI bleeding or coffee-ground emesis. The patient has a white cell count of 25 with a hemoglobin of 9 and a platelet count of 296. Sodium is at 147, potassium is at 5, the BUN is at 41 with a creatinine of 0.9 and a serum bicarb is at 26. The patient remains on a combination of IV Levaquin and Flagyl. She does have some upper airway secretions. She needs to do somewhat aggressive pulmonary toileting. Otherwise, her chest occasionally some microvesicle congestion. No other acute abnormalities. She remains on normal saline which is running at the rate of 50 mL an hour. She is on IV Protonix. No focal neurological deficits. Following simple commands. No significant agitation on today's evaluation. 03/14/2022, the patient is still on Precedex which is running at 0.4 mcg/kg/h. She is calm and comfortable. No significant agitation. I think it's possible to titrate down the Precedex infusion. At same time, the patient remains on high flow oxygen and this morning she is on 50 L with an FiO2 of 50%. No signs of any significant respiratory distress. Pulse ox is around 88%. The patient's white cell count is improving. Currently is down to 18 with a hemoglobin of 8 and a platelet of 372. Despite the drop in the hemoglobin, there is no evidence of any GI bleed. Sodium is at 146 and the BUN is at 41 with a creatinine of 1.1. Noted the pro-calcitonin level is also improving. It was as high as 9.8 and dropped down to 1.7. As such, the infectious processes essentially improving. This was probably related to colitis. She remains on a combination of Levaquin and Flagyl. She is on half-normal saline at rate of 75 mL an hour. Sodium level is slightly improved compared to yesterday and is currently down to 146. General surgery is on the case. Objective - Vital Signs Vital signs: Vital Signs Temp 97.2 F L 03/14/22 05:00 Pulse 79 03/14/22 09:00 Resp 15 03/14/22 09:00 BP 116/58 03/14/22 09:00 Pulse Ox 95 03/14/22 09:00 FiO2 53 03/14/22 09:00 Intake & Output 03/13/22 03/14/22 03/14/22 18:59 06:59 18:59 Intake Total 1098.713 0085.718 160.651 Output Total 565 420 60 Balance 594.893 666.718 100.651 Weight 72.6 kg Intake: IV 325 200 NS 0.9 225 metroNIDAZOLE-NS PMX 500 100 200 mg In Saline 1 100ml.bag @ 100 mls/hr IVPB Q6HR [facility] Rx#:[id number] Intake, IV Titration 834.893 886.718 160.651 Amount Dexmedetomidine/0.9% NaCl 159.893 61.718 10.651 (Pmx) 400 mcg In Empty Bag 1 bag @ 0.2 MCG/KG/HR 3.59 mls/hr IV .Q24H [facility] Rx#:[id number] Sodium Chloride 0.45% 1, 675 825 150 000 ml @ 75 mls/hr IV . [id number] [facility] Rx#:[id number] Output: Urine 565 420 60 Other: Voiding Method Indwelling Catheter Indwelling Catheter - Exam Gen. appearance the patient is calm and comfortable and the patient has a NG t ube removed and the patient is currently on high flow oxygen with 50 L and FiO2 of 50% L O2 nasal cannula Head exam was generally normal. There was no scleral icterus or corneal arcus. Mucous membranes were moist. Neck was supple and without jugular venous distension, thyromegaly, or carotid bruits. Carotids were easily palpable bilaterally. There was no adenopathy. Lungs sounds are diminished bilaterally and there is some scattered rhonchi and scattered expiratory wheeze Cardiac exam revealed the PMI to be normally situated and sized. The rhythm was regular and no extrasystoles were noted during several minutes of auscultation. The first and second heart sounds were normal and physiologic splitting of the second heart sound was noted. There were no murmurs, rubs, clicks, or gallops. Abdomen is soft and there is some mild direct tenderness to the rather diffuse. No organomegaly. No ascites. No rebound tenderness. No guarding. Bowel sounds are hypoactive. Examination of the extremities revealed easily palpable radial, femoral and pedal pulses. There was no cyanosis, clubbing or edema. Examination of the skin revealed no evidence of significant rashes, suspicious appearing nevi or other concerning lesions. Neurologically, the patient is awake and alert and the patient does not have any focal neurological deficit. Cranial nerves are essentially intact. The patient is less agitated and is following some simple commands. She remains drowsy and sedated as the patient is currently on Precedex and Haldol. - Labs CBC & Chem 7: 03/14/22 05:56 03/14/22 05:56 Labs: Abnormal Lab Results - Last 24 Hours (Table) 03/13/22 03/13/22 03/14/22 Range/Units 08:12 08:12 05:56 WBC 18.4 H (3.8-10.6) k/uL RBC 3.54 L (3.80-5.40) m/uL Hgb 8.0 L (11.4-16.0) gm/dL Hct 27.8 L (34.0-46.0) % MCV 78.5 L (80.0-100.0) fL MCH 22.7 L (25.0-35.0) pg MCHC 28.9 L (31.0-37.0) g/dL RDW 18.2 H (11.5-15.5) % Neutrophils # 24.0 H 17.6 H (1.3-7.7) k/uL Lymphocytes # 0.2 L 0.4 L (1.0-4.8) k/uL Sodium (137-145) mmol/L Chloride (98-107) mmol/L BUN (7-17) mg/dL Creatinine (0.52-1.04) mg/dL Glucose (74-99) mg/dL Procalcitonin 1.71 H (0.02-0.09) ng/mL 03/14/22 Range/Units 05:56 WBC (3.8-10.6) k/uL RBC (3.80-5.40) m/uL Hgb (11.4-16.0) gm/dL Hct (34.0-46.0) % MCV (80.0-100.0) fL MCH (25.0-35.0) pg MCHC (31.0-37.0) g/dL RDW (11.5-15.5) % Neutrophils # (1.3-7.7) k/uL Lymphocytes # (1.0-4.8) k/uL Sodium 146 H (137-145) mmol/L Chloride 113 H (98-107) mmol/L BUN 41 H (7-17) mg/dL Creatinine 1.12 H (0.52-1.04) mg/dL Glucose 118 H (74-99) mg/dL Procalcitonin (0.02-0.09) ng/mL Microbiology - Last 24 Hours (Table) 03/10/22 12:20 Blood Culture - Preliminary Blood No Growth after 72 hours 03/10/22 12:15 Blood Culture - Preliminary Blood No Growth after 72 hours Assessment and Plan Plan: Acute abdominal pain, possible colitis, Rule out possibility of an ischemic colitis and secondary sepsis, . Please refer to the CAT scan of the abdomen and pelvis. The patient remains on same antibiotic coverage of Levaquin and Flagyl. The white cell count is improving. The pro-calcitonin level is also improving. No signs of any acute GI bleed at this point in time despite a drop in hemoglobin down to 8.0. Coffee-ground emesis, the patient is post and G-tube insertion without evidence of any acute ongoing GI bleed for now.no evidence of any ongoing GI bleed and NG tube was removed Acute blood loss anemia posttransfusion with units of packed RBC and hemoglobin is at 8.0 Acute hypoxic respiratory failure currently on 50 L with an FiO2 of 50% and a chest x-ray showing some mild pulmonary vessel congestion. The patient continues to be short of breath and the patient is having difficulties including rest or secretions. She does have upper airway secretions and COPD exacerbation treated with a combination of bronchodilators and steroids. Acute leukocytosis, improving Acute delirium, currently on Precedex and Haldol on an as-needed basis, clinically improved compared to yesterday Acute lactic acidosis, improving Acute kidney injury, improving Acute leukocytosis, white blood count , improved compared to yesterday Advanced oxygen-dependent and steroid-dependent COPD, maintain on prednisone at 5 mg, currently on IV Solu-Medrol Coronary artery disease with previous coronary stenting maintain on Plavix on outpatient basis pulmonary fibrosis 1.3 cm pleural-based right upper lobe lesion identified on the previous CAT scan of the chest Hyperlipidemia Hypothyroidism DNR/DNINR/DNI 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 Chronic back pain Depression Plan Condition remains very critical still. The patient continues to be tachypneic and her rest or status is quite borderline and compromise at this point in time. She remains on high flow oxygen. Her ability to cough and perform adequate p ulmonary toileting is limited. We are going to continue the bronchodilators and steroids. Try to gradually wean off Precedex Continue IV fluids half-normal saline at the rate of 75 mL an hour No pressors for now White cell count is improving Pro calcitonin level is improving Lactate improved Continue Levaquin and Flagyl Triple lumen catheter was inserted Give the patient nothing by mouth, we will going to wean down the Precedex and assess the patient's ability to swallow. Monitor hemoglobin and there is no evidence of any GI bleeding Continue bronchodilators Continue steroids and the patient is currently on IV Solu-Medrol 60 mg every 8 hours Continue Precedex for delirium and wean off Precedex as the patient is quite comfortable at this point in time Continue the rest of the supportive care Start the patient on Synthroid 25 mg IV daily Hold the rest of the oral medication Heparin subcu 5000 units every 8 hours for DVT prophylaxis Blood cultures are negative DNR/DNI right Critical care evaluation that was done in more than 30 minutes We'll follow Time with Patient: Greater than 30
--- NOTE | 2022-03-14 14:26 | P.PN ---
Subjective 03/11/22: This is an 81-year-old female resident of [facility], presented to the ER with lethargy, coffee-ground emesis and abdominal pain that started earlier that day, prior to admission. Patient is on Plavix and aspirin. Abdomen is distended. Patient is a poor historian. Denies chest pain, palpitations.Computed tomography scan abdomen and pelvis reporting mild induration of the fat surrounding transverse colon extending to the splenic flexure. Correlate for mild colitis or infectious or inflammatory. Correlate clinically to exclude po tential ischemic changes. Distention of the gastric bubble with small hiatal hernia. Distention of the gallbladder with no evidence of gallstone. There is a 3.1 cm right adnexal cyst likely ovarian somewhat atypical given the patient's demographics. Correlate with pelvic ultrasound if clinically warranted. Correlation with CA-125 could be obtained as clinically warranted. Correlate for COPD and pulmonary interstitial fibrosis. Diverticulosis of the sigmoid colon. Evaluated by surgery, NG tube placed. KUB reporting NG tube appears to overlap the gastric fundus. Gastric bubble appears to be distended stable from recent computed tomography scan. addendum 03/11/2022 Shortly after admission, developed hypotension with systolic blood pressures up into the 80s, maps of 56, responded to IV fluids and did not require pressor support. Staff reports normal bowel movement last night without any bleeding. No further nausea, vomiting. I and O reporting 300 MLS of gastric drainage per N G,removed as per surgery's recommendations. Lactic acid elevated, received IV fluids, recovered. Levaquin and Flagyl initiated. Gastric for occult blood negative, stool for C. difficile-negative.Currently requiring 6 L nasal cannula to maintain O2 sats in the 90s in a patient who normally is maintained on 2 L nasal cannula O2. Chest x-ray reporting COPD with findings suggestive of pulmonary fibrosis. Stable nodular densities in the right upper lobe unchanged from prior exam. Measuring less than 1 cm. EKG reported sinus rhythm. Afebrile, WBC 36.6 on admission, currently down to 30.5. Hemoglobin on admission 9 currently count 8.2, platelets 433, INR 0.9. Sodium 136, calcium 5.3, BUN 34, creatinine down to 1.6 [id number] 2021: patient is city need to security. March 12, 2022: patient is in the intensive care unit. She has high flow, nasal cannula oxygen, and 15 L per minute. She is Somnelent and not easily arousable.Blood pressure is controlled, Restaurant, heart rate or normal. She remains on Levaquin and Flagyl along with IV fluids normal. See you at 1:30 cc per hour. She's NPO.She is on Dexmedetomidine for agitiation. I discussed her case with her daughter. Labs shown improving white countdown to 27.8 hemoglobin to 8.9, last shift continues to be at 26.9 neutrophils chemistries Rafiq you want to 38,31.21 CO2 is 25.CA, 1 25 is normal at 15.7, pro calcitonin was elevated at 9.87. Blood cultures are negative times two. Chest x-ray showed central line and good position, COPD, multiple 1 cm less Duenas nodules in the right upper lobe. General surgery notes from today reviewed. Pulmonology/critical care notes are pending for today. 03/13/2022: Patient remains intensive care unit. She is currently on Airvo nasal cannula oxygen. She is somnolent and not easily arousable at this time. Staff report they've not given her any sedation. She did receive 10 mg hydral azine IV push every 6 hours when necessary for her hypertension. This is now resolved and she is borderline hypotensive. She remains on metronidazole and Levaquin for about a coverage for ischemic colitis. She has Haldol and lorazepam for agitation. His methylprednisolone for her COPD along with DuoNeb updrafts ordered. She remains on IV fluids at 75 mL per hour. Nicole studies show a continue reduction of her WBC count now down to 25.4 with a neutrophil count of 24. Hemoglobin is 9.0 this morning. Platelets 296. Chemistries show a sodium 147 potassium 5. BUN is elevated at 41 and crit of 0.98 case was discussed with critical care/pulmonology today. 03/14/2022: Patient remains in the intensive care unit. [facility] is [facility] at this time. Settings are 50% FiO2. Her pulse oximetry at this is 96%. Blood pressure slightly elevated 1 5459 but heart rate is improved. He remains afebrile. She remains on Precedex now at 0.2 mics per kilogram per hour. Staff are attempting to wean this. She remains on Levaquin and Flagyl for IV in about a coverage and methylprednisolone. IV fluid is 0.45 normal saline at 75 mL an hour. She is been nothing by mouth over 2 days now. Laboratory studies showed a hemoglobin dropping from 9-8.0. Her white count is also down from 25.4-18.4. Absolute neutrophils 17.6. Chemistries show sodium 146 potassium 4.1 chloride 113 BUN is 41 and creatinine 1.12. Glucose 118. Most recent pro calcitonin was 1.71. Covid, influenza A and B and RSV negative. Blood cultures negative 72 hours. X-ray show multifocal subtle reticular hazy airspace opacities Critical care and general surgery notes reviewed. Objective - Vital Signs Vital signs: Vital Signs Temp 95.8 F L 03/14/22 13:00 Pulse 80 03/14/22 14:00 Resp 14 03/14/22 14:00 BP 154/59 03/14/22 14:00 Pulse Ox 96 03/14/22 14:00 FiO2 50 03/14/22 14:00 Intake & Output 03/13/22 03/14/22 03/14/22 18:59 06:59 18:59 Intake Total 0969.131 9557.718 806.353 Output Total 565 420 195 Balance 594.893 666.718 611.353 Weight 72.6 kg 72.6 kg Intake: IV 325 200 NS 0.9 225 metroNIDAZOLE-NS PMX 500 100 200 mg In Saline 1 100ml.bag @ 100 mls/hr IVPB Q6HR [facility] Rx#:[id number] Intake, IV Titration 834.893 886.718 806.353 Amount Dexmedetomidine/0.9% NaCl 159.893 61.718 31.353 (Pmx) 400 mcg In Empty Bag 1 bag @ 0.2 MCG/KG/HR 3.59 mls/hr IV .Q24H [facility] Rx#:[id number] Levofloxacin 750Mg-D5w 150 Pmx 750 mg In Dextrose/ Water 1 150ml.bag @ 100 mls/hr IVPB Q24H [facility] Rx#: [id number] Sodium Chloride 0.45% 1, 675 825 525 000 ml @ 75 mls/hr IV . [id number] [facility] Rx#:[id number] metroNIDAZOLE-NS PMX 500 100 mg In Saline 1 100ml.bag @ 100 mls/hr IVPB Q6HR [facility] Rx#:[id number] Output: Urine 565 420 195 Other: Voiding Method Indwelling Catheter Indwelling Catheter - Exam GENERAL:asleep/sedated in bed, no acute distress, eyes open NECK: Supple, No JVD. No thyroid enlargement. No LNs CARDIOVASCULAR: S1, S2 regular. No murmur RESPIRATION: Breath sounds diminished, occasional scattered rhonchi. ABDOMEN: Soft, distended. Diffuse tenderness across bilateral upper quadrants, No guarding. no masses palpable. No ascites, No hepatosplenomegaly.hypoactive Bowel sounds.Patient no longer grimaces and moans with palpation LEGS: No edema. no swelling PSYCHIATRY: Unconscious NERVOUS SYSTEM: Cranial N 2-12 grossly normal. Diffuse weakness,No focal deficits. Skin:Warm and dry, no rash. - Labs CBC & Chem 7: 03/14/22 05:56 03/14/22 05:56 Labs: Abnormal Lab Results - Last 24 Hours (Table) 03/13/22 03/14/22 03/14/22 Range/Units 08:12 05:56 05:56 WBC 18.4 H (3.8-10.6) k/uL RBC 3.54 L (3.80-5.40) m/uL Hgb 8.0 L (11.4-16.0) gm/dL Hct 27.8 L (34.0-46.0) % MCV 78.5 L (80.0-100.0) fL MCH 22.7 L (25.0-35.0) pg MCHC 28.9 L (31.0-37.0) g/dL RDW 18.2 H (11.5-15.5) % Neutrophils # 17.6 H (1.3-7.7) k/uL Lymphocytes # 0.4 L (1.0-4.8) k/uL Sodium 146 H (137-145) mmol/L Chloride 113 H (98-107) mmol/L BUN 41 H (7-17) mg/dL Creatinine 1.12 H (0.52-1.04) mg/dL Glucose 118 H (74-99) mg/dL Procalcitonin 1.71 H (0.02-0.09) ng/mL Microbiology - Last 24 Hours (Table) 03/10/22 12:20 Blood Culture - Preliminary Blood No Growth after 72 hours 03/10/22 12:15 Blood Culture - Preliminary Blood No Growth after 72 hours Assessment and Plan (1) Acute and chronic respiratory failure with hypoxia Current Visit: No Status: Acute Code(s): J96.21 - ACUTE AND CHRONIC RESPIRATORY FAILURE WITH HYPOXIA SNOMED Code(s): 66677890 (2) Sepsis Current Visit: Yes Status: Acute Code(s): A41.9 - SEPSIS, UNSPECIFIED ORGANISM SNOMED Code(s): 97490441 (3) Anemia Current Visit: Yes Status: Acute Code(s): D64.9 - ANEMIA, UNSPECIFIED SNOMED Code(s): 505749686 (4) Colitis Current Visit: Yes Status: Acute Code(s): K52.9 - NONINFECTIVE GASTROE NTERITIS AND COLITIS, UNSPECIFIED SNOMED Code(s): 60746047 (5) Ischemic bowel disease Current Visit: Yes Status: Acute Code(s): K55.9 - VASCULAR DISORDER OF INTESTINE, UNSPECIFIED SNOMED Code(s): 15276419 (6) Renal insufficiency Current Visit: Yes Status: Acute Code(s): N28.9 - DISORDER OF KIDNEY AND URETER, UNSPECIFIED SNOMED Code(s): 479481337 (7) Hypoxia Current Visit: No Status: Acute Code(s): R09.02 - HYPOXEMIA SNOMED Code(s): 126458901 (8) Leukocytosis Current Visit: No Status: Acute Code(s): D72.829 - ELEVATED WHITE BLOOD CELL COUNT, UNSPECIFIED SNOMED Code(s): 310410986 Plan: Continue her current medication regimen and treatment by critical care and general surgery. Will wait on repeat laboratory studies for tomorrow. We will reevaluate her in the next 24 hours. No family was at bedside. Wherever changed to complete DNR with no intubation
[2022-03-14] MEDS ORDERED: LACTATED RINGERS 1,000 ML IV ONE (18:00)
[2022-03-15] MEDS: NOREPINEPHRINE 4 MG in SODIUM CHLORIDE 0.9% 250 ML IV SCH ×2 (00:06→23:11)
[2022-03-15] MEDS: methylPREDNISolone SOD SUCCI 125 MG/2 ML VIAL IV SCH ×2 (00:12→08:54)
[2022-03-15] MEDS: metroNIDAZOLE-NS PMX 500 MG in SALINE 1 100ML.BAG IVPB SCH ×5 (00:13→23:04)
[2022-03-15] MEDS: LORazepam 2 MG/ML INJ IV PRN ×2 (01:33→09:58)
[2022-03-15] MEDS: hydrALAZINE HCL 20 MG/ML 1 ML VIAL IVP SCH ×5 (02:31→23:04)
[2022-03-15] MEDS: SODIUM CHLORIDE 0.45% 1,000 ML IV SCH ×2 (05:55→13:13)
[2022-03-15] MEDS ORDERED: hydrALAZINE HCL 20 MG/ML 1 ML VIAL IVP STA (06:32)
[2022-03-15 07:36] LABS: Anisocytosis Slight; Basophils % (A) 0 %; Eosinophils % (A) 0 %; HCT 29.1 % (34.0-46.0); HGB 8.4 gm/dL (11.4-16.0); Hypochromasia Marked; Lymphocytes # (A) 0.3 k/uL (1.0-4.8); Lymphocytes % (A) 2 %; MCH 22.8 pg (25.0-35.0); MCHC 28.9 g/dL (31.0-37.0); MCV 79.2 fL (80.0-100.0); Mean Platelet Volume 7.8; Microcytosis Slight; Monocytes # (A) 0.3 k/uL (0-1.0); Monocytes % (A) 2 %; Neutrophils # (A) 13.4 k/uL (1.3-7.7); Neutrophils % (A) 94 %; Platelet Count 330 k/uL (150-450); Poikilocytosis Slight; RBC 3.68 m/uL (3.80-5.40); RDW 18.7 % (11.5-15.5); WBC 14.2 k/uL (3.8-10.6)
[2022-03-15] MEDS: IPRATROPIUM-ALBUTEROL 3 ML NEB INHALATION SCH ×4 (07:54→19:24)
[2022-03-15 07:56] LABS: Calcium 9.5 mg/dL (8.4-10.2)
--- NOTE | 2022-03-15 08:17 | XR ---
EXAMINATION TYPE: XR chest 1V portable DATE OF EXAM: 03/15/2022 COMPARISON: 03/14/2022 HISTORY: Shortness of breath TECHNIQUE: Single frontal view of the chest is obtained. FINDINGS: There is a left jugular central venous catheter tip in the SVC/RA junction unchanged in position. T here is increasing partially consolidative in the right lung base suspicious for pneumonia. Left lung is clear. There is no pleural effusion or pneumothorax. Heart size is normal and the pulmonary vasculature is n ot congested. The osseous structures are intact. IMPRESSION: Increasing infiltrate in the right lung base suspicious for pneumonia.
[2022-03-15] MEDS: LEVOTHYROXINE IVP 100 MCG/5 ML VIAL IV SCH (08:53)
[2022-03-15] MEDS: PANTOPRAZOLE 40 MG/10 ML VIAL IVP SCH ×2 (08:54→19:57)
--- NOTE | 2022-03-15 10:16 | P.PN ---
Subjective Progress Note Date: 03/15/22 Principal diagnosis: Abdominal pain Patient is currently on BiPAP. No complaints currently. Confusion per nursing staff. White blood cell count is improved at 14. No bowel movement. Objective - Vital Signs Vital signs: Vital Signs Temp 95.8 F L 03/15/22 09:00 Pulse 65 03/15/22 09:00 Resp 14 03/15/22 09:00 BP 89/50 03/15/22 09:00 Pulse Ox 95 03/15/22 09:00 FiO2 100 03/15/22 08:00 Intake & Output 03/14/22 03/15/22 03/15/22 18:59 06:59 18:59 Intake Total 1169.747 533.167 346.092 Output Total 290 450 130 Balance 879.747 83.167 216.092 Weight 72.6 kg 73 kg Intake: IV 110 40 NS 0.9 110 40 Intake, IV Titration 1169.747 423.167 306.092 Amount Dexmedetomidine/0.9% NaCl 94.747 48.167 81.092 (Pmx) 400 mcg In Empty Bag 1 bag @ 0.2 MCG/KG/HR 3.59 mls/hr IV .Q24H [facility] Rx#:[id number] Levofloxacin 750Mg-D5w 150 Pmx 750 mg In Dextrose/ Water 1 150ml.bag @ 100 mls/hr IVPB Q24H [facility] Rx#: [id number] Sodium Chloride 0.45% 1, 825 375 225 000 ml @ 75 mls/hr IV . [id number] [facility] Rx#:[id number] metroNIDAZOLE-NS PMX 500 100 mg In Saline 1 100ml.bag @ 100 mls/hr IVPB Q6HR [facility] Rx#:[id number] Output: Urine 290 450 130 Other: Voiding Method Indwelling Catheter Indwelling Catheter Indwelling Catheter - Exam Abdomen: Soft, nontender, nondistended - Labs CBC & Chem 7: 03/15/22 06:51 03/15/22 06:51 Labs: Abnormal Lab Results - Last 24 Hours (Table) 03/15/22 03/15/22 Range/Units 06:51 06:51 WBC 14.2 H (3.8-10.6) k/uL RBC 3.68 L (3.80-5.40) m/uL Hgb 8.4 L (11.4-16.0) gm/dL Hct 29.1 L (34.0-46.0) % MCV 79.2 L (80.0-100.0) fL MCH 22.8 L (25.0-35.0) pg MCHC 28.9 L (31.0-37.0) g/dL RDW 18.7 H (11.5-15.5) % Neutrophils # 13.4 H (1.3-7.7) k/uL Lymphocytes # 0.3 L (1.0-4.8) k/uL Sodium 147 H (137-145) mmol/L Chloride 115 H (98-107) mmol/L BUN 43 H (7-17) mg/dL Glucose 128 H (74-99) mg/dL Microbiology - Last 24 Hours (Table) 03/10/22 12:20 Blood Culture - Preliminary Blood No Growth after 96 hours 03/10/22 12:15 Blood Culture - Preliminary Blood No Growth after 96 hours Assessment and Plan (1) Colitis Narrative/Plan: 82-year-old female with sepsis possibly on the basis of ischemic colitis. Abdominal exam is definitely improved over the last 2 days. Pulmonary status remains poor. Continue antibiotics. Will follow. Current Visit: Yes Status: Acute Code(s): K52.9 - NONINFECTIVE GASTROENTERITIS AND COLITIS, UNSPECIFIED SNOMED Code(s): 13143470
--- NOTE | 2022-03-15 10:59 | P.PN ---
Subjective Progress Note Date: 03/15/22 This is an 82-year-old female patient who presented to the emergency department because of abdominal pain and coffee-ground emesis. The patient had some mid abdominal pain that became rather diffuse of the later stage. No bright red blood per rectum. No melanotic stools. Apparently she was having regular bowel movement. No abdominal distention. No ascites. The patient has had a colonoscopy 2 years back and I do not think she has had a previous EGD. She came into the emergency department. The patient had a Gastroccult positive. The patient had a CAT scan of the abdomen that was noted and there was evidence of diverticulosis and possible transverse colitis. There was mild induration of the fat surrounding transverse colon extending to the splenic flexure. Possibility of ischemic colitis cannot be completely ruled out. There was distention of the gastric bubble with small hiatal hernia. There was distention of the gallbladder without evidence of any gallstones. No other underlying COPD in the background along with diverticulosis. The patient was seen by general surgery. The patient was covered with a combination of antibiotics and the patient is currently on Levaquin and Flagyl. NG tube was inserted operative morbidity with minimal at this point in time in the order of 200 mL since the patient up from the emergency department. The patient is currently on normal saline at the rate of 130 mL an hour. The patient was already given a total of 3 L of IV fluid. Her sodium level is at 136 with a potassium level of 5.3 and a BUN is 34 with a creatinine of 1.6. Note that the patient had acute kidney injury and the creatinine was as high as 1.9. At time of admission. At the same time, the white cell count improved slightly from 35 down to 30.5. Hemoglobin dropped from 9 down to 8.2. Also, we're markedly lactic acid level that was high at 3.8 dropped down to 1.5. Stool for C. diff has been negative. Patient is resting comfortably in bed at this point in time. Amylase and lipase are also within normal limits. On 03/12/2022, the patient is being seen for a follow-up, Overnight, the patient became restless and intermedius and this morning the patient is more agitated and restless. Recent that, I suggested to start the patient on Precedex drip to control agitation. At the same time, the patient become more hypoxic. She was placed on 50 L of oxygen nasal cannula to maintain saturation above 90%. She has a mild degree of respiratory distress. The triple-lumen catheter was inserted in the left IJ. This was done for IV access. At the same time, the patient was found to be septic. This is probably related to ischemic colitis. The pro-calcitonin level was at 9.8. Lactic acid level dropped down to 1.2. The patient is currently on a combination of Levaquin and Flagyl. GI surgeries on the case. No significant abdominal distention or pain. On the blood work, the white cell count dropped down to 27 and hemoglobin is at 8.9. The creati nine also improved and the patient's creatinine of 1.2 with a BUN of 38 and a sodium level is at 143. Amylase and lipase levels are essentially within normal limits. The blood cultures are negative for now. The chest x-ray post line insertion showed that the left-sided triple lumen catheter is in a good location and the patient has some background COPD and multiple less than 1 cm nodules also seen in the right lung. The patient remains nothing by mouth for now. The patient is on no pressors for now. On 03/13/2022, the patient is being seen for a follow-up. Overall, more stable compared to yesterday and the patient is very comfortable with a combination of Precedex and Haldol. Precedex infusion is being used and currently the patient is on 0.4 mcg/kg/h. The patient is also on high flow oxygen at 60 L with an FiO2 of 50%. She was afebrile and she was given external warming. Her abdomen is nontender. Bowel sounds are hypoactive and sluggish. No evidence of any GI bleeding or coffee-ground emesis. The patient has a white cell count of 25 with a hemoglobin of 9 and a platelet count of 296. Sodium is at 147, potassium is at 5, the BUN is at 41 with a creatinine of 0.9 and a serum bicarb is at 26. The patient remains on a combination of IV Levaquin and Flagyl. She does have some upper airway secretions. She needs to do somewhat aggressive pulmonary toileting. Otherwise, her chest occasionally some microvesicle congestion. No other acute abnormalities. She remains on normal saline which is running at the rate of 50 mL an hour. She is on IV Protonix. No focal neurological deficits. Following simple commands. No significant agitation on today's evaluation. 03/14/2022, the patient is still on Precedex which is running at 0.4 mcg/kg/h. She is calm and comfortable. No significant agitation. I think it's possible to titrate down the Precedex infusion. At same time, the patient remains on high flow oxygen and this morning she is on 50 L with an FiO2 of 50%. No signs of any significant respiratory distress. Pulse ox is around 88%. The patient's white cell count is improving. Currently is down to 18 with a hemoglobin of 8 and a platelet of 372. Despite the drop in the hemoglobin, there is no evidence of any GI bleed. Sodium is at 146 and the BUN is at 41 with a creatinine of 1.1. Noted the pro-calcitonin level is also improving. It was as high as 9.8 and dropped down to 1.7. As such, the infectious processes essentially improving. This was probably related to colitis. She remains on a combination of Levaquin and Flagyl. She is on half-normal saline at rate of 75 mL an hour. Sodium level is slightly improved compared to yesterday and is currently down to 146. General surgery is on the case. On 03/15/2022, the patient is very much, comfortable and the patient is receiving a Precedex at 0.4 mcg/kg/h and occasional doses of Ativan for increased anxiety. She is very much in synchrony with a BiPAP at this point in time. Whenever she wakes up, I was told that the patient becomes restless and she tries to reach out and pull on her BiPAP. As such, the patient was Adequately sedated. Meanwhile, the patient remains nothing by mouth on this is a concern. She did have colitis. Her abdomen is soft. On her blood work, the white cell count dropped to 14 with a hemoglobin of 8.4. Sodium level is at 147 BUN of 47 with a creatinine of 0.9, bicarb is 25 with a potassium level of 4. She remains on Levaquin and Flagyl. Cultures are negative. Her pro-calcitonin level was also improving and is up from 9.8 down to 1.7. As such, I would say the infectious with a septic component is improving. Nevertheless, as mentioned earlier, the patient has advanced COPD with chronic hypoxic respiratory failure and his COPD was somewhat exacerbating and the patient was having some difficulties in caring respiratory secretions. She had issues with cough and congestion. She was kept on DuoNeb about treatments [id number] and IV Solu-Medrol. Solu-Medrol can be gradually tapered off. No other significant events overnight. GI surgeries on the case. She is a DNR/DNI CODE STATUS. Objective - Vital Signs Vital signs: Vital Signs Temp 95.8 F L 03/15/22 09:00 Pulse 70 03/15/22 10:00 Resp 23 03/15/22 10:00 BP 93/46 03/15/22 10:00 Pulse Ox 96 03/15/22 10:00 FiO2 100 03/15/22 08:00 Intake & Output 03/14/22 03/15/22 03/15/22 18:59 06:59 18:59 Intake Total 1169.747 533.167 346.092 Output Total 290 450 130 Balance 879.747 83.167 216.092 Weight 72.6 kg 73 kg Intake: IV 110 40 NS 0.9 110 40 Intake, IV Titration 1169.747 423.167 306.092 Amount Dexmedetomidine/0.9% NaCl 94.747 48.167 81.092 (Pmx) 400 mcg In Empty Bag 1 bag @ 0.2 MCG/KG/HR 3.59 mls/hr IV .Q24H [facility] Rx#:[id number] Levofloxacin 750Mg-D5w 150 Pmx 750 mg In Dextrose/ Water 1 150ml.bag @ 100 mls/hr IVPB Q24H [facility] Rx#: [id number] Sodium Chloride 0.45% 1, 825 375 225 000 ml @ 75 mls/hr IV . [id number] [facility] Rx#:[id number] metroNIDAZOLE-NS PMX 500 100 mg In Saline 1 100ml.bag @ 100 mls/hr IVPB Q6HR [facility] Rx#:[id number] Output: Urine 290 450 130 Other: Voiding Method Indwelling Catheter Indwelling Catheter Indwelling Catheter - Exam Gen. appearance the patient is calm and comfortable and the patient has a NG tube removed and the patient is currently on BiPAP at a pressure of 12/5 cm of water and FiO2 of 50% Head exam was generally normal. There was no scleral icterus or corneal arcus. Mucous membranes were moist. Neck was supple and without jugular venous distension, thyromegaly, or carotid bruits. Carotids were easily palpable bilaterally. There was no adenopathy. Lungs sounds are diminished bilaterally and there is some scattered rhonchi and scattered expiratory wheeze Cardiac exam revealed the PMI to be normally situated and sized. The rhythm was regular and no extrasystoles were noted during several minutes of auscultation. The first and second heart sounds were normal and physiologic splitting of the second heart sound was noted. There were no murmurs, rubs, clicks, or gallops. Abdomen is soft and there is some mild direct tenderness to the rather diffuse. No organomegaly. No ascites. No rebound tenderness. No guarding. Bowel sounds are hypoactive. Examination of the extremities revealed easily palpable radial, femoral and pedal pulses. There was no cyanosis, clubbing or edema. Examination of the skin revealed no evidence of significant rashes, suspicious appearing nevi or other concerning lesions. Neurologically, the patient is awake and alert and the patient does not have any focal neurological deficit. Cranial nerves are essentially intact. The patient is less agitated and is following some simple commands. She remains drowsy and sedated as the patient is currently on Precedex and Haldol. - Labs CBC & Chem 7: 03/15/22 06:51 03/15/22 06:51 Labs: Abnormal Lab Results - Last 24 Hours (Table) 03/15/22 03/15/22 Range/Units 06:51 06:51 WBC 14.2 H (3.8-10.6) k/uL RBC 3.68 L (3.80-5.40) m/uL Hgb 8.4 L (11.4-16.0) gm/dL Hct 29.1 L (34.0-46.0) % MCV 79.2 L (80.0-100.0) fL MCH 22.8 L (25.0-35.0) pg MCHC 28.9 L (31.0-37.0) g/dL RDW 18.7 H (11.5-15.5) % Neutrophils # 13.4 H (1.3-7.7) k/uL Lymphocytes # 0.3 L (1.0-4.8) k/uL Sodium 147 H (137-145) mmol/L Chloride 115 H (98-107) mmol/L BUN 43 H (7-17) mg/dL Glucose 128 H (74-99) mg/dL Microbiology - Last 24 Hours (Table) 03/10/22 12:20 Blood Culture - Preliminary Blood No Growth after 96 hours 03/10/22 12:15 Blood Culture - Preliminary Blood No Growth after 96 hours Assessment and Plan Plan: Acute abdominal pain, possible colitis, Rule out possibility of an ischemic colitis and secondary sepsis, . Please refer to the CAT scan of the abdomen and pelvis. The patient remains on same antibiotic coverage of Levaquin and Flagyl. The septic component is improving. The patient's white cell count is improving. Pro-calcitonin is low. Abdomen is soft. She remains nothing by mouth. Coffee-ground emesis, the patient is post and G-tube insertion without evidence of any acute ongoing GI bleed for now.no evidence of any ongoing GI bleed and NG tube was removed, the patient has not shown any signs of GI bleeding since her initial admission Acute blood loss anemia posttransfusion with units of packed RBC and hemoglobin is at 8.4 Acute hypoxic respiratory failure currently on 50 L with an FiO2 of 50% and a chest x-ray showing some mild pulmonary vessel congestion. The patient co ntinues to be short of breath and the patient is having difficulties including rest or secretions. She does have upper airway secretions and COPD exacerbation treated with a combination of bronchodilators and steroids. The patient was unable to tolerate high flow oxygen yesterday and she was transitioned to BiPAP and she seems to much more comfortable tolerating it well at a pressures of 12/5 with an FiO2 of 50%. She is very much in synchrony with the BiPAP for now. Acute leukocytosis, improving Acute delirium, currently on Precedex and Haldol on an as-needed basis, clinically improved compared to yesterday Acute lactic acidosis, improving Acute kidney injury, improving Acute leukocytosis, white blood count , improved compared to yesterday Advanced oxygen-dependent and steroid-dependent COPD, maintain on prednisone at 5 mg, currently on IV Solu-Medrol Coronary artery disease with previous coronary stenting maintain on Plavix on outpatient basis pulmonary fibrosis 1.3 cm pleural-based right upper lobe lesion identified on the previous CAT scan of the chest Hyperlipidemia Hypothyroidism DNR/DNINR/DNI 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 Chronic back pain Depression Plan Condition remains very critical still. Septic component is improving Continue IV fluids with 1/2 normal saline at rate of 75 mL an hour and is in the form of half-normal saline Continue same antibiotic coverage Try to gradually wean off Precedex Continue IV fluids half-normal saline at the rate of 75 mL an hour No pressors for now White cell count is improving Pro calcitonin level is improving Lactate improved Continue Levaquin and Flagyl Triple lumen catheter was inserted Initiate TPN for nutritional support Continue bronchodilators Continue steroids and the patient is currently on IV Solu-Medrol dose will be tapered down to 40 mg every 12 hours Continue Precedex for delirium and wean off Precedex as the patient is quite comfortable at this point in time Continue the rest of the supportive care Start the patient on Synthroid 25 mg IV daily Hold the rest of the oral medication Heparin subcu 5000 units every 8 hours for DVT prophylaxis Blood cultures are negative DNR/DNI Critical care evaluation that was done in more than 30 minutes We'll follow Time with Patient: Greater than 30
--- NOTE | 2022-03-15 12:18 | P.PN ---
Subjective 03/11/22: This is an 81-year-old female resident of [facility], presented to the ER with lethargy, coffee-ground emesis and abdominal pain that started earlier that day, prior to admission. Patient is on Plavix and aspirin. Abdomen is distended. Patient is a poor historian. Denies chest pain, palpitations.Computed tomography scan abdomen and pelvis reporting mild induration of the fat surrounding transverse colon extending to the splenic flexure. Correlate for mild colitis or infectious or inflammatory. Correlate clinically to exclude po tential ischemic changes. Distention of the gastric bubble with small hiatal hernia. Distention of the gallbladder with no evidence of gallstone. There is a 3.1 cm right adnexal cyst likely ovarian somewhat atypical given the patient's demographics. Correlate with pelvic ultrasound if clinically warranted. Correlation with CA-125 could be obtained as clinically warranted. Correlate for COPD and pulmonary interstitial fibrosis. Diverticulosis of the sigmoid colon. Evaluated by surgery, NG tube placed. KUB reporting NG tube appears to overlap the gastric fundus. Gastric bubble appears to be distended stable from recent computed tomography scan. addendum 03/11/2022 Shortly after admission, developed hypotension with systolic blood pressures up into the 80s, maps of 56, responded to IV fluids and did not require pressor support. Staff reports normal bowel movement last night without any bleeding. No further nausea, vomiting. I and O reporting 300 MLS of gastric drainage per N G,removed as per surgery's recommendations. Lactic acid elevated, received IV fluids, recovered. Levaquin and Flagyl initiated. Gastric for occult blood negative, stool for C. difficile-negative.Currently requiring 6 L nasal cannula to maintain O2 sats in the 90s in a patient who normally is maintained on 2 L nasal cannula O2. Chest x-ray reporting COPD with findings suggestive of pulmonary fibrosis. Stable nodular densities in the right upper lobe unchanged from prior exam. Measuring less than 1 cm. EKG reported sinus rhythm. Afebrile, WBC 36.6 on admission, currently down to 30.5. Hemoglobin on admission 9 currently count 8.2, platelets 433, INR 0.9. Sodium 136, calcium 5.3, BUN 34, creatinine down to 1.6 [id number] 2021: patient is city need to security. March 12, 2022: patient is in the intensive care unit. She has high flow, nasal cannula oxygen, and 15 L per minute. She is Somnelent and not easily arousable.Blood pressure is controlled, Restaurant, heart rate or normal. She remains on Levaquin and Flagyl along with IV fluids normal. See you at 1:30 cc per hour. She's NPO.She is on Dexmedetomidine for agitiation. I discussed her case with her daughter. Labs shown improving white countdown to 27.8 hemoglobin to 8.9, last shift continues to be at 26.9 neutrophils chemistries Rafiq you want to 38,31.21 CO2 is 25.CA, 1 25 is normal at 15.7, pro calcitonin was elevated at 9.87. Blood cultures are negative times two. Chest x-ray showed central line and good position, COPD, multiple 1 cm less Duenas nodules in the right upper lobe. General surgery notes from today reviewed. Pulmonology/critical care notes are pending for today. 03/13/2022: Patient remains intensive care unit. She is currently on Airvo nasal cannula oxygen. She is somnolent and not easily arousable at this time. Staff report they've not given her any sedation. She did receive 10 mg hydral azine IV push every 6 hours when necessary for her hypertension. This is now resolved and she is borderline hypotensive. She remains on metronidazole and Levaquin for about a coverage for ischemic colitis. She has Haldol and lorazepam for agitation. His methylprednisolone for her COPD along with DuoNeb updrafts ordered. She remains on IV fluids at 75 mL per hour. Nicole studies show a continue reduction of her WBC count now down to 25.4 with a neutrophil count of 24. Hemoglobin is 9.0 this morning. Platelets 296. Chemistries show a sodium 147 potassium 5. BUN is elevated at 41 and crit of 0.98 case was discussed with critical care/pulmonology today. 03/14/2022: Patient remains in the intensive care unit. She is been transferred [facility] to [facility] at this time. Settings are 50% FiO2. Her pulse oximetry at this is 96%. Blood pressure slightly elevated 1 5459 but heart rate is improved. He remains afebrile. She remains on Precedex now at 0.2 mics per kilogram per hour. Staff are attempting to wean this. She remains on Levaquin and Flagyl for IV in about a coverage and methylprednisolone. IV fluid is 0.45 normal saline at 75 mL an hour. She is been nothing by mouth over 2 days now. Laboratory studies showed a hemoglobin dropping from 9-8.0. Her white count is also down from 25.4-18.4. Absolute neutrophils 17.6. Chemistries show sodium 146 potassium 4.1 chloride 113 BUN is 41 and creatinine 1.12. Glucose 118. Most recent pro calcitonin was 1.71. Covid, influenza A and B and RSV negative. Blood cultures negative 72 hours. X-ray show multifocal subtle reticular hazy airspace opacities Critical care and general surgery notes reviewed. 03/15/2022: Patient remains in the intensive care unit. She is sedated on Precedex. Haldol is been ordered as opposed to Ativan at this time. She remians on BiPAP at this time. Settings are 50% FiO2. Her pulse oximetry at this is 94%. Blood pressure fluctuating He remains afebrile. She remains on Precedex now at 0.2 mics per kilogram per hour. Staff are attempting to wean this. She remains on Levaquin and Flagyl for IV in about a coverage and methylprednisolone. IV fluid is 0.45 normal saline at 75 mL an hour. She is been nothing by mouth , critical care is planning to start TPN on her today. I discussed her case with them. Laboratory studies showed a hemoglobin 8.4. She did have coffee-ground emesis did receive 1 unit packed red blood cells. Her white count is also down and continues to improve now at 14.2.. Chemistries show sodium 147 potassium 4.0 chloride 115 BUN is 43 and creatinine 0.98. Glucose 128. Most recent pro calcitonin was 1.71. Chest x-ray shows increasing infiltrate in the right base suspicious for pneumonia. Critical care and general surgery notes reviewed. Objective - Vital Signs Vital signs: Vital Signs Temp 96.0 F L 03/15/22 12:00 Pulse 80 03/15/22 12:00 Resp 16 03/15/22 12:00 BP 113/79 03/15/22 12:00 Pulse Ox 94 L 03/15/22 12:00 FiO2 50 03/15/22 12:00 Intake & Output 03/14/22 03/15/22 03/15/22 18:59 06:59 18:59 Intake Total 1169.747 533.167 516.092 Output Total 290 450 195 Balance 879.747 83.167 321.092 Weight 72.6 kg 73 kg Intake: IV 110 60 NS 0.9 110 60 Intake, IV Titration 1169.747 423.167 456.092 Amount Dexmedetomidine/0.9% NaCl 94.747 48.167 81.092 (Pmx) 400 mcg In Empty Bag 1 bag @ 0.2 MCG/KG/HR 3.59 mls/hr IV .Q24H MELANIA Rx#:[id number] Levofloxacin 750Mg-D5w 150 Pmx 750 mg In Dextrose/ Water 1 150ml.bag @ 100 mls/hr IVPB Q24H MELANIA Rx#: [id number] Sodium Chloride 0.45% 1, 825 375 375 000 ml @ 75 mls/hr IV . [id number] MELANIA Rx#:[id number] metroNIDAZOLE-NS PMX 500 100 mg In Saline 1 100ml.bag @ 100 mls/hr IVPB Q6HR MELANIA Rx#:[id number] Output: Urine 290 450 195 Other: Voiding Method Indwelling Catheter Indwelling Catheter Indwelling Catheter - Exam GENERAL:asleep/sedated in bed, no acute distress, eyes open NECK: Supple, No JVD. No thyroid enlargement. No LNs CARDIOVASCULAR: S1, S2 regular. No murmur RESPIRATION: Breath sounds diminished, occasional scattered rhonchi. ABDOMEN: Soft, distended. Diffuse tenderness across bilateral upper quadrants, No guarding. no masses palpable. No ascites, No hepatosplenomegaly.hypoactive Bowel sounds.Patient no longer grimaces and moans with palpation LEGS: No edema. no swelling PSYCHIATRY: Unconscious NERVOUS SYSTEM: Cranial N 2-12 grossly normal. Diffuse weakness,No focal deficits. Skin:Warm and dry, no rash. - Labs CBC & Chem 7: 03/15/22 06:51 03/15/22 06:51 Labs: Abnormal Lab Results - Last 24 Hours (Table) 03/15/22 03/15/22 Range/Units 06:51 06:51 WBC 14.2 H (3.8-10.6) k/uL RBC 3.68 L (3.80-5.40) m/uL Hgb 8.4 L (11.4-16.0) gm/dL Hct 29.1 L (34.0-46.0) % MCV 79.2 L (80.0-100.0) fL MCH 22.8 L (25.0-35.0) pg MCHC 28.9 L (31.0-37.0) g/dL RDW 18.7 H (11.5-15.5) % Neutrophils # 13.4 H (1.3-7.7) k/uL Lymphocytes # 0.3 L (1.0-4.8) k/uL Sodium 147 H (137-145) mmol/L Chloride 115 H (98-107) mmol/L BUN 43 H (7-17) mg/dL Glucose 128 H (74-99) mg/dL Microbiology - Last 24 Hours (Table) 03/10/22 12:20 Blood Culture - Preliminary Blood No Growth after 96 hours 03/10/22 12:15 Blood Culture - Preliminary Blood No Growth after 96 hours Assessment and Plan (1) Acute and chronic respiratory failure with hypoxia Current Visit: No Status: Acute Code(s): J96.21 - ACUTE AND CHRONIC RESPIRATORY FAILURE WITH HYPOXIA SNOMED Code(s): 78891455 (2) Sepsis Current Visit: Yes Status: Acute Code(s): A41.9 - SEPSIS, UNSPECIFIED ORGANISM SNOMED Code(s): 27913632 (3) Anemia Current Visit: Yes Status: Acute Code(s): D64.9 - ANEMIA, UNSPECIFIED SNOMED Code(s): 612723743 (4) Colitis Current Visit: Yes Status: Acute Code(s): K52.9 - NONINFECTIVE GASTROENTERITIS AND COLITIS, UNSPECIFIED SNOMED Code(s): 87891657 (5) Ischemic bowel disease Current Visit: Yes Status: Acute Code(s): K55.9 - VASCULAR DISORDER OF INTESTINE, UNSPECIFIED SNOMED Code(s): 35654803 (6) Renal insufficiency Current Visit: Yes Status: Acute Code(s): N28.9 - DISORDER OF KIDNEY AND URETER, UNSPECIFIED SNOMED Code(s): 842256486 (7) Hypoxia Current Visit: No Status: Acute Code(s): R09.02 - HYPOXEMIA SNOMED Cod e(s): 283951456 (8) Leukocytosis Current Visit: No Status: Acute Code(s): D72.829 - ELEVATED WHITE BLOOD CELL COUNT, UNSPECIFIED SNOMED Code(s): 447303965 (9) Pneumonia Current Visit: Yes Status: Acute Code(s): J18.9 - PNEUMONIA, UNSPECIFIED ORGANISM SNOMED Code(s): 974608608 (10) Acute blood loss anemia Current Visit: Yes Status: Acute Code(s): D62 - ACUTE POSTHEMORRHAGIC ANEMIA SNOMED Code(s): 472736390 (11) Acute delirium Current Visit: Yes Status: Acute Code(s): R41.0 - DISORIENTATION, UNSPECIFIED SNOMED Code(s): 4778071 (12) Atherosclerotic coronary vascular disease Current Visit: Yes Status: Acute Code(s): I25.10 - ATHSCL HEART DISEASE OF [place] CORONARY ARTERY W/O ANG PCTRS SNOMED Code(s): 118805487 (13) Pulmonary fibrosis Current Visit: Yes Status: Acute Code(s): J84.10 - PULMONARY FIBROSIS, UNSPECIFIED SNOMED Code(s): 40196129 (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 Current Visit: Yes Status: Acute Code(s): Z99.81 - DEPENDENCE ON SUPPLEMENTAL OXYGEN SNOMED Code(s): 501096547296 (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 They will add TPN to her regimen. We're trying to wean the BiPAP, decreased the Precedex and transition to Haldol. Will wait on repeat laboratory studies for tomorrow. We will reevaluate her in the next 24 hours. Grandson was at bedside and any questions he had were answered today.. Wherever changed to complete DNR with no intubation
[2022-03-15] MEDS: HALOPERIDOL LACTATE 5 MG/ML 1 ML VIAL IVP PRN ×3 (13:12→19:57)
[2022-03-15 15:03] LABS: Magnesium 2.1 mg/dL (1.6-2.3); Phosphorus 3.5 mg/dL (2.5-4.5)
[2022-03-15 15:46] VITALS: BMI 26.7
[2022-03-15] MEDS: DEXMEDETOMIDINE/0.9% NACL(PMX) 400 MCG in EMPTY BAG 1 BAG IV SCH ×2 (17:08→17:53)
[2022-03-15] MEDS ORDERED: [UNRECOGNIZED DRUG - REMARK] IV ONE ×6 (17:30)
[2022-03-15 17:56] LABS: Glucose,Whole Blood 116 mg/dL (70-110)
[2022-03-15] MEDS: FAT EMULSION 20% 250 ML in EMPTY BAG 1 BAG IV SCH (18:16)
[2022-03-15] MEDS: methylPREDNISolone SOD SUCCI 40 MG/ML 1 ML VIAL IV SCH (19:57)
[2022-03-16 00:27] LABS: Glucose,Whole Blood 199 mg/dL (70-110)
[2022-03-16] MEDS: HALOPERIDOL LACTATE 5 MG/ML 1 ML VIAL IVP PRN ×4 (00:29→11:40)
[2022-03-16] MEDS: LORazepam 2 MG/ML INJ IV PRN ×2 (03:10→14:53)
[2022-03-16] MEDS: DEXMEDETOMIDINE/0.9% NACL(PMX) 400 MCG in EMPTY BAG 1 BAG IV SCH (04:02)
[2022-03-16 04:03] LABS: Ionized Calcium 5.9 mg/dL (4.5-5.3)
[2022-03-16 04:05] VITALS: TEMP 96.9
[2022-03-16 04:13] LABS: Calcium 9.7 mg/dL (8.4-10.2); Phosphorus 3.4 mg/dL (2.5-4.5); Potassium 3.7 mmol/L (3.5-5.1); Total Bilirubin 0.2 mg/dL (0.2-1.3); Total Protein 5.4 g/dL (6.3-8.2)
[2022-03-16] MEDS ORDERED: Potassium Replacement Protocol 1 EACH MISC MISCELLANE PRN (04:32)
[2022-03-16] MEDS: POTASSIUM CHLORIDE 10 MEQ in WATER FOR INJECTION 1 100ML.BAG IVPB SCH ×2 (04:55→05:57)
[2022-03-16 05:04] LABS: Anisocytosis Slight; Basophils # (A) 0.1 k/uL (0-0.2); Basophils % (A) 0 %; Eosinophils % (A) 0 %; HCT 29.5 % (34.0-46.0); HGB 8.6 gm/dL (11.4-16.0); Hypochromasia Marked; Lymphocytes # (A) 0.4 k/uL (1.0-4.8); Lymphocytes % (A) 2 %; MCH 23.4 pg (25.0-35.0); MCHC 29.3 g/dL (31.0-37.0); MCV 79.9 fL (80.0-100.0); Mean Platelet Volume 8.3; Microcytosis Slight; Monocytes # (A) 0.6 k/uL (0-1.0); Monocytes % (A) 3 %; Neutrophils % (A) 93 %; Platelet Count 305 k/uL (150-450); Poikilocytosis Slight; RBC 3.69 m/uL (3.80-5.40); RDW 18.8 % (11.5-15.5); WBC 19.3 k/uL (3.8-10.6)
[2022-03-16] MEDS: FAT EMULSION 20% 250 ML in EMPTY BAG 1 BAG IV SCH (05:17)
[2022-03-16] MEDS: SODIUM CHLORIDE 0.45% 1,000 ML IV SCH (05:57)
[2022-03-16 06:22] LABS: Glucose,Whole Blood 233 mg/dL (70-110)
[2022-03-16] MEDS: metroNIDAZOLE-NS PMX 500 MG in SALINE 1 100ML.BAG IVPB SCH ×2 (06:44→11:40)
[2022-03-16] MEDS: hydrALAZINE HCL 20 MG/ML 1 ML VIAL IVP SCH ×2 (07:01→12:44)
--- NOTE | 2022-03-16 07:08 | XR ---
EXAMINATION TYPE: XR chest 1V portable DATE OF EXAM: 03/16/2022 COMPARISON: 03/15/2022 HISTORY: Shortness of breath TECHNIQUE: Single frontal view of the chest is obtained. FINDINGS: No change in left jugular central venous catheter the tip of which is in the SVC/RA junction. Heart size is normal. There is prominence of the pulmonary vasculature is in the mid lower lung zones which is stable. There are probable small bilateral pleural effusions which are stable as well. There is no pneumothorax. The osseous structures are intact. IMPRESSION: Acute cardiopulmonary disease with no interval change.
[2022-03-16] MEDS: IPRATROPIUM-ALBUTEROL 3 ML NEB INHALATION SCH ×3 (07:51→15:47)
[2022-03-16] MEDS: methylPREDNISolone SOD SUCCI 40 MG/ML 1 ML VIAL IV SCH (08:28)
[2022-03-16] MEDS: LEVOFLOXACIN 750MG-D5W PMX 750 MG in DEXTROSE/WATER 1 150ML.BAG IVPB SCH (08:28)
[2022-03-16] MEDS: PANTOPRAZOLE 40 MG/10 ML VIAL IVP SCH (08:29)
[2022-03-16] MEDS: LEVOTHYROXINE IVP 100 MCG/5 ML VIAL IV SCH (08:29)
[2022-03-16] MEDS ORDERED: DEXTROSE 50% SYRINGE 50 ML IVP PRN ×2 (08:39)
[2022-03-16] MEDS ORDERED: INSULIN ASPART (NovoLOG) 100 UNIT/ML VIAL SQ SCH ×2 (08:45→12:00)
--- NOTE | 2022-03-16 09:33 | P.PN ---
Subjective Progress Note Date: 03/16/22 Principal diagnosis: Abdominal pain Patient remains on BiPAP at this time. Confused at times. No abdominal pain when questioned. White blood cell count went from 14-19. Objective - Vital Signs Vital signs: Vital Signs Temp 96.9 F L 03/16/22 04:00 Pulse 78 03/16/22 08:03 Resp 12 03/16/22 07:00 BP 144/64 03/16/22 07:00 Pulse Ox 98 03/16/22 07:00 FiO2 50 03/16/22 07:24 Intake & Output 03/15/22 03/16/22 03/16/22 18:59 06:59 18:59 Intake Total 1219.618 975.807 85 Output Total 445 385 30 Balance 774.618 590.807 55 Weight 73 kg 74.7 kg Intake: IV 110 NS 0.9 10 metroNIDAZOLE-NS PMX 500 100 mg In Saline 1 100ml.bag @ 100 mls/hr IVPB Q6HR MELNAIA Rx#:[id number] Intake, IV Titration 1109.618 975.807 85 Amount Dexmedetomidine/0.9% NaCl 89.618 40.807 (Pmx) 400 mcg In Empty Bag 1 bag @ 0.2 MCG/KG/HR 3.59 mls/hr IV .Q24H MELANIA Rx#:[id number] Sodium Chloride 0.45% 1, 1020 935 85 000 ml @ 75 mls/hr IV . [id number] MELANIA Rx#:[id number] Output: Urine 445 385 30 Other: Voiding Method Indwelling Catheter Indwelling Catheter - Exam Abdomen: Soft, nontender, nondistended - Labs CBC & Chem 7: 03/16/22 03:37 03/16/22 03:37 Labs: Abnormal Lab Results - Last 24 Hours (Table) 03/15/22 03/16/22 03/16/22 Range/Units 17:54 00:24 03:37 WBC 19.3 H (3.8-10.6) k/uL RBC 3.69 L (3.80-5.40) m/uL Hgb 8.6 L (11.4-16.0) gm/dL Hct 29.5 L (34.0-46.0) % MCV 79.9 L (80.0-100.0) fL MCH 23.4 L (25.0-35.0) pg MCHC 29.3 L (31.0-37.0) g/dL RDW 18.8 H (11.5-15.5) % Neutrophils # 18.0 H (1.3-7.7) k/uL Lymphocytes # 0.4 L (1.0-4.8) k/uL Chloride (98-107) mmol/L BUN (7-17) mg/dL Glucose (74-99) mg/dL POC Glucose (mg/dL) 116 H 199 H (70-110) mg/dL Ionized Calcium Fabian (4.5-5.3) mg/dL AST (14-36) U/L Total Protein (6.3-8.2) g/dL Albumin (3.5-5.0) g/dL 03/16/22 03/16/22 Range/Units 03:37 06:19 WBC (3.8-10.6) k/uL RBC (3.80-5.40) m/uL Hgb (11.4-16.0) gm/dL Hct (34.0-46.0) % MCV (80.0-100.0) fL MCH (25.0-35.0) pg MCHC (31.0-37.0) g/dL RDW (11.5-15.5) % Neutrophils # (1.3-7.7) k/uL Lymphocytes # (1.0-4.8) k/uL Chloride 113 H (98-107) mmol/L BUN 43 H (7-17) mg/dL Glucose 209 H (74-99) mg/dL POC Glucose (mg/dL) 233 H (70-110) mg/dL Ionized Calcium Fabian 5.9 H (4.5-5.3) mg/dL AST 44 H (14-36) U/L Total Protein 5.4 L (6.3-8.2) g/dL Albumin 3.0 L (3.5-5.0) g/dL Microbiology - Last 24 Hours (Table) 03/10/22 12:15 Blood Culture - Preliminary Blood No Growth after 120 hours 03/10/22 12:20 Blood Culture - Preliminary Blood No Growth after 120 hours Assessment and Plan (1) Colitis Narrative/Plan: Continue antibiotics. Continue pulmonary support. We'll follow. Current Visit: Yes Status: Acute Code(s): K52.9 - NONINFECTIVE GASTROENTERITIS AND COLITIS, UNSPECIFIED SNOMED Code(s): 16840423
--- NOTE | 2022-03-16 10:43 | P.PN ---
Subjective Progress Note Date: 03/16/22 This is an 82-year-old female patient who presented to the emergency department because of abdominal pain and coffee-ground emesis. The patient had some mid abdominal pain that became rather diffuse of the later stage. No bright red blood per rectum. No melanotic stools. Apparently she was having regular bowel movement. No abdominal distention. No ascites. The patient has had a colonoscopy 2 years back and I do not think she has had a previous EGD. She came into the emergency department. The patient had a Gastroccult positive. The patient had a CAT scan of the abdomen that was noted and there was evidence of diverticulosis and possible transverse colitis. There was mild induration of the fat surrounding transverse colon extending to the splenic flexure. Possibility of ischemic colitis cannot be completely ruled out. There was distention of the gastric bubble with small hiatal hernia. There was distention of the gallbladder without evidence of any gallstones. No other underlying COPD in the background along with diverticulosis. The patient was seen by general surgery. The patient was covered with a combination of antibiotics and the patient is currently on Levaquin and Flagyl. NG tube was inserted operative morbidity with minimal at this point in time in the order of 200 mL since the patient up from the emergency department. The patient is currently on normal saline at the rate of 130 mL an hour. The patient was already given a total of 3 L of IV fluid. Her sodium level is at 136 with a potassium level of 5.3 and a BUN is 34 with a creatinine of 1.6. Note that the patient had acute kidney injury and the creatinine was as high as 1.9. At time of admission. At the same time, the white cell count improved slightly from 35 down to 30.5. Hemoglobin dropped from 9 down to 8.2. Also, we're markedly lactic acid level that was high at 3.8 dropped down to 1.5. Stool for C. diff has been negative. Patient is resting comfortably in bed at this point in time. Amylase and lipase are also within normal limits. On 03/12/2022, the patient is being seen for a follow-up, Overnight, the patient became restless and intermedius and this morning the patient is more agitated and restless. Recent that, I suggested to start the patient on Precedex drip to control agitation. At the same time, the patient become more hypoxic. She was placed on 50 L of oxygen nasal cannula to maintain saturation above 90%. She has a mild degree of respiratory distress. The triple-lumen catheter was inserted in the left IJ. This was done for IV access. At the same time, the patient was found to be septic. This is probably related to ischemic colitis. The pro-calcitonin level was at 9.8. Lactic acid level dropped down to 1.2. The patient is currently on a combination of Levaquin and Flagyl. GI surgeries on the case. No significant abdominal distention or pain. On the blood work, the white cell count dropped down to 27 and hemoglobin is at 8.9. The creati nine also improved and the patient's creatinine of 1.2 with a BUN of 38 and a sodium level is at 143. Amylase and lipase levels are essentially within normal limits. The blood cultures are negative for now. The chest x-ray post line insertion showed that the left-sided triple lumen catheter is in a good location and the patient has some background COPD and multiple less than 1 cm nodules also seen in the right lung. The patient remains nothing by mouth for now. The patient is on no pressors for now. On 03/13/2022, the patient is being seen for a follow-up. Overall, more stable compared to yesterday and the patient is very comfortable with a combination of Precedex and Haldol. Precedex infusion is being used and currently the patient is on 0.4 mcg/kg/h. The patient is also on high flow oxygen at 60 L with an FiO2 of 50%. She was afebrile and she was given external warming. Her abdomen is nontender. Bowel sounds are hypoactive and sluggish. No evidence of any GI bleeding or coffee-ground emesis. The patient has a white cell count of 25 with a hemoglobin of 9 and a platelet count of 296. Sodium is at 147, potassium is at 5, the BUN is at 41 with a creatinine of 0.9 and a serum bicarb is at 26. The patient remains on a combination of IV Levaquin and Flagyl. She does have some upper airway secretions. She needs to do somewhat aggressive pulmonary toileting. Otherwise, her chest occasionally some microvesicle congestion. No other acute abnormalities. She remains on normal saline which is running at the rate of 50 mL an hour. She is on IV Protonix. No focal neurological deficits. Following simple commands. No significant agitation on today's evaluation. 03/14/2022, the patient is still on Precedex which is running at 0.4 mcg/kg/h. She is calm and comfortable. No significant agitation. I think it's possible to titrate down the Precedex infusion. At same time, the patient remains on high flow oxygen and this morning she is on 50 L with an FiO2 of 50%. No signs of any significant respiratory distress. Pulse ox is around 88%. The patient's white cell count is improving. Currently is down to 18 with a hemoglobin of 8 and a platelet of 372. Despite the drop in the hemoglobin, there is no evidence of any GI bleed. Sodium is at 146 and the BUN is at 41 with a creatinine of 1.1. Noted the pro-calcitonin level is also improving. It was as high as 9.8 and dropped down to 1.7. As such, the infectious processes essentially improving. This was probably related to colitis. She remains on a combination of Levaquin and Flagyl. She is on half-normal saline at rate of 75 mL an hour. Sodium level is slightly improved compared to yesterday and is currently down to 146. General surgery is on the case. On 03/15/2022, the patient is very much, comfortable and the patient is receiving a Precedex at 0.4 mcg/kg/h and occasional doses of Ativan for increased anxiety. She is very much in synchrony with a BiPAP at this point in time. Whenever she wakes up, I was told that the patient becomes restless and she tries to reach out and pull on her BiPAP. As such, the patient was Adequately sedated. Meanwhile, the patient remains nothing by mouth on this is a concern. She did have colitis. Her abdomen is soft. On her blood work, the white cell count dropped to 14 with a hemoglobin of 8.4. Sodium level is at 147 BUN of 47 with a creatinine of 0.9, bicarb is 25 with a potassium level of 4. She remains on Levaquin and Flagyl. Cultures are negative. Her pro-calcitonin level was also improving and is up from 9.8 down to 1.7. As such, I would say the infectious with a septic component is improving. Nevertheless, as mentioned earlier, the patient has advanced COPD with chronic hypoxic respiratory failure and his COPD was somewhat exacerbating and the patient was having some difficulties in caring respiratory secretions. She had issues with cough and congestion. She was kept on DuoNeb about treatments [id number] and IV Solu-Medrol. Solu-Medrol can be gradually tapered off. No other significant events overnight. GI surgeries on the case. She is a DNR/DNI CODE STATUS. On 03/16/2022, the patient is being seen for a follow-up. The patient is still on a BiPAP at a pressure of 12/5 cm of water. She was taken off Precedex. Now that she is off the Precedex, she is following some simple commands. She is extremely lethargic and weak. She is following only simple commands. She is quite tachypneic on the BiPAP. In fact, her respiratory rate is around 30/m and the patient's minute ventilation is around 19 L/m. No significant cough or sputum production. No reported chest pain. Her most recent chest x-ray was from today and it showed no acute abnormalities. Meanwhile, the patient remains still on a combination of bronchodilators and the patient is also on IV Solu- Medrol 40 mg every 12 hours. I'm not a positioning any significant bronchospasm wheezing. I feel that some of her tachypnea is related to increased anxiety and delirium. The patient is responding nicely to Haldol. She remains on TPN for nutritional support as the patient is unable to swallow or have any oral intake. Her pro-calcitonin level continues to be on a decline. Abdomen is soft. On her blood work today the white suppositive 19.3 with a hemoglobin of 8.6 with a BUN of 40 and a creatinine of 0.9 and sodium levels of 142. Glucose is at 233. Unfortunately, her progress is slow, rest or status is very borderline as the patient is known to have advanced COPD. DNR/DNI CODE STATUS for now. She is off Precedex. Objective - Vital Signs Vital signs: Vital Signs Temp 96.9 F L 03/16/22 04:00 Pulse 78 03/16/22 08:03 Resp 12 03/16/22 07:00 BP 144/64 03/16/22 07:00 Pulse Ox 98 03/16/22 07:00 FiO2 50 03/16/22 07:24 Intake & Output 1103/16/22 03/16/22 18:59 06:59 18:59 Intake Total 1219.618 975.807 85 Output Total 445 385 30 Balance 774.618 590.807 55 Weight 73 kg 74.7 kg Intake: IV 110 NS 0.9 10 metroNIDAZOLE-NS PMX 500 100 mg In Saline 1 100ml.bag @ 100 mls/hr IVPB Q6HR MELANIA Rx#:[id number] Intake, IV Titration 1109.618 975.807 85 Amount Dexmedetomidine/0.9% NaCl 89.618 40.807 (Pmx) 400 mcg In Empty Bag 1 bag @ 0.2 MCG/KG/HR 3.59 mls/hr IV .Q24H MELANIA Rx#:[id number] Sodium Chloride 0.45% 1, 1020 935 85 000 ml @ 75 mls/hr IV . [id number] MELANIA Rx#:[id number] Output: Urine 445 385 30 Other: Voiding Method Indwelling Catheter Indwelling Catheter - Exam Gen. appearance the patient is off Precedex, quite weak and lethargic, following simple commands. This morning the patient is on a BiPAP at a pressure of 12/5 cm of water with FiO2 of 50% Head exam was generally normal. There was no scleral icterus or corneal arcus. Mucous membranes were moist. Neck was supple and without jugular venous distension, thyromegaly, or carotid bruits. Carotids were easily palpable bilaterally. There was no adenopathy. Lungs sounds are diminished bilaterally and there is adequate air entry bilaterally and the patient remains on a BiPAP. Cardiac exam revealed the PMI to be normally situated and sized. The rhythm was regular and no extrasystoles were noted during several minutes of auscultation. The first and second heart sounds were normal and physiologic splitting of the second heart sound was noted. There were no murmurs, rubs, clicks, or gallops. Abdomen is soft and there is some mild direct tenderness to the rather diffuse. No organomegaly. No ascites. No rebound tenderness. No guarding. Bowel sounds are hypoactive. Examination of the extremities revealed easily palpable radial, femoral and pedal pulses. There was no cyanosis, clubbing or edema. Examination of the skin revealed no evidence of significant rashes, suspicious appearing nevi or other concerning lesions. Neurologically, the patient is awake and alert , weak, following only simple commands. - Labs CBC & Chem 7: 03/16/22 03:37 03/16/22 03:37 Labs: Abnormal Lab Results - Last 24 Hours (Table) 03/15/22 03/16/22 03/16/22 Range/Units 17:54 00:24 03:37 WBC (3.8-10.6) k/uL RBC (3.80-5.40) m/uL Hgb (11.4-16.0) gm/dL Hct (34.0-46.0) % MCV (80.0-100.0) fL MCH (25.0-35.0) pg MCHC (31.0-37.0) g/dL RDW (11.5-15.5) % Neutrophils # (1.3-7.7) k/uL Lymphocytes # (1.0-4.8) k/uL Chloride (98-107) mmol/L BUN (7-17) mg/dL Glucose (74-99) mg/dL POC Glucose (mg/dL) 116 H 199 H (70-110) mg/dL Ionized Calcium Fabian (4.5-5.3) mg/dL AST (14-36) U/L Total Protein (6.3-8.2) g/dL Albumin (3.5-5.0) g/dL Procalcitonin 0.34 H (0.02-0.09) ng/mL 03/16/22 03/16/22 03/16/22 Range/Units 03:37 03:37 06:19 WBC 19.3 H (3.8-10.6) k/uL RBC 3.69 L (3.80-5.40) m/uL Hgb 8.6 L (11.4-16.0) gm/dL Hct 29.5 L (34.0-46.0) % MCV 79.9 L (80.0-100.0) fL MCH 23.4 L (25.0-35.0) pg MCHC 29.3 L (31.0-37.0) g/dL RDW 18.8 H (11.5-15.5) % Neutrophils # 18.0 H (1.3-7.7) k/uL Lymphocytes # 0.4 L (1.0-4.8) k/uL Chloride 113 H (98-107) mmol/L BUN 43 H (7-17) mg/dL Glucose 209 H (74-99) mg/dL POC Glucose (mg/dL) 233 H (70-110) mg/dL Ionized Calcium Fabian 5.9 H (4.5-5.3) mg/dL AST 44 H (14-36) U/L Total Protein 5.4 L (6.3-8.2) g/dL Albumin 3.0 L (3.5-5.0) g/dL Procalcitonin (0.02-0.09) ng/mL Microbiology - Last 24 Hours (Table) 03/10/22 12:15 Blood Culture - Preliminary Blood No Growth after 120 hours 03/10/22 12:20 Blood Culture - Preliminary Blood No Growth after 120 hours Assessment and Plan Plan: Acute abdominal pain, possible colitis, Rule out possibility of an ischemic colitis and secondary sepsis, . Please refer to the CAT scan of the abdomen and pelvis. The patient remains on same antibiotic coverage of Levaquin and Flagyl. The septic component is improving. The patient's white cell count is improving. Pro-calcitonin is low. Abdomen is soft. She remains nothing by mouth. The patient was started on TPN for nutritional support Coffee-ground emesis, the patient is post and G-tube insertion without evidence of any acute ongoing GI bleed for now.no evidence of any ongoing GI bleed and NG tube was removed, the patient has not shown any signs of GI bleeding since her initial admission Acute blood loss anemia posttransfusion with units of packed RBC and hemoglobin is at 8.6 Acute hypoxic respiratory failure currently on BiPAP a pressures of 12/5 with an FiO2 of 50%. She is very much in synchrony with the BiPAP for now. The tachypnea this noted an increase his minute ventilation is probably related to delirium/anxiety and the patient is being given Haldol. Precedex has been discontinued. Acute leukocytosis, improving, and subsequent rise in the white cell count of 19.3. Chest x-ray is free of any acute pulmonary infiltrates Acute delirium, currently on Precedex and Haldol on an as-needed basis, clinically improved compared to yesterday, the patient was taken off the Precedex Acute lactic acidosis, improving Acute kidney injury, improving Advanced oxygen-dependent and steroid-dependent COPD, maintain on prednisone at 5 mg, currently on IV Solu-Medrol Coronary artery disease with previous coronary stenting maintain on Plavix on outpatient basis pulmonary fibrosis 1.3 cm pleural-based right upper lobe lesion identified on the previous CAT scan of the chest Hyperlipidemia Hypothyroidism DNR/DNINR/DNI 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 Chronic back pain Depression Plan Condition remains very critical still. Septic component is improving Continue IV fluids and change IV fluids to KVO TPN at the rate of 50 mL an hour total Patient is off Precedex Use Haldol for agitation and delirium Attempted to take this patient to BiPAP and try high flow oxygen Continue bronchodilators and steroids Continue heparin subcu for DVT prophylaxis White cell count is fluctuating currently slightly elevated Blood cultures are negative DNR/DNI CODE STATUS Critical care evaluation that was done in more than 30 minutes. Condition is still very critical outcomes for based above-mentioned comorbidities. We'll follow.
--- NOTE | 2022-03-16 11:50 | P.PN ---
Subjective 03/11/22: This is an 81-year-old female resident of [facility], presented to the ER with lethargy, coffee-ground emesis and abdominal pain that started earlier that day, prior to admission. Patient is on Plavix and aspirin. Abdomen is distended. Patient is a poor historian. Denies chest pain, palpitations.Computed tomography scan abdomen and pelvis reporting mild induration of the fat surrounding transverse colon extending to the splenic flexure. Correlate for mild colitis or infectious or inflammatory. Correlate clinically to exclude po tential ischemic changes. Distention of the gastric bubble with small hiatal hernia. Distention of the gallbladder with no evidence of gallstone. There is a 3.1 cm right adnexal cyst likely ovarian somewhat atypical given the patient's demographics. Correlate with pelvic ultrasound if clinically warranted. Correlation with CA-125 could be obtained as clinically warranted. Correlate for COPD and pulmonary interstitial fibrosis. Diverticulosis of the sigmoid colon. Evaluated by surgery, NG tube placed. KUB reporting NG tube appears to overlap the gastric fundus. Gastric bubble appears to be distended stable from recent computed tomography scan. addendum 03/11/2022 Shortly after admission, developed hypotension with systolic blood pressures up into the 80s, maps of 56, responded to IV fluids and did not require pressor support. Staff reports normal bowel movement last night without any bleeding. No further nausea, vomiting. I and O reporting 300 MLS of gastric drainage per N G,removed as per surgery's recommendations. Lactic acid elevated, received IV fluids, recovered. Levaquin and Flagyl initiated. Gastric for occult blood negative, stool for C. difficile-negative.Currently requiring 6 L nasal cannula to maintain O2 sats in the 90s in a patient who normally is maintained on 2 L nasal cannula O2. Chest x-ray reporting COPD with findings suggestive of pulmonary fibrosis. Stable nodular densities in the right upper lobe unchanged from prior exam. Measuring less than 1 cm. EKG reported sinus rhythm. Afebrile, WBC 36.6 on admission, currently down to 30.5. Hemoglobin on admission 9 currently count 8.2, platelets 433, INR 0.9. Sodium 136, calcium 5.3, BUN 34, creatinine down to 1.6 [id number] 2021: patient is city need to security. March 12, 2022: patient is in the intensive care unit. She has high flow, nasal cannula oxygen, and 15 L per minute. She is Somnelent and not easily arousable.Blood pressure is controlled, Restaurant, heart rate or normal. She remains on Levaquin and Flagyl along with IV fluids normal. See you at 1:30 cc per hour. She's NPO.She is on Dexmedetomidine for agitiation. I discussed her case with her daughter. Labs shown improving white countdown to 27.8 hemoglobin to 8.9, last shift continues to be at 26.9 neutrophils chemistries Rafiq you want to 38,31.21 CO2 is 25.CA, 1 25 is normal at 15.7, pro calcitonin was elevated at 9.87. Blood cultures are negative times two. Chest x-ray showed central line and good position, COPD, multiple 1 cm less Duenas nodules in the right upper lobe. General surgery notes from today reviewed. Pulmonology/critical care notes are pending for today. 03/13/2022: Patient remains intensive care unit. She is currently on Airvo nasal cannula oxygen. She is somnolent and not easily arousable at this time. Staff report they've not given her any sedation. She did receive 10 mg hydral azine IV push every 6 hours when necessary for her hypertension. This is now resolved and she is borderline hypotensive. She remains on metronidazole and Levaquin for about a coverage for ischemic colitis. She has Haldol and lorazepam for agitation. His methylprednisolone for her COPD along with DuoNeb updrafts ordered. She remains on IV fluids at 75 mL per hour. Nicole studies show a continue reduction of her WBC count now down to 25.4 with a neutrophil count of 24. Hemoglobin is 9.0 this morning. Platelets 296. Chemistries show a sodium 147 potassium 5. BUN is elevated at 41 and crit of 0.98 case was discussed with critical care/pulmonology today. 03/14/2022: Patient remains in the intensive care unit. She is been transferred patient [facility] to to [facility] at this time. Settings are 50% FiO2. Her pulse oximetry at this is 96%. Blood pressure slightly elevated 1 5459 but heart rate is improved. He remains afebrile. She remains on Precedex now at 0.2 mics per kilogram per hour. Staff are attempting to wean this. She remains on Levaquin and Flagyl for IV in about a coverage and methylprednisolone. IV fluid is 0.45 normal saline at 75 mL an hour. She is been nothing by mouth over 2 days now. Laboratory studies showed a hemoglobin dropping from 9-8.0. Her white count is also down from 25.4-18.4. Absolute neutrophils 17.6. Chemistries show sodium 146 potassium 4.1 chloride 113 BUN is 41 and creatinine 1.12. Glucose 118. Most recent pro calcitonin was 1.71. Covid, influenza A and B and RSV negative. Blood cultures negative 72 hours. X-ray show multifocal subtle reticular hazy airspace opacities Critical care and general surgery notes reviewed. 03/15/2022: Patient remains in the intensive care unit. She is sedated on Precedex. Haldol is been ordered as opposed to Ativan at this time. She remians on BiPAP at this time. Settings are 50% FiO2. Her pulse oximetry at this is 94%. Blood pressure fluctuating He remains afebrile. She remains on Precedex now at 0.2 mics per kilogram per hour. Staff are attempting to wean this. She remains on Levaquin and Flagyl for IV in about a coverage and methylprednisolone. IV fluid is 0.45 normal saline at 75 mL an hour. She is been nothing by mouth , critical care is planning to start TPN on her today. I discussed her case with them. Laboratory studies showed a hemoglobin 8.4. She did have coffee-ground emesis did receive 1 unit packed red blood cells. Her white count is also down and continues to improve now at 14.2.. Chemistries show sodium 147 potassium 4.0 chloride 115 BUN is 43 and creatinine 0.98. Glucose 128. Most recent pro calcitonin was 1.71. Chest x-ray shows increasing infiltrate in the right base suspicious for pneumonia. Critical care and general surgery notes reviewed. 03/16/2022: Patient remains intensive care unit. She remains on BiPAP currently at 50% FiO2. She is off Precedex. She continues to have delirium. She is been given Haldol to help control this. She is awake and alert disorientation are untestable this time due to the BiPAP. Vital signs remained stable. Laboratory studies are improved with resolution of the hypernatremia. BUN is the same at 43 and creatinine 0.98. Blood count is up again to 19.3 today. His recent pro calcitonin is down to 0.34. Pulmonology and general surgery notes reviewed. Chest x-ray showed no interval changes. She has now been started on TPN. She is a Haldol ordered for agitation. She has had epidurals in order for her hypertension control. She remains on Levaquin and metronidazole for antibiotic coverage. Objective - Vital Signs Vital signs: Vital Signs Temp 96.9 F L 03/16/22 04:00 Pulse 85 03/16/22 11:39 Resp 12 03/16/22 07:00 BP 144/64 03/16/22 07:00 Pulse Ox 98 03/16/22 07:00 FiO2 75 03/16/22 11:42 Intake & Output 03/15/22 03/16/22 03/16/22 18:59 06:59 18:59 Intake Total 1219.618 975.807 85 Output Total 445 385 30 Balance 774.618 590.807 55 Weight 73 kg 74.7 kg Intake: IV 110 NS 0.9 10 metroNIDAZOLE-NS PMX 500 100 mg In Saline 1 100ml.bag @ 100 mls/hr IVPB Q6HR MELANIA Rx#:[id number] Intake, IV Titration 1109.618 975.807 85 Amount Dexmedetomidine/0.9% NaCl 89.618 40.807 (Pmx) 400 mcg In Empty Bag 1 bag @ 0.2 MCG/KG/HR 3.59 mls/hr IV .Q24H MELANIA Rx#:[id number] Sodium Chloride 0.45% 1, 1020 935 85 000 ml @ 75 mls/hr IV . [id number] MELANIA Rx#:[id number] Output: Urine 445 385 30 Other: Voiding Method Indwelling Catheter Indwelling Catheter - Exam GENERAL: Awake, on BiPAP no acute distress, eyes open NECK: Supple, No JVD. No thyroid enlargement. No LNs CARDIOVASCULAR: S1, S2 regular. No murmur RESPIRATION: Breath sounds diminished, occasional scattered rhonchi. ABDOMEN: Soft, distended. Diffuse tenderness across bilateral upper quadrants, No guarding. no masses palpable. No ascites, No hepatosplenomegaly.hypoactive Bowel sounds.Patient no longer grimaces and moans with palpation LEGS: No edema. no swelling PSYCHIATRY: Unconscious NERVOUS SYSTEM: Cranial N 2-12 grossly normal. Diffuse weakness,No focal deficits. Skin:Warm and dry, no rash. - Labs CBC & Chem 7: 03/16/22 03:37 03/16/22 03:37 Labs: Abnormal Lab Results - Last 24 Hours (Table) 03/15/22 03/16/22 03/16/22 Range/Units 17:54 00:24 03:37 WBC (3.8-10.6) k/uL RBC (3.80-5.40) m/uL Hgb (11.4-16.0) gm/dL Hct (34.0-46.0) % MCV (80.0-100.0) fL MCH (25.0-35.0) pg MCHC (31.0-37.0) g/dL RDW (11.5-15.5) % Neutrophils # (1.3-7.7) k/uL Lymphocytes # (1.0-4.8) k/uL Chloride (98-107) mmol/L BUN (7-17) mg/dL Glucose (74-99) mg/dL POC Glucose (mg/dL) 116 H 199 H (70-110) mg/dL Ionized Calcium Fabian (4.5-5.3) mg/dL AST (14-36) U/L Total Protein (6.3-8.2) g/dL Albumin (3.5-5.0) g/dL Procalcitonin 0.34 H (0.02-0.09) ng/mL 03/16/22 03/16/22 03/16/22 Range/Units 03:37 03:37 06:19 WBC 19.3 H (3.8-10.6) k/uL RBC 3.69 L (3.80-5.40) m/uL Hgb 8.6 L (11.4-16.0) gm/dL Hct 29.5 L (34.0-46.0) % MCV 79.9 L (80.0-100.0) fL MCH 23.4 L (25.0-35.0) pg MCHC 29.3 L (31.0-37.0) g/dL RDW 18.8 H (11.5-15.5) % Neutrophils # 18.0 H (1.3-7.7) k/uL Lymphocytes # 0.4 L (1.0-4.8) k/uL Chloride 113 H (98-107) mmol/L BUN 43 H (7-17) mg/dL Glucose 209 H (74-99) mg/dL POC Glucose (mg/dL) 233 H (70-110) mg/dL Ionized Calcium Fabian 5.9 H (4.5-5.3) mg/dL AST 44 H (14-36) U/L Total Protein 5.4 L (6.3-8.2) g/dL Albumin 3.0 L (3.5-5.0) g/dL Procalcitonin (0.02-0.09) ng/mL Microbiology - Last 24 Hours (Table) 03/10/22 12:15 Blood Culture - Preliminary Blood No Growth after 120 hours 03/10/22 12:20 Blood Culture - Preliminary Blood No Growth after 120 hours Assessment and Plan (1) Acute and chronic respiratory failure with hypoxia Current Visit: No Status: Acute Code(s): J96.21 - ACUTE AND CHRONIC RESPIRATORY FAILURE WITH HYPOXIA SNOMED Code(s): 12294539 (2) Sepsis Current Visit: Yes Status: Acute Code(s): A41.9 - SEPSIS, UNSPECIFIED ORGANISM SNOMED Code(s): 15044895 (3) Anemia Current Visit: Yes Status: Acute Code(s): D64.9 - ANEMIA, UNSPECIFIED SNOMED Code(s): 198511786 (4) Colitis Current Visit: Yes Status: Acute Code(s): K52.9 - NONINFECTIVE GASTROENTERITIS AND COLITIS, UNSPECIFIED SNOMED Code(s): 14723733 (5) Ischemic bowel disease Current Visit: Yes Status: Acute Code(s): K55.9 - VASCULAR DISORDER OF INTESTINE, UNSPECIFIED SNOMED Code(s): 56539218 (6) Renal insufficiency Current Visit: Yes Status: Acute Code(s): N28.9 - DISORDER OF KIDNEY AND URETER, UNSPECIFIED SNOMED Code(s): 366934053 (7) Hypoxia Current Visit: No Status: Acute Code(s): R09.02 - HYPOXEMIA SNOMED Code(s): 919324265 (8) Leukocytosis Current Visit: No Status: Acute Code(s): D72.829 - ELEVATED WHITE BLOOD CELL COUNT, UNSPECIFIED SNOMED Code(s): 378951787 (9) Pneumonia Current Visit: Yes Status: Acute Code(s): J18.9 - PNEUMONIA, UNSPECIFIED ORGANISM SNOMED Code(s): 338458688 (10) Acute blood loss anemia Current Visit: Yes Status: Acute Code(s): D62 - ACUTE POSTHEMORRHAGIC ANEMIA SNOMED Code(s): 712507732 (11) Acute delirium Current Visit: Yes Status: Acute Code(s): R41.0 - DISORIENTATION, UNSPECIFIED SNOMED Code(s): 8466314 (12) Atherosclerotic coronary vascular disease Current Visit: Yes Status: Acute Code(s): I25.10 - ATHSCL HEART DISEASE OF [place] CORONARY ARTERY W/O ANG PCTRS SNOMED Code(s): 507803629 (13) Pulmonary fibrosis Current Visit: Yes Status: Acute Code(s): J84.10 - PULMONARY FIBROSIS, UNSPECIFIED SNOMED Code(s): 16765800 (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 Current Visit: Yes Status: Acute Code(s): Z99.81 - DEPENDENCE ON SUPPLEM ENTAL OXYGEN SNOMED Code(s): 942026758852 (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 Continue TPN Precedex is now off and Haldol for agitation to continue. Overall she is slightly improved. Pulmonology continue to try and wean and decrease her oxygen utilization are planning on switching her to Airvo later on today. Will wait on repeat laboratory studies for tomorrow. We will reevaluate her in the next 24 hours. Grandson was at bedside and any qu estions he had were answered today.. Wherever changed to complete DNR with no intubation
[2022-03-16 12:39] LABS: Glucose,Whole Blood 243 mg/dL (70-110)
[2022-03-16] MEDS ORDERED: FUROSEMIDE 10 MG/ML 4 ML VIAL IV STA (13:55)
[2022-03-16 15:01] LABS: Glucose,Whole Blood 265 mg/dL (70-110)
[2022-03-16] MEDS ORDERED: ATROPINE OPHTH SOLN 1% 5ML BTL SUBLINGUAL PRN (15:51)
[2022-03-16] MEDS ORDERED: SCOPOLAMINE 1 MG/72 HR PATCH TRANSDERM SCH (16:00)
[2022-03-16] MEDS ORDERED: MORPHINE SULFATE (100 MG/2 ML) 100 MG in SODIUM CHLORIDE 0.9% 100 ML IV SCH (16:00)
[2022-03-16 18:27] VITALS: BP 100/43; PULSE 90; RESP 26
[2022-03-22] MEDS ORDERED: FAT EMULSION 20% 250 ML in EMPTY BAG 1 BAG IV SCH (09:00)
== END 2022-03-16 20:00 | disposition expired | DRG 871 ==
LOC: EC 11:42 → 2SICU 14:37
PROVIDERS: ADMIT Family Medicine; ATTEND Family Medicine
PROC: 0D9670Z Drainage of Stomach with Drainage Device, Via Natural or Artificial Opening (ICD-10-PCS; principal; 2022-03-10)
PROC: 30233N1 Transfusion of Nonautologous Red Blood Cells into Peripheral Vein, Percutaneous Approach (ICD-10-PCS; 2022-03-10)
PROC: 02HV33Z Insertion of Infusion Device into Superior Vena Cava, Percutaneous Approach (ICD-10-PCS; 2022-03-12)
PROC: 5A09357 Assistance with Respiratory Ventilation, Less than 24 Consecutive Hours, Continuous Positive Airway Pressure (ICD-10-PCS; 2022-03-14)
PROC: 3E0436Z Introduction of Nutritional Substance into Central Vein, Percutaneous Approach (ICD-10-PCS; 2022-03-15)
DX: A41.9 Sepsis, unspecified organism (principal); J18.9 Pneumonia, unspecified organism; J96.21 Acute and chronic respiratory failure with hypoxia; D62 Acute posthemorrhagic anemia; E87.20 Acidosis, unspecified; F33.9 Major depressive disorder, recurrent, unspecified; N17.9 Acute kidney failure, unspecified; I50.32 Chronic diastolic (congestive) heart failure; J44.0 Chronic obstructive pulmonary disease with (acute) lower respiratory infection; K55.9 Vascular disorder of intestine, unspecified; Z20.822 Contact with and (suspected) exposure to COVID-19; Z28.310 Unvaccinated for COVID-19; E03.9 Hypothyroidism, unspecified; E78.5 Hyperlipidemia, unspecified; F41.1 Generalized anxiety disorder; G89.29 Other chronic pain; H91.90 Unspecified hearing loss, unspecified ear; I11.0 Hypertensive heart disease with heart failure; J84.10 Pulmonary fibrosis, unspecified; K82.8 Other specified diseases of gallbladder; Z66 Do not resuscitate; Z51.5 Encounter for palliative care; I95.9 Hypotension, unspecified; Z99.81 Dependence on supplemental oxygen; N83.209 Unspecified ovarian cyst, unspecified side; R91.8 Other nonspecific abnormal finding of lung field; K44.9 Diaphragmatic hernia without obstruction or gangrene; I25.10 Atherosclerotic heart disease of native coronary artery without angina pectoris; R45.1 Restlessness and agitation; K57.30 Diverticulosis of large intestine without perforation or abscess without bleeding; I25.2 Old myocardial infarction; R41.0 Disorientation, unspecified; M54.9 Dorsalgia, unspecified; Z79.02 Long term (current) use of antithrombotics/antiplatelets; M19.90 Unspecified osteoarthritis, unspecified site; Z79.52 Long term (current) use of systemic steroids; Z79.82 Long term (current) use of aspirin; Z79.890 Hormone replacement therapy; Z79.899 Other long term (current) drug therapy; Z82.49 Family history of ischemic heart disease and other diseases of the circulatory system; Z87.891 Personal history of nicotine dependence; Z95.5 Presence of coronary angioplasty implant and graft; Z88.0 Allergy status to penicillin; Z88.8 Allergy status to other drugs, medicaments and biological substances
CPT/HCPCS: 36415; 36600; 43753; 51702; 71045; 71046; 74018; 74176; 80048; 80053; 82150; 82271; 82330; 82805; 83036; 83605; 83690; 83735; 84100; 84145; 84478; 85025; 85027; 85610; 85730; 86304; 86850; 86900; 86901; 86920; 87040; 87324; 87502; 87634; 87635; 93005; 94640; 94660; 96361; 96365; 96368; 96375; 99291